=== PATIENT | female | born 1965 | race Caucasian/White ===

== ENCOUNTER 2023-09-22 16:42 | Emergency (ER) | payer BC, SELFPAY ==
[2023-09-22] VITALS (11 sets, daily range): BP systolic 129–154; BP diastolic 64–84; PULSE 79–95; RESP 14–23; TEMP 36.5; O2SAT 94–99; BMI 45.6
--- NOTE | 2023-09-22 16:52 | ECG_ITS ---
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
--- NOTE | 2023-09-22 16:56 | CT_ITS ---
The [address] [address] Patient Name: BOBBY LUJAN MRN: [id number] date: 1965 Sex: F Assigned Patient Location: ER Current Patient Location: ER Accession/Order Number: [id number] Exam Date: 09/22/2023 18:22 Report Date: 09/22/2023 19:06 At the request of: PETER BLACKMON Procedure: CT abdomen pelvis w con EXAM: CT scan of the abdomen and pelvis using 100 mL of IV iodinated contrast. Oral contrast. Dose reduction technique used: Automated exposure control and/or adjustment of the mA and/or kV according to patient size and/or use of iterative reconstruction technique. REASON FOR EXAM: Constipation COMPARISON: None FINDINGS: Nonobstructing right calyceal tip renal stone. Colonic diverticulosis. Hepatomegaly measuring up to 22 cm. Right total hip arthroplasty. Moderate left hip degenerative change. Normal appendix. No free fluid in the abdomen or pelvis. No free intraperitoneal air. No dilated or thickened loops of small bowel or colon. No hydronephrosis or obstructing renal or ureteral calculi. Liver, pancreas, spleen, bilateral kidneys, and bilateral adrenal glands are otherwise unremarkable. No lymphadenopathy in the abdomen or pelvis. Remainder unremarkable. CT/CT abdomen pelvis w con IMPRESSION: No acute abnormalities in the abdomen or pelvis. Electronically authenticated by: NASRA SUMMERS Date: 09/22/2023 19:06
--- NOTE | 2023-09-22 16:57 | ED.GENADUL1 ---
HPI - General Adult General Chief complaint: Dizziness Stated complaint: Constipation, Dizziness Time Seen by Provider: 09/22/23 16:46 Source: patient Mode of arrival: walk-in Limitations: no limitations History of Present Illness HPI narrative: Patient is a 58-year-old female who presents to the emergency department for the evaluation of multiple complaints. For the last week, patient has not had a bowel movement. She states she has a history of diverticulitis and chronically has diarrhea as a result. She states she has had some low back pain which has been associated with diverticulitis for her in the past. She states she has not had a bowel movement, she has also felt lightheaded on standing. She has not had any sensation of spinning, headache, visual changes, chest pain or shortness of breath. She states she has had occasional vomiting since the weekend. She denies urinary symptoms. Related Data Previous Rx's Medication Instructions Recorded hyoscyamine sulfate 0.125 mg 0.125 mg PO Q6H PRN abdominal pain 09/22/23 tablet (Levsin) #12 tabs ondansetron 4 mg disintegrating 4 mg PO Q6H PRN nausea and 09/22/23 tablet vomiting #12 tabs peg 3350-electrolytes 236 240 ml PO Q10M #4,000 mL 09/22/23 gram-22.74 gram-6.74 gram-5.86 gram solution (Golytely) Allergies Allergy/AdvReac Type Severity Reaction Status Date / Time fluoxetine [From Prozac] Allergy Unknown Verified 09/22/23 16:52 PFSH PFSH Social History Smoking status: Former smoker Exam Constitutional Vital Signs, click to edit/add: Last Vital Signs Temp 97.7 F 09/22/23 16:46 Pulse 79 09/22/23 17:50 Resp 21 09/22/23 17:50 BP 129/64 09/22/23 17:31 Pulse Ox 96 09/22/23 17:50 O2 Del Method Room Air 09/22/23 16:46 Course Vital Signs Vital signs: Vital Signs Temperature 97.7 F 09/22/23 16:46 Pulse Rate 95 H 09/22/23 16:46 Respiratory Rate 20 09/22/23 16:46 Blood Pressure 154/84 H 09/22/23 16:46 Pulse Oximetry 99 09/22/23 16:46 Oxygen Delivery Method Room Air 09/22/23 16:46 Temperature 97.7 F 09/22/23 16:46 Pulse Rate 79 09/22/23 17:50 Respiratory Rate 21 09/22/23 17:50 Blood Pressure 129/64 09/22/23 17:31 Pulse Oximetry 96 09/22/23 17:50 Oxygen Delivery Method Room Air 09/22/23 16:46 Medical Decision Making MDM Narrative Medical decision making narrative: Lab studies within normal limits although lactic acid was elevated. Patient treated with IV fluids, Toradol, Zofran. EKG, CT of the abdomen and pelvis with IV and oral contrast within normal limits. Patient will be treated for constipation with GoLytely, Levsin and Zofran. Abdomen is soft and benign. Vital signs are within normal limits at discharge. Patient with no complaints of chest pain, shortness of breath or syncope. She is encouraged to increase fluids for home, follow-up closely with PCP and return to the ER if symptoms change or worsen. Medical Records Medical records reviewed: Yes I reviewed the patient's medical records Lab Data Lab results reviewed: Yes I reviewed the patient's lab results Labs: Lab Results 09/22/23 09/22/23 Range/Units 17:00 19:17 WBC 14.2 H (4.0-11.0) 10^3/uL RBC 4.60 (4.20-5.40) 10^6/uL Hgb 14.7 (12.0-16.0) g/dL Hct 44.8 (36.0-48.0) % MCV 97.4 (81.0-99.0) fL MCH 32.0 (26.7-34.0) pg MCHC 32.8 (29.9-35.2) g/dL RDW 12.9 (11.0-15.0) % Plt Count 243 (150-450) 10^3/uL MPV 10.9 (9.5-13.5) fL Seg Neuts % (Manual) 48.0 Lymphocytes % (Manual) 37.0 (20.5-60.0) % Monocytes % (Manual) 8.0 (1.7-12.0) % Eosinophils % (Manual) 7.0 (0.9-7.0) % Basophils % (Manual) 0.0 L (0.2-2.0) % Neutrophils # (Manual) 6.81 H (1.4-6.5) 10^3/uL Lymphocytes # (Manual) 5.25 H (1.20-3.80) 10^3/uL Monocytes # (Manual) 1.13 H (0.30-0.80) 10^3/uL Eosinophils # (Manual) 0.99 H (0.00-0.70) 10^3/uL Basophils # (Manual) 0.00 (0.00-0.10) 10^3/uL PT 9.8 (9.0-11.6) sec INR <0.93 Sodium 139 (136-145) mmol/L Potassium 3.9 (3.5-5.1) mmol/L Chloride 102 (98-107) mmol/L Carbon Dioxide 24.5 (21.0-32.0) mmol/L Anion Gap 16.4 BUN 16.0 (7.0-18.0) mg/dL Creatinine 0.89 (0.55-1.02) mg/dL Est GFR ( Amer) >60 (>=60) Est GFR (Non-Af Amer) >60 (>=60) BUN/Creatinine Ratio 18.0 Glucose 187 H (74-106) mg/dL Lactate 3.1 H* 1.7 (0.4-2.0) mmol/L Calcium 10.0 (8.5-10.1) mg/dL Total Bilirubin 0.6 (0.2-1.0) mg/dL AST 20 (15-37) U/L ALT 39 (14-59) U/L Alkaline Phosphatase 99 (46-116) U/L Troponin I High Sens 8.3 (4.0-51.3) pg/mL Total Protein 7.1 (6.4-8.2) g/dL Albumin 4.1 (3.4-5.0) g/dL Globulin 3.0 g/dL Albumin/Globulin Ratio 1.[address] scan - abdomen: Attestation: I have reviewed the pertinent imaging results. ECG Data Attestation: I personally reviewed and interpreted this ECG as follows: Discharge Plan Discharge Chief Complaint: Dizziness Clinical Impression: Lightheadedness, Constipation Patient Disposition: Home, Self-Care Time of Disposition Decision: 20:03 Condition: Good Prescriptions / Home Meds: New hyoscyamine sulfate [Levsin] 0.125 mg tablet 0.125 mg PO Q6H PRN (Reason: abdominal pain) Qty: 12 0RF ondansetron 4 mg tablet,disintegrating 4 mg PO Q6H PRN (Reason: nausea and vomiting) Qty: 12 0RF peg 3350-electrolytes [Golytely] 236-22.74-6.74 -5.86 gram recon soln 240 ml PO Q10M Qty: 4000 0RF Rx Instructions: until fecal effluent is clear Instructions: Constipation (ED), Lightheadedness (ED) Stand Alone Forms: Portal Instructions Referrals: VALENTINE KIRKPATRICK [Primary Care Provider] - 1 week
[2023-09-22] MEDS: 0.9 % SODIUM CHLORIDE 1,000 ML 1000 ML IV (17:09)
[2023-09-22] MEDS: KETOROLAC TROMETHAMINE 30 MG/ML VIAL IVP (17:09)
[2023-09-22] MEDS: ONDANSETRON PF 4 MG/2 ML VIAL IV (17:09)
[2023-09-22 17:22] LABS: Hematocrit 44.8 % (36.0-48.0); Hemoglobin 14.7 g/dL (12.0-16.0); Mean Corpuscular HGB Conc 32.8 g/dL (29.9-35.2); Mean Corpuscular Volume 97.4 fL (81.0-99.0); Mean Platelet Volume 10.9 fL (9.5-13.5); Platelet Count 243 10^3/uL (150-450); Red Cell Distribution Width 12.9 % (11.0-15.0); White Blood Count 14.2 10^3/uL (4.0-11.0)
[2023-09-22 17:38] LABS: Eosinophils Absolute Manual 0.99 10^3/uL (0.00-0.70); Lymphocytes Absolute Manual 5.25 10^3/uL (1.20-3.80); Monocytes Absolute Manual 1.13 10^3/uL (0.30-0.80); Segmented Neut Absolute Manual 6.81 10^3/uL (1.4-6.5)
[2023-09-22 17:39] LABS: Prothrombin Time 9.8 sec (9.0-11.6)
[2023-09-22 17:42] LABS: INR <0.93
[2023-09-22 17:44] LABS: Alanine Aminotransferase 39 U/L (14-59); Albumin Globulin Ratio 1.4; Albumin Level 4.1 g/dL (3.4-5.0); Alkaline Phosphatase 99 U/L (46-116); Anion Gap 16.4; Aspartate Amino Transferase 20 U/L (15-37); Bilirubin Total 0.6 mg/dL (0.2-1.0); Carbon Dioxide 24.5 mmol/L (21.0-32.0); Chloride 102 mmol/L (98-107); Estimated GFR (African America >60 (>=60); Estimated GFR (Non-African Ame >60 (>=60); Glucose 187 mg/dL (74-106); Potassium 3.9 mmol/L (3.5-5.1); Sodium 139 mmol/L (136-145); Total Protein 7.1 g/dL (6.4-8.2); Troponin I High Sensitivity 8.3 pg/mL (4.0-51.3)
[2023-09-22 17:45] LABS: Lactate/Lactic Acid 3.1 mmol/L (0.4-2.0)
[2023-09-22 19:52] LABS: Lactate/Lactic Acid 1.7 mmol/L (0.4-2.0)
== END 2023-09-22 20:27 | disposition home or self-care (01) ==
PROVIDERS: Physician Assistant; Emergency Provider Emergency Medicine Emergency Medical Services; PCP Family Medicine
DX: R42 Dizziness and giddiness (principal); K59.00 Constipation, unspecified
CPT/HCPCS: 36415; 74177; 80053; 83605; 84484; 85027; 85610; 93005; 96361; 96374; 96375; 99285; Q9967

== ENCOUNTER 2024-09-06 09:48 | Outpatient (OUT) | payer BC, SELFPAY ==
--- OUTSIDE RECORDS SUMMARY | 2024-09-06 10:07 | XMS_ITS | CCD ---
Author Organization [facility] Care Team Providers Care Machine Ii Engraver Name Role Phone MARYCHUY PARSONS Primary Care Physician CASIMIRO ., DR GRIJALVA Primary Care Unavailable HEMEYER ., DR GRIJALVA Admitting Unavailable HEMEYER ., DR GRIJALVA Attending Unavailable HEMEYER ., DR GRIJALVA Consulting Unavailable HEMEYER ., DR GRIJALVA Primary Care Unavailable NILL ., DR OMER Attending Unavailable NILL ., DR OMER Consulting Unavailable NILL ., DR OMER Admitting Unavailable HEMEYER ., DR GRIJALVA Primary Care Unavailable HAY ., DR CRUZ Attending Unavailable HAY ., DR CRUZ Consulting Unavailable HAY ., DR CRUZ Admitting Unavailable NILL, Stevie Bledsoe Attending Unavailable NILL, Stevie Bledsoe Attending Unavailable NILL, Stevie Bledsoe Attending Unavailable NILL, Stevie Bledsoe Attending Unavailable NILL, Stevie Bledsoe Attending Unavailable NILL, Stevie Bledsoe Admitting Unavailable NILL, Stevie R Attending Unavailable NILL, Stevie R Attending Unavailable NILL, Stevie R Attending Unavailable NILL, Stevie R Attending Unavailable Hemeyer El CANCHOLA Primary Care Provider [phone] El Kirkpatrick MD Unavailable [phone] EL KIRKPATRICK Attending Unavailable EL KIRKPATRICK Attending Unavailable EL KIRKPATRICK Attending Unavailable EL KIRKPATRICK Attending Unavailable EL KIRKPATRICK Attending Unavailable EL KIRKPATRICK Attending Unavailable RASHID SOLIZ Attending Unavailable EL KIRKPATRICK Attending Unavailable EL KIRKPATRICK Attending Unavailable El Kirkpatrick MD Primary Care Provider El Kirkpatrick MD Unavailable [phone] Allergies Allergy Classification Reported Allergen(s) Allergy Type Date of Onset Reaction(s) Facility (17 sources) FLUoxetine; Translations: [fluoxetine] Drug Allergy 03-09-2023 Unknown [facility] (16 sources) rOPINIRole; Translations: [ropinirole] Drug Allergy 05-09-2023 Unknown [facility] (1 source) FLUoxetine Drug Allergy [facility] (1 source) rOPINIRole Drug Allergy [facility] (11 sources) DULoxetine Drug Allergy 05-09-2023 Other [facility] Work Phone: (11 sources) metFORMIN Drug Allergy 08-30-2023 Diarrhea [facility] (1 source) metFORMIN Drug Allergy 03-09-2023 [facility] Medications Current Medications Medication Drug Class(es) Dates Sig (Normalized) Sig (Original) acetaminophen 325 mg / HYDROcodone bitartrate 5 mg oral tablet (1 source) Opioid Agonist Start: 11-05-2022 End: 11-10-2022 take 1 tablet by mouth every six hours for pain [place] 325 mg-5 mg oral tablet 1 tab(s), Oral, q6hr for pain, 15 tab(s), Refill(s) 0, take with food or milk max 4 per day buttock abscess, [facility], 170, cm, 11/05/22 11:31:00 EST, Height/Length Dosing, 136.5, kg, 11/05/22 11:31:00 EST, Weight Dosing Start Date: 11/05/22 Stop Date: 11/10/22 Status: Ordered amoxicillin 875 mg / clavulanate 125 mg oral tablet (1 source) Penicillin-class Antibacterial Start: 02-15-2023 End: 02-25-2023 take 1 tablet by mouth every twelve hours Augmentin 875 mg oral tablet = 1 tab(s), Oral, q12hr, X 10 day(s), # 20 tab(s), Refills(s) 0, Pharmacy: [facility]/pharmacy #[id number], 170, cm, 02/10/23 13:47:00 EDT, Height/Length Dosing, 138, kg, 02/10/23 13:47:00 EDT, Weight Dosing Start Date: 02/15/23 Stop Date: 02/25/23 Status: Ordered atorvastatin 20 mg oral tablet (16 sources) HMG-CoA Reductase Inhibitor Start: 08-27-2024 End: 12-11-2024 take 1 tablet by mouth once daily atorvastatin (Lipitor) 20 MG tablet Indications: Mixed dyslipidemia (CMS/HCC) Take 1 tablet (20 mg) by mouth Daily 30 tablet 08/27/2024 09/26/2024 Active Start: 11-05-2022 End: 2024 take 1 tablet by mouth in the morning atorvastatin (Lipitor) 20 MG tablet Indications: Mixed dyslipidemia (CMS/HCC) Take 1 tablet (20 mg) by mouth in the morning. 90 tablet 0 11/29/2023 2024 Active azelastine hydrochloride 0.137 mg/actuat metered dose nasal spray (1 source) Histamine-1 Receptor Antagonist Start: 07-02-2024 End: 07-02-2025 take 1 spray(s) nasal route in the morning azelastine (Astelin) 0.1 % nasal spray Indications: Non-recurrent acute suppurative otitis media of right ear without spontaneous rupture of tympanic membrane Administer 1 spray into each nostril in the morning and 1 spray before bedtime. Use in each nostril as directed. 30 mL 12 07/02/2024 07/02/2025 Active cephalexin 500 mg oral capsule (3 sources) Cephalosporin Antibacterial Start: 11-24-2023 End: 12-04-2023 take 2 capsules by mouth in the morning cephalexin (Keflex) 500 MG capsule Indications: Cellulitis of left ankle Take 2 capsules (1,000 mg) by mouth in the morning and 2 capsules (1,000 mg) before bedtime. Do all this for 10 days. 40 capsule 0 11/24/2023 12/04/2023 Active doxycycline hyclate 100 mg oral capsule (11 sources) Tetracycline-class Drug Start: 11-16-2023 End: 12-02-2023 doxycycline (Vibramycin) 100 MG capsule Indications: Cellulitis of left ankle , Venous stasis dermatitis of left lower extremity Take 1 capsule (100 mg) by mouth in the morning and 1 capsule (100 mg) before bedtime. Do all this for 10 days. Take with at least 8 ounces (large glass) of water. 20 capsule 0 11/22/2023 12/02/2023 Active Dulaglutide (Trulicity) 4.5 MG/0.5ML solution auto-injector (1 source) Start: 08-27-2024 End: 02-23-2025 Dulaglutide (Trulicity) 4.5 MG/0.5ML solution auto-injector Indications: Type 2 diabetes mellitus with other diabetic kidney complication (CMS/HCC) , Type 2 diabetes mellitus with hyperglycemia, without long-term current use of insulin (CMS/HCC) Inject 4.5 mg under the skin 1 (one) time per week 6 mL 1 08/27/2024 02/23/2025 Active dulaglutide (Trulicity) 4.5 MG/0.5ML solution pen-injector (10 sources) Start: 08-31-2023 End: 02-27-2024 dulaglutide (Trulicity) 4.5 MG/0.5ML solution pen-injector Indications: Type 2 diabetes mellitus with other diabetic kidney complication (CMS/HCC) , Type 2 diabetes mellitus with hyperglycemia, without long-term current use of insulin (CMS/HCC) Inject 4.5 mg under the skin 1 (one) time per week. 6 mL 1 08/31/2023 02/27/2024 Active empagliflozin 25 mg oral tablet (12 sources) Sodium-Glucose Cotransporter 2 Inhibitor Start: 08-27-2024 End: 11-25-2024 take 1 tablet by mouth once daily empagliflozin (Jardiance) 25 MG Indications: Diabetic nephropathy associated with type 2 diabetes mellitus (HCC) (CMS/HCC) Take 1 tablet (25 mg) by mouth Daily 90 tablet 08/27/2024 11/25/2024 Active Start: 08-31-2023 End: 02-27-2024 take 1 tablet by mouth in the morning empagliflozin (Jardiance) 25 MG Indications: Diabetic nephropathy associated with type 2 diabetes mellitus (HCC) (CMS/HCC) Take 1 tablet (25 mg) by mouth in the morning. 30 tablet 0 11/29/2023 12/29/2023 Active glipiZIDE 5 mg oral tablet (1 source) Sulfonylurea Start: 08-27-2024 End: 09-26-2024 take 1 tablet by mouth in the morning glipiZIDE (Glucotrol) 5 MG tablet Indications: Type 2 diabetes mellitus with other diabetic kidney complication (CMS/HCC) Take 1 tablet (5 mg) by mouth in the morning and 1 tablet (5 mg) in the evening. Take before meals. 60 tablet 08/27/2024 09/26/2024 Active hyoscyamine sulfate 0.125 mg oral tablet (10 sources) Start: 09-22-2023 take 1 tablet by mouth every six hours as needed hyoscyamine (Anaspaz,Levsin) 0.125 MG tablet Take 0.125 mg by mouth every 6 (six) hours if needed 0 09/22/2023 Active levoFLOXacin 750 mg oral tablet (2 sources) Quinolone Antimicrobial Start: 02-10-2023 End: 02-17-2023 take 1 tablet by mouth once daily Levaquin 750 mg Tab 750 mg = 1 tab(s), Oral, Daily, X 7 day(s), # 7 tab(s), Refills(s) 0, Pharmacy: [facility]/pharmacy #[id number], 170, cm, 02/10/23 13:47:00 EDT, Height/Length Dosing, 138, kg, 02/10/23 13:47:00 EDT, Weight Dosing Start Date: 02/10/23 Stop Date: 02/17/23 Status: Ordered 3 ml liraglutide 6 mg/ml pen injector (5 sources) GLP-1 Receptor Agonist Start: 11-05-2022 Victoza 6 mg/mL subcutaneous injection Refills(s) 0 Start Date: 11/05/22 Status: Ordered losartan potassium 25 mg oral tablet (16 sources) Angiotensin 2 Receptor Paolo Start: 08-27-2024 End: 09-26-2024 take 1 tablet by mouth once daily losartan (Cozaar) 25 MG tablet Indications: Type 2 diabetes mellitus with other diabetic kidney complication (CMS/HCC) Take 1 tablet (25 mg) by mouth Daily 30 tablet 08/27/2024 09/26/2024 Active Start: 05-09-2023 End: 2024 take 1 tablet by mouth in the morning losartan (Cozaar) 25 MG tablet Indications: Type 2 diabetes mellitus with other diabetic kidney complication (CMS/HCC) Take 1 tablet (25 mg) by mouth in the morning. 90 tablet 0 11/29/2023 2024 Active Start: 11-05-2022 take 1 tablet by marcio th once daily losartan 25 mg Tab 25 mg = 1 tab(s), Oral, Daily, Refills(s) 0 Start Date: 11/05/22 Status: Ordered metFORMIN hydrochloride 1000 mg oral tablet (13 sources) Biguanide Start: 10-31-2023 End: 12-30-2023 metFORMIN (Glucophage) 1000 MG tablet Indications: Type 2 diabetes mellitus with hyperglycemia, without long-term current use of insulin (CMS/HCC) Take 1 in the AM and 1/2 in the PM. 135 tablet 0 11/29/2023 Active Start: 02-10-2023 take 1 tablet by marcio th twice daily metformin 1000 mg Tab 1,000 mg = 1 tab(s), Oral, BID, Refills(s) 0 Start Date: 02/10/23 Status: Ordered nabumetone 750 mg oral tablet (16 sources) Nonsteroidal Anti-inflammatory Drug Start: 08-31-2023 End: 05-23-2025 take 2 tablets by mouth once daily nabumetone (Relafen) 750 MG tablet Indications: Pain in extremity, unspecified extremity Take 2 tablets (1,500 mg) by mouth Daily 180 tablet 3 05/28/2024 05/23/2025 Active Start: 11-03-2022 take 1 tablet by marcio th twice daily nabumetone 750 mg Tab 750 mg = 1 tab(s), Oral, BID, Refills(s) 0 Start Date: 11/03/22 Status: Ordered nystatin 100 unt/mg topical powder (11 sources) Polyene Antifungal Start: 06-21-2023 nystatin (Mycostatin) 719052 UNIT/GM powder Indications: Candidiasis Apply 1 application topically if needed for rash. 60 g 1 06/21/2023 Active ondansetron 4 mg disintegrating oral tablet (10 sources) Serotonin-3 Receptor Antagonist Start: 09-22-2023 take 1 tablet by mouth every eight hours as needed ondansetron ODT (Zofran-ODT) 4 MG disintegrating tablet Take 4 mg by mouth every 8 (eight) hours if needed 0 09/22/2023 Active pioglitazone 30 mg oral tablet (1 source) Peroxisome Proliferator Receptor alpha Agonist, Peroxisome Proliferator Receptor gamma Agonist, Thiazolidinedione Start: 05-21-2024 End: 11-17-2024 take 1 tablet by mouth once daily pioglitazone (Actos) 30 MG tablet Indications: Type 2 diabetes mellitus with other diabetic kidney complication (CMS/HCC) Take 1 tablet (30 mg) by mouth Daily 90 tablet 1 05/21/2024 11/17/2024 Active polyethylene glycol 3350 003858 mg / potassium chloride 2970 mg / sodium bicarbonate 6740 mg / sodium chloride 5860 mg / sodium sulfate 11652 mg powder for oral solution (10 sources) Osmotic Laxative Start: 09-22-2023 take 4000 mL by mouth once GaviLyte-G 236 g solution Take 4,000 mL by mouth 1 (one) time 0 09/22/2023 Active spironolactone 50 mg oral tablet (16 sources) Aldosterone Antagonist Start: 08-27-2024 End: 11-25-2024 take 1 tablet by mouth in the morning spironolactone (Aldactone) 50 MG tablet Indications: Venous (peripheral) insufficiency Take 1 tablet (50 mg) by mouth in the morning and 1 tablet (50 mg) before bedtime. 180 tablet 08/27/2024 11/25/2024 Active Start: 05-09-2023 take 1 tablet by marcio th in the morning spironolactone (Aldactone) 50 MG tablet Indications: Venous (peripheral) insufficiency Take 1 tablet (50 mg) by mouth in the morning and 1 tablet (50 mg) before bedtime. 180 tablet 1 05/09/2023 Active Start: 11-05-2022 take 1 tablet by marcio th twice daily spironolactone 25 mg Tab 25 mg = 1 tab(s), Oral, BID, Refills(s) 0 Start Date: 11/05/22 Status: Ordered triamcinolone acetonide 0.005 mg/mg topical ointment (10 sources) Corticosteroid Start: 11-16-2023 End: 12-16-2023 triamcinolone (Kenalog) 0.5 % ointment Indications: Cellulitis of left ankle , Venous stasis dermatitis of left lower extremity Apply topically 2 (two) times a day 30 g 0 11/16/2023 12/16/2023 Active Completed/Discontinued Medications Medication Drug Class(es) Dates Sig (Normalized) Sig (Original) fluconazole 200 mg oral tablet (4 sources) Azole Antifungal Start: 08-20-2024 End: 09-03-2024 take 1 tablet by mouth once daily fluconazole (Diflucan) 200 MG tablet Indications: Enteritis, noninfectious Take 1 tablet (200 mg) by mouth Daily for 14 days 14 tablet 08/20/2024 09/03/2024 Start: 11-24-2023 End: 12-04-2023 take 1 tablet by mouth in the morning fluconazole (Diflucan) 200 MG tablet Indications: Candidiasis Take 1 tablet (200 mg) by mouth in the morning for 10 days. 10 tablet 0 11/24/2023 12/04/2023 Active Problems Active Problems Problem Classification Problem Date Documented Date Episodic/Chronic Chronic kidney disease (1 source) Chronic kidney disease stage 2; Translations: [Chronic kidney disease, stage 2 (mild)] Onset: 12-02-2023 12-02-2023 Chronic Chronic obstructive pulmonary disease and bronchiectasis (11 sources) Pulmonary emphysema; Translations: [Other emphysema] Onset: 03-10-2023 03-10-2023 Chronic Diabetes mellitus with complications (20 sources) Type 2 diabetes mellitus; Translations: [Type 2 diabetes mellitus with hyperglycemia] Onset: 04-14-2022 Resolved: 05-09-2023 03-10-2023 Chronic Diabetes mellitus without complication (5 sources) Diabetes mellitus 11-03-2022 Chronic Disorders of lipid metabolism (20 sources) Hypercholesterolemia; Translations: [Dyslipidemia] Onset: 03-10-2023 Resolved: 11-23-2023 11-03-2022 Chronic Menopausal disorders (16 sources) Menopausal syndrome; Translations: [Disorder associated with menstruation AND/OR menopause] Onset: 03-10-2023 12-28-2013 Chronic Mood disorders (16 sources) Depressive disorder; Translations: [Recurrent major depression in partial remission] Onset: 05-09-2023 12-28-2013 Chronic Mycoses (1 source) Candidiasis; Translations: [Candidiasis, unspecified] 11-24-2023 Episodic Nutritional deficiencies (16 sources) Vitamin D deficiency; Translations: [Vitamin D deficiency, unspecified] Onset: 03-22-2023 11-03-2022 Chronic Osteoarthritis (16 sources) Osteoarthritis of hip; Translations: [Osteoarthritis of hip, unspecified] Onset: 03-22-2023 08-17-2016 Chronic Other diseases of veins and lymphatics (4 sources) Stasis dermatitis; Translations: [Venous insufficiency (chronic) (peripheral)] 11-22-2023 Episodic Other diseases of veins and lymphatics (12 sources) Peripheral venous insufficiency; Translations: [Venous insufficiency (chronic) (peripheral)] Onset: 03-10-2023 03-10-2023 Episodic Other lower respiratory disease (11 sources) Fibrosis of lung; Translations: [Pulmonary fibrosis, unspecified] Onset: 03-10-2023 03-10-2023 Chronic Other nutritional; endocrine; and metabolic disorders (17 sources) Body mass index 40+ - severely obese; Translations: [Body mass index (BMI) 45.0-49.9, adult] Onset: 03-22-2023 11-05-2022 Chronic Other nutritional; endocrine; and metabolic disorders (1 source) Morbid (severe) obesity due to excess calories; Translations: [MORBID SEVERE OBES D/T EXCESS SHAMAR] Onset: 11-02-2022 Chronic Other nutritional; endocrine; and metabolic disorders (1 source) Body mass index (BMI) 45.0-49.9, adult; Translations: [BODY MASS INDEX BMI 45.0-49.9 ADULT] Onset: 11-02-2022 Chronic Other nutritional; endocrine; and metabolic disorders (12 sources) Morbid obesity; Translations: [Morbid (severe) obesity due to excess calories] Onset: 03-10-2023 03-10-2023 Chronic Other skin disorders (2 sources) Sebaceous cyst of skin; Translations: [Sebaceous cyst] Onset: 02-10-2023 Episodic Residual codes; unclassified (5 sources) Sleep apnea 11-03-2022 Chronic Residual codes; unclassified (4 sources) Obstructive sleep apnea (adult) (pediatric); Translations: [OBSTRUCTIVE SLEEP APNEA] Onset: 05-12-2022 Chronic Residual codes; unclassified (11 sources) Hypoxia; Translations: [Idiopathic sleep related nonobstructive alveolar hypoventilation] Onset: 03-10-2023 03-10-2023 Chronic Residual codes; unclassified (11 sources) Obstructive sleep apnea syndrome; Translations: [Obstructive sleep apnea (adult) (pediatric)] Onset: 03-10-2023 03-10-2023 Chronic Residual codes; unclassified (11 sources) Idiopathic sleep related non-obstructive alveolar hypoventilation; Translations: [Idiopathic sleep related nonobstructive alveolar hypoventilation] Onset: 06-13-2022 03-22-2023 Chronic Residual codes; unclassified (5 sources) Tobacco user 11-05-2022 Episodic Skin and subcutaneous tissue infections (16 sources) Abscess of buttock; Translations: [Cutaneous abscess of buttock] Onset: 11-01-2022 11-05-2022 Episodic Past or Other Problems Problem Classification Problem Date Documented Da te Episodic/Chronic Genitourinary symptoms and ill-defined conditions (1 source) Microalbuminuria; Translations: [Proteinuria, unspecified] Onset: 12-02-2023 12-02-2023 Episodic Intestinal infection (16 sources) Clostridium difficile colitis; Translations: [Enterocolitis due to Clostridium difficile, not specified as recurrent] Onset: 03-22-2023 Resolved: 05-15-2024 08-17-2016 Episodic Comment on above: april 2016 Mood disorders (11 sources) Mood disorders Onset: 03-15-2023 03-15-2023 Other aftercare (1 source) Other senior living (current) drug therapy; Translations: [OTH REGULATORY AFFAIRS SPECIALIST CURRENT DRUG THERAPY] Onset: 11-02-2022 Episodic Other aftercare (12 sources) Polypharmacy ; Translations: [Other senior living (current) drug therapy] Onset: 04-14-2022 03-22-2023 Episodic Other connective tissue disease (11 sources) Pain in limb; Translations: [Pain in unspecified limb] Onset: 03-10-2023 03-10-2023 Episodic Other gastrointestinal disorders (16 sources) Diarrhea; Translations: [Diarrhea, unspecified] Onset: 03-22-2023 Resolved: 05-15-2024 08-17-2016 Episodic Other skin disorders (14 sources) Infection of sebaceous cyst; Translations: [Sebaceous cyst] Onset: 03-22-2023 Resolved: 05-09-2023 02-10-2023 Episodic Pulmonary heart disease (11 sources) H/O: pulmonary embolus; Translations: [Personal history of pulmonary embolism] Onset: 05-18-2022 03-22-2023 Episodic Residual codes; unclassified (11 sources) Menopause present; Translations: [Asymptomatic menopausal state] Onset: 04-14-2022 03-22-2023 Episodic Substance-related disorders (18 sources) Smoker; Translations: [Nicotine dependence, cigarettes, uncomplicated] Onset: 11-02-2022 Resolved: 11-23-2023 08-17-2016 Chronic Comment on above: Added secondary to d ocumentation in Social History. Results Test Name Value Interpretation Reference Range Facility General Surgery Office/Clini c Noteon 04-03-2023 General Surgery Office/Clinic Note Chief Complaint post operative follow up HPI Staff 16 day post operative follow up post excisional biopsy epidermal cyst mid back. Denies discomfort, bleeding or drainage. Sutures intact. History of Present Illness s/p excisional biopsy previously infected epidermal cyst mid back; doing well, denies pain or drainage; pathology consistent with epidermal cyst. Review of Systems ROS - Provider Constitutional: no fever, no sweats, no weight loss. Eyes: no glasses, no blurred vision, no visual loss. ENMT: no dentures, no hoarseness, no swallowing difficulties, no hearing loss, no ear infection(s), no nose bleeds. Cardiovascular: normal blood pressure, no chest pain, regular heartbeat, no heart murmur. Respiratory: no shortness of breath, no cough, no asthma, no wheezing. Gastrointestinal: no nausea, no vomiting, no diarrhea, no constipation, no blood in stool, no change in bowel habits, no abdominal pain, no hepatitis. Genitourinary: no kidney stones, no urine infection, no dysuria. Musculoskeletal: no pain, no weakness. Skin: no changing moles, no rash, no skin lumps. Neurologic: no seizures, no epilepsy, no headache. Psychiatric: no emotional or psychiatric problem. Heme/Lymph: no bleeding problems, no anemia, no blood clots, no transfusions. Allergy/Immunologic: no swollen lymph nodes/glands, no IV drug abuse. Other: Additional ROS info: Except as noted in the above Review of Systems and in the History of Present Illness, all other systems have been reviewed and are negative or noncontributory. Physical Exam skin: incision healing well, no erythema or drainage, no ecchymosis Assessment/Plan 1. Infected sebaceous cyst (L72.3: Sebaceous cyst) doing well, sutures removed; call with problems/questions. Local infection of the skin and subcutaneous tissue, unspecified (L08.9: Local infection of the skin and subcutaneous tissue, unspecified) Follow-up With When Contact Information WYATT CANCHOLA, COCO Neal Only if needed [address] [place] [address]- Additional Instructions: Problem List/Past Medical History Ongoing Abscess of right buttock BMI 45.0-49.9, adult Depression Diabetes Hypercholesteremia Infected sebaceous cyst Menopause Sleep apnea Smoker Tobacco abuse Vitamin D deficiency Historical No qualifying data Procedure/Surgical History Excision of cyst (03/16/2023), right total hip arthroplasty (09/07/2016), right hip injection with fluroscopy (11/23/2013), Colonoscopy, Colonoscopy, Colonoscopy, left distal biceps reconstruction - 04/20/11, Partial colectomy. Medications atorvastatin 20 mg Tab, 20 mg= 1 tab(s), Oral, Daily losartan 25 mg Tab, 25 mg= 1 tab(s), Oral, Daily metformin 1000 mg Tab, 1000 mg= 1 tab(s), Oral, BID nabumetone 750 mg Tab, 750 mg= 1 tab(s), Oral, BID spironolactone 25 mg Tab, 25 mg= 1 tab(s), Oral, BID Victoza 6 mg/mL subcutaneous injection Allergies FLUoxetine (Unknown) rOPINIRole (Unknown) Social History Alcohol - Denies Alcohol Use, 11/05/2022 Substance Abuse - Denies Substance Abuse, 11/05/2022 Tobacco Former smoker, quit more than 30 days ago Tobacco Use:. Never Smokeless Tobacco Use:. Cigarettes, 2 per day. Started age 22.0 Years. Stopped age 57 Years. Yes, 02/10/2023 Family History Metastatic cancer: Father. Primary malignant neoplasm of lung: Mother. Rheumatoid arthritis: Sister. Immunizations Vaccine Date Status Comments influenza virus vaccine, inactivated - Not Given Patient Refuses SARS-CoV-2 (COVID-19) mRNA BNT-162b2 vax 01/30/2021 Recorded influenza virus vaccine, inactivated 09/08/2016 Given Nursing Judgment [facility] Comment on above: Result Comment: Electronically Signed By : Stevie SCHNEIDER MD\.br\Date and Time Signed: 04/03/23 19:49 EDT Ambulatory Visit Summaryon 0 04-01-2023 Ambulatory Visit Summary DOMONIQUE GILBERT :1965 Visit Date:04/01/2023 Ambulatory Visit Instructions Your Care Team Attending Physician - Stevie SCHNEIDER MD Primary Care Physician - MARYCHUY PARSONS DO This Is Your Medications List atorvastatin (atorvastatin 20 mg Tab) liraglutide (Victoza 6 mg/mL subcutaneous injection) losartan (losartan 25 mg Tab) metformin (metformin 1000 mg Tab) nabumetone (nabumetone 750 mg Tab) spironolactone (spironolactone 25 mg Tab) Procedures Performed Excision of cyst (03/16/2023), right total hip arthroplasty (09/07/2016), right hip injection with fluroscopy (11/23/2013), Colonoscopy, Colonoscopy, Colonoscopy, left distal biceps reconstruction - 04/20/11, Partial colectomy. Medications What How Much When Instructions Unchanged atorvastatin (atorvastatin 20 mg Tab) 1 Tablets By Mouth Every day Unchanged liraglutide (Victoza 6 mg/ mL subcutaneous injection) Unchanged losartan (losartan 25 mg Tab) 1 Tablets By Mouth Every day Unchanged metformin (metformin 1000 mg Tab) 1 Tablets By Mouth 2 times a day Unchanged nabumetone (nabumetone 750 mg Tab) 1 Tablets By Mouth 2 times a day Unchanged spironolactone (spironolactone 25 mg Tab) 1 Tablets By Mouth 2 times a day Allergies FLUoxetine (Unknown) rOPINIRole (Unknown) Problems Ongoing - Any problem that you are currently receiving treatment for. Abscess of right buttock BMI 45.0-49.9, adult Depression Diabetes Hypercholesteremia Infected sebaceous cyst Menopause Sleep apnea Smoker Tobacco abuse Vitamin D deficiency Normal [facility] Pathology Noteon 03-27-2023 Pathology Note [id number]#1 .00CD:127 [facility] Operative Reporton Operative Report [id number]#1 .00CD:127 [facility] Pre-Certification Formon Pre-Certificatio n Form [id number]# 1.00CD:127 [facility] Ambulatory Visit Summaryon 0 02-15-2023 Ambulatory Visit Summary DOMONIQUE GILBERT :1965 Visit Date:02/15/2023 Ambulatory Visit Instructions Your Diagnosis Infected sebaceous cyst Local infection of the skin and subcutaneous tissue, unspecified Your Care Team Attending Physician - WYATT CANCHOLA, Stevie Bledsoe Primary Care Physician - MARYCHUY PARSONS DO This Is Your Medications List amoxicillin-clavulana te (Augmentin 875 mg oral tablet) atorvastatin (atorvastatin 20 mg Tab) levofloxacin (Levaquin 750 mg Tab) liraglutide (Victoza 6 mg/mL subcutaneous injection) losartan (losartan 25 mg Tab) metformin (metformin 1000 mg Tab) nabumetone (nabumetone 750 mg Tab) spironolactone (spironolactone 25 mg Tab) Procedures Performed right total hip arthroplasty (09/07/2016), right hip injection with fluroscopy (11/23/2013), Colonoscopy, Colonoscopy, Colonoscopy, left distal biceps reconstruction - 04/20/11, Partial colectomy. Medications What How Much When Why Instructions New amoxicillin-clavulana te (Augmentin 875 mg oral tablet) 1 Tablets By Mouth Every 12 hours Infected sebaceous cyst Duration: 10 Days Pickup at [facility]/pharmacy #[id number] Unchanged atorvastatin (atorvastatin 20 mg Tab) 1 Tablets By Mouth Every day Unchanged levofloxacin (Levaquin 750 mg Tab) 1 Tablets By Mouth Every day Infected sebaceous cyst Duration: 7 Days Unchanged liraglutide (Victoza 6 mg/ mL subcutaneous injection) Unchanged losartan (losartan 25 mg Tab) 1 Tablets By Mouth Every day Unchanged metformin (metformin 1000 mg Tab) 1 Tablets By Mouth 2 times a day Unchanged nabumetone (nabumetone 750 mg Tab) 1 Tablets By Mouth 2 times a day Unchanged spironolactone (spironolactone 25 mg Tab) 1 Tablets By Mouth 2 times a day Pharmacy Information [facility]/pharmacy #[id number]: [address], [place] [id number] [phone] Allergies FLUoxetine (Unknown) rOPINIRole (Unknown) Problems Ongoing - Any problem that you are currently receiving treatment for. Abscess of right buttock BMI 45.0-49.9, adult Depression Diabetes Hypercholesteremia Infected sebaceous cyst Menopause Sleep apnea Smoker Tobacco abuse Vitamin D deficiency Normal [facility] General Surgery Office/Clini c Noteon 02-15-2023 General Surgery Office/Clinic Note Chief Complaint re-evaluate infected sebaceous cyst HPI Staff Presents to re-evaluated infected sebaceous cyst. Last evaluation 02/10. Reports increase in discomfort and drainage. She is taking ATB as prescribed. History of Present Illness patient presents for reevaluation of inflamed/infected sebaceous cyst; patient on Levaquin daily, reports still with soreness and drainage. Review of Systems ROS - Provider Constitutional: no fever, no sweats, no weight loss. Eyes: no glasses, no blurred vision, no visual loss. ENMT: no dentures, no hoarseness, no swallowing difficulties, no hearing loss, no ear infection(s), no nose bleeds. Cardiovascular: normal blood pressure, no chest pain, regular heartbeat, no heart murmur. Respiratory: no shortness of breath, no cough, no asthma, no wheezing. Gastrointestinal: no nausea, no vomiting, no diarrhea, no constipation, no blood in stool, no change in bowel habits, no abdominal pain, no hepatitis. Genitourinary: no kidney stones, no urine infection, no dysuria. Musculoskeletal: no pain, no weakness. Skin: no changing moles, no rash, yes skin lumps. Neurologic: no seizures, no epilepsy, no headache. Psychiatric: no emotional or psychiatric problem. Heme/Lymph: no bleeding problems, no anemia, no blood clots, no transfusions. Allergy/Immunologic: no swollen lymph nodes/glands, no IV drug abuse. Other: Additional ROS info: Except as noted in the above Review of Systems and in the History of Present Illness, all other systems have been reviewed and are negative or noncontributory. Physical Exam skin: mid back with 2 cm area of induration, no cellulitis, mild ecchymosis; small central pore with cloudy drainage; no fluctuance, no skin necrosis. Assessment/Plan 1. Infected sebaceous cyst (L72.3: Sebaceous cyst) keep area clean and dry; clean with rubbing alcohol bid; don't squeeze area; keep gauze pad over area until it seals up; additional 10 day course of Augmentin since patient is going out of town; call with problems/questions. Ordered: amoxicillin-clavulana te, = 1 tab(s), Oral, q12hr, X 10 day(s), # 20 tab(s), Refills(s) 0, Pharmacy: [facility]/pharmacy #[id number], 170, cm, 02/10/23 13:47:00 EDT, Height/Length Dosing, 138, kg, 02/10/23 13:47:00 EDT, Weight Dosing Local infection of the skin and subcutaneous tissue, unspecified (L08.9: Local infection of the skin and subcutaneous tissue, unspecified) Follow-up No qualifying data available Problem List/Past Medical History Ongoing Abscess of right buttock BMI 45.0-49.9, adult Depression Diabetes Hypercholesteremia Infected sebaceous cyst Menopause Sleep apnea Smoker Tobacco abuse Vitamin D deficiency Historical No qualifying data Procedure/Surgical History right total hip arthroplasty (09/07/2016), right hip injection with fluroscopy (11/23/2013), Colonoscopy, Colonoscopy, Colonoscopy, left distal biceps reconstruction - 04/20/11, Partial colectomy. Medications atorvastatin 20 mg Tab, 20 mg= 1 tab(s), Oral, Daily Augmentin 875 mg oral tablet, 1 tab(s), Oral, q12hr Levaquin 750 mg Tab, 750 mg= 1 tab(s), Oral, Daily losartan 25 mg Tab, 25 mg= 1 tab(s), Oral, Daily metformin 1000 mg Tab, 1000 mg= 1 tab(s), Oral, BID nabumetone 750 mg Tab, 750 mg= 1 tab(s), Oral, BID spironolactone 25 mg Tab, 25 mg= 1 tab(s), Oral, BID Victoza 6 mg/mL subcutaneous injection Allergies FLUoxetine (Unknown) rOPINIRole (Unknown) Social History Alcohol - Denies Alcohol Use, 11/05/2022 Substance Abuse - Denies Substance Abuse, 11/05/2022 Tobacco Former smoker, quit more than 30 days ago Tobacco Use:. Never Smokeless Tobacco Use:. Cigarettes, 2 per day. Started age 20.0 Years. Stopped age 57 Years. Yes, 02/10/2023 Family History Metastatic cancer: Father. Primary malignant neoplasm of lung: Mother. Rheumatoid arthritis: Sister. Immunizations Vaccine Date Status Comments influenza virus vaccine, inactivated - Not Given Patient Refuses SARS-CoV-2 (COVID-19) mRNA BNT-162b2 vax 01/30/2021 Recorded influenza virus vaccine, inactivated 09/08/2016 Given Nursing Judgment [facility] Comment on above: Result Comment: Electronically Signed By : WYATT CANCHOLA, Stevie Mercado\Date and Time Signed: 02/15/23 16:02 EDT Consent for Procedure/Surger yon 02-11-2023 Consent for Procedure/Surger y [id number]#1 .00CD:127 Normal [facility] Ambulatory Visit Summaryon 0 02-10-2023 Ambulatory Visit Summary DOMONIQUE GILBERT :1965 Visit Date:02/10/2023 Ambulatory Visit Instructions Your Care Team Attending Physician - WYATT CANCHOLA, Stevie Bledsoe Primary Care Physician - MARYCHUY PARSONS DO This Is Your Medications List atorvastatin (atorvastatin 20 mg Tab) liraglutide (Victoza 6 mg/mL subcutaneous injection) losartan (losartan 25 mg Tab) metformin (metformin 1000 mg Tab) nabumetone (nabumetone 750 mg Tab) spironolactone (spironolactone 25 mg Tab) Procedures Performed right total hip arthroplasty (09/07/2016), right hip injection with fluroscopy (11/23/2013), Colonoscopy, Colonoscopy, Colonoscopy, left distal biceps reconstruction - 04/20/11, Partial colectomy. Discharge Vitals Heart Rate (Peripheral) 96 Respiratory Rate 16 Blood Pressure 138/83 Height 170 cm Height 67 in Weight 138 kg Weight 303.6 lb BMI 47.75 Medications What How Much When Instructions Unchanged atorvastatin (atorvastatin 20 mg Tab) 1 Tablets By Mouth Every day Unchanged liraglutide (Victoza 6 mg/ mL subcutaneous injection) Unchanged losartan (losartan 25 mg Tab) 1 Tablets By Mouth Every day Unchanged metformin (metformin 1000 mg Tab) 1 Tablets By Mouth 2 times a day Unchanged nabumetone (nabumetone 750 mg Tab) 1 Tablets By Mouth 2 times a day Unchanged spironolactone (spironolactone 25 mg Tab) 1 Tablets By Mouth 2 times a day Allergies FLUoxetine (Unknown) rOPINIRole (Unknown) Problems Ongoing - Any problem that you are currently receiving treatment for. Abscess of right buttock BMI 45.0-49.9, adult Depression Diabetes Hypercholesteremia Menopause Sleep apnea Smoker Tobacco abuse Vitamin D deficiency Normal [facility] Ambulatory Visit Summaryon 0 11-17-2022 Ambulatory Visit Summary DOMONIQUE GILBERT :1965 Visit Date:11/12/2022 Ambulatory Visit Instructions Your Diagnosis Abscess of right buttock Your Care Team Attending Physician - WYATT CANCHOLA, Stevie Bledsoe Primary Care Physician - MARYCHUY PARSONS DO This Is Your Medications List Contact prescribing physician if questions or concerns atorvastatin (atorvastatin 20 mg Tab) liraglutide (Victoza 6 mg/mL subcutaneous injection) losartan (losartan 25 mg Tab) nabumetone (nabumetone 750 mg Tab) spironolactone (spironolactone 25 mg Tab) Procedures Performed right total hip arthroplasty (09/07/2016), right hip injection with fluroscopy (11/23/2013), Colonoscopy, Colonoscopy, Colonoscopy, left distal biceps reconstruction - 04/20/11, Partial colectomy. What to do next You Need to Schedule the Following Appointments Follow Up with WYATT CANCHOLA, COCO Neal When: Only if needed Where: [address] [place] [address]- Medications What How Much When Instructions Unchanged atorvastatin (atorvastatin 20 mg Tab) 1 Tablets By Mouth Every day Contact prescribing physician if questions or concerns Unchanged liraglutide (Victoza 6 mg/ mL subcutaneous injection) Contact prescribing physician if questions or concerns Unchanged losartan (losartan 25 mg Tab) 1 Tablets By Mouth Every day Contact prescribing physician if questions or concerns Unchanged nabumetone (nabumetone 750 mg Tab) 1 Tablets By Mouth 2 times a day Contact prescribing physician if questions or concerns Unchanged spironolactone (spironolactone 25 mg Tab) 1 Tablets By Mouth 2 times a day Contact prescribing physician if questions or concerns Allergies FLUoxetine (Unknown) rOPINIRole (Unknown) Problems Ongoing - Any problem that you are currently receiving treatment for. Abscess of right buttock BMI 45.0-49.9, adult Depression Diabetes Hypercholesteremia Menopause Sleep apnea Smoker Tobacco abuse Vitamin D deficiency Normal [facility] General Surgery Office/Clini c Noteon 11-12-2022 General Surgery Office/Clinic Note Chief Complaint follow up abscess HPI Staff Presents to follow up right buttock abscess. Packing daily with less packing required. Stopped sitz bath 3 days ago. ATB completed Tuesday. Wound cx with strep B. History of Present Illness f/u right buttock abscess, still packing area daily, much less packing, minimal soreness, no drainage, no fevers; no longer doing sitz baths; completed antibiotic therapy. Review of Systems ROS - Provider Constitutional: no fever, no sweats, no weight loss. Eyes: no glasses, no blurred vision, no visual loss. ENMT: no dentures, no hoarseness, no swallowing difficulties, no hearing loss, no ear infection(s), no nose bleeds. Cardiovascular: normal blood pressure, no chest pain, regular heartbeat, no heart murmur. Respiratory: no shortness of breath, no cough, no asthma, no wheezing. Gastrointestinal: no nausea, no vomiting, no diarrhea, no constipation, no blood in stool, no change in bowel habits, no abdominal pain, no hepatitis. Genitourinary: no kidney stones, no urine infection, no dysuria. Musculoskeletal: no pain, no weakness. Skin: no changing moles, no rash, no skin lumps. Neurologic: no seizures, no epilepsy, no headache. Psychiatric: no emotional or psychiatric problem. Heme/Lymph: no bleeding problems, no anemia, no blood clots, no transfusions. Allergy/Immunologic: no swollen lymph nodes/glands, no IV drug abuse. Other: Additional ROS info: Except as noted in the above Review of Systems and in the History of Present Illness, all other systems have been reviewed and are negative or noncontributory. Physical Exam right medial buttock with no cellulitis or induration; 4 mm open area, no drainage or fluctuance; tracks 4 cm Assessment/Plan 1. Abscess of right buttock (L02.31: Cutaneous abscess of buttock) wound repacked, covered with abd pad; continue packing until it fills in; call with problems/questions. Follow-up With When Contact Information WYATT CANCHOLA, COCO Neal Only if needed [address] [place] [address]- Additional Instructions: Problem List/Past Medical History Ongoing Abscess of right buttock BMI 45.0-49.9, adult Depression Diabetes Hypercholesteremia Menopause Sleep apnea Smoker Tobacco abuse Vitamin D deficiency Historical No qualifying data Procedure/Surgical History right total hip arthroplasty (09/07/2016), right hip injection with fluroscopy (11/23/2013), Colonoscopy, Colonoscopy, Colonoscopy, left distal biceps reconstruction - 04/20/11, Partial colectomy. Medications atorvastatin 20 mg Tab, 20 mg= 1 tab(s), Oral, Daily losartan 25 mg Tab, 25 mg= 1 tab(s), Oral, Daily nabumetone 750 mg Tab, 750 mg= 1 tab(s), Oral, BID spironolactone 25 mg Tab, 25 mg= 1 tab(s), Oral, BID Victoza 6 mg/mL subcutaneous injection Allergies FLUoxetine (Unknown) rOPINIRole (Unknown) Social History Alcohol - Denies Alcohol Use, 11/05/2022 Substance Abuse - Denies Substance Abuse, 11/05/2022 Tobacco 10 or more cigarettes (1/2 pack or more)/day in last 30 days Tobacco Use:. Never Smokeless Tobacco Use:. Cigarettes, 2 per day. Started age 20.0 Years. Yes, 11/05/2022 Family History Metastatic cancer: Father. Primary malignant neoplasm of lung: Mother. Rheumatoid arthritis: Sister. Immunizations Vaccine Date Status Comments influenza virus vaccine, inactivated - Not Given Patient Refuses SARS-CoV-2 (COVID-19) mRNA BNT-162b2 vax 01/30/2021 Recorded influenza virus vaccine, inactivated 09/08/2016 Given Nursing Judgment Normal [facility] Comment on above: Result Comment: Electronically Signed By : WYATT CANCHOLA, Stevie Mercado\Date and Time Signed: 11/12/22 16:00 EST Coding Summary.on 11-09-2022 Coding Summary. [id number] G h0bWw+PGhlYWQ+RV2ZKPV dQ78npZYaoX1YS9aVNF4I SFBVWOXTOJ0CWF8jdTO8L FmbS9PwyuHa OylphLYfVG93NVl4NIA6w XqjNBhlaH7bfIUcZ0t4Vy TpLT58fO34OZhqEQFmGkD 3LjZpbjsgbWFy Y8kwXgDtsRQhXzs+PHRhY mxlIHdpZHRoPScxMDAlJy UiyPhtKE5dBn6lGBWvWQS vbGxhcHNlOiBj i7rpCBArUFxqSE2kbAfvY 4FzeVC2BJCgx2s1Xo19zI I+UGEgVLM9aSsvFKjvi43 7CwSgn0ziCTB1 rXIcUXdvCBP4J74cm4Z9Z AXpBDWkSKA3oIV7rT8ffQ msrovzG0TtrELjBzF9KLV 0tTMlcO5avKvd kjcqwY0wQny+X92GEW2FK FDSAH3GEid0W0UwKchsnW I+UA21CKGjAF12pIVlmIK kz3tmyRp4YsTs WPQfFIZ5dTsdRTftd8MhS JCcJ73luBGar4S3DQOgkF umzIYkLfYnaCO7cI9xQLt cyvaoh1mtvmae Tbjyz6imxu50iC07K11sS CzlSBEuTJZ3CVSxUUSvsS vcgn8ltU8jFx6+LHvef1u xb2skvNv7CsPz XGGdvfMhqPebHBP0v7WfZ i88U0QhtWlql5QeQpt6oq 48bHEwd4J0qCA8OZaiVXX vjC4mVTjbVsE4 FCCvAiEnvP47eOGbJTcbA i7vrRaeeOdtHA7qGACpda tnWBXrcA8gOBKjdJJifUt jRG9pJSTrbcsn x819ClOsBIS4UWZntQAeZ 5NkvE5jAsPrGPMhAOViV6 ZldXXyXDmvF853TMeoYsY 5RCLrxkZjT2Tl EFLwnCckAyE8l8L4Bl4Km 0GmfcizGJL9ZEorTXFuOl Z9JmCjVjN9F8DjPar0ACK kaLgcJJ4uD9Lg CVYbsydhhoudjBF5OTZoL QUeeD55oTIrDWocHs6og7 T8w530RIWpNWTlrY85Kk3 udDogMTBwdCBU rU3ymuatt0thtcuqCmDoN QNrCFr5OXu2YNVgcUcyKq ZkVAV9ZeC0JIN4zSLjsP9 slRcabpczfB3g Oyc+S65xuH5gYFA5BBQ0j cpdNQNmaoRsJO14OL02C0 RyPjwvdGFibGU+PGRpdiB jiWmaID6oXtMv q9fjy4NgVAceX4GkRQYuS HrhAhf5VTRwULU5wYY8dB 3kQEXkELxcq3K9nCN0Q3X eczDfnp4xc2hm RROmUPigK32kxEAfv1B2J YLyyYR5EGVqhMufYvJnkC 93Oyc+UJVbcSnwz8BbWbi ld4ozx8admRc5 RsLzBCZudlHgkFnrDKX6l 7YxPu46J86lDJsfQYMmIJ LgNDSvBEEbhYrknf1nuJ6 wIi8+PGNvbCB3 gWA8pJ8rCZGiMeX2TBwpG 570TqUviMEtMtpyo5lrw5 rpdQz3DwVpBYUamhHsqLc nHNP3e8NyLt22 W00cYFxvBECwJRUkWLWqB HFspVhlus9mhJ4oUe0+PC 3rr5ygwa44gS98uLE+PHR yEMQ6kPkiARzk LRVdbO6vOBkuQgH9JMPfM uSsiD88hREfPDdmIa0rtO gsiMkrUS6aTRXdafkpd42 6KrYbn2dvWNIs bZYeBCsqJAA8Y26kh7F4V FPiXSXnRTF4tHF4wR7hiY lnbjogbGVmdDsgdmVydGl aWOhjFUqcJ012 IHRvcDsnPlBhdGllbnQgT jAoRWu4V2XfCvy9HMAipX aaVI6aoMCnHBqfFr6uyFw qhWsoZG9rMDHe uuzaw672GhUpt1blQYTfn CQlLItrROC9W56jb1M5BH NxVHHrWXY2rEE9tP9mrTb nbjogbGVmdDsg rcXfwYyiMRakPBbzX145C HRvcDsnPkJpcnRoIERhdG B3PN97UT78fLIgy8B0eBK 9H2ChYKSfpvik hqabfFF6EZIkSLIgyX28S g6lpBdlAx4eUDNiMJF5ZB DiaLAdL7EwoS3iWmRsBZP pFMLjK2ZcdBEc AEzlK715UQjgYzI1ZRDdn dLsR6ZrLZEdkCnpGdK0a8 D8Vj4ST5Y8QI56CS20nAA oh9J5kQH0J9Dq BCVgzpcpafkxwXP3XCEuC FLduU61Nb2sbVexFy6nVA AoUQI0YWQpaLFyF5YriC2 yOiAjMDAwMDAw V7WcrYDmYXhtS784PRsxC rI5ZESzcyAiA2SqDRZgtN fnEiR4a9A4Gp4ZVQy6BT5 2TW97zXAch8Z5 lJN1M5EcXBXdbqzmpgfim HW7OWPxPEVggK48Ss1qsJ woWy2iXPBlEYF4NKGeyFS jE1QqgT7oHhLo UGJhPWJwQ3LmyRNeSWgxU 063NHsaTvH2GDJaacLlX0 GwDMRkhZozBeQ7g8S5Vr3 GFUAoPT21FTM8 cAS5JX82ZJ83H7EkQkijc GFibGU+PHRhYmxlIHdpZH RoPScxMDAlJyBzdHlsZT0 bHt9wGPCdLYLx xMgtkGHcPpYcn5zaXTZhB VskGD7enRycD6QphMK5MJ Jle2d5Zp88V46gM0QurZU +KMAzmPX7sRW2 kX1xSuXsViN8FTmoM832W iPdeRLbCzyce5yla5xztY s2VoX8QPUcdgDnpNktCKQ 2h2TwDy14N50u IHdpZHRoPSIxNSUiIHZhb Okwqd0xmG2dFi4+PGNvbC S5bHS1pK6lMqNxCvR1DWl qB411TfLmyJDt Nscxf7gjq8hveXn4ShTnY OPyuvFsiQsnGKE3c3UhVp 41M4HxpSolc9ZfQhd7yn3 1zXGoj1U4rPF2 D3SqIZOmpwgqcSFklAtvE J7uYUKqiaajVSPuvP8tVX XhZ4k4AiZiWsM2WCrgI5U aowM8JUAbwEKm TZtxCMX7Y09eq0X8LOXsJ JEnVSE5sSP9vQ4fuKtfgv ogbGVmdDsgdmVydGljYWw hYHhyV809GCYm pTpyEOGbtS1fTEInxOHbi JdaDA1fIYBlfmwjReOWFU 4PZVQSDF4XSHcjjSX+PHR hIYP1aRhhFCfr IMCsjH9yFRGvD1k8MkNqB tB6KIblH5NmWOLvxxuhCw 63sU3wJoTsFfV2XOecN8M eurD3HQZrnQBk NLowDEB1I22ec0N5FQYyZ WDrRRC0tSV7xI0skIyzpr ogbGVmdDsgdmVydGljYWw yEZxtC284CBWq gEayYrE3FiEaSsA8ZlH5T 6FwToe3LXKwcBreNL7cpF TrUFijBi3djWszsQvaJG5 wNTBpbjtwYWRk fG7gIKTkaPVxoBbzXA9rZ ZLzowjid385RtFcAVR5KJ WumNNwY5QsmS2pDbYdOWM jRBClN1XzwBAj UVbxL723DWgvDtG9VEDzz eNjS2BdUTFghGziLaU1h0 V0Lh20JCIEETTmkmnoeCA +EYHiMAO8iKlu BChsSHKemE0eASWdS4u3Q zBhGuT7XZvbO9KcGATerb htCv33gW0aExLaAdQ3VUs rW6EnuoZ6NOMd hSSlPPfqLQB5R26tb2N8B ZDwGKQcNQZ4fUU0iH6oxB lnbjogbGVmdDsgdmVydGl fYFvhHAivD780 IHRvcDsnPkZlbWFsZTwvd GQ+OMLbUQU5hPboCYqlVU YyrN6jCTVkN9c6OpCxIcS 4RTjrO9VgCWEt jhraKq05zW0rVwUxYuD6K PmhG1OnheW4MTOpqDNpBL ioEUT6S93un6K6OTCmGKY rHMZ6hWU5oT2c bGlnbjogbGVmdDsgdmVyd YogLOezKSpsU574SBVstK zkUkooIgPQjf1kKL7hRdu vdGQ+FY74cr82 B6LqIiyzPfw3INXyGKD6z HA0dG8nPJUjIGxnh9Y3pJ B3E8CeiyOglx9qs0rmQDO yKJlhM98hxYAe i8I2GVSihQC6BAVzgRtyE xCveK32Zdd+PGNvbGdyb3 UbPucmf1wla7gjfWq9TqB wJSIgdmFsaWdu XEH3o3NjWa72I12kMYplH HRoPSIzMCUiIHZhbGlnbj 7esM7zGh0+FBVfrVZ9jCA 5cQ5dIpUbKxM9 XRpkX309IsPegKMsDxzpm 4yqk2uzbQb9XdMrZLPtid SiaMxkTYL6w1KzMg45O4I lfHcfq0JhJnz6 jy27wQYym9J8vCM2P0XdA JLjidddpJLosBlbYL0oOS MggcesJEPwzU4nBLDzF9a 5VvUlDzZ5QAgn J9OlbsO5HPPriYTeZQYnh TMTdG0jqlvlz3gdflqsPc KsSZSlRFh1JZr2HLGnpHn cNqEcWRP4MhH7 BLB1lZJkuR3izKcnuncha G9wOyc+YRh7y1cmtBUlSR 0jwEH6XN89JK45oULnr2W 9jAU2G3UxEYUl ltozhoecvOP2NFZsMZLjn H78Qk4loWlrOm6eGPEtLK W6VWUqnZWiC7XtsD5rVyJ pFQHbJKDuF8Au gNNqCHnuN597VQhrAhB3J YUdspMrJ7ZzWFIlbBfwPy B0z4H5Cg1VCH40TE31OS1 0fMVpn3C8cAS8 Z6VgVDKchlphlxjflJR6Y CRsQWUjlK76Un7tcRrmYd 7rQGWlTXD9KUPmpKOpB4Y ihB5bHzIfDDPt EGMcG2MtrFRnISnjD603L AfjDdH9ECJhzcRuG6OyWS XlcOltLrI4s6E1Oy2JMb6 9DO02PY31dQWs j2Y6dQW9K8LpOUQspaxil mnzoMJ9PIQqNREsdS60Ky 5obUokFd6dBXInEYT9KGK eqXTjB2PhjQ1u MeGnOINfYMAkZ8MxvXGkA BeaX795FBobHcQ1KGSgmx VuW2IfZPLjrVbdJrO7g0Y 2Mv3BWHnckto3 Z9GfQfemeMQ+XY22EHXaX M79cODmkZWyv7lvtVx6Hg AtNKHbTCR8sTynFEehz7W yZKUzS47jiSLu c2U6 (more content not included)... Normal [facility] Provider Letter FTMCon 11-05 Provider Letter [facility] November 05, 2022 DOMONIQUE GILBERT [address] [place] [address] DOMONIQUE GILBERT 1965 To Whom It May Concern, Please excuse above patient from work 11/05/22-11/12/22.. Sincerely, Dr. Stevie Schneider MD General Surgery Normal [facility] Physician Referralon 023 Physician Referral [id number]:127 Normal [facility] SCREENING MAMMOGRAM W/ESTHER, BILATERAL*on 05-05-2022 SCREENING MAMMOGRAM W/ESTHER, BILATERAL* COMPARISON: Initial baseline examination. TECHNIQUE: 2D and 3D Tomosynthesis of the right and left breasts was performed. FINDINGS: Breast composition demonstrates almost entirely fat. No suspicious microcalcifications, dominant mass lesions, or distortion is present. IMPRESSION: BI-RADS 1- Negative Mammogram Board Certified Radiologist. Accredited by the ACR and FDA. MAMMOGRAPHY IS VERY IMPORTANT TO YOUR HEALTH. THE CURRENT [employer] [employer] AND [employer] GUIDELINES RECOMMENDS ANNUAL MAMMOGRAPHY BEGINNING AT AGE 40 THIS FACILITY USES A REMINDER SYSTEM TO ENSURE ALL PATIENTS RECEIVE REMINDER NOTIFICATIONS AT THE APPROPRIATE TIME BASED ON THE RECOMMENDATIONS OF THIS EXAM. Report reported and signed by Mike Hein on 05/05/2022 0929 Normal [facility] Specialist XR Bone Density (DEXA)on XR Bone Density (DEXA) EXAM: Left Femur Bone Density FINDINGS: Left Femur bone density obtained with a [employer] whole body system: RegionBMComQig-AdultA ge-Matched Total(g/cm2)(%)T-Scor e(%)Z-Score Mean0.5669644.67120.3 Impression: The mean BMD and corresponding T-score indicated above indicate Normal Bone Mass and places the patient at no significant risk for fracture. This information can serve as a baseline with which to compare future studies. EXAM: Left Forearm Bone Density FINDINGS: Left Forearm bone density obtained with a [employer] whole body system: RegionBMDYoung-AdultA ge-Matched Total(g/cm2)(%)T-Scor e(%)Z-Score Mean0.9387269.41814.3 Impression: The mean BMD and corresponding T-score indicated above indicate Normal Bone Mass and places the patient at no significant risk for fracture. This information can serve as a baseline with which to compare future studies. EXAM: AP Lumbar Bone Density FINDINGS: AP Spine bone density obtained with a [employer] whole body system: RegionBMDiassessoung-AdultA ge-Matched Total(g/cm2)(%)T-Scor e(%)Z-Score L1-[id number]. 8 Impression: The mean BMD and corresponding T-score indicated above indicate Normal Bone Mass and places the patient no significant risk for fracture. This information can serve as a baseline with which to compare future studies. Comment: The T-score is the primary focus of the interpretation of a patient???s bone mineral density measurement. The T-score is the number of standard deviations an individual is above or below the mean value for a young female having normal bone mass. The WHO defines osteoporosis based on the T-score value??? +1.0 to ???0.9: Normal bone mass -1.0 to -2.5: Osteopenia and thus may be at future risk of fracture -2.6 to ???5: Osteoporosis and ???at significantly increased risk of fracture??? A Z-Score of -2.0 or lower is defined as ???below the expected range for age??? and a Z-Score above -2.0 is ???within the expected range for age.??? Osteoporosis cannot be diagnosed in men under the age of 50 on the basis of BMD alone. Per 2019 ISCD guidelines, Z-Scores (not T-Scores) are preferred when reporting data in premenopausal females and males less than 50 years of age. Report reported and signed by Mike Hein on 05/05/2022 1050 Normal [facility] US venous duplex LE BIon US venous duplex LE BI [facility] [place] [address] Ultrasound Report Signed Patient: Domonique Gilbert MR#: [id number] 7 : 1965 Acct:[id number] Age/Sex: 56 / F ADM Date: 07/09/21 Loc: Room: Type: [facility] Attending Dr: Evelyn Garza MD Ordering Provider: Evelyn Garza MD Date of Service: 07/09/21 US/US venous duplex LE BI: leg edema,SOB Copies to: Evelyn Garza MD BILATERAL LOWER EXTREMITY VENOUS DUPLEX INDICATION: Swollen painful legs PROCEDURE: Color-flow duplex scanning is used to interrogate the deep venous system of the right and left lower extremities. The common femoral vein, femoral vein and popliteal vein show good compressibility with normal proximal and distal augmentation. The posterior tibial and peroneal veins are compressible. US/US venous duplex LE BI IMPRESSION: NO EVIDENCE FOR DEEP VEIN THROMBOSIS OR PROXIMAL SUPERFICIAL THROMBOPHLEBITIS IN THE RIGHT OR LEFT LOWER EXTREMITY. Impression dictated by: Chilango Smith M.D.07/10/2021 1:03 PM Dictation Location: [facility]04 Tech: Kathy Driver Transcribed By: [facility] 07/10/21 1303 Dictated By: Chilango Smith MD 07/10/21 1303 Signed By: 07/10/21 1303 Normal [facility] B-Type Natriuretic Peptideon 07-09-2021 Natriuretic peptide B (Bld) [Mass/Vol] 25.0 pg/mL Normal 5-100 [facility] Comment on above: Result Comment: PERFORMED BY: [place] [address] PATHOLOGIST DENTAL NURSE VLADISLAV LEYVA M.D. Performed By: #### B MP, BNP #### [address] Basic Metabolic Panelon 06-18 Calcium [Mass/Vol] 9.0 mg/dL Normal 8.2-10.2 [facility] Comment on above: Result Comment: PERFORMED BY: [place] [address] PATHOLOGIST DENTAL NURSE VLADISLAV LEYVA M.D. Performed By: #### B MP, BNP #### [place] [address] [place] Chloride [Moles/Vol] 105 mmol/L Normal 95-114 [facility] Comment on above: Performed By: #### BMP, BNP #### [place] [address] [place] CO2 [Moles/Vol] 20.9 mmol/L Low 22.0-30.0 [facility] Comment on above: Performed By: #### BMP, BNP #### [address] Creatinine [Mass/Vol] 0.62 mg/dL Normal 0.44-1.03 [facility] Comment on above: Performed By: #### BMP, BNP #### [address] [place] [address] [place] Estimated GFR ( Sheryl > 60 Normal [facility] Comment on above: Result Comment: GFR estimated reference range: According to KDOQI guidelines, <60 ml/min/1.73m2 is sufficient to diagnose a patient with chronic kidney disease. Performed By: #### B MP, BNP #### [facility] [address] [place] [address] [place] Estimated GFR (Non- Am > 60 Normal [facility] Comment on above: Performed By: #### BMP, BNP #### [facility] [address] [place] [address] [place] Glucose [Mass/Vol] 234 mg/dL High 70-100 [facility] Comment on above: Result Comment: Random Glucose Reference Range is dependent on time and content of last meal. Glucose of more than 200 mg/dL in a nonstressed, ambulatory subject supports the diagnosis of Diabetes Mellitus. ADA recommended reference range Performed By: #### B MP, BNP #### [place] [address] [place] Potassium [Moles/Vol] 4.2 mmol/L Normal 3.5-5.1 [facility] Comment on above: Performed By: #### BMP, BNP #### [place] [address] [place] Sodium [Moles/Vol] 137 mmol/L Normal 136-146 [facility] Comment on above: Performed By: #### BMP, BNP #### [place] [address] [place] Urea nitrogen [Mass/Vol] 12 mg/dL Normal -23 [facility] Comment on above: Performed By: #### BMP, BNP #### [place] [address] [place] XR chest 2V*on 07-09-2021 XR chest 2V* [facility] [place] [address] [place] [address] XRay Report Signed Patient: Domonique Gilbert MR#: [id number] 7 : 1965 Acct:[id number] Age/Sex: 56 / F ADM Date: 07/09/21 Loc: UL [facility]: Evelyn Garza MD Ordering Provider: Evelyn Garza MD Date of Service: 07/09/21 XR/XR chest 2V*: leg edema,SOB Copies to: Evelyn Garza MD CHEST STUDY, 2 VIEWS: CLINICAL INFORMATION: Shortness of breath started today. Leg edema. Chronic smoker. COMPARISON: 12/01/2020 FINDINGS: The frontal and lateral projections of the chest were submitted. The size of the cardiopericardial silhouette is unremarkable. There is no pneumothorax or pulmonary congestion. Mild chronic interstitial thickening is noted without acute infiltrate or pleural effusion. There is a mild thoracic spondylosis. XR/XR chest 2V* IMPRESSION: NO ACUTE INTRATHORACIC PROCESS. MILD CHRONIC INTERSTITIAL THICKENING. Impression dictated by: Onesimo Salazar M.D.07/09/2021 1:05 PM Dictation Location: [place] [address] Transcribed By: [facility] 07/09/21 1305 Dictated By: Onesimo Salazar MD 07/09/21 1302 Signed By: 07/09/21 1305 Normal [facility] CT angio chest PE protocolon 06-26-2021 CT angio chest PE protocol [facility] [place] [address] [place] [address] CT Scan Report Signed Patient: Domonique Gilbert MR#: [id number] 7 : 1965 Acct:[id number] Age/Sex: 56 / F ADM Date: 06/26/21 Loc: CT Room: [facility]: Evelyn Garza MD Ordering Provider: Evelyn Garza MD Date of Service: 06/26/21 CT/CT angio chest PE protocol: COVID Copies to: Evelyn Garza MD CT ANGIOGRAM OF THE CHEST, PULMONARY EMBOLISM PROTOCOL: CLINICAL INFORMATION: Shortness of breath, fatigue, elevated d-dimer. COVID positive on 06/10/2021. TECHNIQUE: Following intravenous injection of 70 mL of Isovue-[address] scans of the chest were obtained using pulmonary embolism protocol. Coronal and sagittal reconstructed images, as well as volume rendered CT pulmonary angiographic images were also submitted. FINDINGS: Lungs: There is no pneumothorax. No central pulmonary embolism is noted. Small intraluminal filling defect is noted within couple subsegmental branches of the right lower lobe posteriorly, best demonstrated on axial image #79 and coronal image #63. Minimal atelectasis at the right lung base posteriorly is noted. Mild chronic interstitial thickening is demonstrated bilaterally. Mild peripheral chronic emphysematous lung changes are shown at the lung apices, more pronounced on the right. No generalized pulmonary fibrosis or bronchiectasis is noted. There is no pleural effusion. Mediastinum and otto: There is no evidence of dissection of the thoracic aorta which shows no significant focal dilatation. There is no prominent mediastinal lymphadenopathy. Slight right hilar lymphadenopathy is noted, probably of no clinical significance. There is no pericardial effusion. Axilla: There is no significant axillary lymphadenopathy bilaterally. Bony thorax: There is no compression fracture or localized bony destruction to the thoracic spine which shows mild spondylosis. Bilateral ribs are intact. Upper abdomen: The upper abdomen shows unremarkable appearance to the visualized adrenal glands. CT/CT angio chest PE protocol IMPRESSION: MINIMAL PULMONARY EMBOLISM TO THE SUBSEGMENTAL BRANCHES OF THE RIGHT LOWER LOBE. MINIMAL ATELECTASIS AT THE RIGHT LUNG BASE. MILD CHRONIC EMPHYSEMATOUS LUNG CHANGES TO THE APICES. SLIGHT RIGHT HILAR LYMPHADENOPATHY, PROBABLY OF NO CLINICAL SIGNIFICANCE. The CT exam was performed using one or more of the following dose reduction techniques: Automated exposure control, adjustment of the MA and/or Kv according to patient size, or use of the iterative reconstruction technique. Impression dictated by: Onesimo Salazar M.D.06/26/2021 11:00 AM Dictation Location: [place] [address] Transcribed By: [facility] 06/26/21 1100 Dictated By: Onesimo Salazar MD 06/26/21 1047 Signed By: 06/26/21 1100 Normal [facility] COVID-19 Lab Corpon 06-10-20 SARS-CoV-2 (COVID-19) RNA DEYVI+probe Ql (Unsp spec) Detected Critically abnormal Not Detected [facility] Comment on above: Order Comment: Results called at 1128 on 06/12/21. Healthcare Worker?: N Result Comment: Nancy ents who have a positive COVID-19 test result may now have treatment options. Treatment options are available for patients with mild to moderate symptoms and for hospitalized patients. Visit our website at [email or web address] for resources and information. This nucleic acid amplification test was developed and its performance characteristics determined by [employer]. Nucleic acid amplification tests include RT- PCR and TMA. This test has not been FDA cleared or approved. This test has been authorized by FDA under an Emergency Use Authorization (EUA). This test is only authorized for the duration of time the declaration that circumstances exist justifying the authorization of the emergency use of in vitro diagnostic tests for detection of SARS-CoV-2 virus and/or diagnosis of COVID-19 infection under section 564(b)(1) of the Act, 21 U.S.C. 360bbb-3(b) (1), unless the authorization is terminated or revoked sooner. When diagnostic testing is negative, the possibility of a false negative result should be considered in the context of a patient's recent exposures and the presence of clinical signs and symptoms consistent with COVID-19. An individual without symptoms of COVID-19 and who is not shedding SARS-CoV-2 virus would expect to have a negative (not detected) result in this assay. PERFORMED BY: [place] [id number] PATHOLOGIST DENTAL NURSE VLADISLAV LEYVA M.D. Performed By: #### C ORONAVIRUS #### [facility] , Vital Signs Date Time Vital Sign Value Performing Clinician Facility 11-24-2023 09:33-0500 Body height 170.2 cm El Kirkpatrick MD Work Phone: [facility] 11-24-2023 09:33-0500 Body mass index (BMI) [Ratio] 46.05 kg/m2 El Kirkpatrick MD Work Phone: [facility] 11-24-2023 09:33-0500 Body weight 133.36 kg El Kirkpatrick MD Work Phone: [facility] 11-22-2023 08:03-0500 Body height 170.2 cm El Kirkpatrick MD Work Phone: [facility] 11-22-2023 08:03-0500 Body mass index (BMI) [Ratio] 46.05 kg/m2 El Kirkpatrick MD Work Phone: [facility] 11-22-2023 08:03-0500 Body weight 133.36 kg El Kirkpatrick MD Work Phone: [facility] 11-16-2023 10:33-0500 Body height 170.2 cm El Kirkpatrick MD Work Phone: [facility] 11-16-2023 10:33-0500 Body mass index (BMI) [Ratio] 46.05 kg/m2 El Kirkpatrick MD Work Phone: [facility] 11-16-2023 10:33-0500 Body weight 133.36 kg El Kirkpatrick MD Work Phone: [facility] 02-10-2023 13:38-0400 Blood Pressure Location Stevie WYATT [facility] 02-10-2023 13:38-0400 Diastolic blood pressure 83 mm[Hg] Stevie SCHNEIDER [facility] 02-10-2023 13:38-0400 Heart rate 96 /min Stevie NILL [facility] 02-10-2023 13:38-0400 Respiratory rate 16 /min Stevie LUL [facility] 02-10-2023 13:38-0400 Systolic blood pressure 138 mm[Hg] Stevie LUL [facility] Encounters Encounter Date Encounter Type Care Provider Facility Start: 08-24-2024 End: 08-27-2024 Refill El Kirkpatrick MD Work Phone: [facility] 100 Comment on above: Venous (peripheral) insufficiency Start: 07-02-2024 End: 07-02-2024 ambulatory EL KIRKPATRICK Not Available Start: 06-26-2024 End: 06-26-2024 ambulatory RASHID SOLIZ Not Available Start: 05-21-2024 End: 05-21-2024 ambulatory EL KIRKPATRICK Not Available Start: 02-20-2024 End: 02-20-2024 ambulatory EL KIRKPATRICK Not Available Start: 11-29-2023 Bamboo flowsheet El stringer MD Work Phone: [facility] Start: 11-29-2023 Bamboo flowsheet El stringer MD Work Phone: [facility] Start: 11-29-2023 Refill El rodney MD Work Phone: [facility] Comment on above: Type 2 diabetes siena itus with hyperglycemia, without long-term current use of insulin (CMS/[facility]) Start: 11-29-2023 End: 11-29-2023 ambulatory EL KIRKPATRICK Not Available Start: 11-24-2023 Bamboo flowsheet El stringer MD Work Phone: [facility] Start: 11-24-2023 Bamboo flowstami stringer MD Work Phone: [facility] Start: 11-24-2023 End: 11-24-2023 Office outpatient visit 15 minutes El Kirkpatrick MD Work Phone: [facility] Comment on above: Candidiasis (Primary Dx); Cellulitis of left ankle; Venous stasis dermatitis of left lower extremity; Morbid obesity (CMS/HCC); BMI 45.0-49.9, adult (CMS/HCC); Polypharmacy; Current smoker Start: 11-24-2023 End: 11-24-2023 ambulatory EL KIRKPATRICK Not Available Start: 11-23-2023 Chart abstracting El xie MD Work Phone: [facility] Start: 11-22-2023 Chart abstracting El xie MD Work Phone: [facility] Start: 11-22-2023 End: 11-22-2023 ambulatory EL KIRKPATRICK Not Available Start: 11-22-2023 End: 11-22-2023 Office outpatient visit 10 minutes El Kirkpatrick MD Work Phone: [facility] Comment on above: Cellulitis of left a nkle; Venous stasis dermatitis of left lower extremity Start: 11-21-2023 Chart abstracting El xie MD Work Phone: [facility] Start: 11-16-2023 End: 11-16-2023 ambulatory EL KIRKPATRICK Not Available Start: 11-16-2023 End: 11-16-2023 Office outpatient visit 15 minutes El Kirkpatrick MD Work Phone: [facility] Comment on above: Cellulitis of left a nkle (Primary Dx); Venous stasis dermatitis of left lower extremity; Type 2 diabetes mellitus with hyperglycemia, without long-term current use of insulin ([facility]) Start: 08-30-2023 End: 08-30-2023 ambulatory EL KIRKPATRICK Not Available Start: 04-01-2023 End: 04-02-2023 ambulatory [facility] Start: 04-01-2023 End: 04-01-2023 Patient encounter procedure Stevie SCHNEIDER [facility] Start: 03-16-2023 End: 03-17-[address] EL KIRKPATRICK . Facility: Start: 02-15-2023 End: 02-16-2023 ambulatory Stevie SCHNEIDER Facility:[facility] Start: 02-15-2023 End: 02-15-2023 Patient encounter procedure Stevie SCHNEIDER [facility] Start: 02-10-2023 End: 02-11-2023 ambulatory Stevie R NILMary Facility: [facility] Start: 02-10-2023 End: 02-10-2023 Patient encounter procedure Stevie SCHNEIDER [facility] Start: 11-12-2022 End: 11-13-2022 ambulatory Stevie R NILL Facility:[facility] Start: 11-12-2022 End: 11-12-2022 Patient encounter procedure Stevie R NILL General Surgery Nill/Said [facility]senio Start: 11-05-2022 End: 11-06-2022 ambulatory Stevie R NILL Facility:[facility] Start: 11-05-2022 End: 11-06-2022 ambulatory Stevie R NILL Facility: [place] Start: 11-05-2022 End: 11-05-2022 Lab Drop off Stevie R NILL [facility] Start: 11-03-2022 ambulatory Stevie R TABITHAL Facility : [place] Start: 11-02-2022 ambulatory Stevie LUL Facility:[facility] Start: 11-01-2022 End: 11-01-[address] EL KIRKPATRICK . Facility: Start: 05-12-2022 End: 05-13-[address] EL KIRKPATRICK . Facility: Procedures Date Procedure Procedure Detail Performing Clinician Start: 03-16-2023 Excision of cyst Michae l TABITHAMary Comment on above: epidermal, mid back Start: 05-05-2022 Mammography El xie MD Work Phone: Start: 09-07-2016 right total hip arthroplasty Stevie TABITHAL Start: 11-23-2013 right hip injection with fluroscopy Stevie LUL Colonoscopy Stevie NILL left distal biceps reconstruction - 04/20/11 Stevie NILL Partial resection of colon M ichtone LUL Plan of Treatment Date Care Activity Detail Author Start: 06-16-2025 Glaucoma screening Diabetes: R etinopathy Screening [facility] Start: 05-21-2025 Urine screening for protein Diabetes: Urine Protein Screening [facility] Start: 11-22-2024 End: 11-22-2024 Patient encounter procedure 11/22/2024 9:00 AM EST Office Visit [facility] 100 [address] [place] [address] [place] [address] El Kirkpatrick MD [address] [place] [address] (Fax) [facility] 100 Start: 09-06-2024 End: 09-06-2024 Patient encounter procedure 09/06/2024 9:00 AM EST Office Visit [facility] [address] [address] El Kirkpatrick MD [address] [place] [address] (Fax) [facility] Start: 08-14-2024 Hemoglobin A1c measurement Diabetes: Hemoglobin A1C [facility] Start: 06-17-2024 Influenza vaccination Influenza Vacc ine (#1) [facility] Start: 02-21-2024 Hemoglobin A1c measurement Diabetes: Hemoglobin A1C [facility] Start: 02-13-2024 End: 02-13-2024 Patient encounter procedure 02/13/2024 9:30 AM EDT Office Visit [facility] [address] [place] [address] El Kirkpatrick MD [address] [place] [address] (Fax) [facility] Start: 11-29-2023 End: 11-29-2023 Patient encounter procedure [facility] Comment on above: Type 2 diabetes siena itus with hyperglycemia, without long-term current use of insulin ([facility]/HCC); Type 2 diabetes mellitus with other diabetic kidney complication ([facility]/HCC); Diabetic nephropathy associated with type 2 diabetes mellitus (HCC) ([facility]/HCC); Mixed dyslipidemia ([facility]/HCC); Polypharmacy; Morbid obesity ([facility]/HCC); BMI 45.0-49.9, adult ([facility]) Start: 11-25-2023 Hemoglobin A1c measurement Diabetes: Hemoglobin A1C [facility] Start: 11-24-2023 End: 11-24-2023 Patient encounter procedure [facility] Comment on above: Cellulitis of left a nkle; Venous stasis dermatitis of left lower extremity; Morbid obesity ([facility]); BMI 45.0-49.9, adult ([facility]); Polypharmacy; Current smoker Start: 11-22-2023 End: 11-22-2023 Patient encounter procedure 11/22/2023 8:00 AM EST Office Visit [facility] [address] [place] [address] El Kirkpatrick MD [address] [place] [address] (Fax) [facility] Start: 06-17-2023 Influenza vaccination Influenza Vacc ine (#1) [facility] Start: 05-05-2023 Screening for malign ant neoplasm of breast Mammogram [facility] Start: 1993 Screening for malign ant neoplasm of cervix [facility] Start: 1984 Screening for malign ant neoplasm of cervix Pap Smear [facility] Immunizations Immunization Date Immunization Notes Care Provider Fa cility 01-30-2021 SARS-CoV-2 (COVID-19 ) mRNA BNT-162b2 vax Stevie SCHNEIDER [facility] [place] 09-08-2016 influenza, seasonal, injectable Stevie SCHNEIDER [facility] Comment on above: Early/Late Reason: N ursing Judgment 09-08-2016 influenza virus vaccine, unspecified formulation El Kirkpatrick MD Work Phone: [facility] NEGATED: Highlighted row has not occurred!11-05-2022 influenza virus vaccine, unspecified formulation Stevie SCHNEIDER [facility] Payers Date Payer Category Payer Blue [facility] BCBS Memb er Subscriber Plan / Payer (Effective 2019-Present) Name: Domonique Gilbert Relation to Subscriber: Spouse Name: RICHARDSON GILBERT Date of : 1968 (Home) Address: [address] [place] [address] [place] [address] Payer ID: Not on file Type: Not on file Address: [address] [place] [id number] 2019 Unknown BCBS BCBS xxxxxx [id number] 2019-Present [phone] [address] [place] [id number] [id number] 1965 Unknown [id number] 2.16.840.1.094988.3.579. 2.593 1963 Unknown [id number] 2.16.840.1.859495.3.579. 2.593 1963 Unknown [id number] 2.16.840.1.273475.3.579. 2.593 1963 Unknown [id number] 2.16.840.1.539470.3.579. 2.727 1963 Unknown [id number] 2.16.840.1.956390.3.579. 2.727 1965 Unknown [id number] 2.16.840.1.372895.3.579. 2.727 1963 Unknown [id number] 2.16.840.1.443836.3.579. 2.727 1965 Unknown [id number] 2.16.840.1.497029.3.579. 2.727 1965 Unknown [id number] 2.16.840.1.641981.3.579. 2.727 1963 Unknown [id number] 2.16.840.1.690279.3.579. 2.727 1963 Unknown [id number] 2.16.840.1.907060.3.579. 2.727 1963 Unknown [id number] 2.16.840.1.113332.3.579. 2.727 1963 Unknown [id number] 2.16.840.1.554062.3.579. 2.727 1965 Unknown [id number] 2.16.840.1.818210.3.579. 2.9 1965 Unknown [id number] 2.16.840.1.252702.3.579. 2.9 1965 Unknown [id number] 2.16.840.1.778572.3.579. 2.9 1965 Unknown [id number] 2.16.840.1.391922.3.579. 2.9 1965 Unknown [id number] 2.16.840.1.595899.3.579. 2.9 1965 Unknown [id number] 2.16.840.1.203534.3.579. 2.9 1965 Unknown [id number] 2.16.840.1.968467.3.579. 2.9 1965 Unknown [id number] 2.16.840.1.997171.3.579. 2.9 1965 Unknown [id number] 2.16.840.1.043932.3.579. 2.1259 1959 Unknown [id number] Social History Date Type Detail Facility Start: 11-05-2022 Tobacco smoking status Heavy t obacco smoker (finding) [facility] Tobacco smoking status Never Veronique [facility] Start: 03-15-2023 End: 05-09-2023 Sex Assigned At Female [facility] Denilson [facility] Start: 02-10-2023 End: 05-08-2023 Tobacco smoking status Ex-smoker (finding) [facility] [place] History of tobacco use Current smoker [facility] History of tobacco use Cigarette Smoker [facility] Start: 05-08-2023 Tobacco use and exposure Smokeless tobacco non-user [facility] Start: 11-22-2023 End: 07-02-2024 Alcohol intake Ex-drinker (finding) [facility] Start: 03-15-2023 End: 05-09-2023 History of Social function [facility] Within the last year , have you been afraid of your partner or ex-partner? No [facility] Are you now , , , , never or living with a partner? [facility] How often to you hav e a drink containing alcohol? Monthly or less [facility] How many standard drinks containing alcohol do you have on a typical day? 1 or 2 [facility] How often do you hav e 6 or more drinks on 1 occasion? Never [facility] How hard is it for y ou to pay for the very basics like food, housing, medical care, and heating Not very hard [facility] Do you feel stress - tense, restless, nervous, or anxious, or unable to sleep at night because your mind is troubled all the time - these days [OSQ] Very much [facility] (I/We) worried wheth er (my/our) food would run out before (I/we) got money to buy more. Never true [facility] Start: 05-08-2023 Alcohol Comment Caffeine intak e 3-4 cups per day coffee [facility] Start: 1965 Sex Assigned At Not on file [facility] Functional Status Date Assessment Result Facility 02-10-2023 Functional Status N/A [facility] [place] Clinical Notes 11-05-2022 to 11-24-2023 El Kirkpatrick MD - 11/24/2023 9:30 AM Navjot Kirkpatrick MD - 11/22/2023 8:00 AM Navjot Kirkpatrick MD - 11/16/2023 10:30 AM EST Note Date & Type Note Facility 11-24-2023 History of Present illness Narrative Patient ID: Domonique Gilbert is a 58 y.o. female who presents for: Subjective Domonique Gilbert is a 58 y.o. female who presents for evaluation of a possible skin infection located Left ankle and lower leg. Symptoms include moderate and localized pain. Patient denies chills and fever greater than 100. Precipitating event: none known. Treatment to date has included warm compresses and antibiotics started several days ago with intermittent relief. She states still painful to touch this morning. Upon getting her into the procedure chair and raising her leg there was some seepage from the wound which was cleaned up. It was clear yellow/orange tinge with some blood in it. Review of Systems Otherwise unremarkable Objective The left leg on the medial aspect continues to have some erythema and the lesion itself. To my eye the erythema is the same or a little bit less than it was previously. However the lesion is definitely more circumscribed and is about 1.2 cm in diameter. It is almost got a vesicular component. No visits with results within 6 Month(s) from this visit. Latest known visit with results is: Office Visit on 05/09/2023 Component Date Value Ref Range Status Hemoglobin A1C 08/25/2023 10.9 (H) <5.7 % of total Hgb Final Comment: For someone without known diabetes, a hemoglobin A1c value of 6.5% or greater indicates that they may have diabetes and this should be confirmed with a follow-up test. For someone with known diabetes, a value <7% indicates that their diabetes is well controlled and a value greater than or equal to 7% indicates suboptimal control. A1c targets should be individualized based on duration of diabetes, age, comorbid conditions, and other considerations. Currently, no consensus exists regarding use of hemoglobin A1c for diagnosis of diabetes for children. Visit Vitals OB Status Postmenopausal Smoking Status Former Allergies Allergen Reactions Duloxetine Hcl Other Developed severe fatigue. Fluoxetine Unknown Other Reaction(s): change in mental status Metformin Diarrhea Ropinirole Other Reaction(s): Unknown Current Outpatient Medications Medication Instructions atorvastatin (LIPITOR) 20 mg, Oral, Daily doxycycline (VIBRAMYCIN) 100 mg, Oral, 2 times daily, Take with at least 8 ounces (large glass) of water empagliflozin (JARDIANCE) 25 mg, Oral, Daily GaviLyte-G 236 g solution 4,000 mL, Oral, Once hyoscyamine (ANASPAZ,LEVSIN) 0.125 mg, Oral, Every 6 hours PRN losartan (COZAAR) 25 mg, Oral, Daily metFORMIN (GLUCOPHAGE) 1,000 mg, Oral, Daily with breakfast nabumetone (RELAFEN) 1,500 mg, Oral, Daily nystatin (Mycostatin) 095412 UNIT/GM powder 1 application , Topical, As needed ondansetron ODT (ZOFRAN-ODT) 4 mg, Oral, Every 8 hours PRN spironolactone (ALDACTONE) 50 mg, Oral, 2 times daily triamcinolone (Kenalog) 0.5 % ointment Topical, 2 times daily Trulicity 4.5 mg, Subcutaneous, Weekly Assessment/Plan Diagnoses and all orders for this visit: Cellulitis of left ankle After discussion and verbal consent I gently unroofed the lesion. This was rather vesicular. We got some clear serosanguineous fluid out. Just minute pinpoint bleeding. No further evidence of abscess formation. The wound was dressed. I discussed dressing changes with her. We also discussed since this was not improving as far as her pain overall redness and swelling that we would add a second antibiotic therapy. She does give a history of chronic problems with skin and vaginal yeast and pretty much no she will get exacerbation we will go ahead and consult. Going to place her off work until we can recheck her and I would like her to get her leg elevated. We will recheck her early next week. Wound dressing was discussed. Venous stasis dermatitis of left lower extremity I think the component of stasis dermatitis overall is somewhat improved the leg is not as violaceous as I remember it. I have asked her to try and keep that triamcinolone off of the area around the lesion. Morbid obesity (CMS/HCC) BMI 45.0-49.9, adult (CMS/HCC) Polypharmacy Current smoker documented in this encounter [facility] 11-22-2023 History of Present illness Narrative Patient ID: Domonique Gilbert is a 58 y.o. female who presents for: Pt states she thinks one spot in the cellulitis on her leg from last week has gotten worse and she was concerned about it. She states the rest of her leg looks better. Review of Systems Constitutional: Negative for chills and fever. Respiratory: Negative for cough, shortness of breath and wheezing. Cardiovascular: Negative for chest pain and palpitations. Gastrointestinal: Negative for abdominal pain. Genitourinary: Negative for frequency and urgency. Objective There is still some edema on the left leg. The redness appears to be decreased but is almost 6 cm across. She appears less inflamed in this region. However in the center of this there is approximately a 1 cm circular raised area with a violaceous to black center. It is slightly fluctuant and this is where she is having the pain. No pustule noted. Visit Vitals Ht 5' 7 Wt 294 lb BMI 46.05 kg/m OB Status Postmenopausal Smoking Status Former BSA 2.51 m Allergies Allergen Reactions Duloxetine Hcl Other Developed severe fatigue. Fluoxetine Unknown Other Reaction(s): change in mental status Metformin Diarrhea Ropinirole Other Reaction(s): Unknown Current Outpatient Medications Medication Instructions atorvastatin (LIPITOR) 20 mg, Oral, Daily doxycycline (VIBRAMYCIN) 100 mg, Oral, 2 times daily, Take with at least 8 ounces (large glass) of water empagliflozin (JARDIANCE) 25 mg, Oral, Daily GaviLyte-G 236 g solution 4,000 mL, Oral, Once hyoscyamine (ANASPAZ,LEVSIN) 0.125 mg, Oral, Every 6 hours PRN losartan (COZAAR) 25 mg, Oral, Daily metFORMIN (GLUCOPHAGE) 1,000 mg, Oral, Daily with breakfast nabumetone (RELAFEN) 1,500 mg, Oral, Daily nystatin (Mycostatin) [id number] UNIT/GM powder 1 application , Topical, As needed ondansetron ODT (ZOFRAN-ODT) 4 mg, Oral, Every 8 hours PRN spironolactone (ALDACTONE) 50 mg, Oral, 2 times daily triamcinolone (Kenalog) 0.5 % ointment Topical, 2 times daily Trulicity 4.5 mg, Subcutaneous, Weekly Assessment/Plan Diagnoses and all orders for this visit: Cellulitis of left ankle - doxycycline (Vibramycin) 100 MG capsule; Take 1 capsule (100 mg) by mouth in the morning and 1 capsule (100 mg) before bedtime. Do all this for 10 days. Take with at least 8 ounces (large glass) of water. The actual cellulitis appears to be improving. I am concerned that there may be a small abscess formation. We've asked the patient to use intermittent heat every 15-20 minutes as much as possible and to continue the antibiotic. I would like to see her before we get into the to see if I think we need to do an incision and drainage. Venous stasis dermatitis of left lower extremity - doxycycline (Vibramycin) 100 MG capsule; Take 1 capsule (100 mg) by mouth in the morning and 1 capsule (100 mg) before bedtime. Do all this for 10 days. Take with at least 8 ounces (large glass) of water. documented in this encounter [facility] 11-16-2023 History of Present illness Narrative Patient ID: Domonique Gilbert is a 58 y.o. female who presents for: Subjective Domonique Gilbert is a 58 y.o. female who presents for evaluation of a possible skin infection located left ankle. Symptoms include moderate and localized pain and redness, started three days ago, rapidly worsening. Patient denies chills and fever greater than 100. Precipitating event: none known. Treatment to date has included none with no relief. Review of Systems Constitutional: Negative for chills and fever. Respiratory: Negative for cough, shortness of breath and wheezing. Cardiovascular: Negative for chest pain and palpitations. Gastrointestinal: Negative for abdominal pain. Genitourinary: Negative for frequency and urgency. Objective The patient is pleasant and in no acute distress The head is normocephalic and atraumatic Although no formal testing is done, patient does not appear to have a gross neurologic deficit concerning memory and goal directed thinking during the interview. The patient has good eye contact and clear speech. The left leg is a violaceouswas some erythema in the more proximal region almost circumferentially. There is approximately 1+ pitting edema of the leg. Of note is there is approximately a 1-1.2 cm superficial papule/nodule. There appears to be a varicosity inside the nodule. No evidence specifically of an infectious point or fluctuance. Adequate capillary refill. Telephone on 10/27/2023 Component Date Value Ref Range Status CHOLESTEROL, TOTAL 11/23/2023 138 <200 mg/dL Final HDL CHOLESTEROL 11/23/2023 44 (L) > OR = 50 mg/dL Final TRIGLYCERIDES 11/23/2023 122 <150 mg/dL Final LDL-CHOLESTEROL 11/23/2023 74 mg/dL (calc) Final Comment: Reference range: <100 Desirable range <100 mg/dL for primary prevention; <70 mg/dL for patients with CHD or diabetic patients with > or = 2 CHD risk factors. LDL-C is now calculated using the Butch calculation, which is a validated novel method providing better accuracy than the Friedewald equation in the estimation of LDL-C. Brain SS et al. MARCIA. 2013;310(19): 2887-2501 (http://education.[employer].com/faq/ZEP397) CHOL/HDLC RATIO 11/23/2023 3.1 <5.0 (calc) Final NON HDL CHOLESTEROL 11/23/2023 94 <130 mg/dL (calc) Final Comment: For patients with diabetes plus 1 major ASCVD risk factor, treating to a non-HDL-C goal of <100 mg/dL (LDL-C of <70 mg/dL) is considered a therapeutic option. Glucose 11/23/2023 158 (H) 65 - 99 mg/dL Final Comment: Fasting reference interval For someone without known diabetes, a glucose value >125 mg/dL indicates that they may have diabetes and this should be confirmed with a follow-up test. BUN 11/23/2023 15 7 - 25 mg/dL Final Creatinine 11/23/2023 0.77 0.50 - 1.05 mg/dL Final EGFR 11/23/2023 88 > OR = 60 mL/min/1.73m2 Final BUN/CREATININE RATIO 11/23/2023 SEE NOTE: 6 - 22 (calc) Final Comment: Not Reported: BUN and Creatinine are within reference range. Sodium 11/23/2023 141 135 - 146 mmol/L Final Potassium, Bld 11/23/2023 4.8 3.5 - 5.3 mmol/L Final Chloride 11/23/2023 105 98 - 110 mmol/L Final Carbon Dioxide 11/23/2023 26 20 - 32 mmol/L Final Calcium 11/23/2023 9.8 8.6 - 10.4 mg/dL Final PROTEIN, TOTAL 11/23/2023 6.3 6.1 - 8.1 g/dL Final ALBUMIN 11/23/2023 4.4 3.6 - 5.1 g/dL Final GLOBULIN 11/23/2023 1.9 1.9 - 3.7 g/dL (calc) Final ALBUMIN/GLOBULIN RATIO 11/23/2023 2.3 1.0 - 2.5 (calc) Final BILIRUBIN, TOTAL 11/23/2023 0.7 0.2 - 1.2 mg/dL Final ALKALINE PHOSPHATASE 11/23/2023 85 37 - 153 U/L Final AST 11/23/2023 14 10 - 35 U/L Final ALT 11/23/2023 17 6 - 29 U/L Final Hemoglobin A1C 11/23/2023 8.7 (H) <5.7 % of total Hgb Final Comment: For someone without known diabetes, a hemoglobin A1c value of 6.5% or greater indicates that they may have diabetes and this should be confirmed with a follow-up test. For someone with known diabetes, a value <7% indicates that their diabetes is well controlled and a value greater than or equal to 7% indicates suboptimal control. A1c targets should be individualized based on duration of diabetes, age, comorbid conditions, and other considerations. Currently, no consensus exists regarding use of hemoglobin A1c for diagnosis of diabetes for children. HbA1c performed on [employer] platform. Effective 10/04/23 a change in test platforms may have shifted HbA1c results compared to historical results. Visit Vitals Ht 5' 7 Wt 294 lb BMI 46.05 kg/m OB Status Postmenopausal Smoking Status Former BSA 2.51 m Allergies Allergen Reactions Duloxetine Hcl Other Developed severe fatigue. Fluoxetine Unknown Other Reaction(s): change in mental status Metformin Diarrhea Ropinirole Other Reaction(s): Unknown Current Outpatient Medications Medication Instructions atorvastatin (LIPITOR) 20 mg, Oral, Daily cephalexin (KEFLEX) 1,000 mg, Oral, 2 times daily doxycycline (VIBRAMYCIN) 100 mg, Oral, 2 times daily, Take with at least 8 ounces (large glass) of water empagliflozin (JARDIANCE) 25 mg, Oral, Daily fluconazole (DIFLUCAN) 200 mg, Oral, Daily GaviLyte-G 236 g solution 4,000 mL, Oral, Once hyoscyamine (ANASPAZ,LEVSIN) 0.125 mg, Oral, Every 6 hours PRN losartan (COZAAR) 25 mg, Oral, Daily metFORMIN (GLUCOPHAGE) 1,000 mg, Oral, Daily with breakfast nabumetone (RELAFEN) 1,500 mg, Oral, Daily nystatin (Mycostatin) [id number] UNIT/GM powder 1 application , Topical, As needed ondansetron ODT (ZOFRAN-ODT) 4 mg, Oral, Every 8 hours PRN spironolactone (ALDACTONE) 50 mg, Oral, 2 times daily triamcinolone (Kenalog) 0.5 % ointment Topical, 2 times daily Trulicity 4.5 mg, Subcutaneous, Weekly Assessment/Plan Diagnoses and all orders for this visit: Cellulitis of left ankle - triamcinolone (Kenalog) 0.5 % ointment; Apply topically 2 (two) times a day She is also prescribed Doxycycline 100 mg twice a day. Acute problem that I think we need to get a little bit more time and Declare itself. This may be early sign of abscess formation but is not at a point that I would do an incision and drainage. We did talk about using moist intermittent heat. We will recheck her back in a couple days. Venous stasis dermatitis of left lower extremity - triamcinolone (Kenalog) 0.5 % ointment; Apply topically 2 (two) times a day Type 2 diabetes mellitus with hyperglycemia, without long-term current use of insulin ([facility]) Comorbid condition that complicates the risk for significant cellulitis of mixed pathology. documented in this encounter [facility] 03-16-2023 Note OPERATIVE NOTE OPERATION DATE: 03/16/2023 PREOPERATIVE DIAGNOSIS: Inflamed epidermal cyst mid back. POSTOPERATIVE DIAGNOSIS: Inflamed epidermal cyst mid back. PROCEDURE: Excisional biopsy inflamed epidermal cyst mid back. SURGEON: Stevie Schneider M.D. ANESTHESIA: Local with 0.5% Marcaine plain. ESTIMATED BLOOD LOSS: Less than 3 mL. TOTAL LENGTH OF EXCISION: 1.5 cm. INDICATIONS AND CONSENT: Patient is a 67-year-old female with a history of previously infected epidermal cyst, and now it is markedly decreased in size but still has intermittent drainage. Indications, risks, benefits, alternatives of proceeding with excisional biopsy under local anesthesia were explained extensively to the patient, including the risks of bleeding, infection, scarring, pain, recurrence, need for further surgery. All of her questions were answered. Informed consent was obtained. PROCEDURE: Patient brought to the operating room and placed in the left lateral decubitus position. She was prepped and draped in the usual sterile fashion. The area around the cyst was anesthetized with 0.5% Marcaine plain. It was then excised in elliptical fashion down to subcutaneous fat. It was noted to be a scarred epidermal cyst that was completely removed. The wound was irrigated. There was good hemostasis. The deep subcutaneous tissue was re- approximated with interrupted 3-0 Monocryl suture. The skin was then closed with 4-0 nylon mattress and simple sutures. A sterile pressure dressing was applied. Sponge and needle counts were correct x2 per nursing personnel. Patient tolerated procedure well, was discharged to home in good condition. CC: Patient's family physician [facility] 02-10-2023 Note Chief Complaint consultation for infected sebaceous cyst HPI Staff 57 year old female presents on self referral consultation for infected sebaceous cyst mid back. Reports malodorous material expelled with manipulation. History of Present Illness 57 yo female with h/o DMII, hypercholesterolemia, CECE, referred for infected sebaceous cyst; reports 1 week h/o swollen painful cyst of mid upper back, was squeezing area with some drainage, no fevers, no recent antibiotic therapy. Review of Systems PHQ Score Initial Depression Screen Score: 0 ROS - Provider Constitutional: no fever, no sweats, no weight loss. Eyes: no glasses, no blurred vision, no visual loss. ENMT: no dentures, no hoarseness, no swallowing difficulties, no hearing loss, no ear infection(s), no nose bleeds. Cardiovascular: normal blood pressure, no chest pain, regular heartbeat, no heart murmur. Respiratory: no shortness of breath, no cough, no asthma, no wheezing. Gastrointestinal: no nausea, no vomiting, no diarrhea, no constipation, no blood in stool, no change in bowel habits, no abdominal pain, no hepatitis. Genitourinary: no kidney stones, no urine infection, no dysuria. Musculoskeletal: no pain, no weakness. Skin: no changing moles, no rash, no skin lumps. Neurologic: no seizures, no epilepsy, no headache. Psychiatric: no emotional or psychiatric problem. Heme/Lymph: no bleeding problems, no anemia, no blood clots, no transfusions. Allergy/Immunologic: no swollen lymph nodes/glands, no IV drug abuse. Other: Additional ROS info: Except as noted in the above Review of Systems and in the History of Present Illness, all other systems have been reviewed and are negative or noncontributory. Physical Exam Vitals & Measurements HR: 96(Peripheral) RR: 16 BP: 138/83 HT: 67 in HT: 170 cm WT: 138 kg WT: 303.6 lb BMI: 47.75 HEENT: normal conjunctiva, sclera clear, no scleral icterus, EOM intact, PERRLA, oral mucosa moist without lesions. Neck: trachea midline, no mass, symmetric, no thyromegaly or nodules, no adenopathy Musculoskeletal: normal gait, digits and nails without infection, nodes, cyanosis, clubbing. Skin: no rashes, no lesions, no ulcers, 2 cm area of induration mid back with pin hole draining serous fluid, no cellulitis, no skin necrosis Psychiatric/Neuro: oriented to time, place, person, judgement normal, affect appropriate for age, insight intact, no focal deficits. Tests: review of old records completed, Discussed surgical options, risks, and possible complications with patient. Assessment/Plan 1. Infected sebaceous cyst (L72.3: Sebaceous cyst) will treat with Levaquin for 7 days; keep area clean and dry, do not squeeze or manipulate area. plan excisional biopsy under local anesthesia at [facility] in 4-6 weeks, informed consent obtained. Ordered: levofloxacin, 750 mg = 1 tab(s), Oral, Daily, X 7 day(s), # 7 tab(s), Refills(s) 0, Pharmacy: [facility]/pharmacy #[id number], 170, cm, 02/10/23 13:47:00 EDT, Height/Length Dosing, 138, kg, 02/10/23 13:47:00 EDT, Weight Dosing Local infection of the skin and subcutaneous tissue, unspecified (L08.9: Local infection of the skin and subcutaneous tissue, unspecified) Follow-up No qualifying data available Problem List/Past Medical History Ongoing Abscess of right buttock BMI 45.0-49.9, adult Depression Diabetes Hypercholesteremia Infected sebaceous cyst Menopause Sleep apnea Smoker Tobacco abuse Vitamin D deficiency Historical No qualifying data Procedure/Surgical History right total hip arthroplasty (09/07/2016), right hip injection with fluroscopy (11/23/2013), Colonoscopy, Colonoscopy, Colonoscopy, left distal biceps reconstruction - 04/20/11, Partial colectomy. Medications atorvastatin 20 mg Tab, 20 mg= 1 tab(s), Oral, Daily Levaquin 750 mg Tab, 750 mg= 1 tab(s), Oral, Daily losartan 25 mg Tab, 25 mg= 1 tab(s), Oral, Daily metformin 1000 mg Tab, 1000 mg= 1 tab(s), Oral, BID nabumetone 750 mg Tab, 750 mg= 1 tab(s), Oral, BID spironolactone 25 mg Tab, 25 mg= 1 tab(s), Oral, BID Victoza 6 mg/mL subcutaneous injection Allergies FLUoxetine (Unknown) rOPINIRole (Unknown) Social History Alcohol - Denies Alcohol Use, 11/05/2022 Substance Abuse - Denies Substance Abuse, 11/05/2022 Tobacco Former smoker, quit more than 30 days ago Tobacco Use:. Never Smokeless Tobacco Use:. Cigarettes, 2 per day. Started age 22.0 Years. Stopped age 57 Years. Yes, 02/10/2023 Family History Metastatic cancer: Father. Primary malignant neoplasm of lung: Mother. Rheumatoid arthritis: Sister. Immunizations Vaccine Date Status Comments influenza virus vaccine, inactivated - Not Given Patient Refuses SARS-CoV-2 (COVID-19) mRNA BNT-162b2 vax 01/30/2021 Recorded influenza virus vaccine, inactivated 09/08/2016 Given Nursing Judgment [facility] Comment on above: Result Comment: Elec tronically Signed By: Stevie SCHNEIDER MD\Date and Time Signed: 02/10/23 15:00 EDT 11-08-2022 Note Microbiology PROCEDURE: Wound Culture [R1] SOURCE: Abscess BODY SITE: Buttock COLLECTED DATE/TIME: 11/05/2022 12:27 EST RECEIVED DATE/TIME: 11/05/2022 16:51 EST START DATE/TIME: 11/05/2022 16:51 EST FREE TEXT SOURCE: NILL MD, Stevie SCHNEIDER MD, Stevie Bledsoe FINAL REPORTS Final Report [] Verified Date/Time: 11/08/2022 10:25 EST 1+ Streptococcus agalactiae (Group B) Presumptive isolated. Negative for inducible clindamycin resistance. STAINS Gram Stain Report [] Verified Date/Time: 11/06/2022 07:56 EST 2+ White Blood Cells Occasional Gram Positive Cocci SUSCEPTIBILITY RESULTS LEGEND: S=Susceptible, N/R=Not Reported, Blank=Data not available, or drug not advisable or tested, I=Intermediate, ESBL=Extended spectrum beta-lactamase, R=Resistant, TFG=Thymidine-dependent strain, AMINA=Beta-lactamase positive, VINNY=mcg/m;(mg/L), S*=Predicted susceptible interp, R*=Predicted resistant interp __ Strep B Antibiotic VINNY Dilutn VINNY Interp Ampicillin 0.12 S Azithromycin >2 R Cefepime <=0.25 S Ceftriaxone <=0.25 S Clindamycin <=0.06 S Erythromycin >0.5 R Levofloxacin 1 S Penicillin 0.06 S Tetracycline >4 R Vancomycin 0.5 S Performing Locations R1: This test was performed at: [facility], [address] [place] [address], [id number] , , [facility] Comment on above: Performed By: #### [id number] ####[facility] [id number] [place] [address] 11-05-2022 Note Chief Complaint consultation for buttock abscess HPI Staff 57 year old female presents on consultation from [facility] for right lower buttock abscess x 2. Advised sitz bath and warm compresses. Prescribed Doxycycline and Bactrim. History of Present Illness 57 yo female with h/o hypercholesterolemia, CECE, DMII, referred from [facility] for right buttock abscess, seen there 4 days ago, no I & D; placed on Bactrim and Doxycycline; was doing sitz baths and had spontaneous drainage of purulent material several days ago; no fevers, pain improving. Review of Systems PHQ Score Initial Depression Screen Score: 0 ROS - Provider Constitutional: no fever, no sweats, no weight loss. Eyes: no glasses, no blurred vision, no visual loss. ENMT: no dentures, no hoarseness, no swallowing difficulties, no hearing loss, no ear infection(s), no nose bleeds. Cardiovascular: normal blood pressure, no chest pain, regular heartbeat, no heart murmur. Respiratory: no shortness of breath, no cough, no asthma, no wheezing. Gastrointestinal: no nausea, no vomiting, no diarrhea, no constipation, no blood in stool, no change in bowel habits, no abdominal pain, no hepatitis. Genitourinary: no kidney stones, no urine infection, no dysuria. Musculoskeletal: no pain, no weakness. Skin: no changing moles, no rash, no skin lumps. Neurologic: no seizures, no epilepsy, no headache. Psychiatric: no emotional or psychiatric problem. Heme/Lymph: no bleeding problems, no anemia, no blood clots, no transfusions. Allergy/Immunologic: no swollen lymph nodes/glands, no IV drug abuse. Other: Additional ROS info: Except as noted in the above Review of Systems and in the History of Present Illness, all other systems have been reviewed and are negative or noncontributory. Physical Exam Vitals & Measurements HR: 76(Peripheral) RR: 16 BP: 128/88 HT: 67 in HT: 170 cm WT: 136.5 kg WT: 300.3 lb BMI: 47.23 HEENT: normal conjunctiva, sclera clear, no scleral icterus, EOM intact, PERRLA, oral mucosa moist without lesions. Neck: trachea midline, no mass, symmetric, no thyromegaly or nodules, no adenopathy Respiratory: lungs CTA, respirations non labored. Cardiovascular: regular rate and rhythm, no murmur, no pedal edema or varicosities. Musculoskeletal: normal gait, digits and nails without infection, nodes, cyanosis, clubbing. Skin: no rashes, no lesions, no ulcers, right medial buttock with 4 cm area pf induration, extending towards the perineum, no edema, decreasing erythema; central open area 5 mm, minimal purulent drainage Psychiatric/Neuro: oriented to time, place, person, judgement normal, affect appropriate for age, insight intact, no focal deficits. Tests: review of old records completed, Discussed surgical options, risks, and possible complications with patient. Assessment/Plan 1. Abscess of right buttock (L02.31: Cutaneous abscess of buttock) culture obtained; open area packed with 1/4 inch iodophor gauze; covered with abd pad; change dressing daily, remove packing, do sitz bath, then repack; complete course of antibiotics; take [place] 30 minutes to 1 hour prior to packing; refill given; f/u next week, call sooner if problems/questions. Ordered: acetaminophen-hydrocodone, 1 tab(s), Oral, q6hr for pain, 15 tab(s), Refill(s) 0, take with food or milk, [facility]/pharmacy #[id number], 170, cm, 11/05/22 11:31:00 EST, Height/Length Dosing, 136.5, kg, 11/05/22 11:31:00 EST, Weight Dosing Wound Culture 2. BMI 45.0-49.9, adult (Z68.42: Body mass index [BMI] 45.0-49.9, adult) recommend diet and exercise. Ordered: Wound Culture 3. Tobacco abuse (Z72.0: Tobacco use) recently quit Ordered: Wound Culture Follow-up No qualifying data available Problem List/Past Medical History Ongoing Abscess of right buttock BMI 45.0-49.9, adult Depression Diabetes Hypercholesteremia Menopause Sleep apnea Smoker Tobacco abuse Vitamin D deficiency Historical No qualifying data Procedure/Surgical History right total hip arthroplasty (09/07/2016), right hip injection with fluroscopy (11/23/2013), Colonoscopy, Colonoscopy, Colonoscopy, left distal biceps reconstruction - 04/20/11, Partial colectomy. Medications atorvastatin 20 mg Tab, 20 mg= 1 tab(s), Oral, Daily losartan 25 mg Tab, 25 mg= 1 tab(s), Oral, Daily nabumetone 750 mg Tab, 750 mg= 1 tab(s), Oral, BID [place] 325 mg-5 mg oral tablet, 1 tab(s), Oral, q6hr, PRN spironolactone 25 mg Tab, 25 mg= 1 tab(s), Oral, BID Victoza 6 mg/mL subcutaneous injection Allergies FLUoxetine (Unknown) rOPINIRole (Unknown) Social History Alcohol - Denies Alcohol Use, 11/05/2022 Substance Abuse - Denies Substance Abuse, 11/05/2022 Tobacco 10 or more cigarettes (1/2 pack or more)/day in last 30 days Tobacco Use:. Never Smokeless Tobacco Use:. Cigarettes, 2 per day. Started age 22.0 Years. Yes, 11/05/2022 Family History Metastatic cancer: Father. Primary malignant neoplasm of lung: Mother. (more content not included)... [facility] Comment on above: Result Comment: Elec tronically Signed By: Stevie SCHNEIDER MD\.br\Date and Time Signed: 11/05/22 13:55 EST 11-05-2022 Hospital Discharge instructions Follow Up Care 11/05/2022 12:05:07 With:Stevie SCHNEIDER MD, [facility] Address: [address] [place] [address]- When: only if needed General Surgery [place] Evaluation + Plan note Future Appointments Appointment Date:11/12/2022 03:20:00 PM Scheduled Provider:Stevie SCHNEIDER MD Location:[facility] Appointment Type: Established 15 Diagnostic Tests PendingWound Culture 11/05/22 [facility] Evaluation note Diagnosis Cellulitis of left ankle Venous stasis dermatitis of left lower extremity documented in this encounter [facility]* Diagnosis Candidiasis- Primary Cellulitis of left ankle Venous stasis dermatitis of left lower extremity Morbid obesity (CMS/HCC) Morbid obesity BMI 45.0-49.9, adult ([facility]) Polypharmacy Issue of repeat prescriptions Current smoker Type 2 diabetes mellitus with hyperglycemia, without long-term current use of insulin ([facility]) Type 2 diabetes mellitus with other diabetic kidney complication ([facility]) Diabetic nephropathy associated with type 2 diabetes mellitus (HCC) ([facility]) Mixed dyslipidemia ([facility]) Polypharmacy Issue of repeat prescriptions Morbid obesity ([facility]) Morbid obesity BMI 45.0-49.9, adult ([facility]) documented in this encounter [facility]* Diagnosis Cellulitis of left ankle- Primary Venous stasis dermatitis of left lower extremity Type 2 diabetes mellitus with hyperglycemia, without long-term current use of insulin ([facility]) Type 2 diabetes mellitus with hyperglycemia, without long-term current use of insulin ([facility]) Type 2 diabetes mellitus with other diabetic kidney complication ([facility]) Diabetic nephropathy associated with type 2 diabetes mellitus (HCC) ([facility]) Mixed dyslipidemia ([facility]) Polypharmacy Issue of repeat prescriptions Morbid obesity ([facility]) Morbid obesity BMI 45.0-49.9, adult ([facility]) documented in this encounter [facility]* Diagnosis Type 2 diabetes mellitus with hyperglycemia, without long-term current use of insulin ([facility]) documented in this encounter [facility]* Diagnosis Venous (peripheral) insufficiency Unspecified venous (peripheral) insufficiency Encounter for wellness examination in adult Advance directive discussed with patient Screening mammogram, encounter for Screening for osteoporosis Special screening for osteoporosis Menopause Symptomatic menopausal or female climacteric states Morbid obesity ([facility]) Morbid obesity documented in this encounter [facility] Narrative No data available for this section [facility] No data available for this section [facility] No data available for this section [facility] Summary Purpose Family History No Family History Records FoundNo Family History Records FoundNo Family History Records FoundNo Family History Records FoundNo Family History Records Found Advance Directives No Advanced Directives Records FoundNo Advanced Directives Records FoundNo Advanced Directives Records FoundNo Advanced Directives Records FoundNo Advanced Directives Records Found Additional Source Comments INFORMATION SOURCE (unrecogn ized section and content) DATE CREATED AUTHOR 01/15/[address] [facility] DATE CREATED AUTHOR AUTHOR'S ORGANIZ ATION 05/07/2022 [facility] DATE CREATED AUTHOR AUTHOR'S ORGANIZ ATION 03/26/2023 [facility] DATE CREATED AUTHOR AUTHOR'S ORGANIZ ATION 04/03/2023 [facility] DATE CREATED AUTHOR AUTHOR'S ORGANIZ ATION 07/03/2024 [facility] EPIC Patient Care team informatio n (unrecognized section and content) [employer] Relationship Specialty Start Date End Date El Kirkpatrick MD [address] [place] [address] (Fax) PCP - General Family Medicine 03/09/23 El Kirkpatrick MD [address] [place] [address] (Fax) PCP - [place] [facility] 09/16/23 [employer] Relationship Specialty Start Date End Date El Kirkpatrick MD [address] [place] [address] (Fax) PCP - General Family Medicine 03/09/23 El Kirkpatrick MD [address] [place] [address] (Fax) PCP - [place] [facility] 09/16/23 [employer] Relationship Specialty Start Date End Date El Kirkpatrick MD [address] [place] [address] (Fax) PCP - General Family Medicine 03/09/23 El Kirkpatrick MD [address] [place] [address] (Fax) PCP - [place] [facility] 09/16/23 [employer] Relationship Specialty Start Date End Date El Kirkpatrick MD [address] [place] [address] (Fax) PCP - General Family Medicine 03/09/23 El Kirkpatrick MD [address] [place] [address] (Fax) PCP - [place] [employer] 09/16/23 [employer] Relationship Specialty Start Date End Date El Kirkpatrick MD [address] [place] [address] (Fax) PCP - General Family Medicine 03/09/23 El Kirkpatrick MD [address] [place] [address] (Fax) PCP - [place] [employer] 09/16/23 [employer] Relationship Specialty Start Date End Date El Kirkpatrick MD [address] [place] [address] (Fax) PCP - General Family Medicine 03/09/23 El Kirkpatrick MD [address] [place] [address] (Fax) PCP - [place] [employer] 09/16/23 [employer] Relationship Specialty Start Date End Date El Kirkpatrick MD [address] [place] [address] (Fax) PCP - General Family Medicine 03/09/23 El Kirkpatrick MD [address] [place] [address] (Fax) PCP - [place] [employer] 09/16/23 [employer] Relationship Specialty Start Date End Date El Kirkpatrick MD [address] [facility] [address] [place] [id number] PCP - General Family Medicine 03/09/23 El Kirkpatrick MD [address] [address] PCP - [place] [facility] 08/17/23 Reason for Visit (unrecogniz ed section and content) Reason Comments Cellulitis Reason Comments Med Change Request Reason Comments Med Refill FOR RECORDS PERTAINING TO PATIENTS WHO ARE OR HAVE BEEN ENROLLED IN A CHEMICAL DEPENDENCY/SUBSTANCEABUSE PROGRAM, SOME INFORMATION MAY BE OMITTED. This clinical summary was aggregated from multiple sources. Caution should be exercised in using it in the provision of clinical care. This summary normalizes information from multiple sources, and as a consequence, information in this document may materially change the coding, format and clinical context of patient data. In addition, data may be omitted in some cases. CLINICAL DECISIONS SHOULD BE BASED ON THE PRIMARY CLINICAL RECORDS. [employer] [facility]. provides no warranty or guarantee of the accuracy or completeness of information in this document.
[2024-09-06 10:16] LABS: Basophils Absolute Auto 0.1 10^3/uL (0.0-0.1); Basophils Percent Auto 0.8 % (0.2-2.0); Eosinophils Absolute Auto 0.6 10^3/uL (0.0-0.7); Eosinophils Percent Auto 5.6 % (0.9-7.0); Hematocrit 43.7 % (36.0-48.0); Hemoglobin 14.3 g/dL (12.0-16.0); Immature Granulocytes Abs Auto 0.07 10^3/uL (0.00-0.03); Immature Granulocytes Pct Auto 0.7 % (0.0-0.5); Lymphocytes Absolute Auto 4.2 10^3/uL (1.2-3.8); Lymphocytes Percent Auto 39.1 % (20.5-60.0); Mean Corpuscular HGB Conc 32.7 g/dL (29.9-35.2); Mean Corpuscular Volume 97.8 fL (81.0-99.0); Mean Platelet Volume 10.2 fL (9.5-13.5); Monocytes Absolute Auto 0.9 10^3/uL (0.3-0.8); Monocytes Percent Auto 7.9 % (1.7-12.0); Neutrophils Absolute Auto 4.9 10^3/uL (1.4-6.5); Neutrophils Percent Auto 45.9 % (43.0-75.0); Platelet Count 239 10^3/uL (150-450); Red Blood Count 4.47 10^6/uL (4.20-5.40); Red Cell Distribution Width 13.4 % (11.0-15.0); White Blood Count 10.8 10^3/uL (4.0-11.0)
[2024-09-06 10:30] LABS: Erythrocyte Sedimentation Rate 7 mm/hr (<=30)
[2024-09-06 11:32] LABS: Alanine Aminotransferase 26 U/L (14-59); Albumin Globulin Ratio 1.2; Albumin Level 3.8 g/dL (3.4-5.0); Alkaline Phosphatase 107 U/L (46-116); Aspartate Amino Transferase 12 U/L (15-37); BUN Creatinine Ratio 21.5; Bilirubin Total 0.6 mg/dL (0.2-1.0); Calcium 9.9 mg/dL (8.5-10.1); Carbon Dioxide 27.1 mmol/L (21.0-32.0); Chloride 105 mmol/L (98-107); Estimated GFR (African America >60 (>=60 mL/min/1.73m^2); Estimated GFR (Non-African Ame >60 (>=60 mL/min/1.73m^2); Free T3 2.61 pg/mL (2.18-3.98); Globulin 3.1 g/dL; Glucose 98 mg/dL (74-106); Potassium 4.1 mmol/L (3.5-5.1); Sodium 142 mmol/L (136-145); Thyroid Stimulating Hormone 2.138 uIU/mL (0.358-3.740); Total Protein 6.9 g/dL (6.4-8.2)
[2024-09-06 11:45] LABS: Free T4 0.78 ng/dL (0.76-1.46)
== END 2024-09-06 09:49 | disposition home or self-care (01) ==
LOC: LAB 09:51
PROVIDERS: PCP Family Medicine; Visit Provider Family Medicine
DX: M62.838 Other muscle spasm (principal); R00.0 Tachycardia, unspecified; M25.50 Pain in unspecified joint
CPT/HCPCS: 36415; 80053; 83735; 84439; 84443; 84481; 85025; 85652

== ENCOUNTER 2024-09-18 13:58 | Outpatient (OUT) | payer BC, SELFPAY | END 2024-09-18 13:59 | disposition home or self-care (01) | LOC: CARD 13:58 | PROVIDERS: PCP Family Medicine; Visit Provider Family Medicine | DX: R00.0 Tachycardia, unspecified (principal); R40.4 Transient alteration of awareness; R01.1 Cardiac murmur, unspecified | CPT/HCPCS: 93242 ==

== ENCOUNTER 2024-10-18 14:59 | Outpatient (OUT) | payer BC, SELFPAY ==
--- NOTE | 2024-10-18 15:08 | CA_ITS ---
Patient Name: BOBBY LUJAN MR#: [id number] : 1965 Exam Date: 10/18/2024 Ordering Doctor: DR VALENTINE KIRKPATRICK . ECHOCARDIOGRAM REPORT PROCEDURE: CA ECHO DOPPLER COMPLETE INDICATIONS: Tachycardia, Murmur, Transient alteration of awareness COMPARISON: None. DESCRIPTION: COMPLETE ECHOCARDIOGRAM Real-time transthoracic echocardiography with 2D, M-mode, spectral and color flow Doppler performed. QUALITY: Technical quality was adequate. LEFT VENTRICLE: Normal chamber size. Moderate concentric left ventricular hypertrophy. LV EF: Global left ventricular systolic function is normal. Calculated left ventricular ejection fraction is 63%. No significant wall motion abnormalities. DIASTOLIC: Unable to assess diastolic function. ATRIAL SEPTUM: Inadequately seen. LEFT ATRIUM: Normal chamber size. RIGHT ATRIUM: Mild dilatation. RIGHT VENTRICLE: Normal chamber size. Normal right ventricular systolic function. TRICUSPID VALVE: Normal mobility and thickness. No stenosis with trivial regurgitation. No evidence of pulmonary hypertension. RVSP 33mmHg MITRAL VALVE: Normal mobility and thickness. No evidence of mitral valve stenosis. There is no mitral annular calcification. No mitral regurgitation. AORTIC VALVE: Normal trileaflet appearance. No visible sclerosis. Normal leaflet mobility. No evidence of aortic valve stenosis. No aortic regurgitation. AORTIC ROOT: Normal diameter and appearance. PULMONIC VALVE: Normal thickness and mobility. No stenosis. No regurgitation. PERICARDIUM: Anterior free space; trivial effusion versus fat pad IVC: Collapses with inspirations. Normal size. CONCLUSION: 1. Global left ventricular systolic function is normal; visually estimated ejection fraction is 55 to 60% 2. Mild to moderate left ventricular hypertrophy 3. Normal right ventricular size and systolic function 4. The right atrium is mildly dilated 5. No significant valvular abnormalities 6. Anterior free space; trivial effusion versus fat pad Adult Echocardiography Procedure Report Left Ventricle LVEDD (3.7 - 5.6 cm): 4.56 cm LVESD (2.2 - 4.0 cm): 3.15 cm LVIVS thickness (0.6 - 1.2 cm): 1.18 cm LVPW thickness (0.5 - 1.0 cm): 1.38 cm LVOT Max Gradient: 4.45 mm[Hg] LVOT Area (cm2): 1.05 m/s Peak Velocity (LVOT): 1.05 m/s Mean Velocity (LVOT): 0.65 m/s LVOT Diameter 2.08 cm Left Ventricular Ejection Fraction: 62.52 % Left Atrium LA Volume Index (2D A2C): 28.12 ml/m2 Left Atrium Systolic Dimension: 3.46 cm Mitral Valve MV E to A Ratio: 1 Mitral Valve A-Wave Peak Velocity: 0.91 m/s Mitral Valve E-Wave Peak Velocity: 0.91 m/s Right Ventricle RV Internal Diastolic Dimension: 3.32 cm Aorta AO Root Diam: 3.20 cm Ascending Ao Diam: 2.81 cm Aortic Valve AoV Area (Peak Ortiz): 2.10 cm2, 2.13 cm2 AoV Area (VTI): 2.14 cm2, 2.20 cm2 Peak Velocity(Antegrade Flow): 1.69 m/s, 1.73 m/s Peak Gradient(Antegrade Flow): 11.36 mm[Hg], 11.95 mm[Hg] Mean Velocity(Antegrade Flow): 1.14 m/s, 1.19 m/s Mean Gradient(Antegrade Flow): 5.91 mm[Hg], 6.42 mm[Hg] Velocity Time Integral: 36.71 cm, 38.88 cm Tricuspid Valve Peak Velocity (Regurgitant Flow): 2.66 m/s, 2.69 m/s, 2.76 m/s Pulmonic Valve Mean Gradient: 2.28 mm[Hg], 2.94 mm[Hg], 3.27 mm[Hg] Mean Velocity: 0.72 m/s, 0.80 m/s, 0.85 m/s Peak Velocity: 1.09 m/s Peak Gradient: 3.56 mm[Hg], 5.24 mm[Hg], 5.69 mm[Hg] Right Atrium Right Atrium Systolic Pressure: 50.79 ml, 50.79 ml Dictated by: Eric Colvin M.D. on 10/23/2024 at 11:30 Approved by: Eric Colvin M.D. on 10/23/2024 at 11:33
--- OUTSIDE RECORDS SUMMARY | 2024-10-18 15:20 | XMS_ITS | CCD ---
Author Organization [facility] Care Team Providers Care Beef Breaker Name Role Phone MARYCHUY PARSONS Primary Care Physician STEFANYER ., DR GRIJALVA Primary Care Unavailable HEMEYER [...] NILL, Stevie Bledsoe Admitting Unavailable NILL, Stevie Bledsoe Attending Unavailable NILL, Stevie Bledsoe Attending Unavailable NILL, Stevie Bledsoe Attending Unavailable NILL, Stevie Bledsoe Attending Unavailable Stefanyer El CANCHOLA Primary Care Provider El Kirkpatrick MD Unavailable El Kirkpatrick MD Primary Care Provider [phone] El Kirkpatrick MD Unavailable El Kirkpatrick MD Unavailable [phone] El Kirkpatrick MD Primary Care Provider El Kirkpatrick MD Unavailable EL KIRKPATRICK Attending Unavailable EL KIRKPATRICK Attending Unavailable EL KIRKPATRICK Attending Unavailable EL KIRKPATRICK Attending Unavailable EL KIRKPATRICK Attending Unavailable EL KIRKPATRICK Attending Unavailable RASHID BENSON Attending Unavailable EL KIRKPATRICK Attending Unavailable EL KIRKPATRICK Attending Unavailable EL KIRKPATRICK Attending Unavailable Allergies Allergy Classification Reported Allergen(s) Allergy Type Date of Onset Reaction(s) Facility (20 sources) FLUoxetine; Translations: [fluoxetine] Drug Allergy 03-09-2023 Unknown [facility] (16 sources) rOPINIRole; Translations: [ropinirole] Drug Allergy 05-09-2023 Unknown [facility] (1 source) FLUoxetine Drug Allergy [facility] (1 source) rOPINIRole Drug Allergy [facility] (20 sources) DULoxetine Drug Allergy 05-09-2023 Other [facility] Work Phone: (20 sources) metFORMIN Drug Allergy 08-30-2023 Diarrhea [facility] (12 sources) metFORMIN Drug Allergy 03-09-2023 [facility] Medications Current Medications Medication Drug Class(es) Dates Sig (Normalized) Sig (Original) acetaminophen 325 mg / HYDROcodone bitartrate 5 mg oral tablet (1 source) Opioid Agonist Start: 11-05-2022 End: 11-10-2022 take 1 tablet by mouth every six hours for pain [place] 325 mg-5 mg oral tablet 1 tab(s), Oral, q6hr for pain, 15 tab(s), Refill(s) 0, take with food or milk max 4 per day buttock abscess, [facility], 170, cm, 11/05/22 11:31:00 EST, Height/Length Dosing, 136.5, kg, 11/05/22 11:31:00 EST, Weight Dosing Start Date: 11/05/22 Stop Date: 11/10/22 Status: Ordered amoxicillin 875 mg / clavulanate 125 mg oral tablet (3 sources) Penicillin-class Antibacterial Start: 07-02-2024 End: 07-12-2024 take 1 tablet by mouth in the morning amoxicillin-clavu lanate (Augmentin) 875-125 MG tablet Indications: Non-recurrent acute suppurative otitis media of right ear without spontaneous rupture of tympanic membrane Take 1 tablet (875 mg) by mouth in the morning and 1 tablet (875 mg) before bedtime. Do all this for 10 days. 20 tablet 07/02/2024 07/12/2024 Active Start: 02-15-2023 End: 02-25-2023 take 1 tablet by mouth every twelve hours Augmentin 875 mg oral tablet = 1 tab(s), Oral, q12hr, X 10 day(s), # 20 tab(s), Refills(s) 0, Pharmacy: [facility]/pharmacy #[id number], 170, cm, 02/10/23 13:47:00 EDT, Height/Length Dosing, 138, kg, 02/10/23 13:47:00 EDT, Weight Dosing Start Date: 02/15/23 Stop Date: 02/25/23 Status: Ordered atorvastatin 20 mg oral tablet (20 sources) HMG-CoA Reductase Inhibitor Start: 08-27-2024 End: 09-26-2024 take 1 tablet by mouth once daily atorvastatin (Lipitor) 20 MG tablet Indications: Mixed dyslipidemia (CMS/HCC) Take 1 tablet (20 mg) by mouth Daily 30 tablet 08/27/2024 09/26/2024 Active Start: 11-05-2022 End: 08-19-2024 take 1 tablet by mouth once daily atorvastatin (Lipitor) 20 MG tablet Indications: Mixed dyslipidemia (CMS/HCC) Take 1 tablet (20 mg) by mouth Daily 90 tablet 05/21/2024 08/19/2024 Active azelastine hydrochloride 0.137 mg/actuat metered dose nasal spray (10 sources) Histamine-1 Receptor Antagonist Start: 07-02-2024 End: 07-02-2025 take 1 spray(s) nasal route in the morning azelastine (Astelin) 0.1 % nasal spray Indications: Non-recurrent acute suppurative otitis media of right ear without spontaneous rupture of tympanic membrane Administer 1 spray into each nostril in the morning and 1 spray before bedtime. Use in each nostril as directed. 30 mL 12 07/02/2024 07/02/2025 Active cefdinir 300 mg oral capsule (4 sources) Cephalosporin Antibacterial Start: 06-26-2024 End: 07-03-2024 take 1 capsule by mouth once cefdinir (Omnicef) 300 MG capsule Indications: Right acute otitis media , Acute rhinosinusitis Take 1 capsule (300 mg) by mouth every 12 (twelve) hours for 7 days 14 capsule 06/26/2024 07/03/2024 Active cephalexin 500 mg oral capsule (3 [...] Active Dulaglutide (Trulicity) 4.5 MG/0.5ML solution auto-injector (8 sources) Start: 08-27-2024 End: 02-23-2025 Dulaglutide (Trulicity) 4.5 MG/0.5ML solution auto-injector Indications: Type 2 diabetes mellitus with other diabetic kidney complication (CMS/HCC) , Type 2 diabetes mellitus with hyperglycemia, without long-term current use of insulin (CMS/HCC) Inject 4.5 mg under the skin 1 (one) time per week 6 mL 1 08/27/2024 02/23/2025 Active dulaglutide (Trulicity) 4.5 MG/0.5ML solution pen-injector (14 sources) Start: 02-21-2024 End: 08-19-2024 dulaglutide (Trulicity) 4.5 MG/0.5ML solution pen-injector Indications: Type 2 diabetes mellitus with hyperglycemia, without long-term current use of insulin (CMS/HCC) , Type 2 diabetes mellitus with other diabetic kidney complication (CMS/HCC) Inject 4.5 mg under the skin 1 (one) time per week 6 mL 1 02/21/2024 08/19/2024 Active Start: 08-31-2023 End: 02-27-2024 dulaglutide (Trulicity) 4.5 MG/0.5ML solution pen-injector Indications: Type 2 diabetes mellitus with other diabetic kidney complication (CMS/HCC) , Type 2 diabetes mellitus with hyperglycemia, without long-term current use of insulin (CMS/HCC) Inject 4.5 mg under the skin 1 (one) time per week. 6 mL 1 08/31/2023 02/27/2024 Active empagliflozin 25 mg oral tablet (20 sources) Sodium-Glucose Cotransporter 2 Inhibitor Start: 08-27-2024 End: 11-25-2024 take 1 tablet by mouth once daily empagliflozin (Jardiance) 25 MG Indications: Diabetic nephropathy associated with type 2 diabetes mellitus (HCC) (CMS/HCC) Take 1 tablet (25 mg) by mouth Daily 90 tablet 08/27/2024 11/25/2024 Active Start: 05-21-2024 End: 08-19-2024 take 1 tablet by mouth once daily empagliflozin (Jardiance) 25 MG Indications: Diabetic nephropathy associated with type 2 diabetes mellitus (HCC) (CMS/HCC) Take 1 tablet (25 mg) by mouth Daily 90 tablet 05/21/2024 08/19/2024 Active Start: 08-31-2023 End: 02-27-2024 take 1 tablet by mouth in the morning empagliflozin (Jardiance) 25 MG Indications: Diabetic nephropathy associated with type 2 diabetes mellitus (HCC) (CMS/HCC) Take 1 tablet (25 mg) by mouth in the morning. 30 tablet 0 11/29/2023 12/29/2023 Active glipiZIDE 5 mg oral tablet (12 sources) Sulfonylurea Start: 08-27-2024 End: 09-26-2024 take 1 tablet by mouth in the morning glipiZIDE (Glucotrol) 5 MG tablet Indications: Type 2 diabetes mellitus with other diabetic kidney complication (CMS/HCC) Take 1 tablet (5 mg) by mouth in the morning and 1 tablet (5 mg) in the evening. Take before meals. 60 tablet 08/27/2024 09/26/2024 Active Start: 05-21-2024 End: 08-19-2024 take 1 tablet by mouth in the morning glipiZIDE (Glucotrol) 5 MG tablet Indications: Type 2 diabetes mellitus with other diabetic kidney complication (CMS/HCC) Take 1 tablet (5 mg) by mouth in the morning and 1 tablet (5 mg) in the evening. Take before meals. 180 tablet 05/21/2024 08/19/2024 Active hyoscyamine sulfate 0.125 mg oral tablet [...] day(s), # 7 tab(s), Refills(s) 0, Pharmacy: [facility]/pharmacy #[id number], 170, cm, 02/10/23 13:47:00 EDT, Height/Length Dosing, 138, kg, 02/10/23 13:47:00 EDT, Weight Dosing Start Date: 02/10/23 Stop Date: 02/17/23 Status: Ordered 3 ml liraglutide 6 mg/ml pen injector (5 sources) GLP-1 Receptor Agonist Start: 11-05-2022 Victoza 6 mg/mL subcutaneous injection Refills(s) 0 Start Date: 11/05/22 Status: Ordered losartan potassium 25 mg oral tablet (20 sources) Angiotensin 2 Receptor Paolo Start: 05-09-2023 End: 11-17-2024 take 1 tablet by mouth once daily losartan (Cozaar) 25 MG tablet Indications: Type 2 diabetes mellitus with other diabetic kidney complication (CMS/HCC) Take 1 tablet (25 mg) by mouth Daily 30 tablet 08/27/2024 09/26/2024 Active Start: 11-05-2022 take 1 tablet by [...] Status: Ordered nabumetone 750 mg oral tablet (20 sources) Nonsteroidal Anti-inflammatory Drug Start: 08-31-2023 End: [...] Status: Ordered nystatin 100 unt/mg topical powder (20 sources) Polyene Antifungal Start: 06-21-2023 nystatin (Mycostatin) 365071 UNIT/GM powder Indications: Candidiasis Apply 1 application [...] 09/22/2023 Active pioglitazone 30 mg oral tablet (12 sources) Peroxisome Proliferator Receptor alpha Agonist, Peroxisome Proliferator Receptor gamma Agonist, Thiazolidinedione Start: 05-21-2024 End: 11-17-2024 take 1 tablet by mouth once daily pioglitazone (Actos) 30 MG tablet Indications: Type 2 diabetes mellitus with other diabetic kidney complication (CMS/HCC) Take 1 tablet (30 mg) by mouth Daily 90 tablet 1 05/21/2024 11/17/2024 Active polyethylene glycol 3350 260205 mg / potassium chloride 2970 mg / sodium bicarbonate 6740 mg / sodium chloride 5860 mg / sodium sulfate 72435 mg powder for oral solution (10 sources) Osmotic Laxative Start: 09-22-2023 take 4000 mL by mouth once GaviLyte-G 236 g solution Take 4,000 mL by mouth 1 (one) time 0 09/22/2023 Active spironolactone 50 mg oral tablet (20 sources) Aldosterone Antagonist Start: 05-28-2024 End: 11-25-2024 take 1 tablet by mouth [...] Sig (Original) fluconazole 200 mg oral tablet (12 sources) Azole Antifungal Start: 08-20-2024 End: 09-06-2024 take 1 tablet by mouth once daily fluconazole (Diflucan) 200 MG tablet Indications: Enteritis, noninfectious Take 1 tablet (200 mg) by mouth Daily for 14 days 14 tablet 08/20/2024 09/06/2024 Discontinued (Therapy completed) Start: 07-02-2024 End: 07-16-2024 take 1 tablet by mouth once daily fluconazole (Diflucan) 200 MG tablet Indications: Monilial vaginitis Take 1 tablet (200 mg) by mouth Daily for 14 days 14 tablet 07/02/2024 07/16/2024 Active Start: 06-26-2024 End: 07-03-2024 take 1 tablet by mouth once fluconazole (Diflucan) 150 MG tablet Indications: Dysuria Take 1 tablet (150 mg) by mouth every 3rd (third) day for 3 doses 3 tablet 06/26/2024 07/03/2024 Active Start: 11-24-2023 End: 12-04-2023 take 1 tablet by mouth in the morning fluconazole (Diflucan) 200 MG tablet Indications: Candidiasis Take 1 tablet (200 mg) by mouth in the morning for 10 days. 10 tablet 0 11/24/2023 12/04/2023 Active Problems Active Problems Problem Classification Problem Date Documented Date Episodic/Chronic Administrative/social admission (2 sources) Advance directive discussed with patient; Translations: [Other specified counseling] 09-24-2024 Episodic Cardiac dysrhythmias (2 sources) Tachycardia; Translations: [Tachycardia, unspecified] 09-06-2024 Episodic Chronic kidney disease (12 sources) Chronic kidney disease stage 2; Translations: [Chronic kidney disease, stage 2 (mild)] Onset: 12-02-2023 12-02-2023 Chronic Chronic obstructive pulmonary disease and bronchiectasis (20 sources) Pulmonary emphysema; Translations: [Other emphysema] Onset: 03-10-2023 03-10-2023 Chronic Diabetes mellitus with complications (20 sources) Type 2 diabetes mellitus; Translations: [Type 2 diabetes mellitus with hyperglycemia] Onset: 04-14-2022 Resolved: 05-09-2023 03-10-2023 Chronic Diabetes mellitus without complication (5 sources) Diabetes mellitus 11-03-2022 Chronic Disorders of lipid metabolism (20 sources) Hypercholesterolemia; Translations: [Dyslipidemia] Onset: 03-10-2023 Resolved: 11-23-2023 11-03-2022 Chronic Menopausal disorders (20 sources) Menopausal syndrome; Translations: [Disorder associated with menstruation AND/OR menopause] Onset: 03-10-2023 12-28-2013 Chronic Mood disorders (20 sources) Depressive disorder; Translations: [Recurrent major depression in partial remission] Onset: 05-09-2023 12-28-2013 Chronic Mycoses (3 sources) Candidiasis; Translations: [Candidiasis, unspecified] 11-24-2023 Episodic Nutritional deficiencies (20 sources) Vitamin D deficiency; Translations: [Vitamin D deficiency, unspecified] Onset: 03-22-2023 11-03-2022 Chronic Osteoarthritis (20 sources) Osteoarthritis of hip; Translations: [Osteoarthritis of hip, unspecified] Onset: 03-22-2023 08-17-2016 Chronic Other connective tissue disease (2 sources) Hip joint prosthesis present; Translations: [Presence of right artificial hip joint] Onset: 09-24-2024 09-24-2024 Chronic Other connective tissue disease (2 sources) Spasm; Translations: [Other muscle spasm] 09-06-2024 Episodic Other diseases of veins and lymphatics (4 sources) Stasis dermatitis; Translations: [Venous insufficiency (chronic) (peripheral)] 11-22-2023 Episodic Other lower respiratory disease (20 sources) Fibrosis of lung; Translations: [Pulmonary fibrosis, unspecified] Onset: 03-10-2023 03-10-2023 Chronic Other non-traumatic joint disorders (2 sources) Joint pain; Translations: [Pain in unspecified joint] 09-06-2024 Episodic Other nutritional; endocrine; and metabolic disorders (20 sources) Body mass index 40+ - severely [...] Chronic Other nutritional; endocrine; and metabolic disorders (20 sources) Morbid obesity; Translations: [Morbid (severe) obesity due to excess calories] Onset: 03-10-2023 03-10-2023 Chronic Other screening for suspected conditions (not mental disorders or infectious disease) (4 sources) Patient encounter status; Translations: [Encounter for screening mammogram for malignant neoplasm of breast] 09-24-2024 Episodic Other skin disorders (2 sources) Sebaceous cyst of skin; Translations: [Sebaceous cyst] Onset: 02-10-2023 Episodic Other upper respiratory infections (2 sources) Acute rhinosinusitis; Translations: [Acute sinusitis, unspecified] 06-26-2024 Episodic Otitis media and related conditions (4 sources) Acute right otitis media; Translations: [Otitis media, unspecified, right ear] 06-26-2024 Episodic Residual codes; unclassified (5 sources) Sleep apnea 11-03-2022 Chronic Residual codes; unclassified (4 sources) Obstructive sleep apnea (adult) (pediatric); Translations: [OBSTRUCTIVE SLEEP APNEA] Onset: 05-12-2022 Chronic Residual codes; unclassified (20 sources) Hypoxia; Translations: [Idiopathic sleep related nonobstructive alveolar hypoventilation] Onset: 03-10-2023 03-10-2023 Chronic Residual codes; unclassified (20 sources) Obstructive sleep apnea syndrome; Translations: [Obstructive sleep apnea (adult) (pediatric)] Onset: 03-10-2023 03-10-2023 Chronic Residual codes; unclassified (20 sources) Idiopathic sleep related non-obstructive alveolar hypoventilation; Translations: [Idiopathic sleep related nonobstructive alveolar hypoventilation] Onset: 06-13-2022 03-22-2023 Chronic Residual codes; unclassified (5 sources) Tobacco user 11-05-2022 Episodic Residual codes; unclassified (20 sources) Menopause present; Translations: [Asymptomatic menopausal state] Onset: 04-14-2022 03-22-2023 Episodic Skin and subcutaneous tissue infections (16 sources) Abscess of buttock; Translations: [Cutaneous abscess of buttock] Onset: 11-01-2022 11-05-2022 Episodic Past or Other Problems Problem Classification Problem Date Documented Da te Episodic/Chronic Genitourinary symptoms and ill-defined conditions (14 sources) Microalbuminuria; Translations: [Proteinuria, unspecified] Onset: 12-02-2023 12-02-2023 Episodic Intestinal infection (20 sources) Clostridium difficile colitis; Translations: [Enterocolitis due to Clostridium difficile, not specified as recurrent] Onset: 03-22-2023 Resolved: 05-15-2024 08-17-2016 Episodic Comment on above: april 2016 Mood disorders (20 sources) Mood disorders Onset: 05-30-2023 05-30-2023 Other aftercare (1 source) Other long-term (current) drug therapy; Translations: [OTH [facility] CURRENT DRUG THERAPY] Onset: 11-02-2022 Episodic Other aftercare (20 sources) Polypharmacy ; Translations: [Other long-term (current) drug therapy] Onset: 04-14-2022 03-22-2023 Episodic Other connective tissue disease (20 sources) Pain in limb; Translations: [Pain in unspecified limb] Onset: 03-10-2023 03-10-2023 Episodic Other diseases of veins and lymphatics (20 sources) Peripheral venous insufficiency; Translations: [Venous insufficiency (chronic) (peripheral)] Onset: 03-10-2023 03-10-2023 Episodic Other gastrointestinal disorders (20 sources) Diarrhea; Translations: [Diarrhea, unspecified] Onset: 03-22-2023 Resolved: 05-15-2024 08-17-2016 Episodic Other skin disorders (20 sources) Infection of sebaceous cyst; Translations: [Sebaceous cyst] Onset: 03-22-2023 Resolved: 05-09-2023 02-10-2023 Episodic Pulmonary heart disease (20 sources) H/O: pulmonary embolus; Translations: [Personal history of pulmonary embolism] Onset: 05-18-2022 03-22-2023 Episodic Substance-related disorders (20 sources) Smoker; Translations: [Nicotine dependence, cigarettes, uncomplicated] Onset: 11-02-2022 Resolved: 11-23-2023 08-17-2016 Chronic Comment on above: Added secondary to d ocumentation in Social History. Results Test Name Value Interpretation Reference Range Facility ALL CBC WITH AUTO DIFFon BASOPHILS ABSOLUTE AUTO 0.1 [facility] Basophils/100 WBC (Bld) 0.8 % 0.2 - 2.0 % [facility] Eosinophils/100 WBC (Bld) 5.6 % 0.9 - 7.0 % [facility] Erythrocyte distribution width (RBC) [Ratio] 13.4 % 11.0 - 15.0 % [facility] Hematocrit (Bld) [Volume fraction] 43.7 % 36.0 - 48.0 % [facility] Hemoglobin (Bld) [Mass/Vol] 14.3 g/dL 12.0 - 16.0 g/dL [facility] IMMATURE GRANULOCYTES ABS AUTO 0.07 High [facility] Immature granulocytes/100 WBC (Bld) 0.7 % High 0.0 - 0.5 % [facility] Interpretation and review of laboratory results Abnormal [facility] LYMPHOCYTES ABSOLUTE AUTO 4.2 High [facility] Lymphocytes/100 WBC (Bld) 39.1 % 20.5 - 60.0 % [facility] MCH (RBC) [Entitic mass] 32 pg 26.7 - 34.0 pg [facility] MCHC (RBC) [Mass/Vol] 32.7 g/dL 29.9 - 35.2 g/dL [facility] MCV (RBC) [Entitic vol] 97.8 fL 81.0 - 99.0 fL [facility] MONOCYTES ABSOLUTE AUTO 0.9 High [facility] Monocytes/100 WBC (Bld) 7.9 % 1.7 - 12.0 % [facility] NEUTROPHILS ABSOLUTE AUTO 4.9 [facility] Neutrophils/100 WBC (Bld) 45.9 % 43.0 - 75.0 % [facility] Platelet mean volume (Bld) [Entitic vol] 10.2 fL 9.5 - 13.5 fL [facility] TBH EO # 0.6 [facility] TB PLT 239 [facility] RBC 4.47 [facility] WBC 10.8 [facility] Laboratory - Chemistry and C hemistry - challengeon 06-26-2024 Bilirubin Ql (U) Negative [facility] Glucose [Mass/Vol] 3+ [facility] Ketones Ql (U) Negative [facility] pH (U) 5.5 [pH] [facility] Specific gravity (U) [Rel density] 1.020 [facility] Urobilinogen (U) [Mass/Vol] 0.0199803 mg/dL [facility] - Hematology and Cell countson 06-26-2024 Hemoglobin Ql (U) Negative [facility] - Urinalysison Nitrite Ql (U) Negative [facility] Protein Ql (U) Negative [facility] No Panel Informationon 06-26 Interpretation and review of laboratory results Abnormal [facility] LEUKOCYTES Negative [facility] General Surgery Office/Clini c Noteon 04-03-2023 General [...] tissue, unspecified) Follow-up With When Contact Information GUSTAVO CANCHOLA, COCO Neal Only if needed [address] [place] [address]- Additional Instructions: Problem List/Past Medical [...] virus vaccine, inactivated 09/08/2016 Given Nursing Judgment [facility] Comment on above: Result Comment: Elec tronically Signed By: GUSTAVO CANCHOLA, Stevie Bledsoe\.br\Date and Time Signed: 04/03/23 19:49 EDT Ambulatory [...] apnea Smoker Tobacco abuse Vitamin D deficiency [facility] Pathology Noteon 03-27-2023 Pathology Note [id number] .00CD:127 [facility] Operative Reporton Operative Report [id number] .00CD:127 [facility] Pre-Certification Formon Pre-Certification Form [id number]# 1.00CD:127 [facility] Ambulatory Visit Summaryon 0 02-15-2023 Ambulatory Visit Summary DOMONIQUE GILBERT :1965 Visit Date:02/15/2023 Ambulatory Visit Instructions Your Diagnosis Infected sebaceous cyst Local infection of the skin and subcutaneous tissue, unspecified Your Care Team Attending Physician - GUSTAVO CANCHOLA, Stevie Bledsoe Primary Care Physician - [...] sebaceous cyst Duration: 10 Days Pickup at [facility]/pharmacy #[id number] Unchanged atorvastatin (atorvastatin 20 mg Tab) [...] Mouth 2 times a day Pharmacy Information [facility]/pharmacy #[id number]: [address], [place] [phone] Allergies FLUoxetine (Unknown) rOPINIRole (Unknown) Problems Ongoing - Any problem that you are currently receiving treatment for. Abscess of right buttock BMI 45.0-49.9, adult Depression Diabetes Hypercholesteremia Infected sebaceous cyst Menopause Sleep apnea Smoker Tobacco abuse Vitamin D deficiency Normal [facility] General Surgery Office/Clini c Noteon 02-15-2023 General [...] day(s), # 20 tab(s), Refills(s) 0, Pharmacy: [facility]/pharmacy #[id number], 170, cm, 02/10/23 13:47:00 EDT, Height/Length [...] virus vaccine, inactivated 09/08/2016 Given Nursing Judgment [facility] Comment on above: Result Comment: Elec tronically Signed By: GUSTAVO CANCHOLA, Stevie Bledsoe\yashira\Date and Time Signed: 02/15/23 16:02 EDT Consent for Procedure/Surger yon 02-11-2023 Consent for Procedure/Surgery [id number] .00CD:127 [facility] Ambulatory Visit Summaryon 0 02-10-2023 Ambulatory Visit Summary LE DOMONIQUE :1965 Visit Date:02/10/2023 Ambulatory Visit Instructions Your Care Team Attending Physician - GUSTAVO CANCHOLA, Stevie Bledsoe Primary Care Physician - [...] Smoker Tobacco abuse Vitamin D deficiency Normal [facility] Ambulatory Visit Summaryon 0 - Ambulatory Visit Summary DOMONIQUE GILBERT :1965 Visit Date:11/12/2022 Ambulatory Visit Instructions Your Diagnosis Abscess of right buttock Your Care Team Attending Physician - GUSTAVO CANCHOLA, Stevie Bledsoe Primary Care Physician - [...] Schedule the Following Appointments Follow Up with GUSTAVO CANCHOLA, COCO Neal When: Only if needed Where: [address] [place] [address]- Medications What How Much When Instructions Unchanged [...] Smoker Tobacco abuse Vitamin D deficiency Normal [facility] General Surgery Office/Clini c Noteon 11-12-2022 [...] with problems/questions. Follow-up With When Contact Information GUSTAVO CANCHOLA, COCO Neal Only if needed [address] [place] [address]- Additional Instructions: Problem List/Past Medical [...] vaccine, inactivated 09/08/2016 Given Nursing Judgment Normal [facility] Comment on above: Result Comment: Elec tronically Signed By: GUSTAVO CANCHOLA, Stevie Mercado\Date and Time Signed: 11/12/22 16:00 EST Coding Summary.on 11-09-2022 Coding Summary. [id number]+PGhlYWQ+[id number] iH37dpNPrpJ7VZ5pVZI3F EVINRPEPQS6SXU8yrEN7Y EmsS0AurzWb RrxfdMEmPE77GAu1XAQ2f CvbZLdqsE4noDHoU9q6Yq TaIB02vR39HHhvBBBfWuM 3LjZpbjsgbWFy G8ulUlUiqXYbMne+PHRhY mxlIHdpZHRoPScxMDAlJy CxgNshFO2yRg6tLHLvIWR vbGxhcHNlOiBj m8rpCSYgBGnjQY5hdCtvS 4RlbCQ9PKIgr7u6Jk15qX I+UCWqDFQ5aJjvTJity34 3DlCli6ijAVI6 fOVwPAzdBJK2G44yg2P1S JAmJBIhSYP2vBT1wW9leZ rytskpY3IztMXiWwP0MBD 2uYTvnR2rkFzc phnojR6pTzz+V55HTE6OS KIROZ0TTul8I1GhFczphQ I+RP42LHCwME55qLAqkJS wq9tmcYs8DhAt DKRjQTU5pEsyVGssd9MsQ SNnH16kbERmz2L7NSOtgA zggKSbEhEfdXF7qM7cHXm ofdyct6tbgjhv Zqsgi3burn18wU86Q46pP QlnTQKdKSO7RROaAQAytU ahwc2lzP1kLz3+BHdqa6r hn1fstBe3IuIg OKTduqDffUwuOJN7d5KvP y55L0UbdUyhl9GxAum2mc 43uQIyn0T8qMG7KHmbIUK adI3bUMloBcQ1 RDVnUlAfoW74vSLmKPgpN c3fzPddgImkLV4iJMIhqe maXWRzfF4iFTTfpFZgaZm aQK3aKOIgftxc x780HyCrLEL0NSLuhIIcA 7IswE1tPaDkDOEhCQTpD3 LfqXFuMKppH867YOvwHdC 8VURuzzEvL2Fd JEQtjJidHbG8l8O5To7Hb 8IagzwzXAS4YBwkCYNmTy J4WyZpIlP2W6YlGrc0MAQ tsCuoOS5uT1Tz PMBrctxzxtodyPE0WVYjW NAbhC80lXCsJBhrVk7ws0 X3u982NCPxWZAbiB36Il5 udDogMTBwdCBU zP0tltqmb5pecoseVkYaC JCxCXq9AEz0GOSdfSsgMh YfEKL6UiB5SVJ0rHZoiY7 adTlbvuesyS6g Oyc+O74yuL9cGWZ1CVT9y brfHWUnhhMeDV23JL31W7 RyPjwvdGFibGU+PGRpdiB ooUkuLM9hClPn j1oxf0MyPLnfI3AvAWXpD MbjKpq3JRPzAJB0yVT9rO 3gWLDzYDacs0I0bTX6K5G ramCakl5ct6iu ZRDkDYpjB21epPSwv2E8T OQebYI9RECaiNnxReLajP 93Oyc+OCIqaMbya1MeCpe mv9olf0gjjEd8 ImYqXUEfoxPrbEcxXHX4t 9UjGe70Z48iPAwuMIGmTY DbPFCmZTBcsJzjen1bnF1 wIi8+PGNvbCB3 pUQ2bN3qINGhMaT5FRobF 958EuNyjSJgBgchg9paz3 qsfJs4VwBzJITkekJbxKe dSWN2q0NcOy99 K72gEXurSCKnSDGfZYDrK KPwwYuohb5leI2tTc3+PC 7sm4yafe98xV86rIK+PHR oNPB2cIhePAps JHTzoP0zEUomVyL2NXRgZ dMkgC54wMRhZXjoMu7tuZ dreAwvSW4hVNSnvtojv23 0YjWag6dkVDUo fPKnWBsgHXF9K23bk8Y1D XTfBCDwAJB9iWW7hB3oqJ lnbjogbGVmdDsgdmVydGl gRJcqVOwfJ295 IHRvcDsnPlBhdGllbnQgT wTlERw3M3RdUgr7UJUyrG chUD5nvEUrOIlqCc1eyMb ooXxmDF7pGORm pmmcz201ScObc6afGFWui XYqDRmdEFT6Y31vm3D2YL PsGJViPKT3rBY1lT5zrQf nbjogbGVmdDsg djJqaFrfIRqwJCjeE743T HRvcDsnPkJpcnRoIERhdG R9LP79SD41wUIfh6D4dLZ 8T7JwPQIfjyyi huoalTL8BZMdTQGafV18Z g3viRkrYz0gKICvOHW7UQ XzjOTyV8UwlX2gYnSvPLO jZQPwY2LaaKXi ALauU924LGdyEfT7BEBkz kCmL6OjYBCkmUfoUyG5i5 B0Fk7ZW6Y8RH04PE66fHR yb4F4gOX4I8Gt EISfttubgwxajKJ6UIBnF LGpcP15Li9caNnuDx0sPA VsLJM3RCMrmYSoB5RqbK8 yOiAjMDAwMDAw X0GeaMZiQZwnB688WBgxY iA8SQAacaQcO8SbIQZdwW xuAvV2k3L0Mg8MPTj0UD0 6AZ56iGAai8I6 hOY6Z1QfQSQuhyghsxnef BI9OTXoLNNfqF82Of5btB zvWl4qOFGxDXV7VSGvyKG iH4LyiB4cSdTb LDCrOWZiE9CfzQUsDOgmR 358GRzsWyQ9OINhiaXjP7 UjLDZugJjaZuB7r0S6En8 QFEHcCY97EJV9 xPT9PX85OZ72T2KsPctqh GFibGU+PHRhYmxlIHdpZH RoPScxMDAlJyBzdHlsZT0 tGe9dZCCxMANm vEorhOApXbLxc3krCGReS EumPR5liZpmW5LvtJW8EG Noa4k7Qa90M43dH7WybAZ +NKElqEY0wAZ1 gX4jAmWzRgG2MFxqL161O aEfaHKuLfrhw9xew0zgdC s4AwB0KLWoasTudUiqVMQ 9s8PeMo28W05g IHdpZHRoPSIxNSUiIHZhb Yiake4fkS8hTa9+PGNvbC E4uSS6eK8pBbPjKeS6HVb yN756UhWxqGMe Csdxs6qqu4ytiOv4WxVrS GMbkgQpzDtzHUG6x6DaPf 54E6NogSszm9NnBni3bt2 7cXOeq1F2qOK1 W4DaLZBconkzlPMjcYraU F0tFSSsavmsQZMyjB2wFA OdU0v8XuYqTlZ5HOumF0Y kxsA1SWTziDOa AOwsJVT8O66cz1B2FOIeS KLzXCV0uVY1aM5qkSloet ogbGVmdDsgdmVydGljYWw bASktC889YRFm uQzfPDZcuP0qSRJmdEWkw GjhGZ7kBBIcxzzdIrNDUP 4OIRSCPA0PSZorsGH+PHR yPAZ9uErmWSpt QSFijY9hNAHxQ5e0NhLwB fL1ZQhsE9ItPXEhrmaoWf 38zA9cNbHvHjS7ZOliE4J qcaN9USEsmZCc PSoxOCQ3C28wh4G6HGSzI PCcUMO8hNL4cN4fvAwamh ogbGVmdDsgdmVydGljYWw lLWirN917QVTr tNbxLdQ0OlXcBmH8RzG1B 7IwJrp4NVNgsRtmGX8vpP DnLHmoOs9myKtcrJzmDM9 wNTBpbjtwYWRk oB7uSTFbdIVcmRylEL5jA SLioiixs736XpPsYRL6AD BbdWDxO0HctP9uCbYdQQD xJZRhP1JbtVQu TQgjW227DWbeAwF8QAUrj mTsH1XhTNDpeSskSpL4s9 R5Vl88FUIIUGZrpzalhIP +MFSgNHR7bQug UFonHHKyyB2dMEUsN0l4S sXrYpJ7GHvhS7SdTSWqtt wrUb28oE3eDxRiZxB5XPe lB8HctlR1JTHm zCQhDZxlFWQ5D37rq9H6B RLmKRTnEGZ0aOO5dS2clK lnbjogbGVmdDsgdmVydGl dZPmlMKphZ472 IHRvcDsnPkZlbWFsZTwvd GQ+NCXeSID4zHbzJCrhXL AcgU8kAGOuI2q1ShNjXfP 3AZggV7GaUKSz whufSr22eC3cZeKrJtG2W ArzQ2FkeqF8KISrhSVgFO epOGF4P83ve3A2RDQoQSW mXDV0bZF8pL5b bGlnbjogbGVmdDsgdmVyd UzgWTyeHPegW477WAUzaU ihNofcBsJNth9hZW5rAuq vdGQ+QO33rq75 E6ZqVmdsUqp6HWVmGXM1p NO0gP4xGXYxLHpmf1C3gJ U3G4MuxpFlsx2ua7caJPW cTBupT98zyYUh k3T9GWShjWB2TBFfsJfgY xIzhF91Yav+PGNvbGdyb3 PpFyhad6cat2smaGi4EhJ wJSIgdmFsaWdu CYD4s7GxXx90L71cBNbnW HRoPSIzMCUiIHZhbGlnbj 7wlU9bZa9+AYNtbCG6hWC 0wY2pBuQoErB7 YBbfW921XgTmpUUxQonbr 7owf3tgsQj0OiKmCQScvy KsxXrgZRE1z0LkIt20S6F haNjoj7QfTsk6 hv90qWEqx3B6hRU4S6KhC MBqftgguYHdoOniQA6oXX UmbgnsKXJdpS8yWOVdO6w 8FiRyYiD5CJvd I2NdbyM8ENFomHAzCHTfk YROxQ0ufpccp6uewiumDj XkIDQwMCu6OIh7UGBusEv kJdYrHFF0LfI1 DFD9rJViyI1flEmcsvzdw G9wOyc+BMb9q2idjLZeCF 1vyUH2SA53XH79sHRte0V 2vIB5T3KwOICz uleafmlibPW5BVJrMJCwj T63Vx6jtEigMw2aMMHgEF P7XDInuLYqA2SvsO0eHwH wGDCkCZKkP3Mb mLBwGOmaR354VPcoMfH5E SJlcgPmZ6DjISYxfEfuHn I8t4Y3Gs4KCA79BB01RJ4 7mRJpl2V0gAQ5 F0FgWNTwojqeuddjcMO5W SFyPQDmlI39Rt0cpVvlLn 2cLSDcXWR1IGKuoQYtI1Z uzP6sXlVdYUGg TTVaP3HesKEiONrlE971A LfrEqE1XLDjheOxO8FyPT RfgZcqRuT7d5V0Gl6BMq0 7CJ04FK31gGHz h6I3dRH8Q9KsRQCrzzqab doxtEG0BYAkGVEycO21Ig 1dwFgbJf5mAHOeWZH7WCR euIIrH1ZtiU6a KcNiAQQsZSNcZ3YylMIhK SnlL772YYsgChU1PVXjym MfA2MdWWHmrCagDyM6o7T 3Bq1MZYrctpy6 D7AdTmsiqHW+UY72DZOlB H19xRCjqMHtb5nstAu1Bi FuWGYzQXZ3gZhgBNgew6T dDKMbW80qjHIa c2U6 (more content not included)... Normal [facility] Provider Letter FTMCon 11-05 Provider Letter [place] November 05, 2022 DOMONIQUE GILBERT [address] [place] [address] DOMONIQUE GILBERT 1965 To Whom It May Concern, Please excuse above patient from work 11/05/22-11/12/22.. Sincerely, Dr. Stevie Schneider MD General Surgery [facility] Physician Referralon 023 Physician Referral [phone] [id number] Normal [facility] SCREENING MAMMOGRAM W/ESTHER, BILATERAL*on 05-05-2022 SCREENING [...] by Mike Hein on 05/05/2022 0929 Normal [facility] XR Bone Density (DEXA)on XR Bone Density (DEXA) EXAM: Left Femur Bone Density FINDINGS: Left Femur bone density obtained with a [employer] whole body system: RegionBMDYoung-AdultA ge-Matched Total(g/cm2)(%)T-Scor e(%)Z-Score Mean0.0766333.47642.3 Impression: The mean BMD and corresponding T-score indicated above indicate Normal Bone Mass and places the patient at no significant risk for fracture. This information can serve as a baseline with which to compare future studies. EXAM: Left Forearm Bone Density FINDINGS: Left Forearm bone density obtained with a [employer] whole body system: RegionBMDYoung-AdultA ge-Matched Total(g/cm2)(%)T-Scor e(%)Z-Score Mean0.6353433.07854.3 Impression: The mean BMD and corresponding T-score indicated above indicate Normal Bone Mass and places the patient at no significant risk for fracture. This information can serve as a baseline with which to compare future studies. EXAM: AP Lumbar Bone Density FINDINGS: AP Spine bone density obtained with a [employer] whole body system: RegionBMDYoung-AdultA ge-Matched Total(g/cm2)(%)T-Scor e(%)Z-Score L1-[id number]. 8 Impression: The mean BMD and corresponding [...] by Mike Hein on 05/05/2022 1050 Normal [facility] US venous duplex LE BIon US venous duplex LE BI [facility] [place] [address] Ultrasound Report Signed Patient: Domonique Gilbert MR#: [id number] 7 : 1965 Acct:[id number] Age/Sex: 56 / F ADM Date: 07/09/21 Loc: Room: Type: [facility] Attending Dr: Evelyn Garza MD Ordering Provider: [...] Chilango Smith M.D.07/10/2021 1:03 PM Dictation Location: RAD-DOC-04 Tech: Kathy Driver Transcribed By: MAYI 07/10/21 1303 Dictated By: Chilango Smith MD 07/10/21 1303 Signed By: 07/10/21 1303 Normal [facility] B-Type Natriuretic Peptideon 07-09-2021 Natriuretic peptide B (Bld) [Mass/Vol] 25.0 pg/mL Normal 5-100 [facility] Comment on above: Result Comment: PERF ORMED BY: [place] [address] PATHOLOGIST PRICE CLERK VLADISLAV LEYVA M.D. Performed By: #### B MP, BNP #### [address] Basic Metabolic Panelon 06-18 Calcium [Mass/Vol] 9.0 mg/dL Normal 8.2-10.[address] [facility] Comment on above: Result Comment: PERF ORMED BY: [place] [address] PATHOLOGIST PRICE CLERK VLADISLAV LEYVA M.D. Performed By: #### B MP, BNP #### [facility] [address] [place] [address] [place] Chloride [Moles/Vol] 105 mmol/L Normal 95-114 [facility] Comment on above: Performed By: #### B MP, BNP #### [facility] [address] [place] [address] [place] CO2 [Moles/Vol] 20.9 mmol/L Low 22.0-30.0 [facility] Comment on above: Performed By: #### B MP, BNP #### [facility] [address] [place] [address] [place] Creatinine [Mass/Vol] 0.62 mg/dL Normal 0.44-1.03 [facility] Comment on above: Performed By: #### B MP, BNP #### [facility] [address] [place] [address] [place] Estimated GFR ( Sheryl > 60 Normal [facility] Comment on above: Result Comment: GFR estimated reference range: According to KDOQI guidelines, <60 ml/min/1.73m2 is sufficient to diagnose a patient with chronic kidney disease. Performed By: #### B MP, BNP #### [address] Estimated GFR (Non- Am > 60 Normal [facility] Comment on above: Performed By: #### B MP, BNP #### [place] [address] [place] Glucose [Mass/Vol] 234 mg/dL High 70-[address] [facility] Comment on above: Result Comment: [place] Glucose Reference Range is dependent on time and content of last meal. Glucose of more than 200 mg/dL in a nonstressed, ambulatory subject supports the diagnosis of Diabetes Mellitus. ADA recommended reference range Performed By: #### B MP, BNP #### [address] Potassium [Moles/Vol] 4.2 mmol/L Normal 3.5-5.1 [facility] Comment on above: Performed By: #### B MP, BNP #### [place] [address] [place] Sodium [Moles/Vol] 137 mmol/L Normal 136-[address] [facility] Comment on above: Performed By: #### B MP, BNP #### [address] Urea nitrogen [Mass/Vol] 12 mg/dL Normal 9-23 [facility] Comment on above: Performed By: #### B MP, BNP #### [place] [address] [place] XR chest 2V*on 07-09-2021 XR chest 2V* [facility] [place] [address] [place] [address] XRay Report Signed Patient: Domonique Gilbert MR#: [id number] 7 : 1965 Acct:[id number] Age/Sex: 56 / F ADM Date: 07/09/21 Loc: Room: Type: [facility] CLI Attending Dr: Evelyn Garza MD Ordering Provider: [...] Onesimo Salazar M.D.07/09/2021 1:05 PM Dictation Location: [place] [address] Transcribed By: [facility] 07/09/21 1305 Dictated By: Onesimo Salazar MD 07/09/21 1302 Signed By: 07/09/21 1305 Normal [facility] CT angio chest PE protocolon 06-26-2021 CT angio chest PE protocol [facility] [place] [address] CT Scan Report Signed Patient: Domonique Gilbert MR#: [id number] 7 : 1965 Acct:[id number] Age/Sex: 56 / F ADM Date: 06/26/21 Loc: CT Room: Type: [facility] Attending Dr: Evelyn Garza MD Ordering Provider: [...] Onesimo Salazar M.D.06/26/2021 11:00 AM Dictation Location: [place] [address] Transcribed By: [facility] 06/26/21 1100 Dictated By: Onesimo Salazar MD 06/26/21 1047 Signed By: 06/26/21 1100 Normal [facility] COVID-19 Lab Corpon 06-10-20 SARS-CoV-2 (COVID-19) RNA DEYVI+probe Ql (Unsp spec) Detected Critically abnormal Not Detected [facility] Comment on above: Order Comment: Ramesh flores called at 1128 on 06/12/21. Healthcare Worker?: N Result Comment: Nancy ents who have a positive COVID-19 test result may now have treatment options. Treatment options are available for patients with mild to moderate symptoms and for hospitalized patients. Visit our website at [email or web address] for resources and information. This nucleic acid amplification test was developed and its performance characteristics determined by [employer]. Nucleic acid amplification tests include RT- PCR [...] detected) result in this assay. PERFORMED BY: [address] [place] [address] PATHOLOGIST PRICE CLERK VLADISLAV LEYVA M.D. Performed By: #### C ORONAVIRUS #### [facility] , Vital Signs Date Time Vital Sign Value Performing Clinician Facility 09-24-2024 09:03-0500 Body height 170.2 cm El Kirkpatrick MD Work Phone: [facility] 09-24-2024 09:03-0500 Body mass index (BMI) [Ratio] 50.12 kg/m2 El Kirkpatrick MD Work Phone: [facility] 09-24-2024 09:03-0500 Body weight 145.15 kg El Kirkpatrick MD Work Phone: [facility] 09-24-2024 09:03-0500 Diastolic blood pressure 80 mm[Hg] El Kirkpatrick MD Work Phone: [facility] 09-24-2024 09:03-0500 Heart rate 87 /min El Kirkpatrick MD Work Phone: [facility] 09-24-2024 09:03-0500 SaO2% (BldA) [Mass fraction] 99 % El Kirkpatrick MD Work Phone: [facility] 09-24-2024 09:03-0500 Systolic blood pressure 128 mm[Hg] El Kirkpatrick MD Work Phone: [facility] 09-06-2024 09:07-0500 Body height 170.2 cm El Kirkpatrick MD Work Phone: [facility] 09-06-2024 09:07-0500 Body mass index (BMI) [Ratio] 48.24 kg/m2 El Kirkpatrick MD Work Phone: [facility] 09-06-2024 09:07-0500 Body weight 139.71 kg El Kirkpatrick MD Work Phone: [facility] 07-02-2024 13:04-0400 Body height 170.2 cm El Kirkpatrick MD Work Phone: [facility] 07-02-2024 13:04-0400 Body mass index (BMI) [Ratio] 48.24 kg/m2 El Kirkpatrick MD Work Phone: [facility] 07-02-2024 13:04-0400 Body weight 139.71 kg El Kirkpatrick MD Work Phone: [facility] 06-26-2024 15:53-0400 Body mass index (BMI) [Ratio] 48.34 kg/m2 Rashid Benson GOVERNMENT MINISTER Work Phone: [facility] 06-26-2024 15:53-0400 Body temperature 97 [degF] Rashid Benson GOVERNMENT MINISTER Work Phone: [facility] 06-26-2024 15:53-0400 Body weight 140 kg Rashid Benson GOVERNMENT MINISTER Work Phone: [facility] 06-26-2024 15:53-0400 Diastolic blood pressure 68 mm[Hg] Rashid Benson GOVERNMENT MINISTER Work Phone: [facility] 06-26-2024 15:53-0400 Heart rate 84 /min Rashid Benson GOVERNMENT MINISTER Work Phone: [facility] 06-26-2024 15:53-0400 SaO2% (BldA) [Mass fraction] 99 % Rashid Benson GOVERNMENT MINISTER Work Phone: [facility] 06-26-2024 15:53-0400 Systolic blood pressure 122 mm[Hg] Rashid Benson GOVERNMENT MINISTER Work Phone: [facility] 11-24-2023 09:33-0500 Body height 170.2 cm El Kirkpatrick MD Work Phone: [facility] 11-24-2023 09:33-0500 Body mass index (BMI) [Ratio] 46.05 kg/m2 El Kirkpatrick MD Work Phone: [facility] 11-24-2023 09:33-0500 Body weight 133.36 kg El Kirkpatrick MD Work Phone: [facility] 11-22-2023 08:03-0500 Body height 170.2 cm El Kirkpatrick MD Work Phone: [facility] 11-22-2023 08:03-0500 Body mass index (BMI) [Ratio] 46.05 kg/m2 El Kirkpatrick MD Work Phone: [facility] 11-22-2023 08:03-0500 Body weight 133.36 kg El Kirkpatrick MD Work Phone: [facility] 11-16-2023 10:33-0500 Body height 170.2 cm El Kirkpatrick MD Work Phone: [facility] 11-16-2023 10:33-0500 Body mass index (BMI) [Ratio] 46.05 kg/m2 El Kirkpatrick MD Work Phone: [facility] 11-16-2023 10:33-0500 Body weight 133.36 kg lE Kirkpatrick MD Work Phone: [facility] 02-10-2023 13:38-0400 Blood Pressure Location Stevie SCHNEIDER [facility] [place] 02-10-2023 13:38-0400 Diastolic blood pressure 83 mm[Hg] Stevie LUL [facility] 02-10-2023 13:38-0400 Heart rate 96 /min Stevie LUL [facility] 02-10-2023 13:38-0400 Respiratory rate 16 /min Stevie LUL [facility] 02-10-2023 13:38-0400 Systolic blood pressure 138 mm[Hg] Stevie SCHNEIDER [facility] Encounters Encounter Date Encounter Type Care Provider Facility Start: 09-24-2024 End: 09-24-2024 Bamboo racheal Kirkpatrick MD Work Phone: [facility] Start: 09-24-2024 End: 09-24-2024 Bamboo flowstami Kirkpatrick MD Work Phone: [facility] Start: 09-24-2024 End: 09-24-2024 ambulatory EL KIRKPATRICK Not Available Start: 09-24-2024 End: 09-24-2024 Patient encounter status El Kirkpatrick MD Work Phone: [facility] Start: 09-24-2024 End: 09-24-2024 Periodic preventive med est patient 40-64yrs El Kirkpatrick MD Work Phone: [facility] Comment on above: Encounter for wellne ss examination in adult; Advance directive discussed with patient; Screening mammogram, encounter for; Screening for osteoporosis; Menopause; BMI 45.0-49.9, adult ([facility]) Start: 09-06-2024 End: 09-06-2024 Bamboo flowsheet El Kirkpatrick MD Work Phone: [facility] Start: 09-06-2024 End: 09-06-2024 Bamboo flowsheet El Kirkpatrick MD Work Phone: [facility] Start: 09-06-2024 End: 09-06-2024 Clinisync Result Encounter El Kirkpatrick MD Work Phone: [facility] Unsolicited Start: 09-06-2024 End: 09-06-2024 Office outpatient visit 25 minutes El Kirkpatrick MD Work Phone: [facility] Comment on above: Muscle spasm (Primar y Dx); Tachycardia; Arthralgia, unspecified joint; Morbid obesity (CMS/HCC) Start: 09-06-2024 End: 09-06-2024 ambulatory EL KIRKPATRICK Not Available Start: 08-24-2024 End: 08-27-2024 Refill El Kirkpatrick MD Work Phone: [facility] Comment on above: Venous (peripheral) insufficiency Start: 07-02-2024 End: 07-02-2024 Office outpatient visit 25 minutes El Kirkpatrick MD Work Phone: [facility] Comment on above: Non-recurrent acute suppurative otitis media of right ear without spontaneous rupture of tympanic membrane (Primary Dx); Monilial vaginitis; Polypharmacy Start: 07-02-2024 End: 07-02-2024 ambulatory EL KIRKPATRICK Not Available Start: 06-26-2024 End: 06-26-2024 ambulatory RASHID BENSON Not Available Start: 06-26-2024 End: 06-26-2024 Office outpatient visit 25 minutes Rashid Benson GOVERNMENT MINISTER Work Phone: [facility] Comment on above: Right acute otitis m edia (Primary Dx); Dysuria; Acute rhinosinusitis Start: 05-21-2024 End: 05-21-2024 ambulatory EL KIRKPATRICK [...] hyperglycemia, without long-term current use of insulin ([facility]) Start: 11-29-2023 End: 11-29-2023 ambulatory EL KIRKPATRICK Not Available Start: 11-24-2023 Bamboo flowsheet El stringer MD Work Phone: [facility] Start: 11-24-2023 Bamboo flowsheet El stringer MD Work Phone: [facility] Start: 11-24-2023 End: 11-24-2023 Office outpatient visit 15 minutes El Kirkpatrick MD Work Phone: [facility] Comment on above: Candidiasis (Primary Dx); Cellulitis of left ankle; Venous stasis dermatitis of left lower extremity; Morbid obesity ([facility]); BMI 45.0-49.9, adult ([facility]); Polypharmacy; Current smoker Start: 11-24-2023 End: 11-24-2023 [...] hyperglycemia, without long-term current use of insulin ([facility]) Start: 04-01-2023 End: 04-02-2023 ambulatory Stevie R NILL Facility:[facility] Start: 04-01-2023 End: 04-01-2023 Patient encounter procedure Stevie R NILL [facility] Start: 03-16-2023 End: 03-17-[address] EL KIRKPATRICK . Facility: Start: 02-15-2023 End: 02-16-2023 [facility]ulatory [facility] Start: 02-15-2023 End: 02-15-2023 Patient encounter procedure Stevie R NILL [facility] [place] Start: 02-10-2023 End: 02-11-2023 ambulatory Stevie R NILL Facility:[facility] Start: 02-10-2023 End: 02-10-2023 Patient encounter procedure Stevie R NILL [facility] Start: 11-12-2022 End: 11-13-2022 ambulatory [facility] NILL [facility] Start: 11-12-2022 End: 11-12-2022 Patient encounter procedure Stevie R NILL [facility] [place] Start: 11-05-2022 End: 11-06-2022 ambulatory Stevie SCHNEIDER Facility:[place] Start: 11-05-2022 End: 11-06-2022 ambulatory Stevie R TABITHAL Facility: [facility] Start: 11-05-2022 End: 11-05-2022 Lab Drop off Stevie LUYakov [facility] Start: 11-03-2022 ambulatory Stevie Ladi TABITHAYakov Facility : [facility] Start: 11-02-2022 ambulatory Stevie SCHNEIDER Facility:[facility] Start: 11-01-2022 End: 11-01-[address] EL KIRKPATRICK . Facility: Start: 05-12-2022 End: 05-13-[address] EL KIRKPATRICK . Facility: Procedures Date Procedure Procedure Detail Performing Clinician Start: 09-06-2024 ALL CBC WITH AUTO DIFF El Kirkpatrick MD Work Phone: Start: 06-26-2024 Urnls dip stick/tabl et rgnt auto w/o microscopy Rashid Benson [employer] Work Phone: Start: 03-16-2023 Excision of cyst Michae yakov [facility] Comment on above: epidermal, mid back Start: 05-05-2022 Mammography El xie MD Work Phone: Start: 09-07-2016 right total hip arthroplasty Stevie SCHNEIDER Start: 11-23-2013 right hip injection with fluroscopy Stevie SCHNEIDER Colonoscopy Stevie SCHNEIDER left distal biceps reconstruction - 04/20/11 Stevie SCHNEIDER Partial resection of colon M otto GUSTAVO Plan of Treatment Date Care Activity Detail Author Start: 10-01-2025 Screening for malign ant neoplasm of breast Mammogram [facility] Comment on above: Postponed from 05/05 (Patient Refused) Start: 06-16-2025 Glaucoma screening Diabetes: R etinopathy Screening [facility] Start: 05-21-2025 Urine screening for protein Diabetes: Urine Protein Screening [facility] Start: 11-22-2024 End: 11-22-2024 Patient encounter procedure [facility] Start: 11-19-2024 Influenza vaccination Influenza Vacc ine (#1) [facility] Comment on above: Postponed from 06/17 (Patient Refused) Start: 09-24-2024 End: 09-24-2024 Patient encounter procedure 09/24/2024 9:00 AM EST Office Visit [facility] [address] [place] [id number] El Kirkpatrick MD [address] [facility] [address] [place] [address] [facility] Start: 09-06-2024 End: 09-06-2025 CBC W Auto Differential panel - Blood CBC and differential Lab Routine Muscle spasm Tachycardia Arthralgia, unspecified joint Expected: 09/06/2024 (Approximate), Expires: 09/06/2025 [facility] Comment on above: Expected: 09/06/2024 (Approximate), Expires: 09/06/2025 Start: 09-06-2024 End: 09-06-2025 Comprehensive metabolic 2000 panel - Serum or Plasma Comprehensive metabolic panel Lab Routine Muscle spasm Tachycardia Arthralgia, unspecified joint Expected: 09/06/2024 (Approximate), Expires: 09/06/2025 [facility] Work Phone: Comment on above: Expected: 09/06/2024 (Approximate), Expires: 09/06/2025 Start: 09-06-2024 End: 09-06-2025 Erythrocyte sedimentation rate Sedimentation rate, automated Lab Routine Muscle spasm Tachycardia Arthralgia, unspecified joint Expected: 09/06/2024 (Approximate), Expires: 09/06/2025 [facility] Comment on above: Expected: 09/06/2024 (Approximate), Expires: 09/06/2025 Start: 09-06-2024 End: 09-06-2025 Magnesium [Mass/volume] in Serum or Plasma Magnesium Lab Routine Muscle spasm Tachycardia Arthralgia, unspecified joint Expected: 09/06/2024 (Approximate), Expires: 09/06/2025 [facility] Comment on above: Expected: 09/06/2024 (Approximate), Expires: 09/06/2025 Start: 09-06-2024 End: 09-06-2025 Thyrotropin [Units/volume] in Serum or Plasma TSH Lab Routine Muscle spasm Tachycardia Arthralgia, unspecified joint Expected: 09/06/2024 (Approximate), Expires: 09/06/2025 [facility] Comment on above: Expected: 09/06/2024 (Approximate), Expires: 09/06/2025 Start: 09-06-2024 End: 09-06-2025 Thyroxine (T4) free [Mass/volume] in Serum or Plasma T4, free Lab Routine Muscle spasm Tachycardia Arthralgia, unspecified joint Expected: 09/06/2024 (Approximate), Expires: 09/06/2025 [facility] Comment on above: Expected: 09/06/2024 (Approximate), Expires: 09/06/2025 Start: 09-06-2024 End: 09-06-2025 Triiodothyronine (T3) Free [Mass/volume] in Serum or Plasma T3, free Lab Routine Muscle spasm Tachycardia Arthralgia, unspecified joint Expected: 09/06/2024 (Approximate), Expires: 09/06/2025 [facility] Comment on above: Expected: 09/06/2024 (Approximate), Expires: 09/06/2025 Start: 09-06-2024 End: 09-06-2024 Patient encounter procedure [facility] Comment on above: Encounter for wellne ss examination in adult; Advance directive discussed with patient; Screening mammogram, encounter for; Screening for osteoporosis; Menopause; Morbid obesity ([facility]) Start: 08-14-2024 Hemoglobin A1c measurement Laura betes: Hemoglobin A1C [facility] Start: 06-17-2024 Influenza vaccination Influenza Vacc ine (#1) [facility] Start: 02-21-2024 Hemoglobin A1c measurement Laura betes: Hemoglobin A1C [facility] Start: 02-13-2024 End: 02-13-2024 Patient encounter procedure 02/13/2024 9:30 AM EDT Office Visit [facility] [address] [place] [address] El Kirkpatrick MD [address] [place] [address] [facility] Start: 11-29-2023 End: 11-29-2023 Patient encounter procedure [facility] Comment on above: Type 2 diabetes siena itus with hyperglycemia, without long-term current use of insulin ([facility]); Type 2 diabetes mellitus with other diabetic kidney complication ([facility]); Diabetic nephropathy associated with type 2 diabetes mellitus (HCC) ([facility]); Mixed dyslipidemia ([facility]); Polypharmacy; Morbid obesity ([facility]); BMI 45.0-49.9, adult ([facility]) Start: 11-25-2023 Hemoglobin A1c measurement Laura betes: Hemoglobin A1C [facility] Start: 11-24-2023 End: 11-24-2023 Patient encounter procedure [facility] Comment on above: Cellulitis of left a nkle; Venous stasis dermatitis of left lower extremity; Morbid obesity ([facility]); BMI 45.0-49.9, adult [place] Polypharmacy; Current smoker Start: 11-22-2023 End: 11-22-2023 Patient encounter procedure 11/22/2023 8:00 AM EST Office Visit [facility] [address] [place] [address] El Kirkpatrick MD [address] [place] [address] (Fax) [facility] Start: 06-17-2023 Influenza vaccination Influenza Vacc ine (#1) [facility] Start: 05-05-2023 Screening for malign ant neoplasm of breast Mammogram [facility] Start: 1993 Screening for malign ant neoplasm of cervix [facility] Start: 1984 Screening for malign ant neoplasm of cervix Pap Smear [facility] Immunizations Immunization Date Immunization Notes Care Provider Fa cility 01-30-2021 SARS-CoV-2 (COVID-19 ) mRNA BNT-162b2 vax Stevie SCHNEIDER [facility] [place] 09-08-2016 influenza, seasonal, injectable Stevie SCHNEIDER [facility] Comment on above: Early/Late Reason: N ursing Judgment 09-08-2016 influenza virus vaccine, unspecified formulation El Kirkpatrick MD Work Phone: [facility] NEGATED: Highlighted row has not occurred!11-05-2022 influenza virus vaccine, unspecified formulation Stevie SCHNEIDER [facility] [place] Payers Date Payer Category Payer [facility] BCBS [id number] 2019 Unknown BCBS BCBS xxxxxx [id number] 2019-Present [phone] [id number] [place], [place] [address] [id number]. [id number] 1963 Unknown [id number] 2.16.840.1.311740.3.579. 2.593 1963 Unknown [id number] 2.16.840.1.746977.3.579. 2.593 1963 Unknown [id number] 2.16.840.1.485154.3.579. 2.593 1963 Unknown [id number] 2.16.840.1.096877.3.579. 2.727 1963 Unknown [id number] 2.16.840.1.542358.3.579. 2.72 1963 Unknown [id number] 2.16.840.1.479183.3.579. 2.72 1963 Unknown [id number] 2.16.840.1.457136.3.579. 2.72 1963 Unknown [id number] 2.16.840.1.274079.3.579. 2.72 1963 Unknown [id number] 2.16.840.1.065447.3.579. 2. 1963 Unknown [id number] 2.16.840.1.517714.3.579. 2. 1963 Unknown [id number] 2.16.840.1.928629.3.579. 2.72 1963 Unknown [id number] 2.16.840.1.639222.3.579. 2. 1963 Unknown [id number] 2.16.840.1.501041.3.579. 2. 1963 Unknown [id number] 2.16.840.1.947416.3.579. 2.1258 1963 Unknown [id number] 2.16.840.1.735310.3.579. 2.1258 1963 Unknown [id number] 2.16.840.1.405773.3.579. 2.1258 1963 Unknown [id number] 2.16.840.1.375973.3.579. 2.1258 1963 Unknown [id number] 2.16.840.1.798406.3.579. 2.125 1963 Unknown [id number] 2.16.840.1.615301.3.579. 2.1259 1963 Unknown [id number] 2.16.840.1.123373.3.579. 2.1259 1963 Unknown [id number] 2.16.840.1.344502.3.579. 2.1259 1963 Unknown [id number] 2.16.840.1.909675.3.579. 2.1259 1963 Unknown [id number] 2.16.840.1.439726.3.579. 2.1259 1959 Unknown [id number] Social History Date Type Detail Facility Start: 11-05-2022 Tobacco smoking status Heavy t obacco smoker (finding) [facility] Tobacco smoking status Never [facility] Start: 03-15-2023 End: 05-09-2023 Sex Assigned At Female [facility] Start: 02-10-2023 End: 05-08-2023 Tobacco smoking status Ex-smoker (finding) [facility] History of tobacco use Current smoker [facility] History of tobacco use Cigarette Smoker [facility] Start: 05-08-2023 Tobacco use and exposure Smokeless tobacco non-user [facility] Start: 11-22-2023 End: 09-24-2024 Alcohol intake Ex-drinker (finding) [facility] Start: [...] Assessment Result Facility 02-10-2023 Functional Status N/A [facility] [place] Clinical Notes 11-05-2022 to 09-24-2024 El Kirkpatrick MD - 09/24/2024 9:00 AM Navjot Kirkpatrick MD - 09/06/2024 9:00 AM Shruti Benson NP - 06/26/2024 3:50 PM Ryan Kirkpatrick MD - 11/24/2023 9:30 AM EST Note Date & Type Note Facility 09-24-2024 History of Present illness Narrative Images from the original note were not included. Patient ID: Domonique Gilbert is a 59 y.o. female who presents for: Adult Wellness: See Scanned Wellness packet Advance Directive/Living Will: No Health Care Power of Cover Operator: No Review of Systems Constitutional: Positive for unexpected weight change. Negative for appetite change, chills and fever. Breasts: Negative for breast mass and breast discharge. Respiratory: Positive for shortness of breath. Negative for cough and wheezing. Cardiovascular: Positive for palpitations and leg swelling. Negative for chest pain. Gastrointestinal: Positive for diarrhea. Negative for abdominal pain and constipation. Genitourinary: Negative for frequency and urgency. Neurological: Negative for light-headedness and headaches. Psychiatric/Behavioral: Negative for behavioral problems and sleep disturbance. The patient is not nervous/anxious. Objective The patient is pleasant and in no acute distress. The neck is supple and trachea is midline. No masses are appreciated. The heart is regular rate and rhythm without S3, S4. No murmur. The patient has normal respiratory pattern. The breath sounds are symmetrical without evidence of rhonchi or rales. No wheezing. The skin is warm and dry. The lower extremities have trace edema. The patient has good eye contact and speech is clear. Appropriate affect. Visit Vitals BP 128/80 Pulse 87 Ht 5' 7 Wt 320 lb SpO2 99% BMI 50.12 kg/m OB Status Postmenopausal Smoking Status Former BSA 2.62 m Allergies Allergen Reactions Fluoxetine Unknown Other Reaction(s): change in mental status Metformin Hcl Other Reaction(s): diarrhea Duloxetine Hcl Other Developed severe fatigue. Metformin Diarrhea Current Outpatient Medications on File Prior to Visit Medication Sig Dispense Refill atorvastatin (Lipitor) 20 MG tablet Take 1 tablet (20 mg) by mouth Daily 30 tablet 0 azelastine (Astelin) 0.1 % nasal spray Administer 1 spray into each nostril in the morning and 1 spray before bedtime. Use in each nostril as directed. 30 mL 12 Dulaglutide (Trulicity) 4.5 MG/0.5ML solution auto-injector Inject 4.5 mg under the skin 1 (one) time per week 6 mL 1 empagliflozin (Jardiance) 25 MG Take 1 tablet (25 mg) by mouth Daily 90 tablet 0 glipiZIDE (Glucotrol) 5 MG tablet Take 1 tablet (5 mg) by mouth in the morning and 1 tablet (5 mg) in the evening. Take before meals. 60 tablet 0 losartan (Cozaar) 25 MG tablet Take 1 tablet (25 mg) by mouth Daily 30 tablet 0 nabumetone (Relafen) 750 MG tablet Take 2 tablets (1,500 mg) by mouth Daily 180 tablet 3 nystatin (Mycostatin) 735593 UNIT/GM powder Apply 1 application topically if needed for rash. 60 g 1 pioglitazone (Actos) 30 MG tablet Take 1 tablet (30 mg) by mouth Daily 90 tablet 1 spironolactone (Aldactone) 50 MG tablet Take 1 tablet (50 mg) by mouth in the morning and 1 tablet (50 mg) before bedtime. 180 tablet 0 No current facility-administered medications on file prior to visit. 1. Encounter for wellness examination in adult I have reviewed the patients PMShx, medications, and reconciled the problem list. Health maintenance and risk was reviewed and discussed. I also reviewed and discussed as appropriate; immunizations, colon cancer screening, breast and cervical cancer screening, recommended and any current lab evaluation. All items Addressed were declined by the patient. 2. Advance directive discussed with patient Patient voluntarily agreed to discuss advance care planning at today's wellness visit. We discussed that an advance directive is a legal document that only goes into effect if the patient is incapacitated and unable to speak for themselves. This would help us to decide what care the patient would want. We discussed emergency treatments to keep the patient alive such as CPR, ventilator use and concept of comfort. We discussed how patients could make their wishes known through a living will, durable power of attorney lawyer for healthcare, or other advanced directives. We discussed telling [place] people about their advance and a copy will be kept in the EHR. I discussed that they should also make me an emergency contact in their cell phone, and/or notify their POA that I have a copy of the advanced directives. 3. Screening mammogram, encounter for We had quite a long discussion concerning this. Even after discussion of The need for early diagnosis she declined. 4. Screening for osteoporosis declined 5. Menopause 6. BMI 45.0-49.9, adult ([facility]) Chronic problem. We did have a conversation concerning this and unfortunately is fairly emotional for her. For right now she is going to go home and think about it. I did suggest if she wants to try 1 of the other medications similar to the Trulicity, that she check with her insurance company formulary. documented in this encounter [facility] 09-06-2024 History of Present illness Narrative Images from the original note were not included. Patient ID: Domonique Gilbert is a 59 y.o. female who presents for: Pt stated she started with calf pain Tuesday while she was in bed to the point it woke her up almost screaming. Then it radiated into her raymundo and the muscles seemed like they were fighting themselves. It went on for two days making it hard to walk. She stated then Tuesday it started into her back and radiated into her abdomen and those muscles all seemed like they were fighting each other. Both occurrences started while she was sleeping. Pt states her and daughter stated she has been mixing up words and what she is talking about. Review of Systems Constitutional: Negative for appetite change, chills, fever and unexpected weight change. Cardiovascular: Positive for leg swelling. Negative for chest pain and palpitations. Gastrointestinal: Positive for abdominal pain. Negative for constipation and diarrhea. Genitourinary: Negative for frequency and urgency. Musculoskeletal: Positive for arthralgias, back pain, gait problem and myalgias. Neurological: Positive for weakness and numbness. Objective The patient is pleasant and in no acute distress. The neck is supple and trachea is midline. No masses are appreciated. The heart is regular rate and rhythm without S3, S4. No murmur. The patient has normal respiratory pattern. The breath sounds are symmetrical without evidence of rhonchi or rales. No wheezing. The skin is warm and dry. The lower extremities have 1+ edema. And a blanchable violaceous this consistent with venous Insufficiency The patient has good eye contact and speech is clear. Appropriate affect. Visit Vitals Ht 5' 7 Wt 308 lb BMI 48.24 kg/m OB Status Postmenopausal Smoking Status Former BSA 2.57 m Allergies Allergen Reactions Fluoxetine Unknown Other Reaction(s): change in mental status Metformin Hcl Other Reaction(s): diarrhea Duloxetine Hcl Other Developed severe fatigue. Metformin Diarrhea Current Outpatient Medications on File Prior to Visit Medication Sig Dispense Refill atorvastatin (Lipitor) 20 MG tablet Take 1 tablet (20 mg) by mouth Daily 30 tablet 0 azelastine (Astelin) 0.1 % nasal spray Administer 1 spray into each nostril in the morning and 1 spray before bedtime. Use in each nostril as directed. 30 mL 12 Dulaglutide (Trulicity) 4.5 MG/0.5ML solution auto-injector Inject 4.5 mg under the skin 1 (one) time per week 6 mL 1 empagliflozin (Jardiance) 25 MG Take 1 tablet (25 mg) by mouth Daily 90 tablet 0 glipiZIDE (Glucotrol) 5 MG tablet Take 1 tablet (5 mg) by mouth in the morning and 1 tablet (5 mg) in the evening. Take before meals. 60 tablet 0 losartan (Cozaar) 25 MG tablet Take 1 tablet (25 mg) by mouth Daily 30 tablet 0 nabumetone (Relafen) 750 MG tablet Take 2 tablets (1,500 mg) by mouth Daily 180 tablet 3 nystatin (Mycostatin) 155020 UNIT/GM powder Apply 1 application topically if needed for rash. 60 g 1 pioglitazone (Actos) 30 MG tablet Take 1 tablet (30 mg) by mouth Daily 90 tablet 1 spironolactone (Aldactone) 50 MG tablet Take 1 tablet (50 mg) by mouth in the morning and 1 tablet (50 mg) before bedtime. 180 tablet 0 [DISCONTINUED] fluconazole (Diflucan) 200 MG tablet Take 1 tablet (200 mg) by mouth Daily for 14 days 14 tablet 0 No current facility-administered medications on file prior to visit. 1. Muscle spasm (Primary) Chronic problem that has worsened significantly. Nothing seems to give her relief. She ends up waking up and then her sleep is disrupted until it passes. Along with the tachycardia and the arthralgia I think she needs basic laboratory evaluation. We discussed what we are testing for and the patient is in mutual agreement. - Comprehensive metabolic panel; Future - TSH; Future - T4, free; Future - T3, free; Future - CBC and differential; Future - Magnesium; Future - Sedimentation rate, automated; Future - Comprehensive metabolic panel - TSH - T4, free - T3, free - CBC and differential - Magnesium - Sedimentation rate, automated 2. Tachycardia I have asked her whenever she feels tachycardic to actually get her pulse oximeter and put it on so we can also see where her oxygen levels are at. She can also document the actual heart rate then. - Comprehensive metabolic panel; Future - TSH; Future - T4, free; Future - T3, free; Future - CBC and differential; Future - Magnesium; Future - Sedimentation rate, automated; Future - Comprehensive metabolic panel - TSH - T4, free - T3, free - CBC and differential - Magnesium - Sedimentation rate, automated 3. Arthralgia, unspecified joint As above - Comprehensive metabolic panel; Future - TSH; Future - T4, free; Future - T3, free; Future - CBC and differential; Future - Magnesium; Future - Sedimentation rate, automated; Future - Comprehensive metabolic panel - TSH - T4, free - T3, free - CBC and differential - Magnesium - Sedimentation rate, automated 4. Morbid obesity (CMS/HCC) documented in this encounter [facility] 06-26-2024 History of Present illness Narrative HPI: Historian of HPI: patient Domonique Gilbert is a 59 y.o. female who presents today to the Urgent Care with the following complaints and denials which have been present for 5 day(s) C/O Denies Symptom Comments [x] [] Runny Nose [x] [] Difficulty Swallowing [x] [] Sore Throat [] [x] Cough [x] [] Ear Pain R side [] [x] Fever [] [x] Chills [x] [] Nasal Congestion [] [x] Myalgia [x] [] Sinus Pain [x] [] Sinus Pressure Additional Comments: Pt admits dysuria, urinary frequency., ROS: A complete system ROS was performed and negative aside from the pertinent positives noted in the HPI and PE. IH Testing: Examination General Examination: General Examination: alert, oriented, normal affect, well appearing, in no acute distress, well developed, well nourished Head: normocephalic, atraumatic Eyes: sclera non-icteric Ears: right tympanic membrane intact, red, auditory canal non inflamed. Left tympanic membrane intact, clear, auditory canal non inflamed. Nose: congested with frontal tenderness Oral Cavity: mucosa moist, no lesions Throat: PND noted Neck/Thyroid: trachea midline Lymph Nodes: no cervical adenopathy Heart: no murmurs, regular rate and rhythm, S1, S2 normal Lungs: clear to auscultation bilaterally Extremities: no edema, no cyanosis Neurologic: alert and oriented Psych: alert, oriented, cognitive function intact, cooperative with exam 1. Dysuria Discussed urinalysis results. Symptoms likely due to yeast infection due to diabetic medications spilling glucose in urine. Will treat for yeast and provide an extra dose due to patient starting antibiotic therapy today also. Encouraged probiotic daily. - URINALYSIS ANALYZER TEST - fluconazole (Diflucan) 150 MG tablet; Take 1 tablet (150 mg) by mouth every 3rd (third) day for 3 doses Dispense: 3 tablet; Refill: 0 2. Right acute otitis media Discussed. See 3. - cefdinir (Omnicef) 300 MG capsule; Take 1 capsule (300 mg) by mouth every 12 (twelve) hours for 7 days Dispense: 14 capsule; Refill: 0 3. Acute rhinosinusitis Diagnosis and treatment discussed with patient. Immediate eval if new, worsening sx otherwise f/u with PCP if sx not resolved in 7 days, sooner if not improving over next 3-4 days. To ED for trouble swallowing secretions, shortness of breath, or other red flag symptoms. Advised Pt on supportive therapies, including using a vaporizer/humidifer/steam from hot showers, lots of fluids as tolerated, rest, avoidance of second-hand smoke, frequent hand-washing w/ soap and water, and OTC acetaminophen or ibuprofen as directed prn for pain control - cefdinir (Omnicef) 300 MG capsule; Take 1 capsule (300 mg) by mouth every 12 (twelve) hours for 7 days Dispense: 14 capsule; Refill: 0 documented in this encounter [facility] 11-24-2023 History of Present illness Narrative Patient [...] (RELAFEN) 1,500 mg, Oral, Daily nystatin (Mycostatin) 126064 UNIT/GM powder 1 application , Topical, As [...] the area around the lesion. Morbid obesity ([facility]) BMI 45.0-49.9, adult ([facility]) Polypharmacy Current smoker documented in this encounter [facility] 11-22-2023 History of Present illness Narrative Patient [...] (RELAFEN) 1,500 mg, Oral, Daily nystatin (Mycostatin) 846769 UNIT/GM powder 1 application , Topical, As [...] glass) of water. documented in this encounter [facility] 11-16-2023 History of Present illness Narrative Patient ID: Domonique Gilbert is a 58 y.o. female who presents for: Subjective Domonique Gilbetr is a 58 y.o. female who presents [...] factors. LDL-C is now calculated using the Brain-Gauthier calculation, which is a validated novel method providing better accuracy than the Friedewald equation in the estimation of LDL-C. Brain NICHOLSON et al. MARCIA. 2013;310(19): 1476-5705 (http://education.Linchpin.com/faq/BEP443) CHOL/HDLC RATIO 11/23/2023 3.1 <5.0 (calc) Final [...] (RELAFEN) 1,500 mg, Oral, Daily nystatin (Mycostatin) 360734 UNIT/GM powder 1 application , Topical, As [...] without long-term current use of insulin (CMS/HCC) Comorbid condition that complicates the risk for significant cellulitis of mixed pathology. documented in this encounter [facility] 03-16-2023 Note OPERATIVE NOTE OPERATION DATE: 03/16/2023 [...] good condition. CC: Patient's family physician [facility] 02-10-2023 Note Chief Complaint consultation for infected [...] plan excisional biopsy under local anesthesia at [facility] in 4-6 weeks, informed consent obtained. Ordered: levofloxacin, 750 mg = 1 tab(s), Oral, Daily, X 7 day(s), # 7 tab(s), Refills(s) 0, Pharmacy: [facility]/pharmacy #[id number], 170, cm, 02/10/23 13:47:00 EDT, Height/Length [...] virus vaccine, inactivated 09/08/2016 Given Nursing Judgment [facility] Comment on above: Result Comment: Elec tronically Signed By: GUSTAVO CANCHOLA, Stevie Bridges.br\Date and Time Signed: 02/10/23 15:00 EDT 11-08-2022 Note Microbiology PROCEDURE: Wound Culture [R1] SOURCE: Abscess BODY SITE: Buttock COLLECTED DATE/TIME: 11/05/2022 12:27 EST RECEIVED DATE/TIME: 11/05/2022 16:51 EST START DATE/TIME: 11/05/2022 16:51 EST FREE TEXT SOURCE: GUSTAVO CANCHOLA, Stevie SCHNEIDER MD, Stevie Bledsoe FINAL REPORTS [...] Locations R1: This test was performed at: [facility], [address] [place] [address], [id number]- , [place], [facility] Comment on above: Performed By: #### [id number] ####[facility] [id number] [place] [id number] 11-05-2022 Note Chief Complaint consultation for buttock abscess HPI Staff 57 year old female presents on consultation from [place] [facility] for right lower buttock abscess x 2. Advised sitz bath and warm compresses. Prescribed Doxycycline and Bactrim. History of Present Illness 57 yo female with h/o hypercholesterolemia, CECE, DMII, referred from [place] ED for right buttock abscess, seen there [...] then repack; complete course of antibiotics; take [place] 30 minutes to 1 hour prior to packing; refill given; f/u next week, call sooner if problems/questions. Ordered: acetaminophen-hydrocodone, 1 tab(s), Oral, q6hr for pain, 15 tab(s), Refill(s) 0, take with food or milk, [facility]/pharmacy #[id number], 170, cm, 11/05/22 11:31:00 EST, Height/Length [...] Tab, 750 mg= 1 tab(s), Oral, BID [place] 325 mg-5 mg oral tablet, 1 tab(s), [...] of lung: Mother. (more content not included)... [facility] Comment on above: Result Comment: Elec tronically Signed By: GUSTAVO CANCHOLA, Stevie Bledsoe\.shira\Date and Time Signed: 11/05/22 13:55 EST 11-05-2022 Hospital Discharge instructions Follow Up Care 11/05/2022 12:05:07 With:GUSTAVO CANCHOLA, COCO Neal Address: [address] [place] [id number] When: only if needed General Surgery [facility] Evaluation + Plan note Future Appointments Appointment Date:11/12/2022 03:20:00 PM Scheduled Provider:Stevie SCHNEIDER MD Location: [facility] Appointment Type: Established 15 Diagnostic Tests PendingWound Culture 11/05/22 [facility] Evaluation note Diagnosis Cellulitis of left ankle Venous stasis dermatitis of left lower extremity documented in [facility] encounter [facility]* Diagnosis Candidiasis- Primary Cellulitis of left ankle Venous stasis dermatitis of left lower extremity Morbid obesity ([facility]) Morbid obesity BMI 45.0-49.9, adult ([facility]) Polypharmacy Issue of repeat prescriptions Current smoker Type 2 diabetes mellitus with hyperglycemia, without long-term current use of insulin ([facility]) Type 2 diabetes mellitus with other diabetic kidney complication ([facility]) Diabetic nephropathy associated with type 2 diabetes mellitus (HCC) ([facility]) Mixed dyslipidemia ([facility]) Polypharmacy Issue of repeat prescriptions Morbid obesity ([facility]) Morbid obesity BMI 45.0-49.9, adult ([facility]) documented in this encounter [facility] HealthcareEvaluation [facility]* Diagnosis Cellulitis of left ankle- Primary Venous stasis dermatitis of left lower extremity Type 2 diabetes mellitus with hyperglycemia, without long-term current use of insulin ([facility]) Type 2 diabetes mellitus with hyperglycemia, without long-term current use of insulin ([facility]) Type 2 diabetes mellitus with other diabetic kidney complication ([facility]) Diabetic nephropathy associated with type 2 diabetes mellitus (HCC) ([facility]) Mixed dyslipidemia ([facility]) Polypharmacy Issue of repeat prescriptions Morbid obesity ([facility]) Morbid obesity BMI 45.0-49.9, adult ([facility]) documented in this encounter [facility] note* Diagnosis Type 2 diabetes mellitus with hyperglycemia, without long-term current use of insulin ([facility]) documented in this encounter [facility] HealthcareEvaluation [facility]* Diagnosis Venous (peripheral) insufficiency Unspecified venous (peripheral) insufficiency Encounter for wellness examination in adult Advance directive discussed with patient Screening mammogram, encounter for Screening for osteoporosis Special screening for osteoporosis Menopause Symptomatic menopausal or female climacteric states Morbid obesity ([facility]) Morbid obesity documented in this encounter [facility]* Diagnosis Muscle spasm- Primary Spasm of muscle Tachycardia Unspecified tachycardia Arthralgia, unspecified joint Morbid obesity ([facility]) Morbid obesity documented in this encounter [facility]Evaluation note* Diagnosis Right acute otitis media- Primary Unspecified otitis media Dysuria Acute rhinosinusitis documented in this encounter [facility] note* Diagnosis Non-recurrent acute suppurative otitis media of right ear without spontaneous rupture of tympanic membrane- Primary Monilial vaginitis Polypharmacy Issue of repeat prescriptions documented in this encounter [facility] HealthcareEvaluation note* Diagnosis Encounter for wellness examination in adult Advance directive discussed with patient Screening mammogram, encounter for Screening for osteoporosis Special screening for osteoporosis Menopause Symptomatic menopausal or female climacteric states BMI 45.0-49.9, adult ([facility]) documented in this encounter [facility] HealthcareHistory of Present illness Narrative* El Kirkpatrick MD - 07/02/2024 2:00 PM EDT Images from the original note were not included. Patient ID: Domonique Gilbert is a 59 y.o. female who presents for: Pt called last week not feeling well. With out I directed her to . She went to the [facility] andcalled this morning leaving stating she is on her last day of antibiotics and her ear is still hurting, she feels miserable and her hearing is diminished. She wanted to know if she should see this week or if she should get referral to ENT. Review of Systems Constitutional: Negative for chills and fever. HENT: Positive for ear pain. Respiratory: Negative for cough, shortness of breath and wheezing. Cardiovascular: Negative for chest pain and palpitations. Gastrointestinal: Negative for abdominal pain. Genitourinary: Negative for frequency and urgency. Objective In general the patient is pleasant and in no acute distress. Bilateral ears, canals are within normal limits. Right TM is dull and retracted, with minimal erythema. Left TM is transparent and somewhat retracted. No fluid layer. Bilateral nares demonstrate inflamed mucosa. Shoddy bilateral anterior cervical adenopathy. No signs of respiratory distress. Patient is speaking full sentences. Visit Vitals Ht 5' 7 Wt 308 lb BMI 48.24 kg/m OB Status Postmenopausal Smoking Status Former BSA 2.57 m Allergies Allergen Reactions Fluoxetine Unknown Other Reaction(s): change in mental status Metformin Hcl Other Reaction(s): diarrhea Duloxetine Hcl Other Developed severe fatigue. Metformin Diarrhea Current Outpatient Medications on File Prior to Visit Medication Sig Dispense Refill atorvastatin (Lipitor) 20 MG tablet Take 1 tablet (20 mg) by mouth Daily 90 tablet 0 cefdinir (Omnicef) 300 MG capsule Take 1 capsule (300 mg) by mouth every 12 (twelve) hours for 7 days 14 capsule 0 dulaglutide (Trulicity) 4.5 MG/0.5ML solution pen-injector Inject 4.5 mg under the skin 1 (one) time per week 6 mL 1 empagliflozin (Jardiance) 25 MG Take 1 tablet (25 mg) by mouth Daily 90 tablet 0 fluconazole (Diflucan) 150 MG tablet Take 1 tablet (150 mg) by mouth every 3rd (third) day for 3 doses 3 tablet 0 glipiZIDE (Glucotrol) 5 MG tablet Take 1 tablet (5 mg) by mouth in the morning and 1 tablet (5 mg) in the evening. Take before meals. 180 tablet 0 losartan (Cozaar) 25 MG tablet Take 1 tablet (25 mg) by mouth Daily 90 tablet 0 nabumetone (Relafen) 750 MG tablet Take 2 tablets (1,500 mg) by mouth Daily 180 tablet 3 nystatin (Mycostatin) 348681 UNIT/GM powder Apply 1 application topically if needed for rash. 60 g 1 pioglitazone (Actos) 30 MG tablet Take 1 tablet (30 mg) by mouth Daily 90 tablet 1 spironolactone (Aldactone) 50 MG tablet Take 1 tablet (50 mg) by mouth in the morning and 1 tablet (50 mg) before bedtime. 180 tablet 0 No current facility-administered medications on file prior to visit. 1. Non-recurrent acute suppurative otitis media of right ear without spontaneous rupture of tympanic membrane Acute problem. Per the patient she is somewhat improved and I did review the urgent care examination notes and it appears that the drum is somewhat improved but not resolved. We discussed some options and she would prefer a trial of treatment. We discussed issues concerning increased risk for C difficile colitis. I did recommend saccharomyces twice a day while on the Augmentin. I then recommended a good probiotic twice daily after the Augmentin for 2 weeks. We have discussed that any supplements recommended have not undergone review or approval by the FDAand, therefore, have not been documented to be safe or effective to diagnose, treat, prevent, mitigate, or cure any condition or disease. We also discussed saline irrigation prior to using the Astelin nasal spray. We discussed how to properly use the Astelin. If she has had no improvement at the end of the antibiotics, she is to call for referral to ENT. Otherwise if her symptoms have not resolved in 1 month she is to call and we will refer at that point also. - amoxicillin-clavulanate (Augmentin) 875-125 MG tablet; Take 1 tablet (875 mg) by mouth in the morning and 1 tablet (875 mg) before bedtime. Do all this for 10 days. Dispense: 20 tablet; Refill: 0 -azelastine (Astelin) 0.1 % nasal spray Frequency: 2 times daily Dispense Quantity: 30 mL Refills: 12 Sig: Administer 1 spray into each nostril in the morning and 1 spray before bedtime. Use in each nostril as directed. 2. Monilial vaginitis She notes she gets this after every bowel of antibiotics In prescribing a new medication consideration of the following encompasses moderate decision making: the current prescriptions and supplements, the current allergies and medication intolerances, the current medical conditions, and potential drug interactions. Risks, benefits, and reason for starting their medication were discussed. The patient was given a chance to ask questions today and all questions were answered. The patient is to contact us if any other questions arise or if any problems occur with the adjustment in their medication. - fluconazole (Diflucan) 200 MG tablet; Take 1 tablet (200 mg) by mouth Daily for 14 days Dispense:14 tablet; Refill: 0 3. Polypharmacy Chronic problem The patient meets the criteria for polypharmacy; 5 or more prescriptions or multi-morbidity definedas 5 or more diagnoses. Polypharmacy can significantly increase the risk of preventable adverse drug events and negatively impact adherence. Consideration of diverse factors such as clinician agreement, patient perspective,and de-prescribing, as appropriate can improve patient outcomes while simplifying care. This requires longitudinal monitoring as there is at least a moderate risk of morbidity and requires at least amoderate degree of evaluation and management. [facility] N[facility] No data available for this section [facility] instructions No data available for this section [facility] No data available for this section [facility] Summary Purpose Family History No Family [...] 01/15/[address] [facility] DATE CREATED AUTHOR AUTHOR'S ORGANIZ ATION 05/07/2022 [facility] dical Specialist DATE CREATED AUTHOR AUTHOR'S ORGANIZ ATION 03/26/2023 [facility] DATE CREATED AUTHOR AUTHOR'S ORGANIZ ATION 04/03/2023 [facility] DATE CREATED AUTHOR AUTHOR'S ORGANIZ ATION 09/26/2024 [facility] dical Specialists EPIC Patient Care team informatio n (unrecognized section and content) Beef [employer]aker Relationship Specialty Start Date End Date El Kirkpatrick MD [address] [phone] (Fax) PCP - General Family Medicine 03/09/23 El Kirkpatrick MD [address] [phone] (Fax) PCP - [facility] [employer] 09/16/23 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 Relationship Specialty Start Date End Date El Kirkpatrick MD [address] [place] [address] (Fax) PCP - General Family Medicine 03/09/23 El Kirkpatrick MD [address] [place] [address] (Fax) PCP - [facility] [employer] 09/16/23 Beef Breaker Relationship Specialty Start Date End Date El Kirkpatrick MD [address] [place] [address] (Fax) PCP - General Family Medicine 03/09/23 El Kirkpatrick MD [address] [place] [address] (Fax) PCP - [facility] [employer] 09/16/23 Beef Breaker Relationship Specialty Start Date End Date El Kirkpatrick MD [address] [place] [address] (Fax) PCP - General Family Medicine 03/09/23 El Kirkpatrick MD [address] [place] [address] (Fax) PCP - [facility] [employer] 09/16/23 Beef Breaker Relationship Specialty Start Date End Date El Kirkpatrick MD [address] [place] [address] (Fax) PCP - General Family Medicine 03/09/23 El Kirkpatrick MD [address] [place] [address] (Fax) PCP - [facility] [employer] 09/16/23 Beef Breaker Relationship Specialty Start Date End Date El Kirkpatrick MD [address] [place] [address] (Fax) PCP - General Family Medicine 03/09/23 El Kirkpatrick MD [address] [place] [address] (Fax) PCP - [facility] [employer] 09/16/23 Beef Breaker Relationship Specialty Start Date End Date El Kirkpatrick MD [address] [place] [address] (Fax) PCP - General Family Medicine 03/09/23 El Kirkpatrick MD [address] [place] [address] (Fax) PCP - [facility] [employer] 09/16/23 Beef Breaker Relationship Specialty Start Date End Date El Kirkpatrick MD [address] [place] [address] (Fax) PCP - General Family Medicine 03/09/23 El Kirkpatrick MD [address] [place] [address] (Fax) PCP - [facility] [employer] 08/17/23 Beef Breaker Relationship Specialty Start Date End Date El Kirkpatrick MD [address] [place] [address] (Fax) PCP - General Family Medicine 03/09/23 El Kirkpatrick MD [address] [place] [address] (Fax) PCP - [facility] [employer] 08/17/23 Beef Breaker Relationship Specialty Start Date End Date El Kirkpatrick MD [address] [place] [address] (Fax) PCP - General Family Medicine 03/09/23 El Kirkpatrick MD [address] [place] [address] (Fax) PCP - [facility] [employer] 08/17/23 Beef Breaker Relationship Specialty Start Date End Date El Kirkpatrick MD [address] [place] [address] (Fax) PCP - General Family Medicine 03/09/23 El Kirkpatrick MD [address] [place] [address] (Fax) PCP - [facility] [employer] 08/17/23 Beef Breaker Relationship Specialty Start Date End Date El Kirkpatrick MD [address] [place] [address] (Fax) PCP - General Family Medicine 03/09/23 El Kirkpatrick MD [address] [place] [address] (Fax) PCP - [facility] [employer] 08/17/23 Beef Breaker Relationship Specialty Start Date End Date El Kirkpatrick MD [address] [facility] [place] [address] (Fax) PCP - General Family Medicine 03/09/23 El Kirkpatrick MD [address] [place] [address] (Fax) PCP - [facility] [employer] 08/17/23 Beef Breaker Relationship Specialty Start Date End Date El Kirkpatrick MD [address] [place] [address] (Fax) PCP - General Family Medicine 03/09/23 El Kirkpatrick MD [address] [place] [address] (Fax) PCP - [employer] [facility] [employer] 08/17/23 Beef Breaker Relationship Specialty Start Date End Date El Kirkpatrick MD [address] [place] [address] PCP - General Family Medicine 03/09/23 El Kirkpatrick MD [address] [facility] [place] [address] PCP - [facility] 08/17/23 Reason for Visit (unrecogniz ed section and content) Reason Comments Cellulitis Reason Comments Med Change Request Reason Comments Med Refill Reason Comments Earache Reason Comments Annual Exam FOR RECORDS PERTAINING TO PATIENTS WHO ARE [...] BE BASED ON THE PRIMARY CLINICAL RECORDS. [facility]. provides no warranty or guarantee of the accuracy or completeness of information in this document.
== END 2024-10-18 15:00 | disposition home or self-care (01) ==
PROVIDERS: PCP Family Medicine; Visit Provider Family Medicine
DX: R00.0 Tachycardia, unspecified (principal); R40.4 Transient alteration of awareness; R01.1 Cardiac murmur, unspecified
CPT/HCPCS: 93306

== ENCOUNTER 2024-11-04 05:48 | Emergency (ER) | payer BC, SELFPAY ==
[2024-11-04] VITALS (50 sets, daily range): BP systolic 75–115; BP diastolic 33–86; PULSE 94–147; TEMP 36.9–37.6; O2SAT 76–97; BMI 47.0
--- OUTSIDE RECORDS SUMMARY | 2024-11-04 05:55 | XMS_ITS | CCD ---
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 (16 sources) rOPINIRole; Translations: [ropinirole] Drug Allergy 05-09-2023 Unknown [facility] (1 source) FLUoxetine Drug Allergy [facility] (1 source) rOPINIRole Drug Allergy [facility] Rep[facility] (20 sources) DULoxetine Drug Allergy 05-09-2023 Other [facility] Healthcare Work Phone: (20 sources) metFORMIN Drug Allergy 08-30-2023 Diarrhea [facility] Healthcare (12 sources) metFORMIN Drug Allergy 03-09-2023 [facility] Healthcare Medications Current Medications Medication Drug Class(es) Dates Sig (Normalized) Sig (Original) acetaminophen 325 mg / HYDROcodone bitartrate 5 mg oral tablet (1 source) Opioid Agonist Start: 11-05-2022 End: 11-10-2022 take 1 tablet by mouth every six hours for pain [place] 325 mg-5 mg oral tablet 1 tab(s), [...] day(s), # 20 tab(s), Refills(s) 0, Pharmacy: [facility]/pharmacy #[id number], 170, cm, 02/10/23 13:47:00 EDT, Height/Length [...] day(s), # 7 tab(s), Refills(s) 0, Pharmacy: [facility]/pharmacy #[id number], 170, cm, 02/10/23 13:47:00 EDT, Height/Length [...] sources) Polyene Antifungal Start: 06-21-2023 nystatin (Mycostatin) 837444 UNIT/GM powder Indications: Candidiasis Apply 1 application [...] 1 05/21/2024 11/17/2024 Active polyethylene glycol 3350 739425 mg / potassium chloride 2970 mg / sodium bicarbonate 6740 mg / sodium chloride 5860 mg / sodium sulfate 20033 mg powder for oral solution (10 sources) [...] 05-30-2023 05-30-2023 Other aftercare (1 source) Other nursing home (current) drug therapy; Translations: [OTH NURSING HOME CURRENT DRUG THERAPY] Onset: 11-02-2022 Episodic Other aftercare (20 sources) Polypharmacy ; Translations: [Other nursing home (current) drug therapy] Onset: 04-14-2022 03-22-2023 Episodic [...] WITH AUTO DIFFon BASOPHILS ABSOLUTE AUTO 0.1 [facility] Healthcare Basophils/100 WBC (Bld) 0.8 % 0.2 - 2.0 % [facility] Eosinophils/100 WBC (Bld) 5.6 % 0.9 - 7.0 % [facility] Erythrocyte distribution width (RBC) [Ratio] 13.4 % 11.0 - 15.0 % [facility] Hematocrit (Bld) [Volume fraction] 43.7 % 36.0 - 48.0 % [facility] Hemoglobin (Bld) [Mass/Vol] 14.3 g/dL 12.0 - 16.0 g/dL [facility] IMMATURE GRANULOCYTES ABS AUTO 0.07 High [facility] Immature granulocytes/100 WBC (Bld) 0.7 % High 0.0 - 0.5 % [facility] Interpretation and review of laboratory results Abnormal [facility] LYMPHOCYTES ABSOLUTE AUTO 4.2 High [facility] Lymphocytes/100 WBC (Bld) 39.1 % 20.5 - 60.0 % [facility] MCH (RBC) [Entitic mass] 32 pg 26.7 - 34.0 pg [facility] MCHC (RBC) [Mass/Vol] 32.7 g/dL 29.9 - 35.2 g/dL [facility] MCV (RBC) [Entitic vol] 97.8 fL 81.0 - 99.0 fL [facility] MONOCYTES ABSOLUTE AUTO 0.9 High [facility] Monocytes/100 WBC (Bld) 7.9 % 1.7 - 12.0 % [facility] NEUTROPHILS ABSOLUTE AUTO 4.9 [facility] Neutrophils/100 WBC (Bld) 45.9 % 43.0 - 75.0 % [facility] Platelet mean volume (Bld) [Entitic vol] 10.2 fL 9.5 - 13.5 fL [facility] TBH EO # 0.6 [facility] TB PLT 239 [facility] RBC 4.47 [facility] WBC 10.8 [facility] Laboratory - Chemistry and C hemistry - challengeon 06-26-2024 Bilirubin Ql (U) Negative [facility] Glucose [Mass/Vol] 3+ [facility] Ketones Ql (U) Negative [facility] pH (U) 5.5 [pH] [facility] Specific gravity (U) [Rel density] 1.020 [facility] Urobilinogen (U) [Mass/Vol] 0.8307538 mg/dL [facility] Laboratory - Hematology and Cell countson 06-26-2024 Hemoglobin Ql (U) Negative [facility] Laboratory - Urinalysison Nitrite Ql (U) Negative [facility] Protein Ql (U) Negative [facility] No Panel Informationon 06-26 Interpretation and review of laboratory results Abnormal [facility] LEUKOCYTES Negative [facility] General Surgery Office/Clini c Noteon 04-03-2023 General [...] Neal Only if needed [address] [place] [address]- Additional Instructions: Problem List/Past Medical [...] virus vaccine, inactivated 09/08/2016 Given Nursing Judgment [facility] Comment on above: Result Comment: Elec [...] apnea Smoker Tobacco abuse Vitamin D deficiency [facility] Pathology Noteon 03-27-2023 Pathology Note [id number]#1 .00CD:127 [facility] Operative Reporton Operative Report [id number]#1 .00CD:127 [facility] Pre-Certification Formon Pre-Certification Form [id number]# 1.00CD:127 [facility] Ambulatory Visit Summaryon 0 02-15-2023 Ambulatory Visit [...] sebaceous cyst Duration: 10 Days Pickup at [facility]/pharmacy #[id number] Unchanged atorvastatin (atorvastatin 20 mg Tab) [...] Mouth 2 times a day Pharmacy Information [facility]/pharmacy #[id number]: [address], [place] [phone] Allergies FLUoxetine (Unknown) rOPINIRole (Unknown) Problems Ongoing - Any problem that you are currently receiving treatment for. Abscess of right buttock BMI 45.0-49.9, adult Depression Diabetes Hypercholesteremia Infected sebaceous cyst Menopause Sleep apnea Smoker Tobacco abuse Vitamin D deficiency [facility] General Surgery Office/Clini c Noteon 02-15-2023 [...] day(s), # 20 tab(s), Refills(s) 0, Pharmacy: [facility]/pharmacy #[id number], 170, cm, 02/10/23 13:47:00 EDT, Height/Length [...] virus vaccine, inactivated 09/08/2016 Given Nursing Judgment [facility] Comment on above: Result Comment: Elec tronically Signed By: GUSTAVO CANCHOLA, Stevie Bledsoe\yashira\Date and Time Signed: 02/15/23 16:02 EDT Consent for Procedure/Surger yon 02-11-2023 Consent for Procedure/Surgery [id number] .00CD:127 [facility] Ambulatory Visit Summaryon 0 02-10-2023 Ambulatory [...] Smoker Tobacco abuse Vitamin D deficiency [facility] Ambulatory Visit Summaryon 0 - Ambulatory [...] Neal When: Only if needed Where: [address] [place] [address]- Medications What How Much When Instructions Unchanged [...] Smoker Tobacco abuse Vitamin D deficiency [facility] General Surgery Office/Clini c Noteon 11-12-2022 [...] Neal Only if needed [address] [place] [address]- Additional Instructions: Problem List/Past Medical [...] vaccine, inactivated 09/08/2016 Given Nursing Judgment [facility] Comment on above: Result Comment: Elec tronically Signed By: GUSTAVO CANCHOLA, Stevie Mercado\Date and Time Signed: 11/12/22 16:00 EST Coding Summary.on 11-09-2022 Coding Summary. CD:[id number] G h0bWw+PGhlYWQ+AZ0OAGB uP08yeJVmmJ0GA9ePAN6O FRGLOUYURU1OCP7gwWD2X WafI1VfwnId RcjqjVPeHK33VKi1VEG7w GkbQOavkJ6buDNiX2k7Pb VfQJ19jS38FKizIPLiSgS 3LjZpbjsgbWFy Q2waImFyuBSfFtt+PHRhY mxlIHdpZHRoPScxMDAlJy YvtTvjKH4fRa7rHQHhJEW vbGxhcHNlOiBj f8goHPPjWQudFQ1jfIlqW 3LsgLN0JHSgq0p6We46nK I+SVOrCDK6vYbxMObsj88 1QjBzx3ijKBC1 xQDnRVjcZTG6G47al9V4E DYqEBQjDLL8fON7aS7huQ qcpkphG4FnwJYdAsW1GUF 0kWKegO0flWju znvjhL2kVqd+Q49KWM1EX OOEBC5TCze6O7IjQtbkkS I+OQ15KKMeYH90aTKboRG fw7jxyYt8ZzYg PTCqFIX9aRisOUsgi6PvP YRhS18tcOZpj8U2EECpwD grnXHzKlIpqYC0hC2dHWt acfvbs3ggfchi Vuevv4qeeo04rS64H78eI AzoNZMpCTB2FOHwLNUccI kifn4xjN6kTu1+LIsmn6h sy4dzqOr8KzSi HEKphzJfzOtyLUS5t5KbA q61E9YtyEgjv8BwLvi7dd 48gPZdh7S8aPT8MQvkAKJ jaE4lEFrkUiF3 SEOkYqGpgC40eMRrZYpqF x7blZyrrWakHI9nHEXtpa fsCTZehC1oMPOegOMnpYa eWS6fFICbotoi c112WfZfLRU6GTKuiQEbU 5AbyE5sEqXkTJVtBJNlG5 MtuEUgXVitM769XOdsMkX 9VRIzvsStK5An ZTMvfQujMrU4q0W7Pv4Hl 5QriogkXVK8KWzwSRRcRf N5NgTnXgR8I7MkOhm7EVD alFjxNO4bX2Ig OYRahyttjpcrxMR5IZOdO FBkqG78qXGwVKxqCt4ab3 M8x952YJPtKFRjlP37Nl9 udDogMTBwdCBU tK7hpiqyk2vgswxlQuOpH FWhPFu8OHv8GOUqqOpiWh SoLPY8OyM0SOX3kWWnkV0 vcMhantchcV9b Oyc+D09viO8vDIY3WEO7x gdkVPXipySaBY32FD59H1 RyPjwvdGFibGU+PGRpdiB zrBwqGE1wRmXw n6nqb4JzDJfzY0YaAFYkQ CayLns5IEEyXJI1bRR0hD 2jBGLlVFvdx0M3sFF6V7P qblTufm2ne7hv JFInGRyhX85hzXUmz2P7I NAjnSG1CUZzqPswKbKhmO 93Oyc+NAAvqNrwj8KvXgg bh2byp7nmkDi9 NcMrUCVjiaAouVukAAH5r 7AzHc16Y86aVJthSICmLE CjYAGtRUQhyIjkba0xbX4 wIi8+PGNvbCB3 vDW9aN7oSRAcTkD3NXviZ 177YpDjgOXoUbrun1etp6 gegYy9GrCiGHEvjsStiXp jKZZ0d2PyNk79 P02pGYtsIOGvECBfNBQfC NLtrZzjxs8guX6mSq7+PC 4we8ovsx54vU50wCL+PHR bSMV5aEmaUEiu ROEmnA7kBLvvEwB8NXFoD mSisW90pUBrPNgkWl8wqT kscWynUV4kZJUsyahrl60 5MmJmj3thVQOb kOTxOBbgHQH7M49ry0A4Y OLkFHLfJQU0gHY2lC1vxY lnbjogbGVmdDsgdmVydGl eXWxyXTzdV267 IHRvcDsnPlBhdGllbnQgT cEnDFj8D1XdVnx2EVFwaQ oxOO6slPJgTNszXk5jyNt dfDvwGK0cJLVi hbhzh714QlGgi5vtQHHhw VWmGDbkSRE4W18wt9S3XE DgHRQbMKX4oSP5tU3itNt nbjogbGVmdDsg bsVjsJvcPYltAMnmN896P HRvcDsnPkJpcnRoIERhdG H5OZ09OV45tAQaf4T2nFI 6A9KdVDZqhhpk gmdxxWW6ZDPjTKMnfJ02J n4opUzeNh4rLSDeLLS6LZ OaaJMcC7RujU4yUdNtDFP iZJSlJ9HhmGIu RBroS380PYtbIvK6KDYcc bCmD4QxSXTbgXkfLuW5u4 Z2Jt8MO8I9DF88BU48tCU eu9D3gUZ2L0Oo FEZeqtrpyychhDD6HIKmP IWtaV16Id6otQhkJs2eDX BvNFZ6AASfgUYmI7BytG3 yOiAjMDAwMDAw X1YzyDIcUHnkM085ALxbM kH2CSHyeaUiA0IgKQVmwD hvAoZ4y9O0Jv9ZOXq2LZ1 1GH89sXDen7M2 dEY3F4AeJWXkjwodidcnt ME1ROFaWDHrpT73As4gpX ydEv0cFCGdFFU3GEPspXV zK8YsyW6mJoFr QMAkBZNzR3LpkKYtPBchT 413RAtlMsY0KUUwcfXsD3 XmVNJdsNdrQeY8b6R0Ui1 JNQCnXY80WSI0 jHX1CL64ST77T2DmBxiul GFibGU+PHRhYmxlIHdpZH RoPScxMDAlJyBzdHlsZT0 aYj1tYZWnIJCd iNnitQIqToUcz4cpLVYqA WfhFQ8plXwgH4LuuZS4VC Yup4g6Vf61P80tU6QnxTN +VPPyeBG0hVR4 iE3cIlBaBpU0WMyjS545U yTadNNrBonau7ton1vfsU z8WyZ4LAVmygUotPivEUR 9p6KjCd14U33u IHdpZHRoPSIxNSUiIHZhb Gbfpd6icB3bKk8+PGNvbC O1uLQ7gJ7vArIzEdO2BIe zI802BwJotUAv Fvtnn8ugh3dbaVl0SkHuF LWbsvErjAoeJEQ5g7YvQg 54U4BftIawd1ZeLzv9qw3 4fXYgc2H5gBW7 X7VgCGQkgwnszVMrdXflP A3tWPCikuhfCJXydM9vJJ DeI6m0SyJuSfX7LKewI3D fjfH9LUElxGOg NNnkRCY7O73am0R7ATZcI AHzWTJ1tYR4bK2mnDnxhe ogbGVmdDsgdmVydGljYWw oGHggQ224YKRz oNsqPTBdvY6tAAUbpYZxr EgrLY9sTVVgipstSfBPKF 6TPZXYKA8XEEeafYA+PHR mVZM9vAseSWzn BBXveM4tEGMfB0e0EgVzC lW1NOlhA1VyNCTpkckgCl 21zL8uZrFfCsJ0ERpqB5P jhaG8CORejHLc YWkpXBF1E65fz5F3BMQbY VHcKLJ5sTV5aC6wvEzpwy ogbGVmdDsgdmVydGljYWw bBEpjL702TBNa yTfdKmK7NdTcXjI7MkE2H 9TlAjb6ZMMidShtIA1dmY RcHOrsWh4rhAhfuQwnGV9 wNTBpbjtwYWRk wO7wLXYbiUQbwOazDK5qE MUbnwcpd955ImTzCYN1XM TecGFoN8HvjI5yCpGdHWP eIEWqL2CxhORc OQnaW017SSyxIyA2YKBpl bSpT5NeRKSawZrsVnL5n5 X3Mq83QPNHMWUkupfrsPR +FUMvWFL4oGve PXiiREFzsY8jAGBnY2t0P jVeTiJ5OWxlV9FdPAPfyj htFv05kD1hVoPhRtF7DNj yR5OctkR6GIXm yEFeSShlPUM8M14xk4O7T FLgHDXgSCR1bYN8eV3ovJ lnbjogbGVmdDsgdmVydGl uKFpsJUwcT371 IHRvcDsnPkZlbWFsZTwvd GQ+RDAbWRY9vYhrSAlwDO QfxQ1gPVMsK1f6MkHeNjF 9LOecD9TmNSLm mhlxBd84mL9oDkUlIaD9K UmvN0OrgyZ7QLQvlUMwCJ mxNOI0Y64dl6R3CMUmHPR hJCU6vZM6dW2a bGlnbjogbGVmdDsgdmVyd LgtNQpdYPlbB949JEFqoJ boWlouCnGHyy9xVP2wVsh vdGQ+UU30ii37 K3EmOvbqLtg3BLBkUGI1p XA7pC8dQGTuWLqrb9Q7yG U7M6JgxrDkqa7zh1emJQS zHLtbF44vqUUa u2L2QXNziGW5WACrcUovH cSpaA66Vyk+PGNvbGdyb3 MjQwomm8ziw8xxgGg3MhP wJSIgdmFsaWdu QCH7s2MfKm94U46xJRoyG HRoPSIzMCUiIHZhbGlnbj 4ykF2aCh7+GDLudCH6sQD 3jI3zCuHuKyW3 RNxqU320IbUqkNJwNhdch 8wbm3ydtOf8FbTtNJDmdd SuwFikDQO6k7OfSb42D9E yvNxvh0ZlMgh9 lp78hRXio8A7eUZ6A9SnG COluwkweAZklWcbUY0wNC FepmnqLKPaaD6hUVWmZ8c 2KrWqRhN6EPwt W5BnucA4IIIgjTTfQGLsq LJDyB0tsggrj7lenwgpCb GdMJViVZz7VRz8TSFdgZj bDfFlFJN7SpB9 ZQB5lTFeyD5nrHhidbytv G9wOyc+MJw3h2pdfMTrVW 6udZN7CY22FI71sGJje6B 5oAV3I4UeBIUz gidpxqpceTT6KBSrDTVhy X77Dm7dwAugUw4pHUWdIA Q4KTTjwBPmK0WyoB1iBbE uTBNaPCTuS7We nOSoXJgwR421EKxmUnT4V OEvdwImD8VzQDVzlLztUb X8s3L1Ut5DOK28GF84FM6 1aFCen6G7bGL7 T8KrYZOlvdwvcjwrvDA9H VYmCWIjeO49Xk9igRjcCo 7wOWYyBSV2QUDmvUJoT1M mjY0uTlSpNGXa QRIsC1OjaDJqAFbaJ337D ElwVhG7EKXuyxTmI2TkHX CwbMmeBrJ0h5Z7Wq9ZWx2 6PP92FB86kWWt c4E2hZO0Y8IiZYLwcfagy pclbSW2FAJuCTJqfM23Cu 1psJlkBc4fVSSaCYF9ZQR pwFCkZ0ThtH0y YrHiRTDoBIUrA2ZyoDBlO AmjR534ALdqVkF5EKXtir EdI0CfWIFbvQgfPrF0g9C 5Se7YTQejfvu8 Y5VsBuxyoUD+IE91DAOhN V43fSRfkYIkz1ukdYo0Qj PfHEKqIZL1kJzlQMpze7G gTQUlO58ozSIq c2U6 (more content not included)... [facility] Provider Letter FTMCon 11-05 [place] [facility] [place] 05[place] DOMONIQUE GILBERT [address] [place] [address] DOMONIQUE GILBERT 1965 To Whom It May Concern, Please excuse above patient from work 11/05/22-11/12/22.. Sincerely, Dr. Stevie Schneider MD General Surgery [facility] Physician Referralon 023 Physician Referral [id number] .[id number]:127 [facility] SCREENING MAMMOGRAM W/ESTHER, BILATERAL*on 05-05-2022 SCREENING [...] VERY IMPORTANT TO YOUR HEALTH. THE CURRENT [employer] GUIDELINES RECOMMENDS ANNUAL MAMMOGRAPHY BEGINNING AT AGE 38 THIS FACILITY USES A REMINDER SYSTEM TO ENSURE ALL PATIENTS RECEIVE REMINDER NOTIFICATIONS AT THE APPROPRIATE TIME BASED ON THE RECOMMENDATIONS OF THIS EXAM. Report reported and signed by Mike Hein on 05/05/2022 0929 [facility] XR Bone Density (DEXA)on XR Bone Density (DEXA) EXAM: Left Femur Bone Density FINDINGS: Left Femur bone density obtained with a [employer] whole body system: RegionBMDYoung-AdultA ge-Matched Total(g/cm2)(%)T-Scor e(%)Z-Score Mean0.4816415.12877.3 Impression: The mean BMD and corresponding T-score indicated above indicate Normal Bone Mass and places the patient at no significant risk for fracture. This information can serve as a baseline with which to compare future studies. EXAM: Left Forearm Bone Density FINDINGS: Left Forearm bone density obtained with a [employer] whole body system: RegionBMDYoung-AdultA ge-Matched Total(g/cm2)(%)T-Scor e(%)Z-Score Mean0.3212841.34623.3 Impression: The mean BMD and corresponding T-score indicated above indicate Normal Bone Mass and places the patient at no significant risk for fracture. This information can serve as a baseline with which to compare future studies. EXAM: AP Lumbar Bone Density FINDINGS: AP Spine bone density obtained with a [employer] whole body system: RegionBMDYoung-AdultA ge-Matched Total(g/cm2)(%)T-Scor e(%)Z-Score L1-L41.2322324.85246. 8 Impression: The mean BMD and corresponding [...] by Mike Hein on 05/05/2022 1050 [facility] US venous duplex LE BIon US venous duplex LE BI [facility] [place] [place] [address] Ultrasound Report Signed Patient: Domonique Gilbert MR#: [id number] 7 : 1965 Acct:[id number] Age/Sex: 56 / F ADM Date: 07/09/21 Loc: Room: Type: [facility] Attending Dr: Evelyn Garza MD Ordering Provider: [...] 07/10/21 1303 Signed By: 07/10/21 1303 Normal [facility] B-Type Natriuretic Peptideon 07-09-2021 Natriuretic peptide B (Bld) [Mass/Vol] 25.0 pg/mL Normal 5-100 [facility] Comment on above: Result Comment: PERF ORMED BY: [place] [address] PATHOLOGIST [employer] BU[employer]ER VLADISLAV LEYVA M.D. Performed By: #### B MP, BNP #### [address] Basic Metabolic Panelon 06-18 Calcium [Mass/Vol] 9.0 mg/dL Normal 8.2-10.2 [facility] Comment on above: Result Comment: PERF ORMED BY: [place] [address] PATHOLOGIST [employer] BU[employer]ER VLADISLAV LEYVA M.D. Performed By: #### B MP, BNP #### [facility] [address] [place] [address] [place] Chloride [Moles/Vol] 105 mmol/L Normal 95-114 [facility] Comment on above: Performed By: #### B MP, BNP #### [facility] [address] [place] [address] [place] CO2 [Moles/Vol] 20.9 mmol/L Low 22.0-30.0 [facility] Comment on above: Performed By: #### B MP, BNP #### [facility] [address] [place] [address] [place] Creatinine [Mass/Vol] 0.62 mg/dL Normal 0.44-1.03 [facility] Comment on above: Performed By: #### B MP, BNP #### [facility] [address] [place] [address] [place] Estimated GFR ( Sheryl > 60 Normal [facility] Comment on above: Result Comment: GFR estimated reference range: According to KDOQI guidelines, <60 ml/min/1.73m2 is sufficient to diagnose a patient with chronic kidney disease. Performed By: #### B MP, BNP #### [address] Estimated GFR (Non- Am > 60 Normal [facility] Comment on above: Performed By: #### B MP, BNP #### [place] [address] [place] Glucose [Mass/Vol] 234 mg/dL High 70-100 [facility] Comment on above: Result Comment: [place] Glucose Reference Range is dependent on time and content of last meal. Glucose of more than 200 mg/dL in a nonstressed, ambulatory subject supports the diagnosis of Diabetes Mellitus. ADA recommended reference range Performed By: #### B MP, BNP #### [address] Potassium [Moles/Vol] 4.2 mmol/L Normal 3.5-5.1 [facility] Comment on above: Performed By: #### B MP, BNP #### [place] [address] [place] Sodium [Moles/Vol] 137 mmol/L Normal 136-146 [facility] Comment on above: Performed By: #### B MP, BNP #### [address] Urea nitrogen [Mass/Vol] 12 mg/dL Normal 9-23 [facility] Comment on above: Performed By: #### B MP, BNP #### [place] [address] [place] XR chest 2V*on 07-09-2021 XR chest 2V* [facility] [place] [address] [place] [address] XRay Report Signed Patient: Domonique Gilbert MR#: [id number] 7 : 1965 Acct:[id number] Age/Sex: 56 / F ADM Date: 07/09/21 Loc: Room: Type: [facility] CLI Attending Dr: Eveyln Garza MD Ordering Provider: Evelyn Garza MD [...] Onesimo Salazar M.D.07/09/2021 1:05 PM Dictation Location: [place] [address] Transcribed By: [facility] 07/09/21 1305 Dictated By: Onesimo Salazar MD 07/09/21 1302 Signed By: 07/09/21 1305 Normal [facility] CT angio chest PE protocolon 06-26-2021 CT angio chest PE protocol [facility] [place] [address] CT Scan Report Signed Patient: Domonique Gilbert MR#: [id number] 7 : 1965 Acct:[id number] Age/Sex: 56 / F ADM Date: 06/26/21 Loc: CT Room: Type: [facility] Attending Dr: Evelyn Garza MD Ordering Provider: [...] Onesimo Salazar M.D.06/26/2021 11:00 AM Dictation Location: [place] [address] Transcribed By: [facility] 06/26/21 1100 Dictated By: Onesimo Salazar MD 06/26/21 1047 Signed By: 06/26/21 1100 Normal [facility] COVID-19 Lab Corpon 06-10-20 SARS-CoV-2 (COVID-19) RNA DEYVI+probe Ql (Unsp spec) Detected Critically abnormal Not Detected [facility] Comment on above: Order Comment: Ramesh flores called at 1128 on 06/12/21. Healthcare Worker?: N Result Comment: Nancy ents who have a positive COVID-19 test result may now have treatment options. Treatment options are available for patients with mild to moderate symptoms and for hospitalized patients. Visit our website at [email or web address] for resources and information. This nucleic acid amplification test was developed and its performance characteristics determined by [employer]. Nucleic acid amplification tests include RT- PCR [...] detected) result in this assay. PERFORMED BY: [address] [place] [address] PATHOLOGIST [employer] BU[employer]ER VLADISLAV LEYVA M.D. Performed By: #### C ORONAVIRUS #### [facility] , Vital Signs Date Time Vital Sign Value Performing Clinician Facility 09-24-2024 09:03-0500 Body height 170.2 cm El Kirkpatrick MD Work Phone: [facility] 09-24-2024 09:03-0500 Body mass index (BMI) [Ratio] 50.12 kg/m2 El Kirkpatrick MD Work Phone: [facility] 09-24-2024 09:03-0500 Body weight 145.15 kg El Kirkpatrick MD Work Phone: [facility] 09-24-2024 09:03-0500 Diastolic blood pressure 80 mm[Hg] El Kirkpatrick MD Work Phone: [facility] 09-24-2024 09:03-0500 Heart rate 87 /min El Kirkpatrick MD Work Phone: [facility] 09-24-2024 09:03-0500 SaO2% (BldA) [Mass fraction] 99 % El Kirkpatrick MD Work Phone: [facility] 09-24-2024 09:03-0500 Systolic blood pressure 128 mm[Hg] El Kirkpatrick MD Work Phone: [facility] 09-06-2024 09:07-0500 Body height 170.2 cm El Kirkpatrick MD Work Phone: [facility] 09-06-2024 09:07-0500 Body mass index (BMI) [Ratio] 48.24 kg/m2 El Kirkpatrick MD Work Phone: [facility] 09-06-2024 09:07-0500 Body weight 139.71 kg El Kirkpatrick MD Work Phone: [facility] 07-02-2024 13:04-0400 Body height 170.2 cm El Kirkpatrick MD Work Phone: [facility] 07-02-2024 13:04-0400 Body mass index (BMI) [Ratio] 48.24 kg/m2 El Kirkpatrick MD Work Phone: [facility] 07-02-2024 13:04-0400 Body weight 139.71 kg El Kirkpatrick MD Work Phone: [facility] 06-26-2024 15:53-0400 Body mass index (BMI) [Ratio] 48.34 kg/m2 Rashid Benson 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 Work Phone: [facility] 06-26-2024 15:53-0400 Body temperature 97 [degF] Rashid Benson 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 Work Phone: [facility] 06-26-2024 15:53-0400 Body weight 140 kg Rashid Benson 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 Work Phone: [facility] 06-26-2024 15:53-0400 Diastolic blood pressure 68 mm[Hg] Rashid Benson 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 Work Phone: [facility] 06-26-2024 15:53-0400 Heart rate 84 /min Rashid Benson 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 Work Phone: [facility] 06-26-2024 15:53-0400 SaO2% (BldA) [Mass fraction] 99 % Rashid Benson 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 Work Phone: [facility] 06-26-2024 15:53-0400 Systolic blood pressure 122 mm[Hg] Rashid Benson 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 Work Phone: [facility] 11-24-2023 09:33-0500 Body height 170.2 cm El Kirkpatrick MD Work Phone: [facility] 11-24-2023 09:33-0500 Body mass index (BMI) [Ratio] 46.05 kg/m2 El Kirkpatrick MD Work Phone: [facility] 11-24-2023 09:33-0500 Body weight 133.36 kg El Kirkpatrick MD Work Phone: [facility] 11-22-2023 08:03-0500 Body height 170.2 cm El Kirkpatrick MD Work Phone: [facility] 11-22-2023 08:03-0500 Body mass index (BMI) [Ratio] 46.05 kg/m2 El Kirkpatrick MD Work Phone: [facility] 11-22-2023 08:03-0500 Body weight 133.36 kg El Kirkpatrick MD Work Phone: [facility] 11-16-2023 10:33-0500 Body height 170.2 cm El Kirkpatrick MD Work Phone: [facility] 11-16-2023 10:33-0500 Body mass index (BMI) [Ratio] 46.05 kg/m2 El Kirkpatrick MD Work Phone: [facility] 11-16-2023 10:33-0500 Body weight 133.36 kg El Kirkpatrick MD Work Phone: [facility] 02-10-2023 13:38-0400 Blood Pressure Location Stevie SCHNEIDER [facility] [place] 02-10-2023 13:38-0400 Diastolic blood pressure 83 mm[Hg] Stevie LUL [facility] 02-10-2023 13:38-0400 Heart rate 96 /min Stevie LUL [facility] 02-10-2023 13:38-0400 Respiratory rate 16 /min Stevie LUL [facility] 02-10-2023 13:38-0400 Systolic blood pressure 138 mm[Hg] Stevie SCHNEIDER [facility] Encounters Encounter Date Encounter Type Care [...] Screening for osteoporosis; Menopause; BMI 45.0-49.9, adult ([facility]) Start: 09-06-2024 End: 09-06-2024 Bamboo flowsheet El [...] Office outpatient visit 25 minutes Rashid Benson 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 Work Phone: [facility] Comment on [...] hyperglycemia, without long-term current use of insulin ([facility]) Start: 11-29-2023 End: 11-29-2023 ambulatory EL KIRKPATRICK [...] dermatitis of left lower extremity; Morbid obesity ([facility]); BMI 45.0-49.9, adult ([facility]); Polypharmacy; Current smoker Start: 11-24-2023 End: 11-24-2023 [...] hyperglycemia, without long-term current use of insulin ([facility]) Start: 04-01-2023 End: 04-02-2023 ambulatory Stevie R NILL Facility:[facility] Start: 04-01-2023 End: 04-01-2023 Patient encounter procedure Stevie R NILL [facility] Start: 03-16-2023 End: 03-17-[address] EL KIRKPATRICK . Facility: Start: 02-15-2023 End: 02-16-2023 [facility] Start: 02-15-2023 End: 02-15-2023 Patient encounter procedure Stevie R NILL General Surgery Nill/Said [facility] Start: 02-10-2023 End: 02-11-2023 ambulatory Stevie R NILL Facility:[facility] Start: 02-10-2023 End: 02-10-2023 Patient encounter procedure Stevie R NILL [facility] Start: 11-12-2022 End: 11-13-2022 ambulatory [facility] Start: 11-12-2022 End: 11-12-2022 Patient encounter procedure Stevie R NILL General Surgery Nill/Said [facility] Start: 11-05-2022 End: 11-06-2022 ambulatory Stevie SCHNEIDER [facility] Start: 11-05-2022 End: 11-06-2022 ambulatory Stevie R TABITHAL Facility: [facility] Start: 11-05-2022 End: 11-05-2022 Lab Drop off Stevie LUYakov [facility] Start: 11-03-2022 ambulatory Stevie Ladi TABITHAYakov [...] et rgnt auto w/o microscopy 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 Benson 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 Work Phone: Start: 03-16-2023 Excision of cyst [...] for malign ant neoplasm of breast Mammogram [facility] Comment on above: Postponed from 05/05 (Patient Refused) Start: 06-16-2025 Glaucoma screening Diabetes: R etinopathy Screening [facility] Start: 05-21-2025 Urine screening for protein Diabetes: Urine Protein Screening [facility] Start: 11-22-2024 End: 11-22-2024 Patient encounter procedure [facility] Start: 11-19-2024 Influenza vaccination Influenza Vacc ine (#1) [facility] Comment on above: Postponed from 06/17 (Patient Refused) Start: 09-24-2024 End: 09-24-2024 Patient encounter procedure 09/24/2024 9:00 AM EST Office Visit [facility] [address] [place] [address] El Kirkpatrick MD [address] [facility] [address] [place] [address] [facility] Start: 09-06-2024 End: 09-06-2025 CBC W Auto Differential panel - Blood CBC and differential Lab Routine Muscle spasm Tachycardia Arthralgia, unspecified joint Expected: 09/06/2024 (Approximate), Expires: 09/06/2025 [facility] Comment on above: Expected: 09/06/2024 (Approximate), Expires: 09/06/2025 Start: 09-06-2024 End: 09-06-2025 Comprehensive metabolic 2000 panel - Serum or Plasma Comprehensive metabolic panel Lab Routine Muscle spasm Tachycardia Arthralgia, unspecified joint Expected: 09/06/2024 (Approximate), Expires: 09/06/2025 [facility] Work Phone: Comment on above: Expected: 09/06/2024 (Approximate), Expires: 09/06/2025 Start: 09-06-2024 End: 09-06-2025 Erythrocyte sedimentation rate Sedimentation rate, automated Lab Routine Muscle spasm Tachycardia Arthralgia, unspecified joint Expected: 09/06/2024 (Approximate), Expires: 09/06/2025 [facility] Comment on above: Expected: 09/06/2024 (Approximate), Expires: 09/06/2025 Start: 09-06-2024 End: 09-06-2025 Magnesium [Mass/volume] in Serum or Plasma Magnesium Lab Routine Muscle spasm Tachycardia Arthralgia, unspecified joint Expected: 09/06/2024 (Approximate), Expires: 09/06/2025 [facility] Comment on above: Expected: 09/06/2024 (Approximate), Expires: 09/06/2025 Start: 09-06-2024 End: 09-06-2025 Thyrotropin [Units/volume] in Serum or Plasma TSH Lab Routine Muscle spasm Tachycardia Arthralgia, unspecified joint Expected: 09/06/2024 (Approximate), Expires: 09/06/2025 [facility] Comment on above: Expected: 09/06/2024 (Approximate), Expires: 09/06/2025 Start: 09-06-2024 End: 09-06-2025 Thyroxine (T4) free [Mass/volume] in Serum or Plasma T4, free Lab Routine Muscle spasm Tachycardia Arthralgia, unspecified joint Expected: 09/06/2024 (Approximate), Expires: 09/06/2025 [facility] Comment on above: Expected: 09/06/2024 (Approximate), Expires: 09/06/2025 Start: 09-06-2024 End: 09-06-2025 Triiodothyronine (T3) Free [Mass/volume] in Serum or Plasma T3, free Lab Routine Muscle spasm Tachycardia Arthralgia, unspecified joint Expected: 09/06/2024 (Approximate), Expires: 09/06/2025 [facility] Comment on above: Expected: 09/06/2024 (Approximate), Expires: 09/06/2025 Start: 09-06-2024 End: 09-06-2024 Patient encounter procedure [facility] Comment on above: Encounter for wellne ss examination in adult; Advance directive discussed with patient; Screening mammogram, encounter for; Screening for osteoporosis; Menopause; Morbid obesity ([facility]) Start: 08-14-2024 Hemoglobin A1c measurement Laura betes: Hemoglobin A1C [facility] Start: 06-17-2024 Influenza vaccination Influenza Vacc ine (#1) [facility] Start: 02-21-2024 Hemoglobin A1c measurement Laura betes: Hemoglobin A1C [facility] Start: 02-13-2024 End: 02-13-2024 Patient encounter procedure 02/13/2024 9:30 AM EDT Office Visit [facility] [address] [place] [address] El Kirkpatrick MD [address] [place] [address] [facility] Start: 11-29-2023 End: 11-29-2023 Patient encounter procedure [facility] Comment on above: Type 2 diabetes siena itus with hyperglycemia, without long-term current use of insulin ([facility]); Type 2 diabetes mellitus with other diabetic kidney complication ([facility]); Diabetic nephropathy associated with type 2 diabetes mellitus (HCC) ([facility]); Mixed dyslipidemia ([facility]); Polypharmacy; Morbid obesity ([facility]); BMI 45.0-49.9, adult ([facility]) Start: 11-25-2023 Hemoglobin A1c measurement Laura betes: Hemoglobin A1C [facility] Start: 11-24-2023 End: 11-24-2023 Patient encounter procedure [facility] Comment on above: Cellulitis of left a nkle; Venous stasis dermatitis of left lower extremity; Morbid obesity ([facility]); BMI 45.0-49.9, adult ([facility]); Polypharmacy; Current smoker Start: 11-22-2023 End: 11-22-2023 Patient encounter procedure 11/22/2023 8:00 AM EST Office Visit [facility] [address] [place] [address] El Kirkpatrick MD [address] [place] [address] (Fax) [facility] Start: 06-17-2023 Influenza vaccination Influenza Vacc ine (#1) [facility] Start: 05-05-2023 Screening for malign ant neoplasm of breast Mammogram [facility] Start: 1993 Screening for malign ant neoplasm of cervix [facility] Start: 1984 Screening for malign ant neoplasm of cervix Pap Smear [facility] Immunizations Immunization Date Immunization Notes Care Provider Fa cility 01-30-2021 SARS-CoV-2 (COVID-19 ) mRNA BNT-162b2 vax Stevie SCHNEIDER [facility] [place] 09-08-2016 influenza, seasonal, injectable Stevie SCHNEIDER [facility] Comment on above: Early/Late Reason: N ursing Judgment 09-08-2016 influenza virus vaccine, unspecified formulation lE Kirkpatrick MD Work Phone: [facility] NEGATED: Highlighted row has not occurred!11-05-2022 influenza virus vaccine, unspecified formulation Stevie SCHNEIDER [facility] [place] Payers Date Payer Category Payer [facility] BCBS [id number] 2019 Unknown BCBS BCBS xxxxxx [id number] 2019-Present [phone] [id number] [place], [place] [address] [id number] [id number] 1963 Unknown [id number] 2.16.840.1.126469.3.579. 2.593 1963 Unknown [id number] 2.16.840.1.255523.3.579. 2.593 1963 Unknown [id number] 2.16.840.1.897428.3.579. 2.593 1963 Unknown [id number] 2.16.840.1.461877.3.579. 2.727 1963 Unknown [id number] 2.16.840.1.711199.3.579. 2.72 1963 Unknown [id number] 2.16.840.1.609897.3.579. 2.72 1963 Unknown [id number] 2.16.840.1.368373.3.579. 2.72 1963 Unknown [id number] 2.16.840.1.092989.3.579. 2.72 1963 Unknown [id number] 2.16.840.1.897748.3.579. 2. 1963 Unknown [id number] 2.16.840.1.931200.3.579. 2. 1963 Unknown [id number] 2.16.840.1.268388.3.579. 2.72 1963 Unknown [id number] 2.16.840.1.368604.3.579. 2. 1963 Unknown [id number] 2.16.840.1.342145.3.579. 2. 1963 Unknown [id number] 2.16.840.1.839824.3.579. 2.1258 1963 Unknown [id number] 2.16.840.1.665990.3.579. 2.1258 1963 Unknown [id number] 2.16.840.1.678804.3.579. 2.1258 1963 Unknown [id number] 2.16.840.1.311258.3.579. 2.1258 1963 Unknown [id number] 2.16.840.1.498591.3.579. 2.125 1963 Unknown [id number] 2.16.840.1.035281.3.579. 2.1259 1963 Unknown [id number] 2.16.840.1.833155.3.579. 2.1259 1963 Unknown [id number] 2.16.840.1.948942.3.579. 2.1259 1963 Unknown [id number] 2.16.840.1.652012.3.579. 2.1259 1963 Unknown [id number] 2.16.840.1.287428.3.579. 2.1259 1959 Unknown [id number] Social History Date Type Detail Facility Start: 11-05-2022 Tobacco smoking status Heavy t obacco smoker (finding) [facility] Tobacco smoking status Never Sine [facility] Start: 03-15-2023 End: 05-09-2023 Sex Assigned At Female [facility] Start: 02-10-2023 End: 05-08-2023 Tobacco smoking status Ex-smoker (finding) [facility] History of tobacco use Current smoker [facility] [...] Assessment Result Facility 02-10-2023 Functional Status N/A [facility] [place] Clinical Notes 11-05-2022 to 09-24-2024 El Kirkpatrick [...] Directive/Living Will: No Health Care Power of Cellulose Insulation Helper: No Review of Systems Constitutional: Positive for [...] mouth Daily 180 tablet 3 nystatin (Mycostatin) 871098 UNIT/GM powder Apply 1 application topically if [...] through a living will, durable power of energy attorney for healthcare, or other advanced directives. We [...] declined 5. Menopause 6. BMI 45.0-49.9, adult ([facility]) Chronic problem. We did have a conversation concerning this and unfortunately is fairly emotional for her. For right now she is going to go home and think about it. I did suggest if she wants to try 1 of the other medications similar to the Trulicity, that she check with her insurance company formulary. documented in this encounter [facility] 09-06-2024 History of Present illness Narrative Images [...] mouth Daily 180 tablet 3 nystatin (Mycostatin) 549751 UNIT/GM powder Apply 1 application topically if [...] Morbid obesity (CMS/HCC) documented in this encounter [facility] 06-26-2024 History of Present illness Narrative HPI: [...] capsule; Refill: 0 documented in this encounter [facility] 11-24-2023 History of Present illness Narrative Patient [...] (RELAFEN) 1,500 mg, Oral, Daily nystatin (Mycostatin) 340263 UNIT/GM powder 1 application , Topical, As [...] the area around the lesion. Morbid obesity ([facility]) BMI 45.0-49.9, adult ([facility]) Polypharmacy Current smoker documented in this encounter [facility] 11-22-2023 History of Present illness Narrative Patient [...] (RELAFEN) 1,500 mg, Oral, Daily nystatin (Mycostatin) 192220 UNIT/GM powder 1 application , Topical, As [...] glass) of water. documented in this encounter [facility] 11-16-2023 History of Present illness Narrative Patient [...] LDL-C. Brain NICHOLSON et al. MARCIA. 2013;310(19): 7396-7250 (http://education.ComparaMejor.com.com/faq/QAN273) CHOL/HDLC RATIO 11/23/2023 3.1 <5.0 (calc) Final [...] (RELAFEN) 1,500 mg, Oral, Daily nystatin (Mycostatin) 671829 UNIT/GM powder 1 application , Topical, As [...] of mixed pathology. documented in this encounter [facility] 03-16-2023 Note OPERATIVE NOTE OPERATION DATE: 03/16/2023 [...] good condition. CC: Patient's family physician [facility] 02-10-2023 Note Chief Complaint consultation for infected [...] plan excisional biopsy under local anesthesia at [facility] in 4-6 weeks, informed consent obtained. Ordered: levofloxacin, 750 mg = 1 tab(s), Oral, Daily, X 7 day(s), # 7 tab(s), Refills(s) 0, Pharmacy: [facility]/pharmacy #[id number], 170, cm, 02/10/23 13:47:00 EDT, Height/Length [...] vaccine, inactivated 09/08/2016 Given Nursing Judgment [facility] Comment on above: Result Comment: Elec [...] Locations R1: This test was performed at: [facility], [address] [place] [address], [id number] , [place], [facility] Comment on above: Performed By: #### [id number] ####[facility] [id number] [place] [id number] 11-05-2022 Note Chief Complaint consultation for buttock abscess HPI Staff 57 year old female presents on consultation from [place] [facility] for right lower buttock abscess x 2. Advised sitz bath and warm compresses. Prescribed Doxycycline and Bactrim. History of Present Illness 57 yo female with h/o hypercholesterolemia, CECE, DMII, referred from [place] [facility] for right buttock abscess, seen there [...] then repack; complete course of antibiotics; take [place]land 30 minutes to 1 hour prior to packing; refill given; f/u next week, call sooner if problems/questions. Ordered: acetaminophen-hydrocodone, 1 tab(s), Oral, q6hr for pain, 15 tab(s), Refill(s) 0, take with food or milk, [facility]/pharmacy #[id number], 170, cm, 11/05/22 11:31:00 EST, Height/Length [...] Tab, 750 mg= 1 tab(s), Oral, BID Midland 325 mg-5 mg oral tablet, 1 tab(s), [...] of lung: Mother. (more content not included)... [facility] Comment on above: Result Comment: Elec tronically Signed By: GUSTAVO CANCHOLA, Stevie Bledsoe\.shira\Date and Time Signed: 11/05/22 13:55 EST 11-05-2022 Hospital Discharge instructions Follow Up Care 11/05/2022 12:05:07 With:GUSTAVO CANCHOLA, COCO Neal Address: [address] [place] [id number] When: only if needed General Surgery [place] Evaluation + Plan note Future Appointments Appointment Date:11/12/2022 03:20:00 PM Scheduled Provider:Stevie SCHNEIDER MD Location: [facility] Appointment Type: Established 15 Diagnostic Tests PendingWound Culture 11/05/22 [facility] Evaluation note Diagnosis Cellulitis of left ankle Venous stasis dermatitis of left lower extremity documented in this encounter [facility]* Diagnosis Candidiasis- Primary Cellulitis of left ankle Venous stasis dermatitis of left lower extremity Morbid obesity ([facility]) Morbid obesity BMI 45.0-49.9, adult ([facility]) Polypharmacy Issue of repeat prescriptions Current smoker Type 2 diabetes mellitus with hyperglycemia, without long-term current use of insulin ([facility]) Type 2 diabetes mellitus with other diabetic kidney complication ([facility]) Diabetic nephropathy associated with type 2 diabetes mellitus (HCC) ([facility]) Mixed dyslipidemia ([facility]) Polypharmacy Issue of repeat prescriptions Morbid obesity ([facility]) Morbid obesity BMI 45.0-49.9, adult ([facility]) documented in this encounter [facility]* Diagnosis Cellulitis of left ankle- Primary Venous stasis dermatitis of left lower extremity Type 2 diabetes mellitus with hyperglycemia, without long-term current use of insulin ([facility]) Type 2 diabetes mellitus with hyperglycemia, without long-term current use of insulin ([facility]) Type 2 diabetes mellitus with other diabetic kidney complication ([facility]) Diabetic nephropathy associated with type 2 diabetes mellitus (HCC) ([facility]) Mixed dyslipidemia ([facility]) Polypharmacy Issue of repeat prescriptions Morbid obesity ([facility]) Morbid obesity BMI 45.0-49.9, adult ([facility]) documented in this encounter [facility]* Diagnosis Type 2 diabetes mellitus with hyperglycemia, without long-term current use of insulin ([facility]) documented in this encounter [facility]* Diagnosis Venous (peripheral) insufficiency Unspecified venous (peripheral) insufficiency Encounter for wellness examination in adult Advance directive discussed with patient Screening mammogram, encounter for Screening for osteoporosis Special screening for osteoporosis Menopause Symptomatic menopausal or female climacteric states Morbid obesity ([facility]) Morbid obesity documented in this encounter [facility]* Diagnosis Muscle spasm- Primary Spasm of muscle Tachycardia Unspecified tachycardia Arthralgia, unspecified joint Morbid obesity ([facility]) Morbid obesity documented in this encounter [facility]* Diagnosis Right acute otitis media- Primary Unspecified otitis media Dysuria Acute rhinosinusitis documented in this encounter [facility]* Diagnosis Non-recurrent acute suppurative otitis media of right ear without spontaneous rupture of tympanic membrane- Primary Monilial vaginitis Polypharmacy Issue of repeat prescriptions documented in this encounter [facility]* Diagnosis Encounter for wellness examination in adult Advance directive discussed with patient Screening mammogram, encounter for Screening for osteoporosis Special screening for osteoporosis Menopause Symptomatic menopausal or female climacteric states BMI 45.0-49.9, adult ([facility]) documented in this encounter [facility] Healthcare[facility] of Present illness Narrative* El Kirkpatrick MD - 07/02/2024 2:00 PM EDT Images from the original note were not included. Patient ID: Domonique Gilbert is a 59 y.o. female who presents for: Pt called last week not feeling well. With out I directed her to . She went to the [facility] andcalled this morning leaving stating she is [...] mouth Daily 180 tablet 3 nystatin (Mycostatin) 218543 UNIT/GM powder Apply 1 application topically if [...] evaluation and management. [facility] Narrative No data available for this section [facility] instructions No data available for this section [facility] No data available for this section [facility] Summary Purpose Family History No Family History Records FoundNo Family History Records FoundNo Family History Records FoundNo Family History Records FoundNo Family History Records Found Advance Directives No Advanced Directives Records FoundNo Advanced Directives Records FoundNo Advanced Directives Records FoundNo Advanced Directives Records FoundNo Advanced Directives Records Found Additional Source Comments INFORMATION SOURCE (unrecogn ized section and content) DATE CREATED AUTHOR 01/15/2022 [facility] DATE CREATED AUTHOR AUTHOR'S ORGANIZ ATION 05/07/2022 [facility] dical Specialist DATE CREATED AUTHOR AUTHOR'S ORGANIZ ATION 03/26/2023 [facility] DATE CREATED AUTHOR AUTHOR'S ORGANIZ ATION 04/03/2023 [facility] DATE CREATED AUTHOR AUTHOR'S ORGANIZ ATION 09/26/2024 [facility] dical Specialists EPIC Patient Care team informatio n (unrecognized section and content) Plate Drying Machine Tender Relationship Specialty Start Date End Date El Kirkpatrick MD [address] [phone] (Fax) PCP - General Family Medicine 03/09/23 El Kirkpatrick MD [address] [phone] (Fax) PCP - [place] [employer] 09/16/23 Plate Drying Machine Tender Relationship Specialty Start Date End Date El Kirkpatrick MD [address] [place] [address] (Fax) PCP - General Family Medicine 03/09/23 El Kirkpatrick MD [address] [place] [address] (Fax) PCP - [place] [employer] 09/16/23 Plate Drying Machine Tender Relationship Specialty Start Date End Date El Kirkpatrick MD [address] [place] [address] (Fax) PCP - General Family Medicine 03/09/23 El Kirkpatrick MD [address] [place] [address] (Fax) PCP - [place] [employer] 09/16/23 Plate Drying Machine Tender Relationship Specialty Start Date End Date El Kirkpatrick MD [address] [place] [address] (Fax) PCP - General Family Medicine 03/09/23 El Kirkpatrick MD [address] [place] [address] (Fax) PCP - [place] [employer] 09/16/23 Plate Drying Machine Tender Relationship Specialty Start Date End Date El Kirkpatrick MD [address] [place] [address] (Fax) PCP - General Family Medicine 03/09/23 El Kirkpatrick MD [address] [place] [address] (Fax) PCP - [place] [employer] 09/16/23 Plate Drying Machine Tender Relationship Specialty Start Date End Date El Kirkpatrick MD [address] [place] [address] (Fax) PCP - General Family Medicine 03/09/23 El Kirkpatrick MD [address] [place] [address] (Fax) PCP - [place] [employer] 09/16/23 Plate Drying Machine Tender Relationship Specialty Start Date End Date El Kirkpatrick MD [address] [place] [address] (Fax) PCP - General Family Medicine 03/09/23 El Kirkpatrick MD [address] [place] [address] (Fax) PCP - [place] [employer] 09/16/23 Plate Drying Machine Tender Relationship Specialty Start Date End Date El Kirkpatrick MD [address] [place] [address] (Fax) PCP - General Family Medicine 03/09/23 El Kirkpatrick MD [address] [place] [address] (Fax) PCP - [place] [employer] 08/17/23 Plate Drying Machine Tender Relationship Specialty Start Date End Date El Kirkpatrick MD [address] [place] [address] (Fax) PCP - General Family Medicine 03/09/23 El Kirkpatrick MD [address] [place] [address] (Fax) PCP - [place] [employer] 08/17/23 Plate Drying Machine Tender Relationship Specialty Start Date End Date El Kirkpatrick MD [address] [place] [address] (Fax) PCP - General Family Medicine 03/09/23 El Kirkpatrick MD [address] [place] [address] (Fax) PCP - [place] [employer] 08/17/23 Plate Drying Machine Tender Relationship Specialty Start Date End Date El Kirkpatrick MD [address] [place] [address] (Fax) PCP - General Family Medicine 03/09/23 El Kirkpatrick MD [address] [place] [address] (Fax) PCP - [place] [employer] 08/17/23 Plate Drying Machine Tender Relationship Specialty Start Date End Date El Kirkpatrick MD [address] [place] [address] (Fax) PCP - General Family Medicine 03/09/23 El Kirkpatrick MD [address] [place] [address] (Fax) PCP - [facility] [place] [facility] 08/17/23 Plate Drying Machine Tender Relationship Specialty Start Date End Date El Kirkpatrick MD [address] [place] [address] (Fax) PCP - General Family Medicine 03/09/23 El Kirkpatrick MD [address] [facility] [address] (Fax) PCP - [place] [facility] 08/17/23 [employer] Drying [employer] Tender Relationship Specialty Start Date End Date El Kirkpatrick MD [address] [place] [address] (Fax) PCP - General Family Medicine 03/09/23 El Kirkpatrick MD [address] [place] [address] (Fax) PCP - [place] [place] [facility] 08/17/23 [employer] Tender Relationship Specialty Start Date End Date El Kirkpatrick MD [address] [place] [address] PCP - General Family Medicine 03/09/23 El Kirkpatrick MD [address] [place] [address] PCP - [facility] 08/17/23 Reason for Visit (unrecogniz ed section [...] BE BASED ON THE PRIMARY CLINICAL RECORDS. [facility]. provides no warranty or guarantee of the accuracy or completeness of information in this document.
--- NOTE | 2024-11-04 06:09 | ECG_ITS ---
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
--- NOTE | 2024-11-04 06:14 | CT_ITS ---
The [address] [address] Patient Name: BOBBY LUJAN MRN: [id number] date: 1965 Sex: F Assigned Patient Location: ER Current Patient Location: ER Accession/Order Number: [id number] Exam Date: 11/04/2024 06:45 Report Date: 11/04/2024 07:16 At the request of: VILLA CARRINGTON Procedure: CT abdomen pelvis wo con EXAM: CT scan of the abdomen and pelvis without contrast. Dose reduction technique used: Automated exposure control and/or adjustment of the mA and/or kV according to patient size and/or use of iterative reconstruction technique. REASON FOR EXAM: RLQ pain COMPARISON: CT scan dated 09/22/2023 FINDINGS: Right ureteropelvic junction 6 mm stone with mild right hydronephrosis. Colonic diverticulosis. Right total hip arthroplasty. Moderate left hip degenerative change. Normal appendix. No free fluid in the abdomen or pelvis. No free intraperitoneal air. No dilated or thickened loops of small bowel or colon. Liver, pancreas, spleen, bilateral kidneys, and bilateral adrenal glands are otherwise unremarkable within the limitations of noncontrast CT. No lymphadenopathy in the abdomen or pelvis. Remainder unremarkable. CT/CT abdomen pelvis wo con IMPRESSION: Right ureteropelvic junction 6 mm stone with mild right hydronephrosis. Electronically authenticated by: NASRA SUMMERS Date: 11/04/2024 07:16
[2024-11-04 06:23] LABS: Hematocrit 41.8 % (36.0-48.0); Hemoglobin 13.7 g/dL (12.0-16.0); Mean Corpuscular HGB Conc 32.8 g/dL (29.9-35.2); Mean Corpuscular Hemoglobin 31.9 pg (26.7-34.0); Mean Corpuscular Volume 97.2 fL (81.0-99.0); Mean Platelet Volume 10.1 fL (9.5-13.5); Platelet Count 160 10^3/uL (150-450); Red Cell Distribution Width 13.2 % (11.0-15.0); White Blood Count 2.2 10^3/uL (4.0-11.0)
[2024-11-04] MEDS: 0.9 % SODIUM CHLORIDE 1,000 ML 1000 ML IV ×2 (06:32→10:46)
[2024-11-04] MEDS: MORPHINE SULFATE 4 MG/ML VIAL IV ×2 (06:33→09:01)
[2024-11-04] MEDS: FAMOTIDINE/PF 20 MG/2 ML VIAL IV (06:33)
[2024-11-04] MEDS: ONDANSETRON PF 4 MG/2 ML VIAL IV (06:33)
[2024-11-04 06:39] LABS: INR 0.94
--- NOTE | 2024-11-04 06:42 | ED.ABDPAIN1 ---
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 The pain is not radiating but it is associated with nausea and vomiting and the patient is in severe pain upon presentation Related Data Home Medications ?Medication ?Instructions ?Recorded ?Confirmed empagliflozin 25 mg tablet 25 mg PO QDAY 11/04/24 11/04/24 (Jardiance) glipizide 5 mg tablet 5 mg PO BIDWM 11/04/24 11/04/24 ibuprofen 800 mg tablet 800 mg PO TID PRN pain 11/04/24 11/04/24 losartan 25 mg tablet 25 mg PO DAILY 11/04/24 11/04/24 nabumetone 750 mg tablet 1,500 mg PO QDAY 11/04/24 11/04/24 pioglitazone 30 mg tablet 30 mg PO QDAY 11/04/24 11/04/24 spironolactone 50 mg tablet 50 mg PO BID 11/04/24 11/04/24 tirzepatide 5 mg/0.5 mL 5 mg subcut .WEEKLY 11/04/24 11/04/24 subcutaneous pen injector (Mounjaro) Allergies Allergy/AdvReac Type Severity Reaction Status Date / Time [facility] Allergy Severe Hallucinati Verified 11/04/24 06:07 ng Review of Systems ROS Status of ROS 10 or more systems reviewed and unremarkable except as noted in history and below PFSH PFS Social History Smoking status: Former smoker Little interest or pleasure in doing things: not at all Feeling down, depressed, or hopeless: not at all Exam Narrative Exam Narrative: Nurses notes and vital signs reviewed and patient is not hypoxic. General: Well-appearing and in no apparent distress. Skin: Warm, dry, no pallor noted. No rash. Head: Normocephalic, atraumatic. Neck: Supple, non-tender. Eye: Pupils are equal, round and EOMI. No scleral icterus. Ears, Nose, Mouth, and Throat: TM are clear, no nasal mucosal hypertrophy. Oral mucosa is moist, no posterior oropharynx erythema, uvula is mid-line Cardiovascular: Regular Rate and Rhythm without murmur, gallop or rub. Respiratory: No accessory muscle use or respiratory distress. Lungs are clear to auscultation, no wheezing, rales or rhonchi Chest Wall: no tenderness Back: No midline thoracic or lumbar vertebral tenderness. No CVA tenderness Musculoskeletal: normal ROM, no calf or popliteal tenderness, no lower extremity edema/swelling GI: Obese abdomen with tenderness on the right upper and lower quadrant of the abdomen, no guarding Neurological: A&O x4. No cranial nerve dysfunction observed. Constitutional Vital Signs, click to edit/add: Last Vital Signs Temp 98.8 F 11/04/24 09:31 Pulse 112 H 11/04/24 09:31 Resp 18 11/04/24 09:31 BP 108/76 11/04/24 09:31 Pulse Ox 94 L 11/04/24 09:31 O2 Del Method Room Air 11/04/24 06:02 Course Vital Signs Vital signs: Vital Signs Temperature 99.6 F 11/04/24 06:02 Pulse Rate 147 H 11/04/24 06:02 Respiratory Rate 28 H 11/04/24 06:02 Blood Pressure 110/66 11/04/24 06:02 Pulse Oximetry 96 11/04/24 06:02 Oxygen Delivery Method Room Air 11/04/24 06:02 Temperature 98.8 F 11/04/24 09:31 Pulse Rate 112 H 11/04/24 09:31 Respiratory Rate 18 11/04/24 09:31 Blood Pressure 108/76 11/04/24 09:31 Pulse Oximetry 94 L 11/04/24 09:31 Oxygen Delivery Method Room Air 11/04/24 06:02 MDM - Abdominal Pain MDM Narrative Medical decision making narrative: EKG was showing sinus tachycardia with no ST elevation or depression heart rate was 126 Upon arrival the patient was showing up multiple signs of sepsis with the fact that she have right-sided abdominal pain she was covered for sepsis on arrival. 30 cc/kg fluid will put her on 4 L of IV normal saline The patient also had leukopenia and she was covered with ciprofloxacin and Zosyn for urine infection Urinalysis positive for UTI and the patient chemistry showing some acute kidney injury as well with creatinine of 1.3 It was also noted although the patient have sinus tachycardia EKG that her troponin was 350 repeated after 2 hours was 850 she was not complaining of any chest pain at any time she did had tachycardia upon arrival , right now I suspect underlying coronary artery disease with a demand ischemia and I did discuss the case with and he agreed that the patient right now after we repeated the EKG and it is showing sinus rhythm with a heart rate 210 right now with no ischemic changes that the patient right now mostly having non-STEMI secondary to demand ischemia He did not recommend any anticoagulation at the moment but with the fact that the patient had a CT of the abdomen showing right-sided 6 mm kidney stone with hydronephrosis and urine infection the patient case was discussed with The patient case was not discussed with Reddy and Dr. Clement in Urology service there did not discuss the case as the patient is not an established patient also the same case happened with Dr. Calles from [facility] The patient eventually I called back to and the patient case was discussed with the Hospitalist Dr Brown he accepted the patient to be transferred to the ICU there Dr. Brown also informed of the patient elevated troponin right now the patient does not have any acute chest pain or any ischemic changes and monitoring right now will be the main plan The patient did had a blood pressure of 80 systolic at certain point while she is getting IV fluid but she responded smoothly to that with the blood pressure right now is 117/73 The patient to continue a total of 4 L as IV fluids normal saline per sepsis protocol Lab Data Labs: Lab Results 11/04/24 11/04/24 11/04/24 Range/Units 06:12 07:45 08:01 WBC 2.2 L (4.0-11.0) 10^3/uL RBC 4.30 (4.20-5.40) 10^6/uL Hgb 13.7 (12.0-16.0) g/dL Hct 41.8 (36.0-48.0) % MCV 97.2 (81.0-99.0) fL MCH 31.9 (26.7-34.0) pg MCHC 32.8 (29.9-35.2) g/dL RDW 13.2 (11.0-15.0) % Plt Count 160 (150-450) 10^3/uL MPV 10.1 (9.5-13.5) fL Seg Neuts % (Manual) 53.0 (43.0-75.0) Band Neutrophils % 7.0 H (0-5) % Lymphocytes % (Manual) 28.0 (20.5-60.0) % Atypical Lymphs % (Man) 4.0 % Monocytes % (Manual) 5.0 (1.7-12.0) % Eosinophils % (Manual) 2.0 (0.9-7.0) % Basophils % (Manual) 1.0 (0.2-2.0) % Neutrophils # (Manual) 1.16 L (1.4-6.5) 10^3/uL Band Neutrophils # 0.2 (0.0-0.3) 10^3/uL Lymphocytes # (Manual) 0.61 L (1.20-3.80) 10^3/uL Abs Atypical Lymphs Man 0.08 Monocytes # (Manual) 0.11 L (0.30-0.80) 10^3/uL Eosinophils # (Manual) 0.04 (0.00-0.70) 10^3/uL Basophils # (Manual) 0.02 (0.00-0.10) 10^3/uL Plt Clumps, EDTA Few PT 10.0 (9.0-11.6) sec INR 0.94 Sodium 142 (136-145) mmol/L Potassium 3.8 (3.5-5.1) mmol/L Chloride 107 (98-107) mmol/L Carbon Dioxide 23.5 (21.0-32.0) mmol/L Anion Gap 15.3 BUN 23.0 H (7.0-18.0) mg/dL Creatinine 1.31 H (0.55-1.02) mg/dL Est GFR ( Amer) 50 L (>=60 mL/min/1.73m^2) Est GFR (Non-Af Amer) 41 L (>=60 mL/min/1.73m^2) BUN/Creatinine Ratio 17.6 Glucose 150 H (74-106) mg/dL Lactate 3.6 H* 3.5 H* (0.4-2.0) mmol/L Calcium 9.0 (8.5-10.1) mg/dL Magnesium 1.5 L (1.8-2.4) mg/dL Total Bilirubin 1.1 H (0.2-1.0) mg/dL AST 12 L (15-37) U/L ALT 16 (14-59) U/L Alkaline Phosphatase 181 H (46-116) U/L Troponin I High Sens 350.4 H* 848.2 H* (4.0-51.3) pg/mL Total Protein 6.0 L (6.4-8.2) g/dL Albumin 3.3 L (3.4-5.0) g/dL Globulin 2.7 g/dL Albumin/Globulin Ratio 1.2 Lipase 46.0 (16.0-77.0) U/L Urine Color Lt. yellow (YELLOW) Urine Clarity Clear (CLEAR) Urine pH 5.5 (5.0-9.0) Ur Specific [place] 1.020 (1.005-1.025) Urine Protein Negative (NEG/TRACE) mg/dL Urine Glucose (UA) >=1000 A (NEGATIVE) mg/dL Urine Ketones Negative (NEGATIVE) mg/dL Urine Occult Blood Small A (NEGATIVE) Urine Nitrite Positive A (NEGATIVE) Urine Bilirubin Negative (NEGATIVE) Urine Urobilinogen 0.2 (0.2-1.0) EU/dL Ur Leukocyte Esterase Negative (NEGATIVE) Urine RBC 0-2 (0-2) #/HPF Urine WBC 10-20 A (NONE SEEN) #/HPF Ur Squamous Epith Cells Few A (NONE/RARE) #/LPF Urine Bacteria Large A (NONE SEEN) #/HPF Urine Mucus None seen (NONE SEEN) Ur Culture Indicated? Yes 11/04/24 Range/Units 11:01 WBC (4.0-11.0) 10^3/uL RBC (4.20-5.40) 10^6/uL Hgb (12.0-16.0) g/dL Hct (36.0-48.0) % MCV (81.0-99.0) fL MCH (26.7-34.0) pg MCHC (29.9-35.2) g/dL RDW (11.0-15.0) % Plt Count (150-450) 10^3/uL MPV (9.5-13.5) fL Seg Neuts % (Manual) (43.0-75.0) Band Neutrophils % (0-5) % Lymphocytes % (Manual) (20.5-60.0) % Atypical Lymphs % (Man) % Monocytes % (Manual) (1.7-12.0) % Eosinophils % (Manual) (0.9-7.0) % Basophils % (Manual) (0.2-2.0) % Neutrophils # (Manual) (1.4-6.5) 10^3/uL Band Neutrophils # (0.0-0.3) 10^3/uL Lymphocytes # (Manual) (1.20-3.80) 10^3/uL Abs Atypical Lymphs Man Monocytes # (Manual) (0.30-0.80) 10^3/uL Eosinophils # (Manual) (0.00-0.70) 10^3/uL Basophils # (Manual) (0.00-0.10) 10^3/uL Plt Clumps, EDTA PT (9.0-11.6) sec INR Sodium (136-145) mmol/L Potassium (3.5-5.1) mmol/L Chloride (98-107) mmol/L Carbon Dioxide (21.0-32.0) mmol/L Anion Gap BUN (7.0-18.0) mg/dL Creatinine (0.55-1.02) mg/dL Est GFR ( Amer) (>=60 mL/min/1.73m^2) Est GFR (Non-Af Amer) (>=60 mL/min/1.73m^2) BUN/Creatinine Ratio Glucose (74-106) mg/dL Lactate 3.2 H* (0.4-2.0) mmol/L Calcium (8.5-10.1) mg/dL Magnesium (1.8-2.4) mg/dL Total Bilirubin (0.2-1.0) mg/dL AST (15-37) U/L ALT (14-59) U/L Alkaline Phosphatase (46-116) U/L Troponin I High Sens (4.0-51.3) pg/mL Total Protein (6.4-8.2) g/dL Albumin (3.4-5.0) g/dL Globulin g/dL Albumin/Globulin Ratio Lipase (16.0-77.0) U/L Urine Color (YELLOW) Urine Clarity (CLEAR) Urine pH (5.0-9.0) Ur Specific [place] (1.005-1.025) Urine Protein (NEG/TRACE) mg/dL Urine Glucose (UA) (NEGATIVE) mg/dL Urine Ketones (NEGATIVE) mg/dL Urine Occult Blood (NEGATIVE) Urine Nitrite (NEGATIVE) Urine Bilirubin (NEGATIVE) Urine Urobilinogen (0.2-1.0) EU/dL Ur Leukocyte Esterase (NEGATIVE) Urine RBC (0-2) #/HPF Urine WBC (NONE SEEN) #/HPF Ur Squamous Epith Cells (NONE/RARE) #/LPF Urine Bacteria (NONE SEEN) #/HPF Urine Mucus (NONE SEEN) Ur Culture Indicated? Discharge Plan Discharge Chief Complaint: Abdominal Pain Clinical Impression: Sepsis, Kidney stone, UTI (urinary tract infection), Hydronephrosis, Elevated troponin Patient Disposition: [facility] Time of Disposition Decision: 11:54
[2024-11-04 06:46] LABS: Alanine Aminotransferase 16 U/L (14-59); Albumin Globulin Ratio 1.2; Albumin Level 3.3 g/dL (3.4-5.0); Alkaline Phosphatase 181 U/L (46-116); Anion Gap 15.3; Aspartate Amino Transferase 12 U/L (15-37); BUN Creatinine Ratio 17.6; Bilirubin Total 1.1 mg/dL (0.2-1.0); Carbon Dioxide 23.5 mmol/L (21.0-32.0); Chloride 107 mmol/L (98-107); Estimated GFR (African America 50 (>=60 mL/min/1.73m^2); Estimated GFR (Non-African Ame 41 (>=60 mL/min/1.73m^2); Globulin 2.7 g/dL; Glucose 150 mg/dL (74-106); Magnesium 1.5 mg/dL (1.8-2.4); Potassium 3.8 mmol/L (3.5-5.1); Sodium 142 mmol/L (136-145)
[2024-11-04 07:21] LABS: Lactate/Lactic Acid 3.6 mmol/L (0.4-2.0)
[2024-11-04 07:22] LABS: Troponin I High Sensitivity 350.4 pg/mL (4.0-51.3)
[2024-11-04] MEDS: CIPROFLOXACIN IN 5 % DEXTROSE 400 MG/200 ML PREMIX 200 MG IV (07:37)
[2024-11-04 07:58] LABS: Atypical Lymphocytes Abs Man 0.08; Band Neutrophils Absolute 0.2 10^3/uL (0.0-0.3); Basophils Abs Manual 0.02 10^3/uL (0.00-0.10); Eosinophils Absolute Manual 0.04 10^3/uL (0.00-0.70); Lymphocytes Absolute Manual 0.61 10^3/uL (1.20-3.80); Monocytes Absolute Manual 0.11 10^3/uL (0.30-0.80); Segmented Neut Absolute Manual 1.16 10^3/uL (1.4-6.5)
[2024-11-04 07:59] LABS: Platelet Clumps FEW
[2024-11-04 08:05] LABS: Bilirubin Urine NEGATIVE (NEGATIVE); Blood Urine SMALL (NEGATIVE); Clarity Urine CLEAR (CLEAR); Color Urine LT. YELLOW (YELLOW); Glucose Urine UA >=1000 mg/dL (NEGATIVE); Ketones Urine NEGATIVE (NEGATIVE); Leukocyte Esterase Urine NEGATIVE (NEGATIVE); Nitrite Urine POSITIVE (NEGATIVE); Protein Urine NEGATIVE (NEG/TRACE); Urobilinogen Urine 0.2 EU/dL (0.2-1.0); pH Urine 5.5 (5.0-9.0)
[2024-11-04 08:07] LABS: Urine Microscopic Indicated YES
[2024-11-04] MEDS: SODIUM CHLORIDE 610 ML IV (08:17)
[2024-11-04 08:19] LABS: Bacteria Urine LARGE #/HPF (NONE SEEN); Mucus Urine NONE SEEN (NONE SEEN); Squamous Epithelial Cell Urine FEW #/LPF (NONE/RARE)
[2024-11-04 08:20] LABS: RBC Urine 0-2 #/HPF (0-2)
[2024-11-04 08:21] LABS: Urine Culture Indicated YES
[2024-11-04] MEDS: MAGNESIUM SULFATE IN WATER 2 GM/50 ML PREMIX IV (08:47)
[2024-11-04 08:56] LABS: Lactate/Lactic Acid 3.5 mmol/L (0.4-2.0); Troponin I High Sensitivity 848.2 pg/mL (4.0-51.3)
[2024-11-04] MEDS: PIPERACILLIN SODIUM/TAZOBACTAM 4.5 GM in 0.9 % SODIUM CHLORIDE 50 ML IV (09:00)
--- NOTE | 2024-11-04 09:03 | ECG_ITS ---
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
[2024-11-04 11:48] LABS: Lactate/Lactic Acid 3.2 mmol/L (0.4-2.0)
[2024-11-04 17:05] LABS: A. calcoaceticus-baumannii Cpx NOT DETECTED (NOT DETECTE); Bacteroides fragilis NOT DETECTED (NOT DETECTE); Candida albicans NOT DETECTED (NOT DETECTE); Candida auris NOT DETECTED (NOT DETECTE); Candida glabrata NOT DETECTED (NOT DETECTE); Candida krusei NOT DETECTED (NOT DETECTE); Candida parapsilosis NOT DETECTED (NOT DETECTE); Candida tropicalis NOT DETECTED (NOT DETECTE); Cryptococcus neoformans/gattii NOT DETECTED (NOT DETECTE); Enterobacter cloacae complex NOT DETECTED (NOT DETECTE); Enterococcus faecalis NOT DETECTED (NOT DETECTE); Enterococcus faecium NOT DETECTED (NOT DETECTE); Haemophilus influenzae NOT DETECTED (NOT DETECTE); Klebsiella aerogenes NOT DETECTED (NOT DETECTE); Klebsiella pneumoniae group NOT DETECTED (NOT DETECTE); Listeria monocytogenes NOT DETECTED (NOT DETECTE); Neisseria meningitidis NOT DETECTED (NOT DETECTE); Proteus spp. NOT DETECTED (NOT DETECTE); Pseudomonas aeruginosa NOT DETECTED (NOT DETECTE); Salmonella spp. NOT DETECTED (NOT DETECTE); Serratia marcescens NOT DETECTED (NOT DETECTE); Staphylococcus epidermidis NOT DETECTED (NOT DETECTE); Staphylococcus lugdunensis NOT DETECTED (NOT DETECTE); Staphylococcus spp. NOT DETECTED (NOT DETECTE); Stenotrophomonas maltophilia NOT DETECTED (NOT DETECTE); Streptococcus agalactiae NOT DETECTED (NOT DETECTE); Streptococcus pneumoniae NOT DETECTED (NOT DETECTE); Streptococcus pyogenes NOT DETECTED (NOT DETECTE); Streptococcus spp. NOT DETECTED (NOT DETECTE)
[2024-11-04 18:23] LABS: Source BLOOD
[2024-11-04 18:26] LABS: Enterobacterales DETECTED (NOT DETECTE)
[2024-11-05 12:41] LABS: CTX-M NOT DETECTED (NOT DETECTE); IMP NOT DETECTED (NOT DETECTE); KPC NOT DETECTED (NOT DETECTE); NDM NOT DETECTED (NOT DETECTE); mcr-1 NOT DETECTED (NOT DETECTE)
[2024-11-05 12:42] LABS: OXA-48-like NOT DETECTED (NOT DETECTE); VIM NOT DETECTED (NOT DETECTE)
== END 2024-11-04 13:21 | disposition short-term general hospital (02) ==
PROVIDERS: Emergency Provider Emergency Medicine; PCP Family Medicine
DX: A41.9 Sepsis, unspecified organism (principal); N13.6 Pyonephrosis; Z87.891 Personal history of nicotine dependence; R79.89 Other specified abnormal findings of blood chemistry
CPT/HCPCS: 36415; 74176; 80053; 81001; 83605; 83690; 83735; 84484; 85007; 85027; 85610; 87040; 87075; 87086; 87150; 87186; 93005; 96361; 96365; 96366; 96368; 96375; 96376; 99285; J0744; J2270; J2405; J2543; J3475

== ENCOUNTER 2024-11-26 13:33 | Inpatient (IN) | payer BC, SELFPAY ==
[2024-11-26] VITALS (11 sets, daily range): BP systolic 100–161; BP diastolic 61–93; PULSE 90–102; TEMP 36.9–37.6; O2SAT 91–98; BMI 47.0; BMI 52.4
--- NOTE | 2024-11-26 14:02 | ED_ITS ---
HPI HPI - General Adult General Chief complaint: Abdominal Pain Stated complaint: POST SURGICAL COMPLICATIONS Time Seen by Provider: 11/26/24 13:53 Source: patient Mode of arrival: Wheelchair Limitations: no limitations History of Present Illness HPI narrative: Patient is a 59-year-old female who presents to the emergency department for a 5-day history of generalized bodyaches, fever, weakness. She states that she was seen in this emergency department and sent to [facility] with a septic kidney stone where she had a stent placed. She states she was in the hospital for 6 days. She was discharged from [facility], followed up with a [place] urologist who did a second procedure for right ureteral stenting with removal of the initial stent 5 days ago. She states since she was discharged from the hospital she has been feeling achy, weak, nauseous. She reports generalized body pain. She states she had a temperature of 101.2 Fahrenheit yesterday. Last dose of Motrin or Tylenol was 930 this morning. She has no vomiting but states she has significant nausea, no diarrhea. She is currently on levofloxacin that were prescribed at time of discharge. Related Data Home Medications ?Medication ?Instructions ?Recorded ?Confirmed ibuprofen 800 mg tablet 800 mg PO TID PRN pain 11/04/24 11/26/24 spironolactone 50 mg tablet 50 mg PO BID 11/04/24 11/26/24 tirzepatide 5 mg/0.5 mL 5 mg subcut .WEEKLY 11/04/24 11/26/24 subcutaneous pen injector (Young) hyoscyamine sulfate 0.125 mg tablet 0.125 mg sublingual Q6H PRN 11/26/24 11/26/24 dyspepsia levofloxacin 500 mg tablet 500 mg PO BID 11/26/24 11/26/24 oxycodone 5 mg tablet 5 mg PO Q6H PRN pain 11/26/24 11/26/24 tamsulosin 0.4 mg capsule 0.4 mg PO DAILY 11/26/24 11/26/24 Allergies Allergy/AdvReac Type Severity Reaction Status Date / Time fluoxetine (From [facility] (formerly known as [facility]) Allergy Severe Hallucinati Verified 11/26/24 13:50 ng Opioid HPI Opioid Management Most Recent Opioid Data: Last Pain Scale 9 11/04/24 06:33 11/04/24 Review of Systems ROS Constitutional Reports: fever and chills Ears, nose, mouth, and throat Denies: throat pain or nasal congestion Cardiovascular Denies: chest pain Respiratory Denies: shortness of breath or cough Gastrointestinal Reports: abdominal pain and nausea; Denies: vomiting or diarrhea Integumentary/Breast Denies: rash Hematologic/Lymphatic Denies: easy bruising or easy bleeding PFSH PFS Medical History (Updated 11/26/24 @ 15:31 by MIKE Infante) Kidney stones ?N20.0 - Calculus of kidney (ICD-10) Type 2 diabetes mellitus ?E11.9 - Type 2 diabetes mellitus without complications (ICD-10) Social History Smoking status: Former smoker Little interest or pleasure in doing things: not at all Feeling down, depressed, or hopeless: not at all Exam Narrative Exam Narrative: Gen.: Awake, alert, in no distress Head: Normocephalic, atraumatic ENT: Moist mucous membranes Respiratory: No respiratory distress, lungs clear bilaterally Cardio: Regular rate and rhythm Gastrointestinal: Abdomen is soft, nondistended and mild tenderness in the suprapubic abdomen with no guarding or rebound Extremities: Moves extremities equally Psych: Normal mood and affect Neuro: No focal neuro deficit Skin: Warm, dry, intact Constitutional Vital Signs, click to edit/add: Last Vital Signs Temp 99.4 F 11/26/24 13:44 Pulse 102 H 11/26/24 13:44 Resp 20 11/26/24 13:44 BP 161/76 H 11/26/24 13:44 Pulse Ox 97 11/26/24 13:44 O2 Del Method Room Air 11/26/24 13:44 Course Vital Signs Vital signs: Vital Signs Temperature 99.4 F 11/26/24 13:44 Pulse Rate 102 H 11/26/24 13:44 Respiratory Rate 20 11/26/24 13:44 Blood Pressure 161/76 H 11/26/24 13:44 Pulse Oximetry 97 11/26/24 13:44 Oxygen Delivery Method Room Air 11/26/24 13:44 Temperature 99.4 F 11/26/24 13:44 Pulse Rate 102 H 11/26/24 13:44 Respiratory Rate 11/26/24 13:44 Blood Pressure 161/76 H 11/26/24 13:44 Pulse Oximetry 97 11/26/24 13:44 Oxygen Delivery Method Room Air 11/26/24 13:44 Medical Decision Making MDM Narrative Medical decision making narrative: Vitals are stable, patient with minimal tachycardia, no hypotension. Sepsis labs were ordered including blood cultures, lactic acid. Patient with mild leukocytosis, no bandemia and mildly elevated lactic acid. Chest x-ray is unremarkable, respiratory swabs are negative and CT of the abdomen and pelvis shows mild stranding of the right kidney consistent with possible pyelonephritis. Patient's urine is unremarkable, blood noted with no infection. She has been on Levaquin at home and has a history of diabetes. It was recommended she be admitted for IV antibiotics for failure of outpatient treatment of pyelonephritis, she is agreeable to this. Admitted to the hospitalist. SUPERVISED APC VISIT, PHYSICIAN ATTESTATION: Based on the medical record the care appears appropriate. ? Medical Records Medical records reviewed: Yes I reviewed the patient's medical records Lab Data Lab results reviewed: Yes I reviewed the patient's lab results Labs: Lab Results 11/26/24 11/26/24 11/26/24 Range/Units 14:08 14:13 14:14 WBC 12.9 H (4.0-11.0) 10^3/uL RBC 4.27 (4.20-5.40) 10^6/uL Hgb 13.5 (12.0-16.0) g/dL Hct 40.9 (36.0-48.0) % MCV 95.8 (81.0-99.0) fL MCH 31.6 (26.7-34.0) pg MCHC 33.0 (29.9-35.2) g/dL RDW 13.2 (11.0-15.0) % Plt Count 265 (150-450) 10^3/uL MPV 10.5 (9.5-13.5) fL Neut % (Auto) 61.3 (43.0-75.0) % Lymph % (Auto) 22.4 (20.5-60.0) % [place] % (Auto) 12.3 H (1.7-12.0) % Eos % (Auto) 2.6 (0.9-7.0) % Baso % (Auto) 0.5 (0.2-2.0) % Neut # (Auto) 7.9 H (1.4-6.5) 10^3/uL Lymph # (Auto) 2.9 (1.2-3.8) 10^3/uL [place] # (Auto) 1.6 H (0.3-0.8) 10^3/uL Eos # (Auto) 0.3 (0.0-0.7) 10^3/uL Baso # (Auto) 0.1 (0.0-0.1) 10^3/uL Abs Immat Gran (auto) 0.12 H (0.00-0.03) 10^3/uL Imm/Tot Granulo (auto) 0.9 H (0.0-0.5) % VBG pH 7.392 (7.330-7.430) VBG pCO2 46.7 (40.0-52.0) mmHg Sodium 140 (136-145) mmol/L Potassium 3.6 (3.5-5.1) mmol/L Chloride 100 (98-107) mmol/L Carbon Dioxide 29.8 (21.0-32.0) mmol/L Anion Gap 13.8 BUN 10.0 (7.0-18.0) mg/dL Creatinine 1.03 H (0.55-1.02) mg/dL Est GFR ( Amer) >60 (>=60 mL/min/1.73m^2) Est GFR (Non-Af Amer) 54 L (>=60 mL/min/1.73m^2) BUN/Creatinine Ratio 9.7 Glucose 246 H (74-106) mg/dL Lactate 2.3 H* (0.4-2.0) mmol/L Calcium 9.3 (8.5-10.1) mg/dL Total Bilirubin 0.7 (0.2-1.0) mg/dL AST 7 L (15-37) U/L ALT 15 (14-59) U/L Alkaline Phosphatase 107 (46-116) U/L Troponin I High Sens 6.2 (4.0-51.3) pg/mL Total Protein 7.2 (6.4-8.2) g/dL Albumin 3.2 L (3.4-5.0) g/dL Globulin 4.0 g/dL Albumin/Globulin Ratio 0.8 Urine Color Yellow (YELLOW) Urine Clarity Clear (CLEAR) Urine pH 6.0 (5.0-9.0) Ur Specific [place] 1.015 (1.005-1.025) Urine Protein 30 A (NEG/TRACE) mg/dL Urine Glucose (UA) >=1000 A (NEGATIVE) mg/dL Urine Ketones Negative (NEGATIVE) mg/dL Urine Occult Blood Large A (NEGATIVE) Urine Nitrite Negative (NEGATIVE) Urine Bilirubin Negative (NEGATIVE) Urine Urobilinogen 0.2 (0.2-1.0) EU/dL Ur Leukocyte Esterase Negative (NEGATIVE) Urine RBC 20-50 A (0-2) #/HPF Urine WBC 0-2 A (NONE SEEN) #/HPF Ur Squamous Epith Cells Few A (NONE/RARE) #/LPF Urine Bacteria None seen (NONE SEEN) #/HPF Urine Mucus Small A (NONE SEEN) Ur Culture Indicated? No Influenza Type A Ag Negative Influenza Type B Ag Negative SARS-CoV-2 Ag (CV2AG) Negative (NEGATIVE) Imaging Data CT scan - abdomen: Attestation: I have reviewed the pertinent imaging results. Radiologist's impression: ITS Impressions Abdomen/Pelvis CT 11/26/24 14:35 IMPRESSION: Mild inflammatory changes of the right kidney, consider pyelonephritis Electronically authenticated by: FREDI MOSQUERA Date: 11/26/2024 14:48 Chest X-Ray 11/26/24 14:35 IMPRESSION: No acute disease. Electronically authenticated by: FREDI MOSQUERA Date: 11/26/2024 14:49 Discharge Plan Discharge Chief Complaint: Abdominal Pain Clinical Impression: Sepsis, Pyelonephritis, Failure of outpatient treatment, Generalized weakness Patient Disposition: Admitted As Inpatient Time of Disposition Decision: 15:31 Condition: Good Prescriptions / Home Meds: No Action levofloxacin 500 mg tablet 500 mg PO BID tamsulosin 0.4 mg capsule 0.4 mg PO DAILY oxycodone 5 mg tablet 5 mg PO Q6H PRN (Reason: pain) hyoscyamine sulfate 0.125 mg tablet 0.125 mg sublingual Q6H PRN (Reason: dyspepsia) spironolactone 50 mg tablet 50 mg PO BID Mounjaro 5 mg/0.5 mL pen injector 5 mg SUBCUT .WEEKLY ibuprofen 800 mg tablet 800 mg PO TID PRN (Reason: pain) Print Language: Spanish Referrals: VALENTINE KIRKPATRICK [Primary Care Provider] - 1 week
[2024-11-26] MEDS: ONDANSETRON PF 4 MG/2 ML VIAL IV (14:16)
[2024-11-26] MEDS: 0.9 % SODIUM CHLORIDE 1,000 ML 999 ML IV (14:16)
[2024-11-26 14:22] LABS: Basophils Absolute Auto 0.1 10^3/uL (0.0-0.1); Basophils Percent Auto 0.5 % (0.2-2.0); Eosinophils Absolute Auto 0.3 10^3/uL (0.0-0.7); Eosinophils Percent Auto 2.6 % (0.9-7.0); Hematocrit 40.9 % (36.0-48.0); Hemoglobin 13.5 g/dL (12.0-16.0); Immature Granulocytes Abs Auto 0.12 10^3/uL (0.00-0.03); Immature Granulocytes Pct Auto 0.9 % (0.0-0.5); Lymphocytes Absolute Auto 2.9 10^3/uL (1.2-3.8); Lymphocytes Percent Auto 22.4 % (20.5-60.0); Mean Corpuscular Hemoglobin 31.6 pg (26.7-34.0); Mean Corpuscular Volume 95.8 fL (81.0-99.0); Mean Platelet Volume 10.5 fL (9.5-13.5); Monocytes Absolute Auto 1.6 10^3/uL (0.3-0.8); Monocytes Percent Auto 12.3 % (1.7-12.0); Neutrophils Absolute Auto 7.9 10^3/uL (1.4-6.5); Neutrophils Percent Auto 61.3 % (43.0-75.0); Platelet Count 265 10^3/uL (150-450); Red Blood Count 4.27 10^6/uL (4.20-5.40); Red Cell Distribution Width 13.2 % (11.0-15.0); White Blood Count 12.9 10^3/uL (4.0-11.0)
--- NOTE | 2024-11-26 14:35 | XR_ITS ---
The [address] [address] Patient Name: BOBBY LUJAN MRN: [id number] date: 1965 Sex: F Assigned Patient Location: ER Current Patient Location: ER Accession/Order Number: [id number] Exam Date: 11/26/2024 14:22 Report Date: 11/26/2024 14:49 At the request of: PETER BLACKMON Procedure: XR chest 1V EXAMINATION: XR chest 1V HISTORY: Fever, body aches COMPARISON: No relevant comparison available. TECHNIQUE: AP portable FINDINGS: LUNGS: No significant pulmonary parenchymal abnormalities. VASCULATURE: No increased pulmonary vasculature. PLEURA: No pneumothorax, effusion, or pleural thickening. Elevated right hemidiaphragm CARDIAC: No cardiomegaly or cardiac silhouette abnormality. MEDIASTINUM: No visible mass or adenopathy. BONES: No fracture or visible bone lesion. OTHER: Negative. XR/XR chest 1V IMPRESSION: No acute disease. Electronically authenticated by: FREDI MOSQUERA Date: 11/26/2024 14:49
--- NOTE | 2024-11-26 14:35 | CT_ITS ---
[address] [address] Patient Name: BOBBY LUJAN MRN: [id number] date: 1965 Sex: F Assigned Patient Location: ER Current Patient Location: ER Accession/Order Number: [id number] Exam Date: 11/26/2024 14:22 Report Date: 11/26/2024 14:48 At the request of: PETER BLACKMON Procedure: CT abdomen pelvis w con EXAMINATION: CT abdomen pelvis w con HISTORY: right ureteral stent, fever COMPARISON: 09/22/2023 TECHNIQUE: CT images were created with IV contrast. Axial, Coronal, and Sagittal images. Dose reduction techniques were achieved by using automated exposure control and/or adjustment of mA and/or kV according to patient size and/or use of iterative reconstruction technique. FINDINGS: LUNG BASES: No visible pulmonary or pleural disease. LIVER: No enlargement, atrophy, abnormal density, or significant focal lesion. BILIARY: No visible dilatation or calcification. PANCREAS: No lesion, fluid collection, ductal dilatation, or atrophy. SPLEEN: No enlargement or focal lesion. ADRENALS: No mass or enlargement. KIDNEYS: Asymmetric enlargement of the right kidney with mild perinephric stranding. Normally positioned right ureteral stent. No hydronephrosis. Normal left. BOWEL/MESENTERY: Colonic diverticulosis without evidence of acute diverticulitis. Normal appendix. AORTA/VASCULAR: No aortic aneurysm. Heavy calcific atherosclerosis RETROPERITONEUM: No mass or adenopathy. LYMPH NODES: No adenopathy. URINARY BLADDER: No visible focal wall thickening, lesion, or calculus. PELVIC ORGANS: No visible mass. Pelvic organs appropriate for patient age. ABDOMINAL WALL: No mass or hernia. BONES: Right hip arthroplasty OTHER: Negative. CT/CT abdomen pelvis w con IMPRESSION: Mild inflammatory changes of the right kidney, consider pyelonephritis Electronically authenticated by: FREDI MOSQUERA Date: 11/26/2024 14:48
[2024-11-26 14:37] LABS: PCO2 VBG 46.7 mmHg (40.0-52.0); pH VBG 7.392 (7.330-7.430)
[2024-11-26 14:39] LABS: Influenza Virus A Antigen Negative; Influenza Virus B Antigen Negative; Internal Control Within Normal Limits
[2024-11-26 14:40] LABS: Internal Control Within Normal Limits; SARS-CoV-2 Ag NEGATIVE (NEGATIVE)
[2024-11-26 14:45] LABS: Bilirubin Urine NEGATIVE (NEGATIVE); Blood Urine LARGE (NEGATIVE); Clarity Urine CLEAR (CLEAR); Color Urine YELLOW (YELLOW); Glucose Urine UA >=1000 mg/dL (NEGATIVE); Ketones Urine NEGATIVE (NEGATIVE); Leukocyte Esterase Urine NEGATIVE (NEGATIVE); Nitrite Urine NEGATIVE (NEGATIVE); Protein Urine 30 mg/dL (NEG/TRACE); Specific Gravity Urine 1.015 (1.005-1.025); Urobilinogen Urine 0.2 EU/dL (0.2-1.0)
[2024-11-26 14:48] LABS: Alanine Aminotransferase 15 U/L (14-59); Albumin Globulin Ratio 0.8; Albumin Level 3.2 g/dL (3.4-5.0); Alkaline Phosphatase 107 U/L (46-116); Anion Gap 13.8; Aspartate Amino Transferase 7 U/L (15-37); BUN Creatinine Ratio 9.7; Bilirubin Total 0.7 mg/dL (0.2-1.0); Calcium 9.3 mg/dL (8.5-10.1); Carbon Dioxide 29.8 mmol/L (21.0-32.0); Chloride 100 mmol/L (98-107); Estimated GFR (African America >60 (>=60 mL/min/1.73m^2); Estimated GFR (Non-African Ame 54 (>=60 mL/min/1.73m^2); Glucose 246 mg/dL (74-106); Potassium 3.6 mmol/L (3.5-5.1); Sodium 140 mmol/L (136-145); Total Protein 7.2 g/dL (6.4-8.2); Troponin I High Sensitivity 6.2 pg/mL (4.0-51.3)
[2024-11-26 14:53] LABS: Lactate/Lactic Acid 2.3 mmol/L (0.4-2.0)
[2024-11-26 15:02] LABS: RBC Urine 20-50 #/HPF (0-2); WBC Urine 0-2 #/HPF (NONE SEEN)
[2024-11-26 15:03] LABS: Bacteria Urine NONE SEEN #/HPF (NONE SEEN); Squamous Epithelial Cell Urine FEW #/LPF (NONE/RARE)
[2024-11-26 15:04] LABS: Mucus Urine SMALL (NONE SEEN); Urine Culture Indicated NO
--- NOTE | 2024-11-26 15:52 | P.HP_ITS ---
HPI H&P: HPI History of Present Illness Chief complaint: Pyelonephritis Sepsis Narrative: Patient was recent history of infected kidney stone, transferred due to sepsis to [facility], stone was pushed the way and stent was placed and placed on IV antibiotic she was in the hospital for 5 to 6 days, saw urology and outpatient last week 4 days ago, had stent replaced and stone removed, Tuesday woke up and just started being very fatigued, had trouble all weekend, presented to emergency room here with increasing weakness and found to have acute pyelonephritis I saw patient up on the medical surgical floor, she was resting comfortably in bed without any specific complaint other than generalized right-sided pain but not a specific location Opioid HPI Opioid Management Most Recent Pain and Opioid Data: Last Pain Scale 7 11/26/24 16:06 11/26/24 Last Pain Assessment 11/26/24 18:09 Last MAR Pain Assessment 11/26/24 16:06 Last ORT Total Score 1 11/26/24 16:35 11/26/24 Last ORT Risk Category Low Risk 11/26/24 16:35 11/26/24 PFSH PFSH Medical History (Updated 11/26/24 @ 15:31 by MIKE Infante) Kidney stones ?N20.0 - Calculus of kidney (ICD-10) Type 2 diabetes mellitus ?E11.9 - Type 2 diabetes mellitus without complications (ICD-10) Family History (Updated 11/26/24 @ 16:43 by Angeline Calvillo RN) Sister Rheumatoid arthritis Father Lung cancer Mother Heart disease Social History (Updated 11/26/24 @ 16:43 by Angeline Calvillo RN) Within the past year, how often did you have a drink containing alcohol: never Score interpretation: A score less than 3 is consistent with normal alcohol consumption. Smoking status: Former smoker Second hand tobacco smoke exposure: No Non-prescribed substance use: denies use Highest level of school completed/degree received: Bachelor's degree Do you want help with school or training: No Are you now , , , , never or living with a partner: In a typical week, how many times do you talk on the telephone with family, friends, or neighbors: 3 or more times per week Little interest or pleasure in doing things: not at all Feeling down, depressed, or hopeless: not at all Feel stressed/tense/nervous/anxious/difficulty sleeping: not at all Gender Identity: female Meds Home Medications and Allergies Home Medications ?Medication ?Instructions ?Recorded ?Confirmed ?Type ibuprofen 800 mg tablet 800 mg PO TID PRN pain 11/04/24 11/26/24 History spironolactone 50 mg tablet 50 mg PO BID 11/04/24 11/26/24 History tirzepatide 5 mg/0.5 mL 5 mg subcut .WEEKLY 11/04/24 11/26/24 History subcutaneous pen injector (Mounjaro) hyoscyamine sulfate 0.125 mg tablet 0.125 mg sublingual Q6H PRN 11/26/24 11/26/24 History dyspepsia levofloxacin 500 mg tablet 500 mg PO BID 11/26/24 11/26/24 History oxycodone 5 mg tablet 5 mg PO Q6H PRN pain 11/26/24 11/26/24 History tamsulosin 0.4 mg capsule 0.4 mg PO DAILY 11/26/24 11/26/24 History Allergies Allergy/AdvReac Type Severity Reaction Status Date / Time fluoxetine (From Edictivezac) Allergy Severe Hallucinati Verified 11/26/24 13:50 ng Exam Constitutional Vital Signs, click to edit/add: Last Vital Signs Temp 99.4 F 11/26/24 13:44 Pulse 102 H 11/26/24 13:44 Resp 20 11/26/24 13:44 BP 161/76 H 11/26/24 13:44 Pulse Ox 97 11/26/24 13:44 O2 Del Method Room Air 11/26/24 13:44 Documenting provider has reviewed patient's vital signs: yes Common normals: no apparent distress Chest Common normals: inspection of chest normal Respiratory Common normals: normal respiratory effort and no retractions Cardio Common normals: regular rate and regular rhythm GI Common normals: soft to palpation; negative for Normal to inspection, nondistended, normoactive bowel sounds present (Obese) and tender (Tender more right sided) Extremity Common normals: normal to inspection and full ROM Results Labs Labs: Short CBC 11/26/24 Range/Units 14:08 WBC 12.9 H (4.0-11.0) 10^3/uL Hgb 13.5 (12.0-16.0) g/dL Hct 40.9 (36.0-48.0) % Plt Count 265 (150-450) 10^3/uL BMP 11/26/24 14:08 Sodium 140 Potassium 3.6 Chloride 100 Carbon Dioxide 29.8 BUN 10.0 Creatinine 1.03 H Glucose 246 H Calcium 9.3 Liver Function 11/26/24 Range/Units 14:08 Total Bilirubin 0.7 (0.2-1.0) mg/dL AST 7 L (15-37) U/L ALT 15 (14-59) U/L Alkaline Phosphatase 107 (46-116) U/L Albumin 3.2 L (3.4-5.0) g/dL Urine 11/26/24 Range/Units 14:14 Urine Color Yellow (YELLOW) Urine Clarity Clear (CLEAR) Urine pH 6.0 (5.0-9.0) Ur Specific [place] 1.015 (1.005-1.025) Urine Protein 30 A (NEG/TRACE) mg/dL Urine Glucose (UA) >=1000 A (NEGATIVE) mg/dL ABG ABG results: 11/26/24 14:08 VBG pH 7.392 VBG pCO2 46.7 Assessment and Plan Assessment and Plan (1) Generalized weakness: (2) Pyelonephritis: Plan Admission findings: Sinus tachycardia, uncontrolled high blood pressure, leukocytosis, lactic acidosis, CT scan findings significant for right pyelonephritis without obstruction, this would patient need for severe sepsis Severe sepsis secondary to pyelonephritis-unable to give aggressive fluid management as she does have significant fluid retention in the past, will give gentle hydration over the course of the next 24 hours, IV antibiotics, broad- spectrum due to recent manipulation with repeat stent. Repeat labs in a.m., blood cultures pending History of significant fluid retention-hold off on spironolactone Morbid obesity-diet management Admission status: Patient with recent manipulation with the recent stent placement now with pyelonephritis with significant lactic acidosis and leukocytosis resulting in severe sepsis without shock, medically necessary treatment will span 2 midnights. Inpatient status
[2024-11-26] MEDS: OXYCODONE HCL/ACETAMINOPHEN 5MG/325MG 1 TAB PO (16:06)
[2024-11-26] MEDS: PIPERACILLIN SODIUM/TAZOBACTAM 4.5 GM in 0.9 % SODIUM CHLORIDE 50 ML IV (16:06)
[2024-11-26 17:24] LABS: Lactate/Lactic Acid 1.2 mmol/L (0.4-2.0)
[2024-11-26] MEDS: LACTATED RINGER'S SOLUTION 1,000 ML 100 ML IV (17:55)
[2024-11-26] MEDS: HYOSCYAMINE SULFATE 0.125 MG TAB.SUBL SL ×2 (18:13→21:28)
[2024-11-26] MEDS: IBUPROFEN 400 MG TABLET 800 MG PO (20:45)
[2024-11-26] MEDS: VANCOMYCIN HCL 2,000 MG in 0.9 % SODIUM CHLORIDE 500 ML 250 MG IV (21:28)
[2024-11-26] MEDS: ZOLPIDEM TARTRATE 5 MG TABLET PO (23:31)
[2024-11-26] MEDS: PIPERACILLIN SODIUM/TAZOBACTAM 3.375 GM in 0.9 % SODIUM CHLORIDE 50 ML IV (23:31)
[2024-11-27] VITALS (20 sets, daily range): BP systolic 92–145; BP diastolic 51–79; PULSE 71–102; TEMP 36.5–37.3; O2SAT 90–95
[2024-11-27] MEDS: HYOSCYAMINE SULFATE 0.125 MG TAB.SUBL SL ×4 (05:13→21:07)
--- NOTE | 2024-11-27 05:55 | P.PN_ITS ---
Progress Note: Subjective Subjective Interval history: Patient feel better today, she is actually up at the bedside, still with significant back pain, no fevers overnight Exam Constitutional Vital Signs, click to edit/add: Last Vital Signs Temp 98.0 F 11/27/24 05:00 Pulse 71 11/27/24 05:00 Resp 18 11/27/24 05:00 BP 92/51 11/27/24 05:00 Pulse Ox 94 L 11/27/24 05:00 O2 Del Method Room Air 11/27/24 05:00 Documenting provider has reviewed patient's vital signs: yes Common normals: no apparent distress Chest Common normals: inspection of chest normal Respiratory Common normals: normal respiratory effort, no retractions and clear to auscultation bilaterally Cardio Common normals: regular rate, regular rhythm and no murmurs GI Common normals: soft to palpation; negative for Normal to inspection, nondistended, normoactive bowel sounds present (Obese) and tender (Persisting tenderness more right sided) Extremity Common normals: normal to inspection and full ROM Progress Note: Objective Labs Labs: Short CBC 11/26/24 Range/Units 14:08 WBC 12.9 H (4.0-11.0) 10^3/uL Hgb 13.5 (12.0-16.0) g/dL Hct 40.9 (36.0-48.0) % Plt Count 265 (150-450) 10^3/uL BMP 11/26/24 14:08 Sodium 140 Potassium 3.6 Chloride 100 Carbon Dioxide 29.8 BUN 10.0 Creatinine 1.03 H Glucose 246 H Calcium 9.3 Liver Function 11/26/24 Range/Units 14:08 Total Bilirubin 0.7 (0.2-1.0) mg/dL AST 7 L (15-37) U/L ALT 15 (14-59) U/L Alkaline Phosphatase 107 (46-116) U/L Albumin 3.2 L (3.4-5.0) g/dL Urine 11/26/24 Range/Units 14:14 Urine Color Yellow (YELLOW) Urine Clarity Clear (CLEAR) Urine pH 6.0 (5.0-9.0) Ur Specific [place] 1.015 (1.005-1.025) Urine Protein 30 A (NEG/TRACE) mg/dL Urine Glucose (UA) >=1000 A (NEGATIVE) mg/dL Progress Note: A&P Assessment and Plan (1) Generalized weakness: (2) Pyelonephritis: Plan Admission findings: Sinus tachycardia, uncontrolled high blood pressure, leukocytosis, lactic acidosis, CT scan findings significant for right pyelonephritis without obstruction, this would patient need for severe sepsis Severe sepsis secondary to pyelonephritis-continue with fluid resuscitation, will try the saline lock later today as long as blood pressure remained stable, continue with current IV antibiotic, patient high risk for significant bacteremia with recent procedure and recent hospitalization for sepsis with bacteremia, white blood cell count is improved Acute elevation in creatinine-returned to normal today History of significant fluid retention-hold off on spironolactone Morbid obesity-diet management Admission status: Patient with recent manipulation with the recent stent placement now with pyelonephritis with significant lactic acidosis and leukocytosis resulting in severe sepsis without shock, medically necessary treatment will span 2 midnights. Inpatient status ?
[2024-11-27 06:17] LABS: Basophils Absolute Auto 0.1 10^3/uL (0.0-0.1); Basophils Percent Auto 0.6 % (0.2-2.0); Eosinophils Absolute Auto 0.5 10^3/uL (0.0-0.7); Eosinophils Percent Auto 4.3 % (0.9-7.0); Hematocrit 35.8 % (36.0-48.0); Immature Granulocytes Abs Auto 0.07 10^3/uL (0.00-0.03); Immature Granulocytes Pct Auto 0.6 % (0.0-0.5); Lymphocytes Absolute Auto 2.8 10^3/uL (1.2-3.8); Lymphocytes Percent Auto 25.9 % (20.5-60.0); Mean Corpuscular HGB Conc 33.5 g/dL (29.9-35.2); Mean Corpuscular Hemoglobin 31.9 pg (26.7-34.0); Mean Corpuscular Volume 95.2 fL (81.0-99.0); Mean Platelet Volume 10.7 fL (9.5-13.5); Monocytes Absolute Auto 1.3 10^3/uL (0.3-0.8); Monocytes Percent Auto 12.2 % (1.7-12.0); Neutrophils Absolute Auto 6.1 10^3/uL (1.4-6.5); Neutrophils Percent Auto 56.4 % (43.0-75.0); Platelet Count 238 10^3/uL (150-450); Red Blood Count 3.76 10^6/uL (4.20-5.40); Red Cell Distribution Width 13.2 % (11.0-15.0); White Blood Count 10.8 10^3/uL (4.0-11.0)
[2024-11-27 06:29] LABS: Anion Gap 12.4; BUN Creatinine Ratio 10.1; Calcium 8.8 mg/dL (8.5-10.1); Carbon Dioxide 28.3 mmol/L (21.0-32.0); Chloride 104 mmol/L (98-107); Estimated GFR (African America >60 (>=60 mL/min/1.73m^2); Estimated GFR (Non-African Ame >60 (>=60 mL/min/1.73m^2); Glucose 171 mg/dL (74-106); Potassium 3.7 mmol/L (3.5-5.1); Sodium 141 mmol/L (136-145)
[2024-11-27] MEDS: OXYCODONE HCL 5 MG TABLET PO ×2 (08:22→18:02)
--- NOTE | 2024-11-27 08:37 | CM.NOTE ---
Rounds made with Dr. Manning. Dr. Manning reviews plan of care. Still with mild flank pain. No discharge today.
[2024-11-27] MEDS: PIPERACILLIN SODIUM/TAZOBACTAM 3.375 GM in 0.9 % SODIUM CHLORIDE 50 ML IV ×3 (09:13→23:20)
[2024-11-27] MEDS: TAMSULOSIN HCL 0.4 MG CAPSULE PO (09:13)
[2024-11-27] MEDS: ONDANSETRON PF 4 MG/2 ML VIAL IV (17:25)
[2024-11-27] MEDS: ZOLPIDEM TARTRATE 5 MG TABLET PO (21:07)
[2024-11-27] MEDS: VANCOMYCIN HCL 2,000 MG in 0.9 % SODIUM CHLORIDE 500 ML 250 MG IV (21:07)
[2024-11-28] VITALS (8 sets, daily range): BP systolic 109–115; BP diastolic 67–74; PULSE 86–94; TEMP 36.8–37; O2SAT 90–92
[2024-11-28] MEDS: HYOSCYAMINE SULFATE 0.125 MG TAB.SUBL SL ×2 (05:08→11:06)
[2024-11-28 05:49] LABS: Basophils Absolute Auto 0.1 10^3/uL (0.0-0.1); Basophils Percent Auto 0.5 % (0.2-2.0); Eosinophils Absolute Auto 0.3 10^3/uL (0.0-0.7); Eosinophils Percent Auto 2.4 % (0.9-7.0); Hematocrit 34.6 % (36.0-48.0); Hemoglobin 11.5 g/dL (12.0-16.0); Immature Granulocytes Pct Auto 0.8 % (0.0-0.5); Lymphocytes Absolute Auto 2.9 10^3/uL (1.2-3.8); Lymphocytes Percent Auto 23.6 % (20.5-60.0); Mean Corpuscular HGB Conc 33.2 g/dL (29.9-35.2); Mean Corpuscular Hemoglobin 31.2 pg (26.7-34.0); Mean Corpuscular Volume 93.8 fL (81.0-99.0); Mean Platelet Volume 10.7 fL (9.5-13.5); Monocytes Absolute Auto 1.4 10^3/uL (0.3-0.8); Neutrophils Absolute Auto 7.6 10^3/uL (1.4-6.5); Neutrophils Percent Auto 61.7 % (43.0-75.0); Platelet Count 235 10^3/uL (150-450); Red Blood Count 3.69 10^6/uL (4.20-5.40); Red Cell Distribution Width 13.3 % (11.0-15.0); White Blood Count 12.3 10^3/uL (4.0-11.0)
--- NOTE | 2024-11-28 06:03 | P.DS_ITS ---
DS: Providers Provider Date of admission: 11/26/24 16:21 Primary care physician: VALENTINE KIRKPATRICK DS: Diagnosis Discharge Diagnosis (1) Generalized weakness: (2) Pyelonephritis: Plan Admission findings: Sinus tachycardia, uncontrolled high blood pressure, leukocytosis, lactic acidosis, CT scan findings significant for right pyelonephritis without obstruction, this would patient need for severe sepsis Severe sepsis secondary to pyelonephritis-continue with fluid resuscitation, will try the saline lock later today as long as blood pressure remained stable, continue with current IV antibiotic, patient high risk for significant bacteremia with recent procedure and recent hospitalization for sepsis with bacteremia, white blood cell count is improved Acute elevation in creatinine-returned to normal today History of significant fluid retention-hold off on spironolactone Morbid obesity-diet management Admission status: Patient with recent manipulation with the recent stent placement now with pyelonephritis with significant lactic acidosis and leukocytosis resulting in severe sepsis without shock, medically necessary treatment will span 2 midnights. Inpatient status ? ? DS: Summary Hospital Course Hospital Course: With recent surgical intervention for kidney stone, stent was placed, but 2 to 3 days after that she started feeling worse with increasing pain, found to have on CT scan at time of admission acute pyelonephritis, urine culture is still pending, blood cultures also pending, she was treated fairly aggressively with IV antibiotics, x 2, patient does not feel improved today, her white blood cell count is still somewhat elevated up to a level of 12, but no further fevers, at this point although cultures are pending patient responding to antibiotics she feels much improved will discharge patient to home in improving condition. Medications see list. Follow-up with her PCP within the next week and urology per protocol Plan was discussed with urology about removing the stent she thought today was today to have it removed, if cleared by urology to have it removed patient and nursing will have stent removed Status at Discharge Overall status at discharge: patient is not back to baseline Time Spent with Patient Time attestation: Total time spent providing and/or coordinating discharge services: Time spent: greater than 30 minutes Exam Constitutional Vital Signs, click to edit/add: Last Vital Signs Temp 98.6 F 11/28/24 05:11 Pulse 90 11/28/24 05:11 Resp 18 11/28/24 05:11 BP 109/69 11/28/24 05:11 Pulse Ox 90 L 11/28/24 05:11 O2 Del Method Room Air 11/28/24 05:11 Documenting provider has reviewed patient's vital signs: yes Common normals: no apparent distress Chest Common normals: inspection of chest normal Respiratory Common normals: normal respiratory effort and no use of accessory muscles Cardio Common normals: regular rate GI Common normals: soft to palpation; negative for Normal to inspection, nondistended, normoactive bowel sounds present (Obese) and tender (Mild right-sided tenderness persisting) Extremity Common normals: normal to inspection and full ROM DS: Data Data Completed and Pending Labs on day of discharge: Labs from last 24 hours 11/28/24 11/27/24 05:29 05:46 WBC 12.3 H 10.8 RBC 3.69 L 3.76 L Hgb 11.5 L 12.0 Hct 34.6 L 35.8 L MCV 93.8 95.2 MCH 31.2 31.9 MCHC 33.2 33.5 RDW 13.3 13.2 Plt Count 235 238 MPV 10.7 10.7 Neut % (Auto) 61.7 56.4 Lymph % (Auto) 23.6 25.9 [place] % (Auto) 11.0 12.2 H Eos % (Auto) 2.4 4.3 Baso % (Auto) 0.5 0.6 Neut # (Auto) 7.6 H 6.1 Lymph # (Auto) 2.9 2.8 [place] # (Auto) 1.4 H 1.3 H Eos # (Auto) 0.3 0.5 Baso # (Auto) 0.1 0.1 Abs Immat Gran (auto) 0.10 H 0.07 H Imm/Tot Granulo (auto) 0.8 H 0.6 H Sodium 141 Potassium 3.7 Chloride 104 Carbon Dioxide 28.3 Anion Gap 12.4 BUN 9.0 Creatinine 0.89 Est GFR ( Amer) >60 Est GFR (Non-Af Amer) >60 BUN/Creatinine Ratio 10.1 Glucose 171 H Calcium 8.8 Discharge Plan Discharge Disposition: Home, Self-Care Condition: Good Discharge Medications: New levofloxacin 750 mg tablet 750 mg PO DAILY 10 Days Qty: 10 0RF hyoscyamine sulfate 0.125 mg Tablet, Sublingual 0.125 mg sublingual QID Qty: 20 0RF Continued levofloxacin 500 mg tablet 500 mg PO BID tamsulosin 0.4 mg capsule 0.4 mg PO DAILY oxycodone 5 mg tablet 5 mg PO Q6H PRN (Reason: pain) hyoscyamine sulfate 0.125 mg tablet 0.125 mg sublingual Q6H PRN (Reason: dyspepsia) spironolactone 50 mg tablet 50 mg PO BID Mounjaro 5 mg/0.5 mL pen injector 5 mg SUBCUT .WEEKLY ibuprofen 800 mg tablet 800 mg PO TID PRN (Reason: pain) Activity: increase activity as tolerated Diet: advance to your usual diet Print Language: Swiss Patient Instructions: Hyoscyamine (By mouth), Levofloxacin (By mouth), Kidney Infection (DC), Sepsis (DC) Forms: Portal Instructions Follow Up Appointments: [facility] will contact the patient to schedule a follow-up appt [phone] @ 10:30am with Dr. Kirkpatrick [phone] Discharge Date/Time: 11/28/24 11:22
[2024-11-28 06:09] LABS: Anion Gap 13.7; BUN Creatinine Ratio 8.4; Carbon Dioxide 26.3 mmol/L (21.0-32.0); Chloride 101 mmol/L (98-107); Estimated GFR (African America >60 (>=60 mL/min/1.73m^2); Estimated GFR (Non-African Ame 60 (>=60 mL/min/1.73m^2); Glucose 203 mg/dL (74-106); Sodium 137 mmol/L (136-145)
[2024-11-28] MEDS: PIPERACILLIN SODIUM/TAZOBACTAM 3.375 GM in 0.9 % SODIUM CHLORIDE 50 ML IV (08:47)
[2024-11-28] MEDS: TAMSULOSIN HCL 0.4 MG CAPSULE PO (08:47)
[2024-11-28] MEDS: 0.9 % SODIUM CHLORIDE 250 ML 10 ML IV (08:48)
--- NOTE | 2024-11-28 08:50 | CM.NOTE ---
Rounds made with Dr. Manning, pt will discharge to home today and f/u [facility] urology and PCP. Dr. Manning will contact urology regarding when stent can be removed.
--- NOTE | 2024-11-30 11:47 | CM.DCFOLLOWU ---
Person spoke with:patient How are you feeling?well How is your pain?none Did you understand your discharge instructions?yes Do you have any questions about your discharge instructions?no Were you given any prescriptions at discharge? yes Were you able to get your prescriptions filled?yes Do you understand how to take your medications as ordered?yes Do you have any questions about your follow up appointment and do you plan to keep your follow up appointment? no questions, follow ups reviewed. Pt has not received call from Urology, advised to call Tuesday if she has not received one Is there anything else that you would like to discuss?no Questions/Comments/Concerns/Other:none
== END 2024-11-28 11:22 | disposition home or self-care (01) | DRG 872 ==
LOC: ER 15:31 → MS 16:22
PROVIDERS: Physician Assistant; Admitting Provider Family Medicine; Emergency Provider Emergency Medicine; PCP Family Medicine; Visit Provider Family Medicine
DX: A41.9 Sepsis, unspecified organism (principal); N10 Acute pyelonephritis; Z68.43 Body mass index [BMI] 50.0-59.9, adult; R65.20 Severe sepsis without septic shock; I10 Essential (primary) hypertension; E66.01 Morbid (severe) obesity due to excess calories; E11.9 Type 2 diabetes mellitus without complications; Z87.442 Personal history of urinary calculi; R53.1 Weakness; R79.89 Other specified abnormal findings of blood chemistry; Z79.85 Long-term (current) use of injectable non-insulin antidiabetic drugs
CPT/HCPCS: 36415; 71045; 74177; 80048; 80053; 81001; 82800; 83605; 84484; 85025; 87040; 87804; 87811; 94667; 94668; 94761; 96365; 96375; 99285; J2405; J2543; J3370; Q9967

== ENCOUNTER 2025-08-01 09:05 | Outpatient (OUT) | payer BC, SELFPAY ==
--- OUTSIDE RECORDS SUMMARY | 2025-08-01 09:10 | XMS_ITS | CCD ---
Author Organization [facility] Care Team Providers Care Manager Hydraulic Name Role Phone YVETTEMickiMARYCHUY Primary Care Physician [phone] CASIMIRO ., DR GRIJALVA Primary Care Unavailable [...] Unavailable HAY ., DR CRUZ Admitting Unavailable El Kirkpatrick MD Primary Care Provider El Kirkpatrick MD Unavailable El Kirkpatrick MD Primary Care Provider El Kirkpatrick MD Unavailable El Kirkpatrick MD Unavailable El Kirkpatrick MD Primary Care Provider El Kirkpatrick MD Unavailable Unavailable Primary Care Provider UnavailKan Kidd DO Admit Provider El Kirkpatrick MD Primary Care Provider Nel CANCHOLA, George Petersen Other Provider Glenn Rivera MD Attending Provider Kan Pedersen MD Other Provider VENANCIO GIRON Attending Unavail able VENANCIO GIRON Admitting Unavail able NKANSAH-AMANKRA, VENANCIO Referring Unavail able NKANSAH-AMANKRA, VENANCIO Attending Unavail able NKANSAH-AMANKRA, VENANCIO Referring Unavail able NKANSAH-AMANKRA, VENANCIO Attending Unavail able NKANSAH-AMANKRA, VENANCIO Referring Unavail able NKANSAH-AMANKRA, VENANCIO Attending Unavail able EL KIRKPATRICK Primary Care Physician Unavail able NKANSAH-AMANKRA, VENANCIO Referring Unavail able NKANSAH-AMANKRA, VENANCIO Attending Unavail able NKANSAH-AMANKRA, VENANCIO Admitting Unavail able NKANSAH-AMANKRA, VENANCIO Admitting Unavail able NKANSAH-AMANKRA, VENANCIO Attending Unavail able NKANSAH-AMANKRA, VENANCIO Referring Unavail able Kan Hardy Admitting Unavailable El Kirkpatrick Primary Care Unavailable Glenn Rivera Attending Unavailable George Neumann Consulting Unavailable Kan Pedersen Consulting Unavailable MAGALIE CULVER Attending Unavailable MD VENANCIO GIRON Admitting Unav ailable NKANSAH-AMANKRA, MD CRAFT Attending Unav ailable NKANSAH-AMANKRAMD CRAFT Referring Unav ailable NKANSAH-AMANKRA, MD CRAFT Admitting Unav ailable NKANSAH-AMANKRA, MD CRAFT Attending Unav ailable NKANSJULIO CÉSAR-AMCECIL, MD CRAFT Referring Unav ailable NKANSAH-AMANKRA, MD CRAFT Attending Unav ailable EL KIRKPATRICK Attending Unavailable HEMEEL STRINGER Attending Unavailable HEMEEL STRINGER Attending Unavailable HEMEYEREL Attending Unavailable HEMEYEREL Attending Unavailable EL KIRKPATRICK Referring Unavailable HEMEEL STRINGER Attending Unavailable HEMEEL STRINGER Attending Unavailable KAN COLINDRES Referring Unavailable KAN COLINDRES Attending Unavailable EL KIRKPATRICK Referring Unavailable Allergies Allergy Classification Reported Allergen(s) Allergy Type Date of Onset Reaction(s) Facility (20 sources) FLUoxetine; Translations: [fluoxetine] Drug Allergy 03-09-2023 Unknown [facility] (20 sources) rOPINIRole; Translations: [ropinirole] Drug Allergy 05-09-2023 Unknown [facility] (1 source) FLUoxetine Drug Allergy [facility] Repository (1 source) rOPINIRole Drug Allergy [facility] Repository (20 sources) DULoxetine Drug Allergy 05-09-2023 Other [facility] Work Phone: (20 sources) metFORMIN Drug Allergy 08-30-2023 Diarrhea [facility] (20 sources) metFORMIN Drug Allergy 03-09-2023 [facility] (1 source) FLUoxetine Drug Allergy 06-10-2021 [facility] Repository (1 source) rOPINIRole Drug Allergy 06-10-2021 [facility] Repository (1 source) Unable to Assess Drug allergy (disorder) 06-26-2021 [facility] Repository Medications Current Medications Medication Drug Class(es) Dates Sig (Normalized) Sig (Original) 0.5 ML tirzepatide 10 MG/ML Auto-Injector [Mounjaro] (3 sources) Start: 11-13-2024 inject 5 mg by subcutaneous injection every week Mounjaro 5 mg/0.5 mL subcutaneous solution 5 mg, SubCutaneous, qWeek, Tuesday, Refills(s) 0, Blood glucose Start Date: 11/13/24 Status: Ordered acetaminophen 325 mg / HYDROcodone bitartrate 5 mg oral tablet (1 source) Opioid Agonist Start: 11-05-2022 End: 11-10-2022 take 1 tablet by mouth every six hours for pain [place] 325 mg-5 mg oral tablet 1 tab(s), [...] 1 tablet by mouth in the morning amoxicillin-clavul anate (Augmentin) 875-125 MG tablet Indications: Non-recurrent acute [...] day(s), # 20 tab(s), Refills(s) 0, Pharmacy: [facility]/pharmacy #[id number], 170, cm, 02/10/23 13:47:00 EDT, Height/Length Dosing, 138, kg, 02/10/23 13:47:00 EDT, Weight Dosing Start Date: 02/15/23 Stop Date: 02/25/23 Status: Ordered atorvastatin 20 mg oral tablet (20 sources) HMG-CoA Reductase Inhibitor Start: 11-04-2024 take 1 tablet by mouth once daily Atorvastatin 10 mg tablet Active 10 MG PO Daily November 04, 2024 12:00am Start: 08-27-2024 End: 09-01-2025 take 1 tablet by mouth once daily atorvastatin (Lipitor) 20 MG tablet Indications: Mixed dyslipidemia Take 1 tablet (20 mg) by mouth Daily 90 tablet 1 03/05/2025 09/01/2025 Active Start: 11-05-2022 End: 08-19-2024 take 1 tablet by mouth once daily atorvastatin (Lipitor) 20 MG tablet Indications: Mixed dyslipidemia (CMS/HCC) Take 1 tablet (20 mg) by mouth Daily 90 tablet 05/21/2024 08/19/2024 Active cefdinir 300 mg oral capsule (4 [...] hyperglycemia, without long-term current use of insulin (CMS/[facility]) Inject 4.5 mg under the skin 1 (one) time per week. 6 mL 1 08/31/2023 02/27/2024 Active empagliflozin 25 mg oral tablet (20 sources) Sodium-Glucose Cotransporter 2 Inhibitor Start: 12-24-2024 End: 09-01-2025 take 1 tablet by mouth once daily empagliflozin (Jardiance) 25 MG Indications: Diabetic nephropathy associated with type 2 diabetes mellitus (HCC) Take 1 tablet (25 mg) by mouth Daily 90 tablet 1 03/05/2025 09/01/2025 Active Start: 08-27-2024 End: 11-25-2024 take 1 tablet by mouth once daily in the morning Jardiance 25 mg oral tablet 25 mg = 1 tab(s), Oral, qAM, Refills(s) 0, Blood glucose Start Date: 11/13/24 Status: Ordered Start: 05-21-2024 End: 08-19-2024 take 1 tablet [...] morning. 30 tablet 0 11/29/2023 12/29/2023 Active gabapentin 100 mg oral capsule (8 sources) Anti-epileptic Agent Start: 03-05-2025 End: 03-27-2025 take 2 capsules by mouth in the morning gabapentin (Neurontin) 100 MG capsule Indications: Type 2 diabetes mellitus with diabetic polyneuropathy, without long-term current use of insulin ([facility]) Take 2 capsules (200 mg) by mouth in the morning and 2 capsules (200 mg) before bedtime. 360 capsule 1 03/27/2025 Active glipiZIDE 5 mg oral tablet (20 sources) Sulfonylurea Start: 03-05-2025 End: 09-01-2025 take 1 tablet by mouth in the morning glipiZIDE (Glucotrol) 5 MG tablet Indications: Diabetic nephropathy associated with type 2 diabetes mellitus (HCC) Take 1 tablet (5 mg) by mouth in the morning and 1 tablet (5 mg) in the evening. Take before meals. 180 tablet 1 03/05/2025 09/01/2025 Active Start: 10-03-2024 End: 12-02-2024 take 1 tablet by mouth in the morning glipiZIDE (Glucotrol) 5 MG tablet Indications: Type 2 diabetes mellitus with other diabetic kidney complication (CMS/HCC) Take 1 tablet (5 mg) by mouth in the morning and 1 tablet (5 mg) in the evening. Take before meals. 60 tablet 1 10/03/2024 12/02/2024 Active Start: 05-21-2024 End: 03-05-2025 take 1 tablet by mouth once daily glipiZIDE 5 mg Tab 5 mg = 1 tab(s), Oral, Daily, Refills(s) 0, High blood pressure Start Date: 11/13/24 Status: Ordered hyoscyamine sulfate 0.125 mg sublingual tablet (15 sources) Start: 11-28-2024 End: 12-03-2024 take 1 tablet by mouth every six hours as needed hyoscyamine (Levsin) 0.125 MG SL tablet Take 0.125 mg by mouth every 6 (six) hours if needed for cramping 11/28/2024 12/03/2024 Active Start: 11-22-2024 take 1 tablet by marcio th four times daily as needed for muscle spasms Levsin 0.125 mg SL Tab 0.125 mg = 1 tab(s), Oral, QID, PRN for spasm, # 40 tab(s), Refills(s) 0, Pharmacy: [facility]/pharmacy #[id number], 170, cm, 11/14/24 5:53:00 EST, Height/Length Dosing, 154, kg, 11/14/24 5:53:00 EST, Weight Dosing Start Date: 11/22/24 Status: Ordered Start: 09-22-2023 take 1 tablet by marcio th every six hours as needed hyoscyamine (Anaspaz,Levsin) 0.125 MG tablet Take 0.125 mg by mouth every 6 (six) hours if needed 0 09/22/2023 Active ibuprofen 800 mg oral tablet (20 sources) Nonsteroidal Anti-inflammatory Drug Start: 10-03-2024 End: 03-05-2026 take 1 tablet by mouth three times daily as needed for pain ibuprofen 800 MG tablet Indications: Primary osteoarthritis of left hip Take 1 tablet (800 mg) by mouth 3 (three) times a day as needed for mild pain (pain) 180 tablet 3 03/05/2025 03/05/2026 Active 3 ml liraglutide 6 mg/ml pen injector (5 sources) GLP-1 Receptor Agonist Start: 11-05-2022 Victoza 6 mg/mL subcutaneous injection Refills(s) 0 Start Date: 11/05/22 Status: Ordered losartan potassium 25 mg oral tablet (20 sources) Angiotensin 2 Receptor Paolo Start: 05-09-2023 End: 09-01-2025 take 1 tablet by mouth once daily losartan (Cozaar) 25 MG tablet Indications: Diabetic nephropathy associated with type 2 diabetes mellitus (HCC) Take 1 tablet (25 mg) by mouth Daily 90 tablet 1 03/05/2025 09/01/2025 Active Start: 11-05-2022 take 1 tablet by [...] Start: 11-03-2022 take 1 tablet by marcio twice daily nabumetone 750 mg Tab 750 mg = 1 tab(s), Oral, BID, Refills(s) 0 Start Date: 11/03/22 Status: Ordered nystatin 100 unt/mg topical powder (20 sources) Polyene Antifungal Start: 06-21-2023 nystatin (Mycostatin) 174520 UNIT/GM powder Indications: Candidiasis Apply 1 application topically if needed for rash. 60 g 1 06/21/2023 Active ondansetron 4 mg disintegrating oral tablet (10 sources) Serotonin-3 Receptor Antagonist Start: 09-22-2023 take 1 tablet by mouth every eight hours as needed ondansetron ODT (Zofran-ODT) 4 MG disintegrating tablet Take 4 mg by mouth every 8 (eight) hours if needed 0 09/22/2023 Active oxyCODONE hydrochloride 5 mg oral tablet (2 sources) Opioid Agonist Start: 11-22-2024 take 1 tablet by mouth every six hours as needed for pain Roxicodone 5 mg Tab 5 mg = 1 tab(s), Oral, q6hr, PRN for pain, # 7 tab(s), Refills(s) 0, Pharmacy: [facility]/pharmacy #[id number], 170, cm, 11/14/24 5:53:00 EST, Height/Length Dosing, 154, kg, 11/14/24 5:53:00 EST, Weight Dosing Start Date: 11/22/24 Status: Ordered pioglitazone 30 mg oral tablet (20 sources) Peroxisome Proliferator Receptor alpha Agonist, Peroxisome Proliferator Receptor gamma Agonist, Thiazolidinedione Start: 12-24-2024 End: 03-27-2025 take 1 tablet by mouth once daily pioglitazone (Actos) 30 MG tablet Indications: Type 2 diabetes mellitus with other diabetic kidney complication (HCC) Take 1 tablet (30 mg) by mouth Daily 90 tablet 1 03/27/2025 Active Start: 05-21-2024 End: 11-17-2024 take 1 tablet by mouth once daily pioglitazone 30 mg Tab 30 mg = 1 tab(s), Oral, Daily, Refills(s) 0, Blood glucose Start Date: 11/13/24 Status: Ordered polyethylene glycol 3350 398561 mg / potassium chloride 2970 mg / sodium bicarbonate 6740 mg / sodium chloride 5860 mg / sodium sulfate 28600 mg powder for oral solution (10 sources) Osmotic Laxative Start: 09-22-2023 take 4000 mL by mouth once GaviLyte-G 236 g solution Take 4,000 mL by mouth 1 (one) time 0 09/22/2023 Active Rx Discharge Order Notice (1 source) Start: 11-08-2024 Rx Discharge Order Notice Active 1 EACH MISCELLANE Once November 08, 2024 12:00am spironolactone 50 mg oral tablet (20 sources) Aldosterone Antagonist Start: 01-17-2025 End: 09-23-2025 take 1 tablet by mouth in the morning spironolactone (Aldactone) 50 MG tablet Indications: Venous (peripheral) insufficiency Take 1 tablet (50 mg) by mouth in the morning and 1 tablet (50 mg) before bedtime. 180 tablet 1 03/27/2025 09/23/2025 Active Start: 05-28-2024 End: 11-25-2024 take 1 tablet by mouth twice daily spironolactone 50 mg Tab 50 mg = 1 tab(s), Oral, BID, Refills(s) 0, High blood pressure Start Date: 11/13/24 Status: Ordered Start: 05-09-2023 take 1 tablet by marcio [...] Refills(s) 0 Start Date: 11/05/22 Status: Ordered tamsulosin hydrochloride 0.4 mg oral capsule (5 sources) alpha-Adrenergic Paolo Start: 11-22-2024 End: 12-03-2024 take 1 capsule by mouth once daily Flomax 0.4 mg Cap 0.4 mg = 1 cap(s), Oral, Daily, # 10 cap(s), Refills(s) 0, Pharmacy: [facility]/pharmacy #[id number], 170, cm, 11/14/24 5:53:00 EST, Height/Length Dosing, 154, kg, 11/14/24 5:53:00 EST, Weight Dosing Start Date: 11/22/24 Status: Ordered Tirzepatide (1 source) Start: 11-04-2024 Tirzepatide (Mounjaro) 5 mg/0.5 mL pen injector Active 5 MG SUBCUT .weekly November 04, 2024 12:00am Tirzepatide (Mounjaro) 7.5 MG/0.5ML solution auto-injector (2 sources) Start: 04-02-2025 inject 7.5 mg by subcutaneous injection every week Tirzepatide (Mounjaro) 7.5 MG/0.5ML solution auto-injector Indications: Diabetic nephropathy associated with type 2 diabetes mellitus (HCC) Inject 7.5 mg under the skin 1 (one) time per week 6 mL 3 04/02/2025 Active triamcinolone acetonide 0.005 mg/mg topical ointment (10 sources) Corticosteroid Start: 11-16-2023 End: 12-16-2023 triamcinolone (Kenalog) 0.5 % ointment Indications: Cellulitis of left ankle , Venous stasis dermatitis of left lower extremity Apply topically 2 (two) times a day 30 g 0 11/16/2023 12/16/2023 Active Completed/Discontinued Medications Medication Drug Class(es) Dates Sig (Normalized) Sig (Original) azelastine hydrochloride 0.137 mg/actuat metered dose nasal spray (20 sources) Histamine-1 Receptor Antagonist Start: 07-02-2024 End: 07-02-2025 take 1 spray(s) nasal route in the morning azelastine (Astelin) 0.1 % nasal spray Indications: Non-recurrent acute suppurative otitis media of right ear without spontaneous rupture of tympanic membrane Administer 1 spray into each nostril in the morning and 1 spray before bedtime. Use in each nostril as directed. 30 mL 12 07/02/2024 03/05/2025 Discontinued (Therapy completed) fluconazole 200 mg oral tablet (20 sources) Azole Antifungal Start: 03-12-2025 End: 03-26-2025 take 1 tablet by mouth once daily fluconazole (Diflucan) 200 MG tablet Indications: Candidiasis Take 1 tablet (200 mg) by mouth Daily for 14 days 14 tablet 03/12/2025 03/25/2025 Discontinued (Therapy completed) Start: 01-21-2025 End: 02-04-2025 take 1 tablet by mouth once daily fluconazole (Diflucan) 200 MG tablet Indications: Monilial vaginitis Take 1 tablet (200 mg) by mouth Daily for 14 days 14 tablet 01/21/2025 02/04/2025 Active Start: 12-03-2024 End: 12-17-2024 take 1 tablet by mouth once daily fluconazole (Diflucan) 200 MG tablet Indications: Monilial vaginitis Take 1 tablet (200 mg) by mouth Daily for 14 days 14 tablet 12/03/2024 12/17/2024 Start: 11-19-2024 Diflucan 150 m g Tab 300 mg = 2 tab(s), Oral, Once, Take 1 tab by mouth. May repeat dose in 72 hours if symptoms persist., # 2 tab(s), Refills(s) 0, Pharmacy: [facility]/pharmacy #[id number], 170, cm, 11/14/24 5:53:00 EST, Height/Length Dosing, 154, kg, 11/14/24 5:53:00 EST, Weight Dosing Start Date: 11/19/24 Status: Ordered Start: 08-20-2024 End: 09-06-2024 take 1 tablet [...] days. 10 tablet 0 11/24/2023 12/04/2023 Active levoFLOXacin 750 mg oral tablet (15 sources) Quinolone Antimicrobial Start: 11-28-2024 End: 12-10-2024 take 1 tablet by mouth once daily levoFLOXacin (Levaquin) 750 MG tablet Take 750 mg by mouth Daily 11/28/2024 12/10/2024 Discontinued (Therapy completed) Start: 11-13-2024 take 1 tablet by marcio th every twenty-four hours levofloxacin 750 mg Tab 750 mg = 1 tab(s), Oral, q24hr, Refills(s) 0, Infection or prophylaxis for antibiotics Start Date: 11/13/24 Status: Ordered Start: 11-08-2024 End: 11-19-2024 take 1 tablet by mouth once daily levoFLOXacin (Levaqu in) 750 MG tablet Take 750 mg by mouth Daily 11/08/2024 11/18/2024 Start: 02-10-2023 End: 02-17-2023 take 1 tablet by mouth once daily Levaquin 750 mg Tab 750 mg = 1 tab(s), Oral, Daily, X 7 day(s), # 7 tab(s), Refills(s) 0, Pharmacy: [facility]/pharmacy #[id number], 170, cm, 02/10/23 13:47:00 EDT, Height/Length Dosing, 138, kg, 02/10/23 13:47:00 EDT, Weight Dosing Start Date: 02/10/23 Stop Date: 02/17/23 Status: Ordered Tirzepatide (Mounjaro) 2.5 MG/0.5ML solution auto-injector (4 sources) Start: 09-25-2024 End: 11-14-2024 Tirzepatide (Mounjaro) 2.5 MG/0.5ML solution auto-injector Indications: Type 2 diabetes mellitus with hyperglycemia, without long-term current use of insulin (CMS/[facility]) , BMI 45.0-49.9, adult (CMS/[facility]) Inject 2.5 mg under the skin 1 (one) time per week 2 mL 09/25/2024 11/14/2024 Discontinued (Therapy completed) Start: 09-25-2024 Tirzepatide (M ounjaro) 2.5 MG/0.5ML solution auto-injector Indications: Type 2 diabetes mellitus with hyperglycemia, without long-term current use of insulin (CMS/HCC) , BMI 45.0-49.9, adult (CMS/HCC) Inject 2.5 mg under the skin 1 (one) time per week 2 mL 09/25/2024 Active Tirzepatide (Mounjaro) 5 MG/0.5ML solution auto-injector (20 sources) Start: 03-05-2025 End: 04-02-2025 inject 5 mg by subcutaneous injection every week Tirzepatide (Mounjaro) 5 MG/0.5ML solution auto-injector Indications: Diabetic nephropathy associated with type 2 diabetes mellitus (HCC) Inject 5 mg under the skin 1 (one) time per week 6 mL 1 03/05/2025 04/02/2025 Discontinued (Dose adjustment) Start: 03-05-2025 End: 09-01-2025 inject 5 mg by subcutaneous injection every week Tirzepatide (Mounjaro) 5 MG/0.5ML solution auto-injector Indications: Diabetic nephropathy associated with type 2 diabetes mellitus (HCC) (CMS/HCC) Inject 5 mg under the skin 1 (one) time per week 6 mL 1 03/05/2025 09/01/2025 Active Start: 12-10-2024 End: 03-05-2025 Tirzepatide (Mounjaro) 5 MG/ 0.5ML solution auto-injector Indications: Type 2 diabetes mellitus with hyperglycemia, without long-term current use of insulin (CMS/HCC) , BMI 45.0-49.9, adult (CMS/HCC) Inject 5 mg under the skin 1 (one) time per week 12/10/2024 03/05/2025 Discontinued (Reorder) Start: 12-10-2024 Tirzepatide (M ounjaro) 5 MG/0.5ML solution auto-injector Indications: Type 2 diabetes mellitus with hyperglycemia, without long-term current use of insulin (CMS/HCC) , BMI 45.0-49.9, adult (CMS/HCC) Inject 5 mg under the skin 1 (one) time per week 12/10/2024 Active Start: 09-25-2024 End: 12-10-2024 Tirzepatide (Mounjaro) 5 MG/ 0.5ML solution auto-injector Indications: Type 2 diabetes mellitus with hyperglycemia, without long-term current use of insulin ([facility]) , BMI 45.0-49.9, adult ([facility]) Inject 5 mg under the skin 1 (one) time per week 6 mL 3 09/25/2024 12/10/2024 Discontinued (Reorder) Start: 09-25-2024 Tirzepatide (M ounjaro) 5 MG/0.5ML solution auto-injector Indications: Type 2 diabetes mellitus with hyperglycemia, without long-term current use of insulin ([facility]) , BMI 45.0-49.9, adult ([facility]) Inject 5 mg under the skin 1 (one) time per week 6 mL 3 09/25/2024 Active Problems Active Problems Problem Classification Problem Date Documented Date Episodic/Chronic Acute and unspecified renal failure (2 sources) Acute renal failure syndrome; Translations: [Acute kidney failure, unspecified] 12-03-2024 Episodic Administrative/social admission (2 sources) Advance directive discussed with patient; Translations: [Other specified counseling] 09-24-2024 Episodic Bacterial infection; unspecified site (4 sources) Bacteremia caused by Gram-negative bacteria; Translations: [Bacteremia] Onset: 11-04-2024 11-08-2024 Episodic Calculus of urinary tract (5 sources) Ureteric stone; Translations: [Calculus of ureter] Onset: 11-04-2024 11-04-2024 Episodic Cardiac dysrhythmias (2 sources) Tachycardia; Translations: [Tachycardia, unspecified] 09-06-2024 Episodic Chronic kidney disease (20 sources) Chronic kidney disease stage 2; Translations: [Chronic kidney disease, stage 2 (mild)] Onset: 12-02-2023 12-02-2023 Chronic Chronic obstructive pulmonary disease and bronchiectasis (20 sources) Pulmonary emphysema; Translations: [Other emphysema] Onset: 03-10-2023 03-10-2023 Chronic Diabetes mellitus with complications (20 sources) Type 2 diabetes mellitus; Translations: [Type 2 diabetes mellitus with hyperglycemia] Onset: 04-14-2022 Resolved: 05-09-2023 03-10-2023 Chronic Diabetes mellitus without complication (8 sources) Diabetes mellitus 11-03-2022 Chronic Disorders of lipid metabolism (20 sources) Hypercholesterolemia; Translations: [Dyslipidemia] Onset: 03-10-2023 Resolved: 11-23-2023 11-03-2022 Chronic Malaise and fatigue (2 sources) Asthenia; Translations: [Weakness] 12-03-2024 Episodic Menopausal disorders (20 sources) Menopausal syndrome; Translations: [Disorder associated with menstruation AND/OR menopause] Onset: 03-10-2023 12-28-2013 Chronic Mood disorders (20 sources) Depressive disorder; Translations: [Recurrent major depression in partial remission] Onset: 05-09-2023 12-28-2013 Chronic Mycoses (7 sources) Candidiasis; Translations: [Candidiasis, unspecified] 11-24-2023 Episodic Nutritional deficiencies (20 sources) Vitamin D deficiency; Translations: [Vitamin D deficiency, unspecified] Onset: 03-22-2023 11-03-2022 Chronic Osteoarthritis (20 sources) Osteoarthritis of hip; Translations: [Osteoarthritis of hip, unspecified] Onset: 03-22-2023 08-17-2016 Chronic Other and ill-defined heart disease (20 sources) Left ventricular hypertrophy; Translations: [Cardiomegaly] Onset: 10-23-2024 10-23-2024 Chronic Other connective tissue disease (20 sources) Hip joint prosthesis present; Translations: [Presence [...] [Pain in unspecified joint] 09-06-2024 Episodic Other non-traumatic joint disorders (2 sources) Hip pain; Translations: [Pain in left hip] 07-03-2025 Episodic Other nutritional; endocrine; and metabolic disorders [...] excess calories] Onset: 03-10-2023 03-10-2023 Chronic Other nutritional; endocrine; and metabolic disorders (2 sources) Hypoalbuminemia due to protein calorie malnutrition; Translations: [Other disorders of plasma-protein metabolism, not elsewhere classified] 12-03-2024 Chronic Other screening for suspected conditions (not mental disorders or infectious disease) (8 sources) Patient encounter status; Translations: [Encounter for [...] right ear] 06-26-2024 Episodic Residual codes; unclassified (8 sources) Sleep apnea 11-03-2022 Chronic Residual codes; [...] Onset: 06-13-2022 03-22-2023 Chronic Residual codes; unclassified (8 sources) Tobacco user 11-05-2022 Episodic Septicemia (except in labor) (10 sources) Sepsis; Translations: [Sepsis, unspecified organism] Onset: 11-04-2024 11-04-2024 Episodic Skin and subcutaneous tissue infections (19 sources) Abscess of buttock; Translations: [Cutaneous abscess of buttock] Onset: 11-01-2022 11-05-2022 Episodic Spondylosis; intervertebral disc disorders; other back problems (2 sources) Chronic low back pain; Translations: [Chronic bilateral low back pain without sciatica] 03-25-2025 Episodic Unclassified (3 sources) Obstructive hydronephrosis 11-09-2024 Urinary tract infections (10 sources) Urinary tract infectious disease; Translations: [Urinary tract infection, site not specified] Onset: 11-04-2024 11-04-2024 Episodic Past or Other Problems Problem Classification Problem Date Documented Da te Episodic/Chronic Genitourinary symptoms and ill-defined conditions (20 sources) Microalbuminuria; Translations: [Proteinuria, unspecified] Onset: 12-02-2023 12-02-2023 Episodic Intestinal infection (20 sources) Clostridium difficile colitis; Translations: [Enterocolitis due to Clostridium difficile, not specified as recurrent] Onset: 03-22-2023 Resolved: 05-15-2024 08-17-2016 Episodic Comment on above: april 2016 Mood disorders (20 sources) Mood disorders Onset: 03-15-2023 03-15-2023 Other aftercare (1 source) Other machine long goods helper (current) drug therapy; Translations: [OTH DETENTION CURRENT DRUG THERAPY] Onset: 11-02-2022 Episodic Other aftercare (20 sources) Polypharmacy ; Translations: [Other penitentiary (current) drug therapy] Onset: 04-14-2022 03-22-2023 Episodic [...] Onset: 05-18-2022 03-22-2023 Episodic Residual codes; unclassified (20 sources) Menopause present; Translations: [Asymptomatic menopausal state] Onset: 04-14-2022 Resolved: 11-12-2024 03-22-2023 Episodic Substance-related disorders (20 sources) Smoker; Translations: [Nicotine dependence, cigarettes, uncomplicated] Onset: 11-02-2022 Resolved: 12-10-2024 08-17-2016 Chronic Comment on above: Added secondary to d ocumentation in Social History. Results Test Name Value Interpretation Reference Range Facility No Panel Informationon 04-02 Radiology Study observation (narrative) [facility] XR HIP 2 OR 3 VW LEFTon 03-17 XR HIP 2 OR 3 VW LEFT TITLE OF EXAM: XR HIP 2 OR 3 VW LEFT REASON FOR EXAM: Chronic left hip pain, no injury. TECHNIQUE: 3 radiographs of the pelvis and left hip COMPARISONS: None. FINDINGS: No fracture. Severe left femoroacetabular joint osteoarthrosis with marginal osteophyte formation, subchondral/subcort ical cysts, periarticular osseous remodeling, and complete circumferential joint space loss. Right total hip arthroplasty without radiographic complication. IMPRESSION: No fracture or dislocation. Severe left femoroacetabular joint osteoarthrosis. DICTATED ON: 04/02/2025 11:54 AM This report has been electronically signed and approved by the interpreting radiologist. Normal Not Available XR Hip - left 3 Viewson 03-17 TITLE OF EXAM: XR HIP 2 OR 3 VW LEFT REASON FOR EXAM: Chronic left hip pain, no injury. TECHNIQUE: 3 radiographs of the pelvis and left hip COMPARISONS: None. FINDINGS: No fracture. Severe left femoroacetabular joint osteoarthrosis with marginal osteophyte formation, subchondral/subcort ical cysts, periarticular osseous remodeling, and complete circumferential joint space loss. Right total hip arthroplasty without radiographic complication. IMPRESSION: No fracture or dislocation. Severe left femoroacetabular joint osteoarthrosis. DICTATED ON: 04/02/2025 11:54 AM This report has been electronically signed and approved by the interpreting radiologist. Nataliya Workman MD - 04/02/2025 TITLE OF EXAM: XR HIP 2 OR 3 VW LEFT REASON FOR EXAM: Chronic left hip pain, no injury. TECHNIQUE: 3 radiographs of the pelvis and left hip COMPARISONS: None. FINDINGS: No fracture. Severe left femoroacetabular joint osteoarthrosis with marginal osteophyte formation, subchondral/subcort ical cysts, periarticular osseous remodeling, and complete circumferential joint space loss. Right total hip arthroplasty without radiographic complication. IMPRESSION: No fracture or dislocation. Severe left femoroacetabular joint osteoarthrosis. DICTATED ON: 04/02/2025 11:54 AM This report has been electronically signed and approved by the interpreting radiologist. [facility] XR LUMBAR SPINE AP/LAT/FLEX/ EXT/OBLIQUESon 04-02-2025 XR LUMBAR SPINE AP/LAT/FLEX/EXT/OBLIQUE S TITLE OF EXAM: XR LUMBAR SPINE AP/LAT/FLEX/EXT/OBL IQUES REASON FOR EXAM: Chronic low back pain, no injury. TECHNIQUE: 7 radiographs of the lumbar spine COMPARISONS: None. FINDINGS: Evaluation is somewhat hindered by x-ray underpenetration, a consequence of patient body habitus. No appreciable fracture; normal vertebral body heights. Anatomic alignment of the vertebral bodies and posterior elements in neutral position, though there is anterolisthesis of L4 on L5 in flexion measuring 0.8 cm and in extension measuring 0.5 cm. Intervertebral spaces are fairly well preserved. Lower lumbar/lumbosacral facet osteoarthrosis greatest L4-S1. Neural foraminal osseous stenosis is suboptimally evaluated, radiographically favored no greater than mild. Severe aortoiliac calcific arteriosclerosis. IMPRESSION: 1. No fracture. 2. L4-5 listhesis measuring up to 8 mm with findings suggesting dynamic instability at this level. 3. Chronic and degenerative findings as detailed. DICTATED ON: 04/02/2025 11:52 AM This report has been electronically signed and approved by the interpreting radiologist. Normal Not Available XR Lumbar spine 4 Viewson TITLE OF EXAM: XR LUMBAR SPINE AP/LAT/FLEX/EXT/OBL IQUES REASON FOR EXAM: Chronic low back pain, no injury. TECHNIQUE: 7 radiographs of the lumbar spine COMPARISONS: None. FINDINGS: Evaluation is somewhat hindered by x-ray underpenetration, a consequence of patient body habitus. No appreciable fracture; normal vertebral body heights. Anatomic alignment of the vertebral bodies and posterior elements in neutral position, though there is anterolisthesis of L4 on L5 in flexion measuring 0.8 cm and in extension measuring 0.5 cm. Intervertebral spaces are fairly well preserved. Lower lumbar/lumbosacral facet osteoarthrosis greatest L4-S1. Neural foraminal osseous stenosis is suboptimally evaluated, radiographically favored no greater than mild. Severe aortoiliac calcific arteriosclerosis. IMPRESSION: 1. No fracture. 2. L4-5 listhesis measuring up to 8 mm with findings suggesting dynamic instability at this level. 3. Chronic and degenerative findings as detailed. DICTATED ON: 04/02/2025 11:52 AM This report has been electronically signed and approved by the interpreting radiologist. IMAGING Nataliya Dowling MD - 04/02/2025 TITLE OF EXAM: XR LUMBAR SPINE AP/LAT/FLEX/EXT/OBL IQUES REASON FOR EXAM: Chronic low back pain, no injury. TECHNIQUE: 7 radiographs of the lumbar spine COMPARISONS: None. FINDINGS: Evaluation is somewhat hindered by x-ray underpenetration, a consequence of patient body habitus. No appreciable fracture; normal vertebral body heights. Anatomic alignment of the vertebral bodies and posterior elements in neutral position, though there is anterolisthesis of L4 on L5 in flexion measuring 0.8 cm and in extension measuring 0.5 cm. Intervertebral spaces are fairly well preserved. Lower lumbar/lumbosacral facet osteoarthrosis greatest L4-S1. Neural foraminal osseous stenosis is suboptimally evaluated, radiographically favored no greater than mild. Severe aortoiliac calcific arteriosclerosis. IMPRESSION: 1. No fracture. 2. L4-5 listhesis measuring up to 8 mm with findings suggesting dynamic instability at this level. 3. Chronic and degenerative findings as detailed. DICTATED ON: 04/02/2025 11:52 AM This report has been electronically signed and approved by the interpreting radiologist. [facility] XR Lumbar spine 4 ViewsOrder ed By: Nataliya Dowling on 04-02-2025 [facility] Work Phone: ALBUMIN, RANDOM URINE W/CREA TININEon 03-04-2025 ALBUMIN, URINE 1.3 mg/dL Normal See Note: [facility] Comment on above: Order Comment: FASTI NG:YES FASTING: YES Result Comment: Refe victorina Range: Reference Range Not established Performed By: #### 6 517, [id number], 496 #### [facility] [address], [address] [place] [address] Outsole Paraffiner: Mauricio Gee MD ALBUMIN/CREATININE RATIO, RANDOM URINE 24 mg/g creat Normal <30 [facility] Comment on above: Order Comment: FASTI NG:YES FASTING: YES Result Comment: The ADA defines abnormalities in albumin excretion as follows: Albuminuria Category Result (mg/g creatinine) Normal to Mildly increased <30 Moderately increased 30-299 Severely increased > OR = 300 The ADA recommends that at least two of three specimens collected within a 3-6 month period be abnormal before considering a patient to be within a diagnostic category. Performed By: #### 6 517, 30115, 496 #### [facility] [address], [address] [place] [address] Outsole Paraffiner: Maurciio Gee MD Creatinine (U) [Mass/Vol] 54 mg/dL Normal 20-275 [facility] Comment on above: Order Comment: FASTI NG:YES FASTING: YES Performed By: #### 6 517, 27535, 496 #### [facility] [address], [address] [place] [address] Outsole Paraffiner: Mauricio Gee MD BASIC METABOLIC PANELon 02-14 Calcium [Mass/Vol] 9.5 mg/dL Normal 8.6-10.4 [facility] Comment on above: Performed By: #### 6 517, 30395, 496 #### [facility] [address], [address] [place] [address] Outsole Paraffiner: Mauricio Gee MD Chloride [Moles/Vol] 104 mmol/L Normal 98-110 [facility] Comment on above: Performed By: #### 6 517, 07789, 496 #### [facility] [place] [address] Outsole Paraffiner: Mauricio Gee MD CO2 [Moles/Vol] 22 mmol/L Normal 20-32 [facility] Comment on above: Performed By: #### 6 517, 01256, 496 #### [facility] [place] [address] Outsole Paraffiner: Mauricio Gee MD Creatinine [Mass/Vol] 0.83 mg/dL Normal 0.50-1.[address] [facility] Comment on above: Performed By: #### 6 517, 36441, 496 #### [facility] [place] [address] Outsole Paraffiner: Mauricio Gee MD GFR/1.73 sq M.predicted among non-blacks MDRD (S/P/Bld) [Vol rate/Area] 80 mL/min/{1.73_m2} Normal > OR = 60 [facility] Comment on above: Performed By: #### 6 517, 93961, 496 #### [facility] [place] [address] Outsole Paraffiner: Mauricio Gee MD Glucose [Mass/Vol] 127 mg/dL High 65-99 [facility] Comment on above: Result Comment: Fasting reference interval For someone without known diabetes, a glucose value >125 mg/dL indicates that they may have diabetes and this should be confirmed with a follow-up test. Performed By: #### 6 517, 22854, 496 #### [facility] [place] [address] Outsole Paraffiner: Mauricio Gee MD Potassium [Moles/Vol] 4.6 mmol/L Normal 3.5-5.[address] [facility] Comment on above: Performed By: #### 6 517, 87765, 496 #### [facility] of [address], [address] [place] [address] Outsole Paraffiner: Mauricio Gee MD Sodium [Moles/Vol] 137 mmol/L Normal 135-146 [facility] Comment on above: Performed By: #### 6 517, 51863, 496 #### [facility] of [address], [address] [place] [address] Outsole Paraffiner: Mauricio Gee MD Urea nitrogen [Mass/Vol] 35 mg/dL High 7- [facility] Comment on above: Performed By: #### 6 517, 28066, 496 #### [facility] of [address], [address] [place] [address] Outsole Paraffiner: Mauricio Gee MD Urea nitrogen/Creatinine [Mass ratio] 42 mg/mg High 6- [facility] Comment on above: Performed By: #### 6 517, 22639, 496 #### [facility] [address], [address] [place] [address] Outsole Paraffiner: Mauricio Gee MD HEMOGLOBIN A1con 03-04-2025 HbA1c (Bld) [Mass fraction] 6.8 % High <5.7 [facility] Comment on above: Result Comment: For someone without known diabetes, a [...] A1c for diagnosis of diabetes for children. Performed By: #### 6 517, 16198, 496 #### [facility] of [place] [address] Outsole Paraffiner: Mauricio Gee MD Urology Office/Clinic Noteon 01-01-2025 Urology Office/Clinic Note Urology Office/Clinic Note Chief Complaint 6 wk f/u HPI Staff 59 yr old female here for 6 wk f/u s/p laser litho done 11/22/24 w/ KUB & PRAVEENA Dx: ureteral stone with hydronephrosis, Urinary tract infection, Sepsis. [facility] - 11/26/24 pt denies any urinary issues, no blood in urine Review of Systems PHQ Score Initial Depression Screen Score: 0 SCORE Physical Exam Vitals & Measurements T: 37 ???C(Tympanic) HR: 72(Peripheral) BP: 167/74 HT: 67 in HT: 170 cm WT: 152.1 kg WT: 335.323 lb BMI: 52.63 Assessment/Plan 1. Ureteral stone with hydronephrosis (N13.2: Hydronephrosis with renal and ureteral calculous obstruction) Initially stented by Dr Neumann on 11/04/24 w UTI/sepsis/6mm R UPJ stone S/p Right urs, laser litho, stent placement on 11/22/24 by ALBERT. String stent removed 5d later. 12/27/24 - KUB shows punctate L renal stones. PRAVEENA shows resolution of R-sided hydro. Pt doing well. Denies any gross hematuria, abdominal or flank pain. UA completed in office today shows no microhematuria or signs of infection. This was her first stone event. Drinks 1c coffee in morning and then water the rest of the day. Does not drink soda or tea. Pt had 18in bowel removed and has chronic diarrhea which contributes to chronic dehydration. Does not wish to complete metabolic eval at this time. I encouraged increased fluid intake, goal of 2.5-3L urine output daily to prevent stone formation. -F/u 1.5yrs w KUB+PRAVEENA prior to monitor stones. Ordered: E&M of Est. Patient Moderate 30-39 Min [id number] Urnls Dip Stick Auto w/o Microscopy POC [id number] Follow-up With When Contact Information Dr Mitchell in 1.5 yrs w KUB/PRAVEENA prior Additional Instructions: Patient Education Dietary Guidelines to Help Prevent Kidney Stones Problem List/Past Medical History Ongoing Abscess of right buttock BMI 45.0-49.9, adult Depression Diabetes Hypercholesteremia Infected sebaceous cyst Menopause Sepsis Sleep apnea Tobacco abuse Ureteral stone with hydronephrosis Urinary tract infection Vitamin D deficiency Historical No qualifying data Procedure/Surgical History Cystoscopy (11/22/2024), Excision of cyst (03/16/2023), right total hip arthroplasty (09/07/2016), right hip injection with fluroscopy (11/23/2013), Colonoscopy, Colonoscopy, Colonoscopy, left distal biceps reconstruction - 04/20/11, Partial colectomy, Partial resection of colon. Medications atorvastatin 20 mg Tab, 20 mg= 1 tab(s), Oral, Daily Diflucan 150 mg Tab, 300 mg= 2 tab(s), Oral, Once Flomax 0.4 mg Cap, 0.4 mg= 1 cap(s), Oral, Daily glipiZIDE 5 mg Tab, 5 mg= 1 tab(s), Oral, Daily ibuprofen 800 mg Tab, 800 mg= 1 tab(s), Oral, TID, PRN Jardiance 25 mg oral tablet, 25 mg= 1 tab(s), Oral, qAM Levsin 0.125 mg SL Tab, 0.125 mg= 1 tab(s), Oral, QID, PRN losartan 25 mg Tab, 25 mg= 1 tab(s), Oral, Daily Mounjaro 5 mg/0.5 mL subcutaneous solution, 5 mg, SubCutaneous, qWeek pioglitazone 30 mg Tab, 30 mg= 1 tab(s), Oral, Daily Roxicodone 5 mg Tab, 5 mg= 1 tab(s), Oral, q6hr, PRN spironolactone 50 mg Tab, 50 mg= 1 tab(s), Oral, BID Allergies FLUoxetine (Unknown) rOPINIRole (Unknown) Social History Alcohol - Denies Alcohol Use, 11/05/2022 Never., 12/31/2024 Substance Abuse - Denies Substance Abuse, 11/05/2022 Never., 12/31/2024 Tobacco Former smoker, quit more than 30 days ago Tobacco Use:. Never Smokeless Tobacco Use:. Cigarettes, Yes, 01/01/2025 Family History Metastatic cancer: Father. Primary malignant neoplasm of lung: Mother. Rheumatoid arthritis: Sister. Immunizations Vaccine Date Status Comments influenza virus vaccine, inactivated - Not Given Patient Refuses SARS-CoV-2 (COVID-19) mRNA BNT-162b2 vax 01/30/2021 Recorded influenza virus vaccine, inactivated 09/08/2016 Given Nursing Judgment Lab Results Ambulatory Point of Care Results Bilirubin Urine Dipstick: Negative (01/01/25 08:38:00) Blood Urine Dipstick: Negative (01/01/25 08:38:00) Glucose Urine Dipstick: 3+ 1000 mg/dl (01/01/25 08:38:00) Ketones Urine Dipstick: Negative (01/01/25 08:38:00) Leukocytes Urine Dipstick: Negative (01/01/25 08:38:00) Nitrite Urine Dipstick: Negative (01/01/25 08:38:00) Protein Urine Dipstick: Negative (01/01/25 08:38:00) Specific [place] Urine Dipstick: 1.015 (01/01/25 08:38:00) Urine Appearance Urine Dipstick: Clear (01/01/25 08:38:00) Urine Color Urine Dipstick: Yellow (01/01/25 08:38:00) Urobilinogen Urine Dipstick: Normal 0.2-1 EU/dl (01/01/25 08:38:00) pH Urine Dipstick: 5.5 (01/01/25 08:38:00) [facility] Comment on above: Result Comment: Elec tronically Signed By: MAGALIE CULVER PA-C.br\Date and Time Signed: 01/01/25 09:50 EDT US Renalon 12-27-2024 US Renal Exam Date/Time: 12/27/2024 10:11 EDT Reason for Exam: post op;Other (please specify) Report IMPRESSION: NEGATIVE ULTRASOUND OF THE KIDNEYS. CLINICAL HISTORY: post op. COMPARISON: NONE. COMMENT: Right kidney measures 11.7 x 5.9 x 4.5 cm. Left kidney measures 12.7 x 5.7 x 5.5 cm. Both kidneys normal in size, shape, echogenicity, color flow. No cortical thinning, calculi, pelvocaliectasis, cystic/solid lesions, bilaterally. Ordering Provider: VENANCIO GIRON FINAL REPORT Dictated: 12/27/2024 11:53 am Wilaim Baker MD Signed (Electronic Signature): 12/27/2024 11:53 am Signed by: Wiliam Baker MD Transcribed by: RAMSES Technologist: Normal [facility] XR Abdomen 1 Viewon 12-28-19 XR Abdomen 1 View Exam Date/Time: 12/27/2024 10:19 EDT Reason for Exam: N20.1;Post Op Report IMPRESSION: POSSIBLE LEFT RENAL CALCULI. RIGHT HIP ARTHROPLASTY. MARKED DEGENERATIVE CHANGE LEFT HIP. CLINICAL HISTORY: Post Op, N20.1. Kidney stones. COMPARISON: NONE. FINDINGS: Gas and stool in colon. No diffuse small bowel dilatation or mass effect. Curvilinear and punctate calcification overlying left kidney measuring up to 2 mm. Probable phleboliths, pelvic inlet. Right hip arthroplasty. Marked joint space narrowing with sclerosis of opposing articular surfaces left hip. Technical Comments: chelsie [place] in mGy = na DAP = na Ordering Provider: VENANCIO GIRON FINAL REPORT Dictated: 12/27/2024 12:19 pm Wiliam Baker MD Signed (Electronic Signature): 12/27/2024 12:19 pm Signed by: Wiliam Baker MD Transcribed by: RAMSES Technologist: SARIAH Kelsey [facility] COMPREHENSIVE METABOLIC PANE [facility] 12-07-2024 Albumin [Mass/Vol] 3.8 g/dL Normal 3.6-5.1 [facility] Comment on above: Order Comment: FASTI NG:YES FASTING: YES Performed By: #### 1 0231 #### [facility] [address] [place], [place] [phone] Outsole Paraffiner: Stacy Julian Albumin/Globulin [Mass ratio] 1.5 {ratio} Normal 1.0-2.5 [facility] Comment on above: Order Comment: FASTI NG:YES FASTING: YES Performed By: #### 1 0231 #### [facility] [address] [place], [place] [phone] Outsole Paraffiner: Stacy Browningi ALP [Catalytic activity/Vol] 110 U/L Normal 37-153 [facility] Comment on above: Order Comment: FASTI NG:YES FASTING: YES Performed By: #### 1 0231 #### [facility] [address] [place], [place] [phone] Outsole Paraffiner: Stacy Browningi ALT [Catalytic activity/Vol] 11 U/L Normal 6-29 [facility] Comment on above: Order Comment: FASTI NG:YES FASTING: YES Performed By: #### 1 0231 #### [facility] [address] [place], [place] [phone] Outsole Paraffiner: Stacy Julian AST [Catalytic activity/Vol] 14 U/L Normal 10-35 [facility] Comment on above: Order Comment: FASTI NG:YES FASTING: YES Result Comment: Resu lts slightly increased due to hemolysis. Performed By: #### 1 0231 #### [facility] [address] [place] [address] Outsole Paraffiner: Stacy Julian Bilirubin [Mass/Vol] 0.6 mg/dL Normal 0.2-1.2 [facility] Comment on above: Order Comment: FASTI NG:YES FASTING: YES Performed By: #### 1 0231 #### [facility] [address] [place] [address] Outsole Paraffiner: Stacy Julian BUN/CREATININE RATIO SEE NOTE: Normal 6-22 [facility] Comment on above: Order Comment: FASTI NG:YES FASTING: YES Result Comment: Not Reported: BUN and Creatinine are within reference range. Performed By: #### 1 0231 #### [facility] [address] [place] [address] Outsole Paraffiner: Stacy Julian Calcium [Mass/Vol] 9.2 mg/dL Normal 8.6-10.4 [facility] Comment on above: Order Comment: FASTI NG:YES FASTING: YES Performed By: #### 1 0231 #### [facility] [address] [place] [address] Outsole Paraffiner: Stacy Browningi Chloride [Moles/Vol] 103 mmol/L Normal 98-110 [facility] Comment on above: Order Comment: FASTI NG:YES FASTING: YES Performed By: #### 1 0231 #### [facility] [address] [place] [address] Outsole Paraffiner: Stacy Browningi CO2 [Moles/Vol] 29 mmol/L Normal 20-32 [facility] Comment on above: Order Comment: FASTI NG:YES FASTING: YES Performed By: #### 1 0231 #### [facility] [address] [place] [phone] Outsole Paraffiner: Stacy Julian Creatinine [Mass/Vol] 0.75 mg/dL Normal 0.50-1.[address] [facility] Comment on above: Order Comment: FASTI NG:YES FASTING: YES Performed By: #### 1 0231 #### [facility] [address] [place] [phone] Outsole Paraffiner: Stacy Julian GFR/1.73 sq M.predicted among non-blacks MDRD (S/P/Bld) [Vol rate/Area] 91 mL/min/{1.73_m2} Normal > OR = 60 [facility] Comment on above: Order Comment: FASTI NG:YES FASTING: YES Performed By: #### 1 0231 #### [facility] [address] [place] [phone] Outsole Paraffiner: Stacy Julian Globulin (S) [Mass/Vol] 2.6 g/dL Normal 1.9-3.7 [facility] Comment on above: Order Comment: FASTI NG:YES FASTING: YES Performed By: #### 1 0231 #### [facility] [address] [place] [phone] Outsole Paraffiner: Stcay Julian Glucose [Mass/Vol] 245 mg/dL High 65-99 [facility] Comment on above: Order Comment: FASTI NG:YES FASTING: YES Result Comment: Fasting reference interval For someone without known diabetes, a glucose value >125 mg/dL indicates that they may have diabetes and this should be confirmed with a follow-up test. Performed By: #### 1 0231 #### [facility] [address] [place] [phone] Outsole Paraffiner: Stacy Julian Potassium [Moles/Vol] 5.6 mmol/L High 3.5-5.[address] [facility] Comment on above: Order Comment: FASTI NG:YES FASTING: YES Performed By: #### 1 0231 #### [facility] [address] [place] [phone] Outsole Paraffiner: Stacy Julian Protein [Mass/Vol] 6.4 g/dL Normal 6.1-8.1 [facility] Comment on above: Order Comment: FASTI NG:YES FASTING: YES Performed By: #### 1 0231 #### [facility] [address] [place] [phone] Outsole Paraffiner: Stacy Julian Sodium [Moles/Vol] 141 mmol/L Normal 135-146 [facility] Comment on above: Order Comment: FASTI NG:YES FASTING: YES Performed By: #### 1 0231 #### [facility] [address] [place] [phone] Outsole Paraffiner: Stacy Julian Urea nitrogen [Mass/Vol] 22 mg/dL Normal 7-25 [facility] Comment on above: Order Comment: FASTI NG:YES FASTING: YES Performed By: #### 1 0231 #### [facility] [address] [place] [phone] Outsole Paraffiner: Stacy Julian [facility] Intraoperative Recor don 11-23-2024 Main OR Intraoperative Record Main [place] Intraoperative Record IntraOp Document Type FT Summary Primary Physician: VENANCIO GIRON MD Finalized Date/Time: 11/23/24 11:10:05 Pt. Name: BOBBY LUJAN/Sex: 1965 Female Med Rec #: [id number] Physician: VENANCIO GIRON MD Financial #: [id number] Pt. Type: A Room/Bed: Admit/Disch: 11/22/24 11:27:17 - 11/22/24 18:00:00 Institution: Case Times FT Entry 1 Patient Times In Room 11/22/24 15:44:00 Out Room 11/22/24 16:24:00 Procedure Times Start 11/22/24 15:56:00 Stop 11/22/24 16:18:00 Anesthesia Times Start 11/22/24 15:44:00 Stop 11/22/24 16:24:00 Last Modified By: Matias Guevara 11/22/24 16:33:38 General Comments: 11/23/24 Chart opened to review and send charges [facility]FA Case Attendance FT Entry 1 Entry 2 Entry 3 Case Attendee Bala Crowley MD, Matias Guevara Role Performed Anesthesiologist Surgeon - Primary Mental Health Assistant - Primary Controls Technician Time In 11/22/24 15:44:00 11/22/24 15:51:00 11/22/24 15:44:00 Time Out 11/22/24 16:24:00 11/22/24 16:17:00 11/22/24 16:24:00 Procedure CYSTOSCOPY W/ HOMIUM CYSTOSCOPY W/ HOMIUM CYSTOSCOPY W/ HOMIUM LASER(Right), LASER(Right), LASER(Right), CYSTOSCOPY RETROGRADE CYSTOSCOPY RETROGRADE CYSTOSCOPY RETROGRADE STENT INSERTION(Right) STENT INSERTION(Right) STENT INSERTION(Right) Comments DR MESA SUPERVISING Last Modified By: Matias Guevara Terry T Sweene, Terry T 11/22/24 16:33:39 11/22/24 16:33:39 11/22/24 16:33:39 Entry 4 Entry 5 Entry 6 Case Attendee Kaylynn Mcdonald, Carlos Drake RT(R), Kate Hernandez Role Performed Scrub - Primary Scrub - Relief Travel Journalist Time In 11/22/24 15:44:00 11/22/24 16:04:00 11/22/24 15:44:00 Time Out 11/22/24 16:06:00 11/22/24 16:24:00 11/22/24 16:24:00 Procedure CYSTOSCOPY W/ HOMIUM CYSTOSCOPY W/ HOMIUM CYSTOSCOPY W/ HOMIUM LASER(Right), LASER(Right), LASER(Right), CYSTOSCOPY RETROGRADE CYSTOSCOPY RETROGRADE CYSTOSCOPY RETROGRADE STENT INSERTION(Right) STENT INSERTION(Right) STENT INSERTION(Right) Comments Last Modified By: Matias Guevara Terry T Sweene, Terry T 11/22/24 16:33:39 11/22/24 16:33:39 11/22/24 16:33:39 Perioperative Protocols FT Pre-Care Text: Implements protective measures prior to operative or invasive procedure, confirms identity before the operative or invasive procedure, verifies operative procedure, surgical site, and laterality Entry 1 Procedure(s) CYSTOSCOPY W/ HOMIUM Patient Identity Birthday, ID Band LASER(Right), Verified (select at Check, Patient CYSTOSCOPY RETROGRADE least 2): Participation STENT INSERTION(Right) Consents / H and P Anesthesia Consent, Operative Site N/A Verified H&P, Surgery/Procedure Marking Verified Consent Surgical Site Yes Laterality Verified Yes Verified Procedure Verified Yes Correct Patient Yes Position Verified Availability Equipment, Implant, Prep Dry n/a Verified (If Medication Applicable) PreOp Antibiotic Yes Time Out Bala Crowley Given Participants KOKO Hickey MD, Ismael CRAFT Terry T, Dellinger, Sydney A, Ware RT(R), Kate L Time Out Complete 11/22/24 15:56:00 Outcomes Met? Yes Last Modified By: Matias Guevara 11/22/24 16:12:07 Post-Care Text: The patient is free from signs and symptoms of injury caused by extraneous objects Allergy Information FT Pre-Care Text: Verifies allergies Entry 1 Allergies Reviewed? Yes Allergies Reviewed Self/Patient With Outcomes Met? Yes Last Modified By: Matias Guevara 11/22/24 16:12:12 Post-Care Text: The patient received appropriate medication(s) safely administered during the perioperative period Surgical Procedures FT Entry 1 Entry 2 Procedure Description Procedure CYSTOSCOPY W/ HOMIUM CYSTOSCOPY RETROGRADE LASER STENT INSERTION Modifiers Right Right Surgeon Description RIGHT URETEROSCOPY, RIGHT URETEROSCOPY, LASER, RIGHT STENT LASER, RIGHT STENT PLACEMENT PLACEMENT Primary Procedure No Yes Primary Surgeon KOKO CANCHOLA, KOKO CANCHOLA, VENANCIO CRAFT Start 11/22/24 15:56:00 11/22/24 15:56:00 Stop 11/22/24 16:18:00 11/22/24 16:18:00 Anesthesia Type General General Surgical Service Anesthesia Anesthesia Wound Class 2 - Clean-Contaminated 2 - Clean-Contaminated Last Modified By: Matias Guevara Terry T 11/22/24 16:33:49 11/22/24 16:33:49 General Case Data FT Pre-Care Text: Classifies surgical wound, implements aseptic technique, initiates traffic control Entry 1 Case Information OR OR 1 FT Case Level Level 3 Wound Class 2 - Clean-Contaminated Specialty Anesthesia ASA Class 3 Preop Diagnosis RIGHT OBSTRUCTING Postop Same As Preop Yes URETERAL STONE Postop Diagnosis RIGHT OBSTRUCTING Outcomes Met? Yes URETERAL STONE Last Modified By: Ismael Matias T 11/22/24 16:12:28 Post-Care Text: The patient is free from signs and symptoms of infe (more content not included)... Normal [facility] CHEMISTRYOrdered By: Lab ROP User on 11-22-2024 Glucose [Mass/Vol] 183 mg/dL High 55 - 99 mg/dL [facility] Comment on above: Result Comment: Deric ESPINOZA POC Username [email or web address] LUJAN Invalid Interpretation Code [facility] [place] Subsection Sodium [Moles/Vol] [id number] mmol/L Invalid Interpretation Code [facility] [place] Subsection Sodium [Moles/Vol] [id number] mmol/L Invalid Interpretation Code [facility] [place] Subsection Capillary Glucose POCon Glucose [Mass/Vol] 183 mg/dL High 55-99 [facility] Comment on above: Result Comment: Deric ESPINOZA Performed By: #### 2 [id number] ####[facility] [id number] [place] [address] Discharge Instructionson Discharge Instructions Discharge Instructions BOBBY LUJAN :1965 Visit Date:11/22/2024 Inpatient Discharge Instructions Your Care Team Admitting Physician - VENANCIO GIRON MD Referring Physician - VENANCIO GIRON MD Reason for Your Visit RIGHT OBSTRUCTING URETERAL STONE Tests Performed XR Urography Retrograde Right -- Results Pending -- Please visit your patient portal for your results or contact your primary care physician. This Is Your Medications List atorvastatin (atorvastatin 20 mg Tab) empagliflozin (Jardiance 25 mg oral tablet) fluconazole (Diflucan 150 mg Tab) glipiZIDE (glipiZIDE 5 mg Tab) hyoscyamine (Levsin 0.125 mg SL Tab) ibuprofen (ibuprofen 800 mg Tab) levofloxacin (levofloxacin 750 mg Tab) losartan (losartan 25 mg Tab) oxycodone (Roxicodone 5 mg Tab) pioglitazone (pioglitazone 30 mg Tab) spironolactone (spironolactone 50 mg Tab) tamsulosin (Flomax 0.4 mg Cap) tirzepatide (Mounjaro 5 mg/0.5 mL subcutaneous solution) Procedure History Excision of cyst (03/16/2023), right total hip arthroplasty (09/07/2016), right hip injection with fluroscopy (11/23/2013), Colonoscopy, Colonoscopy, Colonoscopy, left distal biceps reconstruction - 04/20/11, Partial colectomy, Partial resection of colon. Discharge Vitals Temperature (Temporal Artery) 36.4 ???C Heart Rate (Monitored) 84 Respiratory Rate 18 Blood Pressure 130/75 What to do next Instructions From Your Doctor Event Name Event Result Discharge Instructions Freetext Remove stent in 5 days. take tylenol 30 mins priorPain control w/ tylenol, motrin. Take roxicodone for breakthrough painHydrate w/ at least 2L/daylevsin, flomax for stent discomfort Discharge Activity Ambulate as tolerated, Expect mild pain, Expect minimal amount of drainage and/or bleeding, Activity as tolerated Discharge Restrictions No restrictions Discharge Diet(s) Regular Call Your Doctor For Temperature above 101.5 degrees Discharge Instructions Discharge Instructions New Follow Up Appointments after Discharge Follow Up with VENANCIO GIRON When: Comments: 6 wks with MARC GRISSOM Medications What How Much When Instructions Next Dose New hyoscyamine (Levsin 0.125 mg SL Tab) 1 Tablets By Mouth 4 times a day as needed for for spasm Pickup at [id number] New oxycodone (Roxicodone 5 mg Tab) 1 Tablets By Mouth Every 6 hours as needed for for pain Pickup at [facility]/pharmacy #[id number] New tamsulosin (Flomax 0.4 mg Cap) 1 Capsules By Mouth Every day Pickup at [facility]/pharmacy #[id number] Unchanged atorvastatin (atorvastatin 20 mg Tab) 1 Tablets By Mouth Every day Unchanged empagliflozin (Jardiance 25 mg oral tablet) 1 Tablets By Mouth Once a day (in the morning) Unchanged fluconazole (Diflucan 150 mg Tab) 2 Tablets By Mouth Once Take 1 tab by mouth. May repeat dose in 72 hours if symptoms persist. Unchanged glipiZIDE (glipiZIDE 5 mg Tab) 1 Tablets By Mouth Every day Unchanged ibuprofen (ibuprofen 800 mg Tab) 1 Tablets By Mouth 3 times a day as needed for as needed for pain Unchanged levofloxacin (levofloxacin 750 mg Tab) 1 Tablets By Mouth Every 24 hours Unchanged losartan (losartan 25 mg Tab) 1 Tablets By Mouth Every day Unchanged pioglitazone (pioglitazone 30 mg Tab) 1 Tablets By Mouth Every day Unchanged spironolactone (spironolactone 50 mg Tab) 1 Tablets By Mouth 2 times a day Unchanged tirzepatide (Mounjaro 5 mg/ 0.5 mL subcutaneous solution) 5 Milligram Subcutaneous Every week Tuesday Pharmacy Information [facility]/pharmacy #[id number]: [address], [place] [phone] Test Results No qualifying data available. Allergies FLUoxetine (Unknown) rOPINIRole (Unknown) Problems Ongoing - Any problem that you are currently receiving treatment for. Abscess of right buttock BMI 45.0-49.9, adult Depression Diabetes Hypercholesteremia Infected sebaceous cyst Menopause Sepsis Sleep apnea Tobacco abuse Ureteral stone with hydronephrosis Urinary tract infection Vitamin D deficiency Education [employer] [facility] [place], [place] Post-operative Instructions for Ureteroscopy, Laser Lithotripsy, Stone Extraction and Stent Placement There are no incisions or dressings to be concerned with, as the procedure was performed inside the urinary system. ??? Stent Placement You may have a stent which spans the distance between your bladder and your kidney, allowing urine to pass through. It prevents blockage from swelling, kidney stones in ureter (tube connecting the kidney to the bladder), or scars. The presence of the stent may cause: ??? Back or side pain, especially with urination ??? Frequent or urgent urination ??? Bladder pressure or pain ??? Blood in urine You may pass stone debris or small blood clots, which is expected. Drinking plenty of water to dilute the urine may help. If there (more content not included)... Normal [facility] Comment on above: Result Comment: Elec tronically Signed By: Flaquito GAN, Юлия Venegas\.br\Date and Time Signed: 11/22/24 16:06 EST Inpatient Patient Summaryon 11-22-2024 Inpatient Patient Summary Inpatient Patient Summary [address] [address] [facility] Clinical Discharge Instructions PERSON INFORMATION Name: BOBBY LUJAN PHYSICIANS Admitting Physician: VENANCIO GIRON MD Attending Physician: VENANCIO GIRON MD PCP: CASIMIRO CANCHOLA, EL Woodruff Discharge Diagnosis: Comment: PATIENT EDUCATION INFORMATION Instructions: Medication Leaflets: Follow up: With: Address: When: VENANCIO GIRON Comments: 6 wks with MARC GRISSOM MEDICATION LIST New Medications [facility]/pharmacy #[id number], [address], [place] [id number], [phone] hyoscyamine (Levsin 0.125 mg SL Tab) 1 Tablets By Mouth 4 times a day as needed for spasm. Refills: 0. oxycodone (Roxicodone 5 mg Tab) 1 Tablets By Mouth every 6 hours as needed for pain. Refills: 0. tamsulosin (Flomax 0.4 mg Cap) 1 Capsules By Mouth every day. Refills: 0. Medications to Continue with No Changes Other Medications atorvastatin (atorvastatin 20 mg Tab) 1 Tablets By Mouth every day. empagliflozin (Jardiance 25 mg oral tablet) 1 Tablets By Mouth once a day (in the morning). fluconazole (Diflucan 150 mg Tab) 2 Tablets By Mouth Once. Take 1 tab by mouth. May repeat dose in 72 hours if symptoms persist.. Refills: 0. glipiZIDE (glipiZIDE 5 mg Tab) 1 Tablets By Mouth every day. ibuprofen (ibuprofen 800 mg Tab) 1 Tablets By Mouth 3 times a day as needed as needed for pain. levofloxacin (levofloxacin 750 mg Tab) 1 Tablets By Mouth every 24 hours. losartan (losartan 25 mg Tab) 1 Tablets By Mouth every day. pioglitazone (pioglitazone 30 mg Tab) 1 Tablets By Mouth every day. spironolactone (spironolactone 50 mg Tab) 1 Tablets By Mouth 2 times a day. tirzepatide (Mounjaro 5 mg/0.5 mL subcutaneous solution) 5 Milligram Subcutaneous every week. Tuesday. Comment: [facility] Main OR PACU I Recordon Main OR PACU I Record Main OR PACU I Record PACU Phase I Document Type FT Summary Primary Physician: VENANCIO GIRON MD Finalized Date/Time: 11/22/24 18:17:02 Pt. Name: BOBBY LUJAN /Sex: 1965 Female Med Rec #: [id number] Physician: VENANCIO GIRON MD Financial #: [id number] Pt. Type: A Room/Bed: [place] [address] Admit/Disch: 11/22/24 11:27:17 - 11/22/24 18:00:00 Institution: Case Times PACU I FT Pre-Care Text: Identifies barriers to communication and implements measures to provide psychological support Develops individualized plan of care, and ensures continuity of care Maintains patient's dignity and privacy, and maintains patient confidentiality Identifies and reports philosophical, cultural, and spiritual beliefs and values Identifies individual values and wishes concerning care Implements aseptic technique, and administers prescribed antibiotic therapy and immunizing agents as ordered Evaluates postoperative tissue perfusion Implements thermoregulation measures, and monitors body temperature Evaluates postoperative respiratory status Evaluates postoperative cardiac status Evaluates postoperative neurological status Assesses pain control, collaborated in initiating patient-controlled analgesia and implements alternative methods of pain control Verifies allergies, administers prescribed medications and solutions, evaluates response to medications Entry 1 In PACU I 11/22/24 16:25:00 Discharge from PACU 11/22/24 16:55:00 I Outcomes Met? Yes Last Modified By: Janessa Carson RN 11/22/24 18:16:39 Post-Care Text: The patient demonstrates knowledge of the expected response to the operative or invasive procedure The patient's care is consistent with the individualized perioperative plan of care The patient's right to privacy is maintained The patient's value system, lifestyle, ethnicity, and culture are considered, respected, and incorporated into the perioperative plan of care The patient participates in decisions affecting his or her perioperative plan of care The patient is free from signs and symptoms of infection The patient has wound/tissue perfusion consistent with or improved from baseline levels established preoperatively The patient is at or returning to normothermia at the conclusion of the immediate postoperative period The patient's respiratory function is consistent with or improved from baseline levels established preoperatively The patient's cardiovascular status is consistent with or improved from baseline levels established preoperatively The patient's cardiovascular status is consistent with or improved from baseline levels established preoperatively The patient demonstrates and/or reports adequate pain control throughout the perioperative period The patient received appropriate medication(s), safely administered during the perioperative period Acuity Level PACU I FT Entry 1 Start Time 11/22/24 16:25:00 Stop Time 11/22/24 16:55:00 Acuity Level Acuity Level I Last Modified By: Janessa Carson RN 11/22/24 18:16:55 Finalized By: Janessa Carson RN Document Signatures Signed By: Janessa Carson RN 11/22/24 18:[address] [facility] Main OR PACU II Recordon Main OR PACU II Record Main OR PACU II Record PACU Phase II Document Type FT Summary Primary Physician: VENANCIO GIRON MD Finalized Date/Time: 11/22/24 17:57:39 Pt. Name: BOBBY LUJAN Ranjan Casiano/Sex: 1965 Female Med Rec #: [id number] Physician: VENANCIO GIRON MD Financial #: [id number] Pt. Type: A Room/Bed: [place] [address] Admit/Disch: 11/22/24 11:27:17 - Institution: Case Times PACU II FT Pre-Care Text: Identifies barriers to communication and implements measures to provide psychological support and determines knowledge level Develops individualized plan of care, and ensures continuity of care Maintains patient's dignity and privacy, and maintains patient confidentiality Identifies and reports philosophical, cultural, and spiritual beliefs and values Identifies individual values and wishes concerning care administers prescribed antibiotic therapy and immunizing agents as ordered, Evaluates postoperative tissue perfusion Implements thermoregulation measures, and monitors body temperature Evaluates postoperative respiratory status Evaluates postoperative cardiac status Evaluates postoperative neurological status Assesses pain control, collaborated in initiating patient-controlled analgesia and implements alternative methods of pain control Verifies allergies, administers prescribed medications and solutions, evaluates response to medications Entry 1 In PACU II 11/22/24 17:00:00 Discharge from PACU 11/22/24 18:00:00 II Outcomes Met? Yes Last Modified By: Zulay Wellington 11/22/24 17:57:38 Post-Care Text: The patient demonstrates knowledge of the expected response to the operative or invasive procedure The patient's care is consistent with the individualized perioperative plan of care The patient's right to privacy is maintained The patient's value system, lifestyle, ethnicity, and culture are considered, respected, and incorporated into the perioperative plan of care The patient participates in decisions affecting his or her perioperative plan of care. The patient is free from signs and symptoms of infection The patient has wound/tissue perfusion consistent with or improved from baseline levels established preoperatively The patient is at or returning to normothermia at the conclusion of the immediate postoperative period The patient's respiratory function is consistent with or improved from baseline levels established preoperatively The patient's cardiovascular status is consistent with or improved from baseline levels established preoperatively The patient's neurological status is consistent with or improved from baseline levels established preoperatively The patient demonstrates and/or reports adequate pain control throughout the perioperative period The patient received appropriate medication(s), safely administered during the perioperative period Finalized By: Zulay Wellington Document Signatures Signed By: Zulay Wellington 11/22/24 17:[address] [facility] Main OR Preoperative Recordo n 11-22-2024 Main OR Preoperative Record Main OR Preoperative Record PreOp Document Type FT Summary Primary Physician: VENANCIO GIRON MD Finalized Date/Time: 11/22/24 15:51:49 Pt. Name: BOBBY LUJAN/Sex: 1965 Female Med Rec #: [id number] Physician: VENANCIO GIRON MD Financial #: [id number] Pt. Type: A Room/Bed: [place] [address] Admit/Disch: 11/22/24 11:27:17 - Institution: Case Times PreOp FT Pre-Care Text: Verifies consent for planned procedure, identifies individual values and wishes concerning care, includes family members in perioperative teaching Entry 1 Patient Times. In Pre Surgery 11/22/24 11:35:00 Out Pre Surgery 11/22/24 15:42:00 Outcomes Met? Yes Last Modified By: Matias Guevara 11/22/24 15:51:48 Post-Care Text: The patient participates in decisions affecting his or her perioperative plan of care Finalized By: Matias Guevara Document Signatures Signed By: Matias Guevara 11/22/24 15:[address] [facility] Operative Reporton 5 Operative Report Operative Report Patient: BOBBY LUJAN Age: 59 years Sex: Female : 1965 Associated Diagnoses: None Author: VENANCIO GIRON MD Procedure SURGEON: Venancio Giron MD PREOPERATIVE DIAGNOSIS: Right UPJ stone POSTOPERATIVE DIAGNOSIS: Same PROCEDURE: Cystoscopy, right ureteroscopy, right laser lithotripsy, right ureteral stent placement FINDINGS: Impacted stone at the UPJ lasered into submillimeter fragments with successful placement of stent at conclusion of procedure ANESTHESIA: General INTRAVENOUS FLUIDS: None ESTIMATED BLOOD LOSS: 0cc TUBES AND DRAINS: None SPECIMENS: None COMPLICATIONS: None INDICATIONS FOR PROCEDURE: Patient is a 59-year-old female who previously presented with an impacted right UPJ stone. She previously had a stent placed and presents today for definitive stone treatment. H&P was reviewed, informed consent was obtained, patient understood risk, benefits, alternatives of the procedure and wished to proceed. OPERATIVE DETAIL: Patient was brought to the operative suite and placed on continuous pulse oximetry and cardiac monitoring by anesthesia. IV antibiotics including 2 g of Ancef, fluconazole was administered. She was then placed in the dorsolithotomy position and prepped and draped in normal sterile fashion. Timeout was performed confirming patient, procedure, side, all in the room agreed. A well-lubricated 22 Romanian scopic urethrogram as well as transurethral manage advanced into the bladder. We then grasped her previously existing stent and brought it out through the urethral meatus. We then cannulated with a Glidewire and used a dual-lumen to passed a second wire. We then went up with a flexible scope into the renal pelvis where we identified the stone in a systematic fashion and obtained a 275 ???m laser and lasered into submillimeter fragments. We then placed a 6 x 26 cm double-J ureteral stent over the wire resides in a curl in the renal pelvis and a curl in the bladder. Prior to doing this we did a pyeloscopy and there was no further stone burden noted. Patient was then awakened by anesthesia and transferred to PACU in stable condition. The stent with tape to the thigh using benzoin and Steri-Strips. PLAN: F/U in 6 weeks with renal ultrasound, KUB prior Remove stent in [address] [facility] Comment on above: Result Comment: Elec tronically Signed By: KOKO CANCHOLA, VENANCIO\.br\Date and Time Signed: 11/22/24 16:40 EST Outpatient Surgery Discharge Instructionon 11-22-2024 Outpatient Surgery Discharge Instruction Outpatient Surgery Discharge Instruction [place] [id number] Patient Discharge Instructions PERSON INFORMATION Name: BOBBY LUJAN Date of : 1965 Current Date: 11/22/2024 14:14:24 PHYSICIANS Admitting Physician: VENANCIO GIRON MD Discharge Diagnosis: BOBBY LUJAN has been given the following list of follow-up instructions, prescriptions, and patient education materials: PATIENT FOLLOW-UP INFORMATION Diet: Regular Discharge Activity: Ambulate as tolerated, Expect mild pain, Expect minimal amount of drainage and/or bleeding, Activity as tolerated Discharge Restrictions: No restrictions Call Your Doctor For: Temperature above 101.5 degrees Additional Instructions: Remove stent in 5 days. take tylenol 30 mins prior Pain control w/ tylenol, motrin. Take roxicodone for breakthrough pain Hydrate w/ at least 2L/day levsin, flomax for stent discomfort IF UNABLE TO CONTACT YOUR PHYSICIAN AND YOU FEEL IT IS AN EMERGENCY, GO TO THE NEAREST EMERGENCY ROOM OR CALL 911 I, BOBBY LUJAN, have received the attached patient education materials/instructi ons and have verbalized understanding: May we do a follow up call? Yes No I was present when discharge instructions were given Patient Signature Date Clinican/Nurse Signature Date Follow up: With: Address: When: VENANCIO BARNESCHELI Comments: 6 wks with MARC GRISSOM Pharmacy Information: You may receive a survey from [facility] asking you to rate your care experience. Your feedback is important and will help us understand what we do well and how we can improve the quality of care we provide to you, your loved ones and our community. It???s an honor to serve you. Thank you for choosing [facility] HERE ARE THE MEDICATION CHANGES THAT OCCURRED DURING YOUR HOSPITAL STAY New Medications [id number], [address], [place] [phone], [phone] hyoscyamine (Levsin 0.125 mg SL Tab) 1 Tablets By Mouth 4 times a day as needed for spasm. Refills: 0. oxycodone (Roxicodone 5 mg Tab) 1 Tablets By Mouth every 6 hours as needed for pain. Refills: 0. tamsulosin (Flomax 0.4 mg Cap) 1 Capsules By Mouth every day. Refills: 0. Medications to Continue with No Changes Other Medications atorvastatin (atorvastatin 20 mg Tab) 1 Tablets By Mouth every day. empagliflozin (Jardiance 25 mg oral tablet) 1 Tablets By Mouth once a day (in the morning). fluconazole (Diflucan 150 mg Tab) 2 Tablets By Mouth Once. Take 1 tab by mouth. May repeat dose in 72 hours if symptoms persist.. Refills: 0. glipiZIDE (glipiZIDE 5 mg Tab) 1 Tablets By Mouth every day. ibuprofen (ibuprofen 800 mg Tab) 1 Tablets By Mouth 3 times a day as needed as needed for pain. levofloxacin (levofloxacin 750 mg Tab) 1 Tablets By Mouth every 24 hours. losartan (losartan 25 mg Tab) 1 Tablets By Mouth every day. pioglitazone (pioglitazone 30 mg Tab) 1 Tablets By Mouth every day. spironolactone (spironolactone 50 mg Tab) 1 Tablets By Mouth 2 times a day. tirzepatide (Mounjaro 5 mg/0.5 mL subcutaneous solution) 5 Milligram Subcutaneous every week. Tuesday. PATIENT EDUCATION INFORMATION Instructions: Medication Leaflets: [facility] XR Chest 2 Viewson XR Chest 2 Views Exam Date/Time: 11/13/2024 15:17 EST Reason for Exam: P.A.T. Report IMPRESSION: NO RADIOGRAPHIC EVIDENCE OF ACUTE INTRATHORACIC PROCESS. EXAMINATION: XR Chest 2 Views HISTORY: Preoperative evaluation TECHNIQUE: Frontal and lateral views of the chest. COMPARISON: 08/17/2016 FINDINGS: Cardiomediastinal silhouette is within normal limits. No pneumothorax, pleural effusion, or consolidation. Hyperinflation of the lungs and increased bronchovascular markings suggesting COPD. No acute osseous abnormality. Ordering Provider: George Vogt FINAL REPORT Dictated: 11/16/2024 10:49 am Bala Dalal DO Signed (Electronic Signature): 11/16/2024 10:49 am Signed by: Bala Dalal DO Transcribed by: RAMSES Technologist: SARIAH [facility] C Urineon 11-15-2024 Bacteria identified Cx Nom (U) Microbiology PROCEDURE: Urine Culture [R1] SOURCE: U CleanCatch BODY SITE: COLLECTED DATE/TIME: 11/13/2024 14:56 EST RECEIVED DATE/TIME: 11/13/2024 16:25 EST START DATE/TIME: 11/13/2024 16:25 EST FREE TEXT SOURCE: KOKO CANCHOLA, KOKO CANCHOLA, VENANCIO CRAFT FINAL REPORTS Final Report [] Verified Date/Time: 11/15/2024 09:40 EST 2,000 cfu/ml Mixed skin contaminants Performing Locations R1: This test was performed at: [facility], [address] [place] [address], [id number] , , [facility] Comment on above: Performed By: #### 2 [id number] #### [facility] [address] [place] [address] BMPon 11-13-2024 Anion gap [Moles/Vol] 13 mmol/L Normal 6-16 [facility] Comment on above: Performed By: #### 2 [id number] #### [facility] [address] [place] [address] Calcium [Mass/Vol] 9.0 mg/dL Normal 8.9-11.1 [facility] Comment on above: Performed By: #### 2 [id number] #### [facility] [address] [place] [address] Chloride [Moles/Vol] 106 mmol/L Normal 101-111 [facility] Comment on above: Performed By: #### 2 [id number] #### [facility] [address] [place] [address] CO2 [Moles/Vol] 25 mmol/L Normal 21-31 [facility] Comment on above: Performed By: #### 2 [id number] #### [facility] [address] [place] [address] Creatinine [Mass/Vol] 0.7 mg/dL Normal 0.5-1.3 [facility] Comment on above: Performed By: #### 2 [id number] #### [facility] [address] [place] [address] Glucose [Mass/Vol] 149 mg/dL Normal 55-199 [facility] Comment on above: Performed By: #### 2 [id number] #### [facility] [address] [place] [address] Potassium [Moles/Vol] 4.0 mmol/L Normal 3.5-5.3 [facility] Comment on above: Performed By: #### 2 [id number] #### [facility] [address] [place] [address] Sodium [Moles/Vol] 140 mmol/L Normal 135-145 [facility] Comment on above: Performed By: #### 2 [id number] #### [facility] [address] [place] [address] Urea nitrogen [Mass/Vol] 15 mg/dL Normal 5-21 [facility] Comment on above: Performed By: #### 2 [id number] #### [facility] [address] [place] [address] Urea nitrogen/Creatinine [Mass ratio] 21 No Units High 10-20 [facility] Comment on above: Performed By: #### 2 [id number] #### [facility] [address] [place] [address] CBC w/ Auto Diffon 5 Basophils/100 WBC (Bld) 0.9 % Normal 0.0-2.0 [facility] Comment on above: Performed By: #### 2 [id number] #### [facility] [address] [place] [address] Basophils/Leukocytes Auto (Bld) [Pure # fraction] 0.1 E9/L Normal 0.0-0.2 [facility] Comment on above: Performed By: #### 2 [id number] #### [facility] [address] [place] [address] Eosinophils (Bld) [#/Vol] 0.5 E9/L Normal 0.0-0.5 [facility] Comment on above: Performed By: #### 2 [id number] #### [facility] [address] [place] [address] Eosinophils/100 WBC (Bld) 4.4 % Normal 0.0-8.0 [facility] Comment on above: Performed By: #### 2 [id number] #### [facility] [address] [place] [address] Erythrocyte distribution width (RBC) [Ratio] 13.9 % Normal 10.9-14.2 [facility] Comment on above: Performed By: #### 2 [id number] #### [facility] [address] [place] [address] Hematocrit (Bld) [Volume fraction] 41.3 % Normal 34.0-46.0 [facility] Comment on above: Performed By: #### 2 [id number] #### [facility] [address] [place] [address] Hemoglobin (Bld) [Mass/Vol] 13.9 g/dL Normal 12.0-16.0 [facility] Comment on above: Performed By: #### 2 [id number] #### [facility] [address] [place] [address] Lymphocytes (Bld) [#/Vol] 3.5 E9/L Normal 1.0-4.0 [facility] Comment on above: Performed By: #### 2 [id number] #### [facility] [address] [place] [address] Lymphocytes/100 WBC (Bld) 29.9 % Normal 14.0-50.0 [facility] Comment on above: Performed By: #### 2 [id number] #### [facility] [address] [place] [address] MCH (RBC) [Entitic mass] 31.8 pg Normal 27.0-34.0 [facility] Comment on above: Performed By: #### 2 [id number] #### [facility] [address] [place] [address] MCHC (RBC) [Mass/Vol] 33.6 g/dL Normal 31.4-36.0 [facility] Comment on above: Performed By: #### 2 [id number] #### [facility] [address] [place] [address] MCV (RBC) [Entitic vol] 94.6 fL Normal 80.0-100.0 F [facility] Comment on above: Performed By: #### 2 [id number] #### [facility] [address] [place] [address] Monocytes (Bld) [#/Vol] 0.5 E9/L Normal 0.2-1.0 F [facility] Comment on above: Performed By: #### 2 [id number] #### [facility] [address] [place] [address] Neutrophils (Bld) [#/Vol] 7.0 E9/L Normal 2.0-7.5 [facility] Comment on above: Performed By: #### 2 [id number] #### [facility] [address] [place] [address] Neutrophils/100 WBC (Bld) 60.4 % Normal 36.0-75.0 [facility] Comment on above: Performed By: #### 2 [id number] #### [facility] [address] [place] [address] Platelet mean volume (Bld) [Entitic vol] 8.1 fL Normal 6.4-10.8 [facility] Comment on above: Performed By: #### 2 [id number] #### [facility] [address] [place] [address] Platelets (Bld) [#/Vol] 331.0 E9/L Normal 150.0-500.0 [facility] Comment on above: Performed By: #### 2 [id number] #### [facility] [address] [place] [address] RBC (Bld) [#/Vol] 4.4 E12/L Normal 4.3-5.9 [facility] Comment on above: Performed By: #### 2 [id number] #### [facility] [address] [place] [address] WBC corrected for nucl RBC Auto (Bld) [#/Vol] 11.7 E9/L High 4.0-11.0 [facility] Comment on above: Result Comment: Celia pheral smear review performed. Performed By: #### 2 [id number] #### [facility] [address] [place] [address] CHEMISTRYOrdered By: SYSTEM SYSTEM on 11-13-2024 Anion gap [Moles/Vol] 13 mmol/L Normal 6 - 16 mEq/L R emisol Chem Calcium [Mass/Vol] 9.0 mg/dL Normal 8.9 - 11. 1 mg/dL [facility] Chloride [Moles/Vol] 106 mmol/L Normal 101 - 1 11 mmol/L [facility] CO2 [Moles/Vol] 25 mmol/L Normal 21 - 31 mmol/L [facility] Creatinine [Mass/Vol] 0.7 mg/dL Normal 0.5 - 1.3 mg/dL [facility] eGFR 98 mL/min/1.73 m2 Normal >=59mL/min /1 .73 m2 [facility] Glucose [Mass/Vol] 149 mg/dL Normal 55 - 199 mg/dL [facility] Potassium [Moles/Vol] 4.0 mmol/L Normal 3.5 - 5.3 mmol/L [facility] Sodium [Moles/Vol] 140 mmol/L Normal 135 - 145 mmol/L [facility] Urea nitrogen [Mass/Vol] 15 mg/dL Normal 5 - 21 mg/dL [facility] Urea nitrogen/Creatinine [Mass ratio] 21 mg/mg High 10 - 20 [facility] COAGULATIONOrdered By: Saida Lorenzo on 11-13-2024 aPTT Coag (PPP) [Time] 29.4 s Normal 25.1 - 36.5 second(s) [facility] Comment on above: Interpretive Data: P arameter 15 days - 4 weeks 1 - 5 months 6 - 11 months 1 - 5 years 6 - 10 years 11 - 17 years PTT Mean: 35.4 (27.6-45.6) Mean: 33.5 (24.8-40.7) Mean: 32.4 (25.1-40.7) Mean: 31.6 (24.0-39.2) Mean: 31.6 (26.9-38.7) Mean: 31.0 (24.6-38.4) Pediatric Reference ranges were obtained from a study by Surinder Granados et al. prepared from 1437 samples obtained at 7 different centers using the same coagulation reagent and instrumentation as [facility] Currently there are no coagulation studies available worldwide for children to 14 days, and no normal ranges. Heparin therapeutic range (represented by Anti-Factor Xa activity of 0.2 - 0.4 U/mL) corresponds to PTT of 56.6 - 109.0 sec. INR Coag (PPP) [Relative time] 0.94 {INR} Invalid Interpretation Code [facility] Comment on above: Interpretive Data: I NR results are specifically intended to assess patients stabilized on long-term Anticoagulation therapy suggested INR s Less Intensive Anticoagulation 2.0 3.0 Conventional Range 3.0 4.5 PT Coag (PPP) [Time] 10.5 s Normal 9.4 - 1 2.5 second(s) [facility] Comment on above: Interpretive Data: 1 5 days - 4 weeks 1 - 5 months 6 -11 months 1 5 years 6 10 years 11 -17 years Mean: 11.2 (9.5 12.6) Mean: 11.0 (9.7 12.8) Mean: 11.0 (9.8 13.0) Mean: 11.3 (9.9 13.4) Mean: 11.7 (10.0 14.6) Mean: 11.8 (10.0 - 14.1) Pediatric Reference ranges were obtained from a study by Surinder Granados et al. prepared from 1437 samples obtained at 7 different centers using the same coagulation reagent and instrumentation as [facility] Currently there are no coagulation studies available worldwide for children to 14 days, and no normal ranges. HEMATOLOGYOrdered By: SYSTEM SYSTEM on 11-13-2024 Basophils/100 WBC (Bld) 0.9 % Normal 0.0 - 2.0 % [facility] Basophils/Leukocytes Auto (Bld) [Pure # fraction] 0.1 E9/L Normal 0.0 - 0.2 E9/L [facility] Eosinophils (Bld) [#/Vol] 0.5 E9/L Normal 0.0 - 0.5 E9/L [facility] Eosinophils/100 WBC (Bld) 4.4 % Normal 0.0 - 8.0 % [facility] Erythrocyte distribution width (RBC) [Ratio] 13.9 % Normal 10.9 - 14.2 % [facility] Hematocrit (Bld) [Volume fraction] 41.3 % Normal 34.0 - 46.0 % [facility] Hemoglobin (Bld) [Mass/Vol] 13.9 g/dL Normal 12.0 - 16.0 gm/dL [facility] Lymphocytes (Bld) [#/Vol] 3.5 E9/L Normal 1.0 - 4.0 E9/L [facility] Lymphocytes/100 WBC (Bld) 29.9 % Normal 14.0 - 50.0 % [facility] MCH (RBC) [Entitic mass] 31.8 pg Normal 27.0 - 34.0 pg [facility] MCHC (RBC) [Mass/Vol] 33.6 g/dL Normal 31.4 - 36.0 gm/dL [facility] MCV (RBC) [Entitic vol] 94.6 fL Normal 80.0 - 100.0 fL [facility] Monocytes (Bld) [#/Vol] 0.5 E9/L Normal 0.2 - 1.0 E9/L [facility] Monocytes/100 WBC (Bld) 4.4 % Normal 4.0 - 14.0 % [facility] Neutrophils (Bld) [#/Vol] 7.0 E9/L Normal 2.0 - 7.5 E9/L [facility] Neutrophils/100 WBC (Bld) 60.4 % Normal 36.0 - 75.0 % [facility] Platelet mean volume (Bld) [Entitic vol] 8.1 fL Normal 6.4 - 10.8 fL [facility] Platelets (Bld) [#/Vol] 331.0 E9/L Normal 150. 0 - 500.0 E9/L [facility] RBC (Bld) [#/Vol] 4.4 E12/L Normal 4.3 - 5.9 E12/L [facility] WBC corrected for nucl RBC Auto (Bld) [#/Vol] 11.7 E9/L High 4.0 - 11.0 E9/L [facility] Comment on above: Result Comment: Celia pheral smear review performed. PT & PTTon 11-13-2024 aPTT Coag (PPP) [Time] 29.4 second(s) Normal 25.1-36.5 [facility] Comment on above: Result Comment: Para meter 15 days - 4 weeks 1 - 5 months 6 - 11 months 1 - 5 years 6 - 10 years 11 - 17 years PTT Mean: 35.4 (27.6-45.6) Mean: 33.5 (24.8-40.7) Mean: 32.4 (25.1-40.7) Mean: 31.6 (24.0-39.2) Mean: 31.6 (26.9-38.7) Mean: 31.0 (24.6-38.4) Pediatric Reference ranges were obtained from a study by kristian Landin. prepared from 1437 samples obtained at 7 different centers using the same coagulation reagent and instrumentation as [facility] Currently there are no coagulation studies available worldwide for children to 14 days, and no normal ranges. Heparin therapeutic range (represented by Anti-Factor Xa activity of 0.2 - 0.4 U/mL) corresponds to PTT of 56.6 - 109.0 sec. Performed By: #### 1 [id number] #### [facility] [address] [place] [address] INR Coag (PPP) [Relative time] 0.94 {INR} Invalid Interpretation Code [facility] Comment on above: Result Comment: INR results are specifically intended to assess patients stabilized on long-term Anticoagulation therapy suggested INR???s ???Less Intensive Anticoagulation??? 2.0 ??? 3.0 Conventional Range 3.0 ??? 4.5 Performed By: #### 1 [id number] #### [facility] [address] [place] [address] PT Coag (PPP) [Time] 10.5 second(s) Normal 9.4-12.5 [facility] Comment on above: Result Comment: 15 d ays - 4 weeks 1 - 5 months 6 -11 months 1 ??? 5 years 6 ??? 10 years 11 -17 years Mean: 11.2 (9.5 ??? 12.6) Mean: 11.0 (9.7 ??? 12.8) Mean: 11.0 (9.8 ??? 13.0) Mean: 11.3 (9.9 ??? 13.4) Mean: 11.7 (10.0 ??? 14.6) Mean: 11.8 (10.0 - 14.1) Pediatric Reference ranges were obtained from a study by kristian Landin. prepared from 1437 samples obtained at 7 different centers using the same coagulation reagent and instrumentation as [facility] Currently there are no coagulation studies available worldwide for children to 14 days, and no normal ranges. Performed By: #### 1 [id number] #### [facility] [address] [place] [address] UA with Cult Rflxon 11-13-19 25 Bacteria Auto Ql (U) Trace Normal Trace Fish er [facility] Comment on above: Performed By: #### 4 [id number] #### [facility] [address] [place] [address] Bilirubin Ql (U) Negative Normal Negative [facility] Comment on above: Performed By: #### 4 [id number] #### [facility] [address] [place] [address] Clarity (U) Turbid Abnormal Clear [facility] Comment on above: Performed By: #### 4 [id number] #### [facility] [address] [place] [address] Color (U) Yellow Normal Yellow [facility] Comment on above: Result Comment: Micr oscopic readings are only performed on those samples that meet specific criteria set forth by [facility]. Performed By: #### 4 [id number] #### [facility] [address] [place] [address] Epithelial cells.squamous Auto (Urine sed) [#/Area] 5-[address] [facility] Comment on above: Performed By: #### 4 [id number] #### [facility] [address] [place] [address] Glucose Ql (U) 1+ mg/dL Abnormal Negative [facility] Comment on above: Performed By: #### 4 [id number] #### [facility] [address] [place] [address] Hemoglobin Auto test strip (U) [Mass/Vol] 3+ mg/dL Abnormal Negative [facility] Comment on above: Performed By: #### 4 [id number] #### [facility] [address] [place] [address] Ketones Auto test strip Ql (U) Negative Normal Negative [facility] Comment on above: Performed By: #### 4 [id number] #### [facility] [address] [place] [address] Leukocyte esterase Auto test strip Ql (U) 75 Louise/uL Abnormal Negative [facility] Comment on above: Performed By: #### 4 [id number] #### [facility] [address] [place] [address] Mucus Auto Ql (U) Trace Normal Negative [facility] Comment on above: Performed By: #### 4 [id number] #### [facility] [address] [place] [address] Nitrite Auto test strip Ql (U) Negative Normal Negative [facility] Comment on above: Performed By: #### 4 [id number] #### [facility] [address] [place] [address] pH (U) 5.5 [pH] Invalid Interpretation Code 5.0-9.0 [facility] Comment on above: Performed By: #### 4 [id number] #### [facility] [address] [place] [address] Protein Ql (U) 1+ mg/dL Abnormal Negative [facility] Comment on above: Performed By: #### 4 [id number] #### [facility] [address] [place] [address] RBC Ql (U) >75 Abnormal 0-3 [facility] Comment on above: Performed By: #### 4 [id number] #### [facility] [address] [place] [address] Specific gravity (U) [Rel density] 1.026 Invalid Interpretation Code 1.005-1.030 [facility] Comment on above: Performed By: #### 4 [id number] #### [facility] [address] [place] [address] Urobilinogen (U) [Mass/Vol] Negative Normal Negative [facility] Comment on above: Performed By: #### 4 [id number] #### [facility] [address] [place] [address] WBC Auto (Urine sed) [#/Area] 31-75 Abnormal 0-5 [facility] Comment on above: Performed By: #### 4 [id number] #### [facility] [address] [place] [address] Yeast.budding Computer assisted Ql (U) 3+ CD:[id number] Abnormal [facility] Comment on above: Performed By: #### 4 [id number] #### [facility] [address] [place] [address] Type of Urine collection method Clean Catch Normal [facility] Comment on above: Performed By: #### 4 [id number] #### [facility] [address] [place] [address] URINALYSISOrdered By: SYSTEM SYSTEM on 11-13-2024 Bacteria Auto Ql (U) Trace /HPF Normal Trace/HPF [facility] UA Auto SS Bilirubin Ql (U) Negative Normal Negativemg/ d L [facility] UA Auto SS Clarity (U) Turbid *ABN* (11/13/24 2:56 PM) Invalid Interpretation Code Clear [facility] UA Auto SS Color (U) Yellow 1 (11/13/24 2:56 PM) Normal Yellow [facility] UA Auto SS Comment on above: Interpretive Data: M icroscopic readings are only performed on those samples that meet specific criteria set forth by [facility]. Epithelial cells.squamous Auto (Urine sed) [#/Area] 5-8 graded/HPF Invalid Interpretation Code [facility] UA Auto SS Glucose Ql (U) 1+ mg/dL Invalid Interpretation Code Negativemg/d L [facility] UA Auto SS Hemoglobin Auto test strip (U) [Mass/Vol] 3+ mg/dL Invalid Interpretation Code Negativemg/d L [facility] UA Auto SS Ketones Auto test strip Ql (U) Negative Normal Negativemg/d L [facility] UA Auto SS Leukocyte esterase Auto test strip Ql (U) 75 Louise/uL Louise/uL Invalid Interpretation Code NegativeLeu/ uL [facility] UA Auto SS Mucus Auto Ql (U) Trace graded/LPF Normal Negati vegrad ed/LPF [facility] UA Auto SS Nitrite Auto test strip Ql (U) Negative Normal Negativemg/d L [facility] UA Auto SS pH (U) 5.5 *NA* (11/13/24 2:56 PM) Invalid Interpretation Code 5.0 - 9.0 [facility] UA Auto SS Protein Ql (U) 1+ mg/dL Invalid Interpretation Code Negativemg/d L [facility] UA Auto SS RBC Ql (U) >75 graded/HPF Invalid Interpretation Code 0-3graded/HP F [facility] UA Auto SS Specific gravity (U) [Rel density] 1.026 *NA* (11/13/24 2:56 PM) Invalid Interpretation Code 1.005 - 1.030 [facility] UA Auto SS Urobilinogen (U) [Mass/Vol] Negative Normal Negativemg/d L [facility] UA Auto SS WBC Auto (Urine sed) [#/Area] 31-75 graded/HPF Invalid Interpretation Code 0-5graded/HP F [facility] UA Auto SS Yeast.budding Computer assisted Ql (U) 3+ graded/HPF Invalid Interpretation Code [facility] UA Auto SS URINALYSISOrdered By: Lorena Huddleston on 11-13-2024 UA Spec Desc Clean Catch (11/13/24 2:56 PM) Normal [facility] Auto SS eGFRon 11-13-2024 eGFR 98 mL/min/1.73 m2 Normal >=59 [facility] Comment on above: Performed By: #### 1 [id number] #### [facility] [address] [place] [address] Ambulatory Visit Summaryon 0 11-09-2024 Ambulatory Visit Summary Ambulatory Visit Summary BOBBY LUJAN :1965 Visit Date:11/09/2024 Ambulatory Visit Instructions Your Diagnosis Ureteral stone with hydronephrosis Urinary tract infection Sepsis Your Care Team Attending Physician - KOKO CANCHOLA, VENANCIO Primary Care Physician - CASIMIRO CANCHOLA, EL Woodruff This Is Your Medications List Contact prescribing physician if questions or concerns atorvastatin (atorvastatin 10 mg Tab) empagliflozin (Jardiance 25 mg oral tablet) glipiZIDE (glipiZIDE 5 mg Tab) ibuprofen (ibuprofen 800 mg Tab) levofloxacin (levofloxacin 750 mg Tab) losartan (losartan 25 mg Tab) pioglitazone (pioglitazone 30 mg Tab) spironolactone (spironolactone 25 mg Tab) tirzepatide (Mounjaro 5 mg/0.5 mL subcutaneous solution) Procedures Performed Excision of cyst (03/16/2023), right total hip arthroplasty (09/07/2016), right hip injection with fluroscopy (11/23/2013), Colonoscopy, Colonoscopy, Colonoscopy, left distal biceps reconstruction - 04/20/11, Partial colectomy, Partial resection of colon. Discharge Vitals Heart Rate (Peripheral) 80 Respiratory Rate 18 Blood Pressure 132/74 Height 170 cm Height 67 in Weight 154.6 kg Weight 340.834 lb BMI 53.49 What to do next Scheduled Follow-Up Appointments Tuesday 2:30 PM EST Where: [facility] 2024 1:30 PM EST Where: [facility] You Need to Schedule the Following Appointments Follow Up with KOKO CANCHOLA, AYLEEN CRAFT When: Where: Medications What How Much When Instructions Unchanged atorvastatin (atorvastatin 10 mg Tab) 1 Tablets By Mouth Every day Contact prescribing physician if questions or concerns Unchanged empagliflozin (Jardiance 25 mg oral tablet) 1 Tablets By Mouth Once a day (in the morning) Contact prescribing physician if questions or concerns Unchanged glipiZIDE (glipiZIDE 5 mg Tab) 1 Tablets By Mouth Every day Contact prescribing physician if questions or concerns Unchanged ibuprofen (ibuprofen 800 mg Tab) Contact prescribing physician if questions or concerns Unchanged levofloxacin (levofloxacin 750 mg Tab) 1 Tablets By Mouth Every 24 hours Contact prescribing physician if questions or concerns Unchanged losartan (losartan 25 mg Tab) 1 Tablets By Mouth Every day Contact prescribing physician if questions or concerns Unchanged pioglitazone (pioglitazone 30 mg Tab) 1 Tablets By Mouth Every day Contact prescribing physician if questions or concerns Unchanged spironolactone (spironolactone 25 mg Tab) 1 Tablets By Mouth 2 times a day Contact prescribing physician if questions or concerns Unchanged tirzepatide (Mounjaro 5 mg/ 0.5 mL subcutaneous solution) 5 Milligram Subcutaneous Every week Contact prescribing physician if questions or concerns Allergies FLUoxetine (Unknown) rOPINIRole (Unknown) Problems Ongoing - Any problem that you are currently receiving treatment for. Abscess of right buttock BMI 45.0-49.9, adult Depression Diabetes Hypercholesteremia Infected sebaceous cyst Menopause Sepsis Sleep apnea Smoker Tobacco abuse Ureteral stone with hydronephrosis Urinary tract infection Vitamin D deficiency Patient Survey You may receive a survey via text or e-mail asking about your office visit. Please share your experience with us by completing your survey. We appreciate your feedback and thank you for choosing us for your care. Education Materials Ureteroscopy Ureteroscopy is a procedure to check for and treat problems inside part of the urinary tract. In this procedure, a long rigid or flexible tube with a lens and light at the end (ureteroscope) is used to look at the inside of the kidneys and the ureters. The ureters are the tubes that carry urine from the kidneys to the bladder. The ureteroscope is inserted into one or both of the ureters. You may need this procedure if you have frequent urinary tract infections (UTIs), blood in your urine, or a stone in one or both of your ureters. A ureteroscopy can be done: ??? To find the cause of urine blockage in a ureter and to evaluate other abnormalities inside the ureters or kidneys. ??? To remove stones. ??? To remove or treat growths of tissue (polyps), abnormal tissue, and some types of tumors. ??? To remove a tissue sample and check it for disease under a microscope (biopsy). Tell a health care provider about: ??? Any allergies you have. ??? All medicines you are taking, including vitamins, herbs, eye drops, creams, and [id number] medicines. ??? Any problems you or family members have had with anesthetic medicines. ??? Any bleeding problems you have. ??? Any surgeries you have had. ??? Any medical conditions you have. ??? Whether you are or may be . What are the risks? Your health care provider will talk with you about risks. These ma (more content not included)... Normal [facility] Noteon 11-09-2024 Urology Office/Clinic Note Urology Office/Clinic Note Chief Complaint New Pt. Hospital consult HPI Staff 59 year old female new patient here from consult 11/04/24-[facility] [place]. CT [place] 11/04 showed 6 mm right UPJ stone with hydro. Pt was in patient, d/c 11/08/24. Dysuria: yes pain and burning once the stream stops Incomplete bladder emptying: denies Hematuria: denies visible blood, UA shows MODERATE Frequency: once every 2 hours Urgency: yes Nocturia: 3-4x Stream: pt states stream doesn't feel like a stream, it just runs out Leaking: yes Post void dripping: yes Wearing pads/ Depends: yes wears pantie liners daily, changes when needed Urge incontinence: yes Stress incontinence: yes Incontinence without Sensory Awareness: denies Abdominal pain: denies Flank pain: bilateral pain, pain in her vagina Sexual complaints: denies History of Present Illness Tests reviewed: reviewed UA, CT, UCx, ER records. I have reviewed the previous health record information and history for this patient from external provider and Dr. Mitchell. I have reviewed and verified the staff HPI to be accurate for this encounter. There have been no associated fever, chills, flank pain, or blood in the urine. Denies any urinary infections since last encounter. Review of Systems PHQ Score Initial Depression Screen Score: 0 SCORE ROS - Provider Constitutional: denies weight loss, denies hot flashes. Eyes: denies eye problems. Gastrointestinal: denies nausea, denies vomiting. Cardiovascular: denies chest pain or angina. Integumentary: no dryness Musculoskeletal: denies musculoskeletal symptoms. ENMT: denies otolaryngeal symptoms. Respiratory: no shortness of breath. Heme/Lymph: denies easy bleeding tendency, denies easy bruising tendency. Psychiatric: no confusion, no anxiety. Genitourinary: See HPI. Physical Exam Vitals & Measurements HR: 80(Peripheral) RR: 18 BP: 132/74 HT: 67 in HT: 170 cm WT: 154.6 kg WT: 340.834 lb BMI: 53.49 General Appearance: alert , no acute distress, well nourished, well developed female. Head: normocephalic . Eyes: normal orbit and globe. ENMT: normal examination of external ears. Psychiatric: cooperative, affect appropriate for age, normal judgement. Assessment/Plan 59 yo female new pt here to recent urology consult due to obstructing ureteral stone. Denies hx of PA or CVA. Not on anticoagulation. BBSQ 20 (has stent) Portions of this record may have been created with voice recognition artificial intelligence software, specifically [employer], [employer] and or [employer]. Substitutions may have occurred due to the inherent limitations of voice recognition and artificial intelligence software. 1. Ureteral stone with hydronephrosis (N13.2: Hydronephrosis with renal and ureteral calculous obstruction) Pt presented to [facility] ER 11/04/24 and transferred to [facility] [place] due to UTI w/ sepsis. CT AP wo con 11/04/24 [facility] - R UPJ 6 mm stone with mild right hydronephrosis. Creatinine 1.3 S/p cysto, R stent placement, R stone manip with catheter and RPG 11/04/[address] Neumann- stone in proximal right ureter and 22-32 cm/6 Fr variable length stent placed without issue. Cysto otherwise normal except cloudy urine. Pt reports I just don't feel good'. Will proceed with surgical mgmt to treat stone. Pt agrees with plan. -Schedule cysto, R stent removal, R RGP, R URS, R laser litho, R stent replacement (string). The procedural risks, benefits, details, and treatment alternatives have been discussed with the patient. These include bleeding, infection, inability to break or retrieve all of the stone, injury to the ureter (the tube which connects the kidney to the bladder), injury to the kidney scarring of the ureter, and need for repeat procedures, among others. Full informed consent has been obtained. Will order General anesthesia. 2. Urinary tract infection (N39.0: Urinary tract infection, site not specified) UCx 11/04/24 - >100k E Coli. R to Ampicillin, Gentamicin, Tetracycline, Sulfa. Tx'd w/ Levaquin, still taking. UA today shows moderate blood and trace leuks. -See #1 and 3 -Complete ATB course -Check UA prior to laser litho 3. Sepsis (A41.9: Sepsis, unspecified organism) See #1 and 2. Patient presented to outside facility with right obstructing ureteral stone and urosepsis. Cultures growing amaro susceptible E. coli. She is currently on Levaquin. She has a stent in place. Patient has signs currently being discharged from the hospital. We did discuss doing a right ureteroscopy, laser lithotripsy with stent before hand. Due to her a medical comorbidities she will need a presurgical testing before the procedure. We will also recheck her urine culture prior to the procedure. She will need a urine culture prior to the procedure. Will plan on giving her Diflucan prior to the procedure as well. Risk, benefits, alternatives of the procedure were discussed in excessive detail with diet. Reviewed CT scan as well. Yogesh (more content not included)... Normal [facility] Comment on above: Result Comment: Elec tronically Signed By: KOKO CANCHOLA, VENANCIO\.br\Date and Time Signed: 11/09/24 11:47 EST\.br\Electronically Co-Signed By: Obdulia Link\.br\Date and Time Co-Signed: 11/09/24 11:43 EST Band form neutrophils/100 WB C Manual cnt (Bld)Ordered By: Kan Hardy on 11-08-2024 Band form neutrophils/100 WBC (Bld) Peripheral white blood cell differential % bands, microscopic exam 0-5 [facility] Basic Metabolic Panelon 10-18 Anion gap [Moles/Vol] 10.0 mmol/L Normal 6.0-15.0 [facility] e [facility] Comment on above: Performed By: #### B MP, HS TROP #### [address] Calcium [Mass/Vol] 8.8 mg/dL Normal 8.6-10.3 [facility] Comment on above: Performed By: #### B MP, HS TROP #### [address] Chloride [Moles/Vol] 109 mmol/L High 98-107 [facility] Comment on above: Performed By: #### B MP, HS TROP #### [facility] [address] CO2 [Moles/Vol] 25.1 mmol/L Normal 21.0-31.0 [facility] Comment on above: Performed By: #### B MP, HS TROP #### [address] Creatinine [Mass/Vol] 0.82 mg/dL Normal 0.60-1.20 [facility] Comment on above: Performed By: #### B MP, HS TROP #### [facility] [address] [place] [address] [place] Creatinine Clr Calc Pharmacy 116.56 Normal [facility] Comment on above: Result Comment: PERF ORMED BY: [place] [address] PATHOLOGIST HAUNTED HISTORY TOUR GUIDE IBNTA DELCID M.D. Performed By: #### B MP, HS TROP #### [facility] [address] [place] [id number] [place] GFR/1.73 sq M.predicted MDRD (S/P/Bld) [Vol rate/Area] mL/min/{1.73_m2} Normal [facility] Comment on above: Performed By: #### B MP, HS TROP #### [facility] [address] [place] [id number] [place] Glucose [Mass/Vol] 121 mg/dL High 70-100 [facility] Comment on above: Result Comment: [place] Glucose Reference Range is dependent on time and content of last meal. Glucose of more than 200 mg/dL in a nonstressed, ambulatory subject supports the diagnosis of Diabetes Mellitus. ADA recommended reference range Performed By: #### B MP, HS TROP #### [facility] [address] [place] [address] [place] Potassium [Moles/Vol] 4.1 mmol/L Normal 3.5-5.1 [facility] Comment on above: Performed By: #### B MP, HS TROP #### [facility] [address] [place] [address] [place] Sodium [Moles/Vol] 140 mmol/L Normal 136-145 [facility] Comment on above: Performed By: #### B MP, HS TROP #### [facility] [address] [place] [id number] [place] Urea nitrogen [Mass/Vol] 17 mg/dL Normal 7-25 [facility] Comment on above: Performed By: #### B MP, HS TROP #### [facility] [address] [place] [id number] [place] Basophils Auto (Bld) [#/Vol] Ordered By: Kan Hardy on 11-08-2024 Basophils (Bld) [#/Vol] Automated basoph il count [facility] Basophils/100 WBC Auto (Bld) Ordered By: Kan Hardy on 11-08-2024 Basophils/100 WBC (Bld) Automated basoph il % [facility] Basophils/100 WBC Manual cnt (Bld)Ordered By: Kan Hardy on 11-08-2024 Basophils/100 WBC (Bld) Basophils/100 leukocytes in Blood by Manual count 0-2 [facility] Calcium [Mass/volume] in Ser um or PlasmaOrdered By: Kan Hardy on 11-08-2024 Calcium [Mass/Vol] Calcium [Mass/volume] in Serum or Plasma 8.6-10.3 [facility] Carbon dioxide, total [Moles /volume] in Serum or PlasmaOrdered By: Kan Hardy on 11-08-2024 CO2 [Moles/Vol] Carbon dioxide, total [Moles/volume] in Serum or Plasma 21.0-31.0 [facility] Chloride [Moles/volume] in S bridger or PlasmaOrdered By: Kan Hardy on 11-08-2024 Chloride [Moles/Vol] Chloride [Moles/volume] in Serum or Plasma High 98-107 [facility] Creatinine [Mass/volume] in Serum or PlasmaOrdered By: Kan Hardy on 11-08-2024 Creatinine [Mass/Vol] Creatinine [Mass/volume] in Serum or Plasma 0.60-1.20 [facility] Diff and CBCon 11-08-20[address] Additional Comments Normal The [facility] Comment on above: Result Comment: Slid e referred to pathologist for review PERFORMED BY: [place] [address] PATHOLOGIST HAUNTED HISTORY TOUR GUIDE BINTA DELCID M.D. Performed By: #### B MP, HS TROP #### [facility] [address] [place] [id number] [place] Band form neutrophils/100 WBC (Bld) 5 % Normal 0-5 [facility] Comment on above: Performed By: #### B MP, HS TROP #### [facility] [address] [place] [id number] [place] Basophils/100 WBC (Bld) 1 % Normal 0-2 [facility] Comment on above: Performed By: #### B MP, HS TROP #### [facility] [address] [place] [id number] [place] Eosinophils/100 WBC (Bld) 6 % High 1-3 [facility] Comment on above: Performed By: #### B MP, HS TROP #### [facility] [address] Erythrocyte distribution width (RBC) [Ratio] 13.7 % Normal 11.9-15.3 [facility] Comment on above: Performed By: #### B MP, HS TROP #### [facility] [address] Hematocrit (Bld) [Volume fraction] 35.8 % Normal 34.0-46.4 [facility] Comment on above: Performed By: #### B MP, HS TROP #### [facility] [address] Hemoglobin (Bld) [Mass/Vol] 11.9 g/dL Normal 11.8-15.4 [facility] Comment on above: Performed By: #### B MP, HS TROP #### [address] Lymphocytes/100 WBC (Bld) 14 % Low 18-42 [facility] Comment on above: Performed By: #### B MP, HS TROP #### [place] [address] [place] MCH (RBC) [Entitic mass] 31.1 pg Normal 24.7-34.3 [facility] Comment on above: Performed By: #### B MP, HS TROP #### [facility] [address] [place] [address] [place] MCV (RBC) [Entitic vol] 93.8 fL Normal 80-100 T [facility] Comment on above: Performed By: #### B MP, HS TROP #### [facility] [address] [place] [address] [place] Mean Corpuscular HGB Conc 33.2 g/dL Normal 32.0-35.0 [facility] Comment on above: Performed By: #### B MP, HS TROP #### [facility] [address] [place] [address] [place] Metamyelocytes 11 % High 0-0 [facility] Comment on above: Performed By: #### B MP, HS TROP #### [place] [address] [place] Monocytes/100 WBC (Bld) 5 % Normal 2-11 [facility] Comment on above: Performed By: #### B MP, HS TROP #### [address] Myelocytes 5 % High 0-0 [facility] Comment on above: Performed By: #### B MP, HS TROP #### [address] Platelet Estimate Normal Normal Normal [facility] Comment on above: Performed By: #### B MP, HS TROP #### [place] [address] [place] Platelet mean volume (Bld) [Entitic vol] 8.8 fL Normal 6.3-10.7 [facility] Comment on above: Performed By: #### B MP, HS TROP #### [address] Platelet Morphology Normal Normal Normal [facility] Comment on above: Result Comment: PERF ORMED BY: [place] [address] PATHOLOGIST HAUNTED HISTORY TOUR GUIDE BINTA DELCID M.D. Performed By: #### B MP, HS TROP #### [place] [address] [place] Platelets (Bld) [#/Vol] 191 10*3/uL Normal 150-450 [facility] Comment on above: Performed By: #### B MP, HS TROP #### [place] [address] [place] Promyelocytes 1 % High 0-0 [facility] Comment on above: Performed By: #### B MP, HS TROP #### [place] [address] [place] RBC (Bld) [#/Vol] 3.81 10*6/uL Normal 3.60-5.[address] [facility] Comment on above: Performed By: #### B MP, HS TROP #### [facility] [address] RBC morphology finding Nom (Bld) Normal Normal Normal [facility] Comment on above: Performed By: #### B MP, HS TROP #### [facility] [address] Reactive Lymphocytes 1 % Normal 0-12 [facility] Comment on above: Performed By: #### B MP, HS TROP #### [facility] [address] Segmented neutrophils/100 WBC (Bld) 51 % Normal 50-70 [facility] Comment on above: Performed By: #### B MP, HS TROP #### [facility] [address] WBC (Bld) [#/Vol] 14.6 10*3/uL High 3.8-11.[address] [facility] Comment on above: Performed By: #### B MP, HS TROP #### [address] Eosinophils Auto (Bld) [#/Vo l]Ordered By: Kan Hardy on 11-08-2024 Eosinophils (Bld) [#/Vol] Automated eosinophil count [facility] Eosinophils/100 WBC Auto (Bl d)Ordered By: Kan Hardy on 11-08-2024 Eosinophils/100 WBC (Bld) Automated eosinophil % [facility] Eosinophils/100 WBC Manual c nt (Bld)Ordered By: Kan Hardy on 11-08-2024 Eosinophils/100 WBC (Bld) Eosinophils/100 leukocytes in Blood by Manual count High 1-3 [facility] Erythrocyte distribution wid th Auto (RBC) [Ratio]Ordered By: Kan Hardy on 11-08-2024 Erythrocyte distribution width (RBC) [Ratio] Erythrocyte distribution width [Ratio] by Automated count 11.9-15.3 [facility] Erythrocyte morphology findi ng [Identifier] in BloodOrdered By: Kan Hardy on 11-08-2024 RBC morphology finding Nom (Bld) RBC morphology Normal [facility] Glucose Glucometer (BldC) [M ass/Vol]Ordered By: Glenn Rivera on 11-08-2024 Glucose [Mass/Vol] Capillary blood glucose measurement by glucometer (mass/volume) [facility] Comment on above: Random Glucose Refer ence Range is dependent on time and content of last meal. Glucose of more than 200 mg/dL in a nonstressed, ambulatory subject supports the diagnosis of Diabetes Mellitus. Glucose Poct Glucometerson 0 11-08-2024 Glucose [Mass/Vol] 128 mg/dL Normal [facility] Comment on above: Result Comment: [place] om Glucose Reference Range is dependent on time and content of last meal. Glucose of more than 200 mg/dL in a nonstressed, ambulatory subject supports the diagnosis of Diabetes Mellitus. PERFORMED BY: [place] [address] PATHOLOGIST HAUNTED HISTORY TOUR GUIDE BINTA DELCID M.D. Performed By: #### B KARENA, HS TROP #### [address] Glucose [Mass/Vol] 130 mg/dL Normal [facility] Comment on above: Result Comment: [place] om Glucose Reference Range is dependent on time and content of last meal. Glucose of more than 200 mg/dL in a nonstressed, ambulatory subject supports the diagnosis of Diabetes Mellitus. PERFORMED BY: [place] [address] PATHOLOGIST HAUNTED HISTORY TOUR GUIDE BINTA DELCID M.D. Performed By: #### B MP, HS TROP #### [address] Glucose [Mass/volume] in Ser um or PlasmaOrdered By: Kan Hardy on 11-08-2024 Glucose [Mass/Vol] Glucose [Mass/volume] in Serum or Plasma High 70-100 [facility] Comment on above: ADA recommended refe rence rangeRandom Glucose Reference Range is dependent on time and content of last meal. Glucose of more than 200 mg/dL in a nonstressed, ambulatory subject supports the diagnosis of Diabetes Mellitus. Hematocrit Auto (Bld) [Volum e fraction]Ordered By: Kan Hardy on 11-08-2024 Hematocrit (Bld) [Volume fraction] Hematocrit [Volume Fraction] of Blood by Automated count 34.0-46.4 [facility] Hemoglobin [Mass/volume] in BloodOrdered By: Kan Hardy on 11-08-2024 Hemoglobin (Bld) [Mass/Vol] Hemoglobin [Mass/volume] in Blood 11.8-15.4 [facility] Goran 11-08-2024 L Specimen: [id number] Received: 11/08/24 Status: EVELYN Yelena Num: [id number] Spec Type: Impression Subm Dr: Kan Hardy DO Tissues: PATHPER Procedures: PATHREVIEW Age/ Patient Sex Location Account Attending Physician Bobby Lujan 59/F 4N [id number] Glenn Rivera MD SPEC NUM: [id number] RECD: 11/08/24 STATUS: EVELYN SALEH NUM: [id number] ALESSANDRO: 11/08/24- SUBM DR: Kan Hardy, ENTERED: 11/08/[address] [facility]: SPEC TYPE: Impression DEPT: CT ENTERED BY: [id number] RECV BY: [id number] ORDERED: PATHREVIEW ORDERED: PATHREVIEW Pathologist Review Abnormal CBC for peripheral blood smear review: -Mild leukocytosis with mild neutrophilia, including few occasional precursor granulocytes and minor toxic change -No blast or obvious granulocytic dysplasia -Mild eosinophilia -Rare reactive lymphocytes -No obvious abnormality in the red blood cell or platelet populations, except borderline anemia with rare ovalocytes and at least 1 polychromatophil Comment: -The etiology of neutrophilia is usually due to tissue injury, systemic inflammation, or infection. The patient presented with UTI and S/S of sepsis. There is also decreasing neutrophilia after admission and appropriate medical management. Continuous CBC laboratory follow-ups are also suggested [facility] [id number] Specimen: Received: 11/08/24 Status: EVELYN Yelena Num: [id number] Spec Type: Impression Subm Dr: Kan Hardy DO Tissues: PATHPER Procedures: PATHREVIEW Patient: Bobby Lujan [id number] (Continued) Specimen: Received: 11/08/24 (Continued) Signed (signatur e on file) Kelvin Goins MD 11/08/24 1105 Specimen: Received: 11/08/24 Status: EVELYN Saleh Num: [id number] Spec Type: Impression Subm Dr: Kan Hardy DO Tissues: PATHPER Procedures: PATHREVIEW Patient: Bobby Lujan [id number] (Continued) Specimen: Received: 11/08/24 (Continued) CBC Date Time Test Result Flag (u) Normal Range 11/05/24 0517 [place] Slight Toxic Vac Slight 11/06/24 06 [place] Bodies Slight 11/07/24456 Polychrom Slight Poik Slight Oval Slight Crenated RBC Slight 11/08/24 0451 WBC 14.6 H 3.8-11.6 X10E3/uL RBC 3.81 3.60-5.00 x10E6/uL HGB 11.9 11.8-15.4 g/dL HCT 35.8 34.0-46.4 % MCV 93.8 80-100 fl MCH 31.1 24.7-34.3 pg MCHC 33.2 32.0-35.0 g/dL RDW 13.7 11.9-15.3 % Plt 191 150-450 x10E3/uL MPV 8.8 6.3-10.7 fl Seg 51 50-70 % Band 5 0-5 % Lymph 14 L 18-42 % Reactive Lymphs 1 0-12 % [place] 5 2-11 % Eos 6 H 1-3 % Baso 1 0-2 % [place] 11 H 0-0 % Myelo 5 H 0-0 % Promyelo 1 H 0-0 % RBC Morph Normal Normal Plt Est Normal Normal Plt Morphology Normal Normal Add Comments Slide referred to pathologist for review Specimen: Received: 11/08/24 Status: EVELYN Saleh Num: [id number] Spec Type: Impression Subm Dr: Kan Hardy, Tissues: PATHPER Procedures: PATHREVIEW Patient: Bobby Lujan Ranjan [id number] (Continued) Signed (signatur e on file) Chin-Oli Goins MD 11/08/24 1105 Normal [facility] Leukocytes [#/volume] correc kelly for nucleated erythrocytes in Blood by Automated counOrdered By: Kan Hardy on 11-08-2024 WBC corrected for nucl RBC Auto (Bld) [#/Vol] Leukocytes [#/volume] corrected for nucleated erythrocytes in Blood by Automated coun High 3.8-11.6 [facility] Lymphocytes Auto (Bld) [#/Vo l]Ordered By: Kan Hardy on 11-08-2024 Lymphocytes (Bld) [#/Vol] Lymphocytes [#/volume] in Blood by Automated count [facility] Lymphocytes/100 WBC Auto (Bl d)Ordered By: Kan Hardy on 11-08-2024 Lymphocytes/100 WBC (Bld) Lymphocytes/100 leukocytes in Blood by Automated count [facility] Lymphocytes/100 WBC Manual c nt (Bld)Ordered By: Kan Hardy on 11-08-2024 Lymphocytes/100 WBC (Bld) Lymphocytes/100 leukocytes in Blood by Manual count Low 18-42 [facility] MCH Auto (RBC) [Entitic mass ]Ordered By: Kan Hardy on 11-08-2024 MCH (RBC) [Entitic mass] MCH [Entitic mass] by Automated count 24.7-34.3 [facility] MCHC Auto (RBC) [Mass/Vol]Or dered By: Kan Hardy on 11-08-2024 MCHC (RBC) [Mass/Vol] MCHC [Mass/volume] by Automated count 32.0-35.0 [facility] MCV Auto (RBC) [Entitic vol] Ordered By: Kan Hardy on 11-08-2024 MCV (RBC) [Entitic vol] MCV [Entitic volume] by Automated count 80-100 [facility] Metamyelocytes/100 WBC Manua l cnt (Bld)Ordered By: aKn Hardy on 11-08-2024 Metamyelocytes/100 WBC (Bld) Metamyelocytes/100 leukocytes in Blood by Manual count High 0-0 [facility] Monocytes Auto (Bld) [#/Vol] Ordered By: Kan Hardy on 11-08-2024 Monocytes (Bld) [#/Vol] Automated blood monocyte count [facility] Monocytes/100 WBC Auto (Bld) Ordered By: Kan Hardy on 11-08-2024 Monocytes/100 WBC (Bld) Automated monocy te % [facility] Monocytes/100 WBC Manual cnt (Bld)Ordered By: Kan Hardy on 11-08-2024 Monocytes/100 WBC (Bld) Monocytes/100 leukocytes in Blood by Manual count 2-11 [facility] Myelocytes/100 WBC Manual cn t (Bld)Ordered By: Kan Hardy on 11-08-2024 Myelocytes/100 WBC (Bld) Myelocytes/100 leukocytes in Blood by Manual count High 0-0 [facility] Neutrophils Auto (Bld) [#/Vo l]Ordered By: Kan Hardy on 11-08-2024 Neutrophils (Bld) [#/Vol] Neutrophils [#/volume] in Blood by Automated count [facility] Neutrophils/100 WBC Auto (Bl d)Ordered By: Kan Hardy on 11-08-2024 Neutrophils/100 WBC (Bld) Automated neutrophil % [facility] No Panel InformationOrdered By: Kan Hardy on 11-08-2024 CBC Comment See comment [facility] Comment on above: Slide referred to haylee thologist for review Estimated GFR (CKD-EPI) > 60.0 mL/Min [facility] Creatinine Clearance (Chem 116.56 [facility] Slides for Pathologist Review Ordered path review [facility] Nucleated erythrocytes [Pres ence] in Blood by Automated countOrdered By: Kan Hardy on 11-08-2024 Nucleated RBC Auto Ql (Bld) Nucleated erythrocytes [Presence] in Blood by Automated count [facility] Pathologist Slide Reviewon 0 11-08-2024 Pathologist Slide Review Ordered Path Review Normal [facility] Comment on above: Result Comment: PERF ORMED BY: [place] [address] PATHOLOGIST HAUNTED HISTORY TOUR GUIDE BINTA DELCID M.D. Performed By: #### B MP, HS TROP #### [address] Pathology study report docum entOrdered By: Kelvin Goins on 11-08-2024 Pathology study [facility] Other Platelet adequacy [Presence] in Blood by Light microscopyOrdered By: Kan Hardy on 11-08-2024 Platelets LM Ql (Bld) Platelet adequacy [Presence] in Blood by Light microscopy Normal [facility] Platelet mean volume Auto (B ld) [Entitic vol]Ordered By: Kan Hardy on 11-08-2024 Platelet mean volume (Bld) [Entitic vol] Platelet mean volume [Entitic volume] in Blood by Automated count 6.3-10.7 [facility] Platelet morphology finding [Identifier] in BloodOrdered By: Kan Hardy on 11-08-2024 Platelet morphology finding Nom (Bld) Platelet morphology finding [Identifier] in Blood Normal [facility] Platelets Auto (Bld) [#/Vol] Ordered By: Kan Hardy on 11-08-2024 Platelets (Bld) [#/Vol] Platelets [#/volume] in Blood by Automated count 150-450 [facility] Potassium [Moles/volume] in Serum or PlasmaOrdered By: Kan Hardy on 11-08-2024 Potassium [Moles/Vol] Potassium [Moles/volume] in Serum or Plasma 3.5-5.1 [facility] Promyelocytes/100 WBC Manual cnt (Bld)Ordered By: Kan Hardy on 11-08-2024 Promyelocytes/100 WBC (Bld) Promyelocytes/100 leukocytes in Blood by Manual count High 0-0 [facility] RBC Auto (Bld) [#/Vol]Ordere d By: Kan Hardy on 11-08-2024 RBC (Bld) [#/Vol] Erythrocytes [#/volume] in Blood by Automated count 3.60-5.00 [facility] Segmented neutrophils/100 WB C Manual cnt (Bld)Ordered By: Kan Hardy on 11-08-2024 Segmented neutrophils/100 WBC (Bld) Manual blood segmented neutrophils/100 leukocytes 50-70 [facility] Serum or plasma anion gap de terminationOrdered By: Kan Hardy on 11-08-2024 Anion gap [Moles/Vol] Serum or plasma anion gap determination 6.0-15.0 [facility] Sodium [Moles/volume] in Ser um or PlasmaOrdered By: Kan Hardy on 11-08-2024 Sodium [Moles/Vol] Sodium [Moles/volume] in Serum or Plasma 136-145 [facility] Urea nitrogen [Mass/volume] in Serum or PlasmaOrdered By: Kan Hardy on 11-08-2024 Urea nitrogen [Mass/Vol] Urea nitrogen [Mass/volume] in Serum or Plasma 7-25 [facility] Variant lymphocytes/100 WBC Manual cnt (Bld)Ordered By: Kan Hardy on 11-08-2024 Variant lymphocytes/100 WBC (Bld) Variant lymphocytes/100 leukocytes in Blood by Manual count 0-12 [facility] WBC Auto (Bld) [#/Vol]Ordere d By: Kan Hardy on 11-08-2024 WBC (Bld) [#/Vol] Leukocytes [#/volume] in Blood by Automated count High 3.8-11.6 [facility] Basic Metabolic Panelon 10-18 Anion gap [Moles/Vol] 12.1 mmol/L Normal 6.0-15.0 [facility] e [facility] Comment on above: Performed By: #### B MP, HS TROP #### [facility] [address] [place] [address] [place] Calcium [Mass/Vol] 8.5 mg/dL Low 8.6-10.3 [facility] Comment on above: Performed By: #### B MP, HS TROP #### [facility] [address] [place] [id number] [place] Chloride [Moles/Vol] 108 mmol/L High 98-107 [facility] Comment on above: Performed By: #### B MP, HS TROP #### [facility] [address] [place] [address] [place] CO2 [Moles/Vol] 23.9 mmol/L Normal 21.0-31.0 [facility] Comment on above: Performed By: #### B MP, HS TROP #### [facility] [address] [place] [address] [place] Creatinine [Mass/Vol] 0.86 mg/dL Normal 0.60-1.20 [facility] Comment on above: Performed By: #### B MP, HS TROP #### [facility] [address] [place] [address] [place] Creatinine Clr Calc Pharmacy 110.01 Normal [facility] Comment on above: Result Comment: PERF ORMED BY: [place] [address] PATHOLOGIST HAUNTED HISTORY TOUR GUIDE BINTA DELCID M.D. Performed By: #### B MP, HS TROP #### [facility] [address] [place] [address] [place] GFR/1.73 sq M.predicted MDRD (S/P/Bld) [Vol rate/Area] mL/min/{1.73_m2} Normal [facility] Comment on above: Performed By: #### B MP, HS TROP #### [facility] [address] [place] [id number] [place] Glucose [Mass/Vol] 117 mg/dL High 70-100 [facility] Comment on above: Result Comment: [place] Glucose Reference Range is dependent on time and content of last meal. Glucose of more than 200 mg/dL in a nonstressed, ambulatory subject supports the diagnosis of Diabetes Mellitus. ADA recommended reference range Performed By: #### B MP, HS TROP #### [facility] [address] [place] [address] [place] Potassium [Moles/Vol] 4.0 mmol/L Normal 3.5-5.1 [facility] Comment on above: Performed By: #### B MP, HS TROP #### [facility] [address] [place] [address] [place] Sodium [Moles/Vol] 140 mmol/L Normal 136-145 [facility] Comment on above: Performed By: #### B MP, HS TROP #### [facility] [address] [place] [address] [place] Urea nitrogen [Mass/Vol] 17 mg/dL Normal 7-25 [facility] Comment on above: Performed By: #### B MP, HS TROP #### [facility] [address] [place] [address] [place] Inman cells [Presence] in Blo od by Light microscopyOrdered By: Kan Hardy on 11-07-2024 Inman cells LM Ql (Bld) Jg cells [Presence] in Blood by Light microscopy [facility] Diff and CBCon 11-07-2024 Band form neutrophils/100 WBC (Bld) 2 % Normal 0-5 [facility] Comment on above: Performed By: #### B MP, HS TROP #### [facility] [address] [place] [id number] [place] Basophils/100 WBC (Bld) 0 % Normal 0-2 [facility] Comment on above: Performed By: #### B MP, HS TROP #### [facility] [address] [place] [id number] [place] Crenated RBC Slight Normal [facility] Comment on above: Performed By: #### B MP, HS TROP #### [facility] [address] [place] [address] Eosinophils/100 WBC (Bld) 3 % Normal 1-3 [facility] Comment on above: Performed By: #### B MP, HS TROP #### [address] Erythrocyte distribution width (RBC) [Ratio] 13.7 % Normal 11.9-15.3 [facility] Comment on above: Performed By: #### B MP, HS TROP #### [address] Hematocrit (Bld) [Volume fraction] 33.6 % Low 34.0-46.4 [facility] Comment on above: Performed By: #### B MP, HS TROP #### [address] Hemoglobin (Bld) [Mass/Vol] 11.2 g/dL Low 11.8-15.4 [facility] Comment on above: Performed By: #### B MP, HS TROP #### [address] Lymphocytes/100 WBC (Bld) 18 % Normal 18-42 [facility] Comment on above: Performed By: #### B MP, HS TROP #### [address] MCH (RBC) [Entitic mass] 31.4 pg Normal 24.7-34.3 [facility] Comment on above: Performed By: #### B MP, HS TROP #### [address] MCV (RBC) [Entitic vol] 94.6 fL Normal 80-100 T [facility] Comment on above: Performed By: #### B MP, HS TROP #### [address] Mean Corpuscular HGB Conc 33.2 g/dL Normal 32.0-35.0 [facility] Comment on above: Performed By: #### B MP, HS TROP #### [place] [address] [place] Metamyelocytes 2 % High 0-0 [facility] Comment on above: Performed By: #### B MP, HS TROP #### [place] [address] [place] Monocytes/100 WBC (Bld) 9 % Normal 2-11 T [facility] Comment on above: Performed By: #### B MP, HS TROP #### [address] Ovalocytes Slight Normal [facility] Comment on above: Performed By: #### B MP, HS TROP #### [address] Platelet Estimate Normal Normal Normal [facility] Comment on above: Performed By: #### B MP, HS TROP #### [address] Platelet mean volume (Bld) [Entitic vol] 9.3 fL Normal 6.3-10.7 The [facility] Comment on above: Performed By: #### B MP, HS TROP #### [address] Platelet Morphology Normal Normal Normal The [facility] Comment on above: Result Comment: PERF ORMED BY: [place] [address] PATHOLOGIST HAUNTED HISTORY TOUR GUIDE BINTA DELCID M.D. Performed By: #### B MP, HS TROP #### [place] [address] [place] Platelets (Bld) [#/Vol] 177 10*3/uL Normal 150-450 [facility] Comment on above: Performed By: #### B MP, HS TROP #### [place] [address] [place] Poikilocytosis Slight Normal [facility] Comment on above: Performed By: #### B MP, HS TROP #### [place] [address] [place] Polychromasia Slight Normal [facility] Comment on above: Performed By: #### B MP, HS TROP #### [facility] [address] [place] [id number] [place] RBC (Bld) [#/Vol] 3.55 10*6/uL Low 3.60-5.[address] [facility] Comment on above: Performed By: #### B MP, HS TROP #### [facility] [address] [place] [id number] [place] Segmented neutrophils/100 WBC (Bld) 66 % Normal 50-70 [facility] Comment on above: Performed By: #### B MP, HS TROP #### [facility] [address] [place] [address] [facility] WBC (Bld) [#/Vol] 16.7 10*3/uL High 3.8-11.[address] [facility] Comment on above: Performed By: #### B MP, HS TROP #### [facility] [address] Glucose Poct Glucometerson 0 11-07-2024 Glucose [Mass/Vol] 116 mg/dL Normal [facility] Comment on above: Result Comment: [place] Glucose Reference Range is dependent on time and content of last meal. Glucose of more than 200 mg/dL in a nonstressed, ambulatory subject supports the diagnosis of Diabetes Mellitus. PERFORMED BY: [place] [address] PATHOLOGIST HAUNTED HISTORY TOUR GUIDE BINTA DELCID M.D. Performed By: #### G LULS #### Point of Care testing , Ovalocytes [Presence] in Blo od by Light microscopyOrdered By: Kan Hardy on 11-07-2024 Ovalocytes LM Ql (Bld) Ovalocyte detection [facility] Poikilocytosis [Presence] in Blood by Light microscopyOrdered By: Kan Hardy on 11-07-2024 Poikilocytosis LM Ql (Bld) Poikilocytosis [Presence] in Blood by Light microscopy [facility] Polychromasia [Presence] in Blood by Light microscopyOrdered By: Kan Hardy on 11-07-2024 Polychromasia LM Ql (Bld) Polychromasia [Presence] in Blood by Light microscopy [facility] Basic Metabolic Panelon 10-18 Anion gap [Moles/Vol] 9.8 mmol/L Normal 6.0-15.0 [facility] Comment on above: Performed By: #### B MP, HS TROP #### [facility] [address] [place] [address] [place] Calcium [Mass/Vol] 8.9 mg/dL Normal 8.6-10.3 [facility] Comment on above: Performed By: #### B MP, HS TROP #### [facility] [address] [place] [address] [place] Chloride [Moles/Vol] 109 mmol/L High 98-107 [facility] Comment on above: Performed By: #### B MP, HS TROP #### [place] [address] [place] CO2 [Moles/Vol] 23.0 mmol/L Normal 21.0-31.0 [facility] Comment on above: Performed By: #### B MP, HS TROP #### [place] [address] [place] Creatinine [Mass/Vol] 0.84 mg/dL Normal 0.60-1.20 [facility] Comment on above: Performed By: #### B MP, HS TROP #### [place] [address] [place] Creatinine Clr Calc Pharmacy 112.63 Normal [facility] Comment on above: Result Comment: PERF ORMED BY: [place] [address] PATHOLOGIST HAUNTED HISTORY TOUR GUIDE BINTA DELCID M.D. Performed By: #### B MP, HS TROP #### [place] [address] [place] GFR/1.73 sq M.predicted MDRD (S/P/Bld) [Vol rate/Area] mL/min/{1.73_m2} Normal [facility] Comment on above: Performed By: #### B MP, HS TROP #### [address] [place] [address] [place] Glucose [Mass/Vol] 114 mg/dL High 70-100 [facility] Comment on above: Result Comment: [place] Glucose Reference Range is dependent on time and content of last meal. Glucose of more than 200 mg/dL in a nonstressed, ambulatory subject supports the diagnosis of Diabetes Mellitus. ADA recommended reference range Performed By: #### B MP, HS TROP #### [address] Potassium [Moles/Vol] 3.8 mmol/L Normal 3.5-5.1 [facility] Comment on above: Performed By: #### B MP, HS TROP #### [address] Sodium [Moles/Vol] 138 mmol/L Normal 136-145 [facility] Comment on above: Performed By: #### B MP, HS TROP #### [address] Urea nitrogen [Mass/Vol] 21 mg/dL Normal 7-25 [facility] Comment on above: Performed By: #### B MP, HS TROP #### [address] Complete Blood Count Auto Di ffon 11-06-2024 Erythrocyte distribution width (RBC) [Ratio] 14.0 % Normal 11.9-15.3 [facility] Comment on above: Performed By: #### B MP, HS TROP #### [place] [address] [place] Hematocrit (Bld) [Volume fraction] 32.3 % Low 34.0-46.4 [facility] Comment on above: Performed By: #### B MP, HS TROP #### [place] [address] [place] Hemoglobin (Bld) [Mass/Vol] 10.8 g/dL Low 11.8-15.4 [facility] Comment on above: Performed By: #### B MP, HS TROP #### [place] [id number] [place] MCH (RBC) [Entitic mass] 31.5 pg Normal 24.7-34.3 [facility] Comment on above: Performed By: #### B MP, HS TROP #### [address] MCV (RBC) [Entitic vol] 94.0 fL Normal 80-100 T [facility] Comment on above: Performed By: #### B MP, HS TROP #### [address] Mean Corpuscular HGB Conc 33.5 g/dL Normal 32.0-35.0 [facility] Comment on above: Performed By: #### B MP, HS TROP #### [address] Platelet mean volume (Bld) [Entitic vol] 9.4 fL Normal 6.3-10.7 [facility] Comment on above: Result Comment: PERF ORMED BY: [place] [address] PATHOLOGIST HAUNTED HISTORY TOUR GUIDE BINTA DELCID M.D. Performed By: #### B MP, HS TROP #### [address] Platelets (Bld) [#/Vol] 149 10*3/uL Low 150-450 [facility] Comment on above: Performed By: #### B MP, HS TROP #### [address] RBC (Bld) [#/Vol] 3.44 10*6/uL Low 3.60-5.[address] [facility] Comment on above: Performed By: #### B MP, HS TROP #### [place] [address] [place] WBC (Bld) [#/Vol] 21.1 10*3/uL High 3.8-11.[address] [facility] Comment on above: Performed By: #### B MP, HS TROP #### [place] [address] [place] Diff and CBCon 01-21-2025 Band form neutrophils/100 WBC (Bld) 8 % High 0-5 [facility] Comment on above: Performed By: #### B MP, HS TROP #### [place] [address] [place] Dohle Bodies Slight Normal [facility] Comment on above: Performed By: #### B MP, HS TROP #### [place] [address] [place] Eosinophils/100 WBC (Bld) 2 % Normal 1-3 [facility] Comment on above: Performed By: #### B MP, HS TROP #### [place] [address] [place] Lymphocytes/100 WBC (Bld) 15 % Low 18-42 [facility] Comment on above: Performed By: #### B MP, HS TROP #### [place] [address] [place] Monocytes/100 WBC (Bld) 1 % Low 2-11 [facility] Comment on above: Performed By: #### B MP, HS TROP #### [place] [address] [place] Platelet Estimate Decreased Normal Normal [facility] Comment on above: Performed By: #### B MP, HS TROP #### [address] Platelet Morphology Normal Normal Normal The [facility] Comment on above: Result Comment: PERF ORMED BY: [place] [address] PATHOLOGIST HAUNTED HISTORY TOUR GUIDE BINTA DELCID M.D. Performed By: #### B MP, HS TROP #### [place] [address] [place] RBC morphology finding Nom (Bld) Normal Normal Normal [facility] Comment on above: Performed By: #### B MP, HS TROP #### [place] [address] [place] Segmented neutrophils/100 WBC (Bld) 75 % High 50-70 [facility] Comment on above: Performed By: #### B MP, HS TROP #### [facility] [address] [place] [address] [place] Dohle body [Presence] in Blo od by Light microscopyOrdered By: Kan Hardy on 11-06-2024 Dohle body LM Ql (Bld) Dohle bodies detection [facility] A1C with Estimated Average G luon 11-05-2024 Glucose [Mass/Vol] 140 mg/dL Normal [facility] Comment on above: Result Comment: PERF ORMED BY: [address] [place] [address] PATHOLOGIST HAUNTED HISTORY TOUR GUIDE BINTA DELCID M.D. Performed By: #### H S TROP, A1C WTH eA #### [address] HbA1c (Bld) [Mass fraction] 6.5 % High 4.3-5.6 [facility] Comment on above: Result Comment: Incr eased risk for diabetes: 5.7 - 6.4 diabetes: >6.4 glycemic control for adults with diabetes: <7.0 Performed By: #### H S TROP, A1C WTH eA #### [facility] [address] [place] [address] [place] Anisocytosis LM Ql (Bld)Orde red By: Kan Hardy on 11-05-2024 Anisocytosis Ql (Bld) Anisocytosis [Presence] in Blood by Light microscopy [facility] Basic Metabolic Panelon 10-18 Anion gap [Moles/Vol] Not performed Normal 6.0-15.0 [facility] Comment on above: Performed By: #### B MP, DIFF CBC #### [facility] [address] [place] [address] [place] Calcium [Mass/Vol] 8.5 mg/dL Low 8.6-10.3 [facility] Comment on above: Performed By: #### B MP, DIFF CBC #### [facility] [address] [place] [address] [place] Chloride [Moles/Vol] 108 mmol/L High 98-107 [facility] Comment on above: Performed By: #### B MP, DIFF CBC #### [facility] [address] [place] [address] [place] CO2 [Moles/Vol] 21.9 mmol/L Normal 21.0-31.0 [facility] Comment on above: Performed By: #### B MP, DIFF CBC #### [facility] [address] [place] [address] [place] Creatinine [Mass/Vol] 0.99 mg/dL Normal 0.60-1.20 [facility] Comment on above: Performed By: #### B MP, DIFF CBC #### [facility] [address] [place] [address] [place] Creatinine Clr Calc Pharmacy 95.86 Normal [facility] Comment on above: Result Comment: PERF ORMED BY: [place] [address] PATHOLOGIST HAUNTED HISTORY TOUR GUIDE BINTA DELCID M.D. Performed By: #### B MP, DIFF CBC #### [facility] [address] [place] [address] [place] GFR/1.73 sq M.predicted MDRD (S/P/Bld) [Vol rate/Area] mL/min/{1.73_m2} Normal [facility] Comment on above: Performed By: #### B MP, DIFF CBC #### [facility] [address] [place] [address] [place] Glucose [Mass/Vol] 105 mg/dL High 70-100 [facility] Comment on above: Result Comment: [place] Glucose Reference Range is dependent on time and content of last meal. Glucose of more than 200 mg/dL in a nonstressed, ambulatory subject supports the diagnosis of Diabetes Mellitus. ADA recommended reference range Performed By: #### B MP, DIFF CBC #### [facility] [address] [place] [id number] [place] Potassium Normal 3.5-5.1 [facility] Comment on above: Result Comment: Spec imen hemolyzed, redraw requested Performed By: #### B MP, DIFF CBC #### [facility] [address] Sodium [Moles/Vol] 137 mmol/L Normal 136-145 [facility] Comment on above: Performed By: #### B MP, DIFF CBC #### [address] Urea nitrogen [Mass/Vol] 20 mg/dL Normal 7-25 [facility] Comment on above: Performed By: #### B MP, DIFF CBC #### [address] Blood estimated average gluc ose determination by estimation from glycated hemoglobinOrdered By: Kan Hardy on 11-05-2024 Average glucose Estimated from glycated hemoglobin (Bld) [Mass/Vol] Glucose mean value [Mass/volume] in Blood Estimated from glycated hemoglobin [facility] Diff and CBCon 11-05-2024 Anisocytosis Ql (Bld) Slight Normal [facility] Comment on above: Performed By: #### B MP, DIFF CBC #### [address] Band form neutrophils/100 WBC (Bld) 13 % High 0-5 [facility] Comment on above: Performed By: #### B MP, DIFF CBC #### [address] Crenated RBC Slight Normal [facility] Comment on above: Performed By: #### B MP, DIFF CBC #### [address] Dohle Bodies Slight Normal [facility] Comment on above: Performed By: #### B MP, DIFF CBC #### [address] Erythrocyte distribution width (RBC) [Ratio] 14.0 % Normal 11.9-15.3 [facility] Comment on above: Performed By: #### B MP, DIFF CBC #### [address] Hematocrit (Bld) [Volume fraction] 33.6 % Low 34.0-46.4 [facility] Comment on above: Performed By: #### B MP, DIFF CBC #### [address] Hemoglobin (Bld) [Mass/Vol] 11.4 g/dL Low 11.8-15.4 [facility] Comment on above: Performed By: #### B MP, DIFF CBC #### [place] [address] [place] Lymphocytes/100 WBC (Bld) 8 % Low 18-42 [facility] Comment on above: Performed By: #### B MP, DIFF CBC #### [address] MCH (RBC) [Entitic mass] 32.4 pg Normal 24.7-34.3 [facility] Comment on above: Performed By: #### B MP, DIFF CBC #### [address] MCV (RBC) [Entitic vol] 95.8 fL Normal 80-100 [facility] Comment on above: Performed By: #### B MP, DIFF CBC #### [address] Mean Corpuscular HGB Conc 33.8 g/dL Normal 32.0-35.0 [facility] Comment on above: Performed By: #### B MP, DIFF CBC #### [address] Metamyelocytes 4 % High 0-0 [facility] Comment on above: Performed By: #### B MP, DIFF CBC #### [place] [address] [place] Monocytes/100 WBC (Bld) 3 % Normal 2-11 [facility] Comment on above: Performed By: #### B MP, DIFF CBC #### [address] Platelet Estimate Decreased Normal Normal [facility] Comment on above: Performed By: #### B MP, DIFF CBC #### [address] Platelet mean volume (Bld) [Entitic vol] 9.3 fL Normal 6.3-10.7 [facility] Comment on above: Result Comment: PERF ORMED BY: [place] [address] PATHOLOGIST HAUNTED HISTORY TOUR GUIDE BINTA DELCID M.D. Performed By: #### B MP, DIFF CBC #### [address] Platelet Morphology Normal Normal Normal [facility] Comment on above: Result Comment: PERF ORMED BY: [place] [address] PATHOLOGIST HAUNTED HISTORY TOUR GUIDE BINTA DELCID M.D. Performed By: #### B MP, DIFF CBC #### [address] Platelets (Bld) [#/Vol] 148 10*3/uL Low 150-450 [facility] Comment on above: Performed By: #### B MP, DIFF CBC #### [address] Poikilocytosis Slight Normal [facility] Comment on above: Performed By: #### B MP, DIFF CBC #### [address] RBC (Bld) [#/Vol] 3.51 10*6/uL Low 3.60-5.[address] [facility] Comment on above: Performed By: #### B MP, DIFF CBC #### [place] [address] [place] Segmented neutrophils/100 WBC (Bld) 72 % High 50-70 [facility] Comment on above: Performed By: #### B MP, DIFF CBC #### [address] Toxic Vacuolation Slight Normal [facility] Comment on above: Performed By: #### B MP, DIFF CBC #### [place] [address] [place] WBC (Bld) [#/Vol] 24.9 10*3/uL High 3.8-11.6 [facility] Comment on above: Performed By: #### B MP, DIFF CBC #### [facility] [address] [place] [address] Hemoglobin A1c/Hemoglobin.to nayeli in BloodOrdered By: Kan Hardy on 11-05-2024 HbA1c (Bld) [Mass fraction] Hemoglobin A1c percentage High 4.3-5.6 [facility] Comment on above: Increased risk for d iabetes: 5.7 - 6.4diabetes: >6.4glycemic control for adults with diabetes: <7.0 Redraw Potassiumon Potassium [Moles/Vol] 4.0 mmol/L Normal 3.5-5.1 [facility] Comment on above: Order Comment: PREVI OUS SPECIMEN HEMOLYZED Result Comment: PERF ORMED BY: [place] [address] PATHOLOGIST HAUNTED HISTORY TOUR GUIDE BINTA DELCID M.D. Performed By: #### R EDRAW K #### [facility] [address] [place] [address] Toxic leukocyte vacuolation detectionOrdered By: Kan Hardy on 11-05-2024 Leukocyte toxic vacuoles LM Ql (Bld) Toxic leukocyte vacuolation detection [facility] Troponin I High Sensitivityo n 11-05-2024 Troponin I High Sensitivity 307 Off scale high 0-15 [facility] Comment on above: Result Comment: Crit ical Result : Called to and read back by: SANDI IBRAHIM at: 11/05/2024 06:54:32 by:LONNIE The Troponin units of report have been changed to meet the Chest Pain Accreditation requirement, element EC5.M1l2. Troponin units are changed from pg/ml to ng/L. Also, the decimal is removed and results are in whole numbers. PERFORMED BY: [place] [address] PATHOLOGIST HAUNTED HISTORY TOUR GUIDE BINTA DELCID M.D. Performed By: #### H S TROP, A1C WTH eA #### [facility] [address] [id number] [place] Troponin I.cardiac [Mass/vol ume] in Serum or Plasma by Detection limit <= 0.01 ng/Ordered By: Kan Hardy on 11-05-2024 Troponin I.cardiac DL <= 0.01 ng/mL [Mass/Vol] Troponin I.cardiac [Mass/volume] in Serum or Plasma by Detection limit <= 0.01 ng/ Critically high 0-15 [facility] Comment on above: Critical Result : Ca lled to and read back by: SANDI IBRAHIM at: 11/05/2024 06:54:32 by:LONNIEThe Troponin units of report have been changed to meet the Chest Pain Accreditation requirement, element EC5.M1l2. Troponin units are changed from pg/ml to ng/L. Also, the decimal is removed and results are in whole numbers. Basic Metabolic Panelon 10-17 Anion gap [Moles/Vol] 13.4 mmol/L Normal 6.0-15.0 [facility] Comment on above: Performed By: #### B MP, HS TROP #### [facility] [address] [id number] [place] Calcium [Mass/Vol] 8.0 mg/dL Low 8.6-10.3 [facility] Comment on above: Performed By: #### B MP, HS TROP #### [facility] [address] [id number] [place] Chloride [Moles/Vol] 111 mmol/L High 98-107 [facility] Comment on above: Performed By: #### B MP, HS TROP #### [facility] [address] [place] [address] [place] CO2 [Moles/Vol] 17.7 mmol/L Low 21.0-31.0 [facility] Comment on above: Performed By: #### B MP, HS TROP #### [facility] [address] [id number] [place] Creatinine [Mass/Vol] 1.12 mg/dL Normal 0.60-1.20 [facility] Comment on above: Performed By: #### B MP, HS TROP #### [facility] [address] [place] [address] [place] Creatinine Clr Calc Pharmacy 84.24 Normal [facility] Comment on above: Result Comment: PERF ORMED BY: [place] [address] PATHOLOGIST HAUNTED HISTORY TOUR GUIDE BINTA DELCID M.D. Performed By: #### B MP, HS TROP #### [facility] [address] [place] [address] [place] Estimated GFR 55.946 mL/Min Normal [facility] Comment on above: Performed By: #### B MP, HS TROP #### [facility] [address] [place] [address] [place] Glucose [Mass/Vol] 182 mg/dL High 70-100 [facility] Comment on above: Result Comment: [place] Glucose Reference Range is dependent on time and content of last meal. Glucose of more than 200 mg/dL in a nonstressed, ambulatory subject supports the diagnosis of Diabetes Mellitus. ADA recommended reference range Performed By: #### B MP, HS TROP #### [address] Potassium [Moles/Vol] 4.1 mmol/L Normal 3.5-5.1 [facility] Comment on above: Performed By: #### B MP, HS TROP #### [place] [address] [place] Sodium [Moles/Vol] 138 mmol/L Normal 136-145 [facility] Comment on above: Performed By: #### B MP, HS TROP #### [facility] [address] [place] [address] [place] Urea nitrogen [Mass/Vol] 23 mg/dL Normal 7-25 [facility] Comment on above: Performed By: #### B MP, HS TROP #### [facility] [address] [place], [place] [id number] [place] urethrocystogram retroon 11-04-2024 [place] urethrocystogram retro [facility] [address] [place] [address] Fluoroscopy Report Signed with Addenda Patient: Bobby Lujan MR#: [id number] : 1965 Acct:[id number] Age/Sex: 59 / F ADM Date: 11/04/24 Loc: Room: [address] [place] [address] Type: ADM IN Attending Dr: Kan Hardy DO Copies to: MD Kan Mercer DO Ordering Provider: George Neumann MD Date of Service: 11/04/24 FL/FL urethrocystogram retro: RT HYDRONEPHROSIS ADDENDUM 1 Comparison is made to CT abdomen pelvis from outside facility dated 11/04/2024. Impression dictated by: Fran Kapadia M.D.11/04/2024 5:25 PM Dictation Location: RADIO-PC-29 Addendum Dictated By: Fran Kapadia MD Addendum Signed By: 11/04/241724 Addendum Cosigned By: DD/ TD/TT: 11/04/24 Fluoroscopic urethral cystogram INDICATION: Ureteral stone with hydronephrosis COMPARISON: No recent pertinent studies available Technique: 5 fluoroscopic images were obtained. 1.18 mGy of cumulative air Kerma FINDINGS: Intraoperative images images demonstrate a right sided density suspicious for calculus. Sagittal images Demonstrating a wire passed into the ureter and into the right renal collecting system. Contrast injection. A stent was reportedly placed.. No images of the bladder obtained due to patient positioning. FL/FL urethrocystogram retro IMPRESSION: Intraoperative fluoroscopy during urological procedure. Impression dictated by: Fran Kapadia M.D.11/04/2024 5:02 PM Dictation Location: RADIO-PC-29 Transcribed By: MAYI 11/04/241701 Dictated By: Fran Kapadia MD 11/04/241657 Signed By: 11/04/241701 Normal [facility] Fluoroscopy reportOrdered By : Fran Kapadia on 11-04-2024 RF Unspecified body region Views [facility] [place] [address] Fluoroscopy Report Signed with Addenda Patient: Bobby Lujan MR#: [id number] : 1965 Acct:[id number] Age/Sex: 59 / F ADM Date: 5 Loc: Room: [address] [place] [address] Type: ADM IN Attending Dr: Kan Hardy DO Copies to: MD Kan Mercer, ~ Ordering Provider: George Neumann MD Date of Service: 11/04/24 FL/FL urethrocystogram retro: RT HYDRONEPHROSIS ADDENDUM 1 Comparison is made to CT abdomen pelvis from outside facility dated 11/04/2024. Impression dictated by: Fran Kapadia M.D.11/04/2024 5:25 PM Dictation Location: RADIO-PC-29 Addendum Dictated By: Fran Kapadia MD Addendum Signed By: 11/04/241724 Addendum Cosigned By: DD/ TD/TT: 11/04/24 Fluoroscopic urethral cystogram INDICATION: Ureteral stone with hydronephrosis COMPARISON: No recent pertinent studies available Technique: 5 fluoroscopic images were obtained. 1.18 mGy of cumulative air Kerma FINDINGS: Intraoperative images images demonstrate a right sided density suspicious for calculus. Sagittal images Demonstrating a wire passed into the ureter and into the right renal collecting system. Contrast injection. A stent was reportedly placed.. No images of the bladder obtained due to patient positioning. FL/FL urethrocystogram retro IMPRESSION: Intraoperative fluoroscopy during urological procedure. Impression dictated by: Fran Kapadia M.D.11/04/2024 5:02 PM Dictation Location: RADIO-PC-29 Transcribed By: MAYI 11/04/241701 Dictated By: Fran Kapadia MD 11/04/241657 Signed By: 11/04/241701 [facility] Work Phone: Glucose Poct Glucometerson 0 11-04-2024 Commemt1 Glu2: Cleaned Meter Normal [facility] Comment on above: Result Comment: PERF ORMED BY: [facility] [address] [place] [address] PATHOLOGIST HAUNTED HISTORY TOUR GUIDE BINTA DELCID M.D. Performed By: #### G DEREJE #### Point of Care testing , Glucose [Mass/Vol] 170 mg/dL Normal [facility] Comment on above: Result Comment: [facility] Glucose Reference Range is dependent on time and content of last meal. Glucose of more than 200 mg/dL in a nonstressed, ambulatory subject supports the diagnosis of Diabetes Mellitus. Performed By: #### G LULS #### Point of Care testing , No Panel InformationOrdered By: Kan Hardy on 11-04-2024 Bedside Glucose Comment Glu2: cleaned meter [facility] Troponin I High Sensitivityo n 11-04-2024 Troponin I High Sensitivity 520 Off scale high 0-15 [facility] Comment on above: Result Comment: Crit ical Result : Called to and read back by: FARIDA COTTRELL at: 11/04/2024 19:38:48 by:JONO The Troponin units of report have been changed to meet the Chest Pain Accreditation requirement, element EC5.M1l2. Troponin units are changed from pg/ml to ng/L. Also, the decimal is removed and results are in whole numbers. PERFORMED BY: [place] [address] PATHOLOGIST HAUNTED HISTORY TOUR GUIDE BINTA DELCID M.D. Performed By: #### B , TROP #### [address] ALL CBC WITH AUTO DIFFon BASOPHILS ABSOLUTE AUTO 0.1 N [facility] Basophils/100 WBC (Bld) 0.8 % 0.2 - 2.0 % [facility] Eosinophils/100 WBC (Bld) 5.6 % 0.9 - 7.0 % [facility] Erythrocyte distribution width (RBC) [Ratio] 13.4 % 11.0 - 15.0 % [facility] Hematocrit (Bld) [Volume fraction] 43.7 % 36.0 - 48.0 % [facility] Hemoglobin (Bld) [Mass/Vol] 14.3 g/dL 12.0 - 16.0 g/dL [facility] IMMATURE GRANULOCYTES ABS AUTO 0.07 High [facility] Immature granulocytes/100 WBC (Bld) 0.7 % High 0.0 - 0.5 % [facility] Interpretation and review of laboratory results Abnormal [facility] LYMPHOCYTES ABSOLUTE AUTO 4.2 High [facility] Lymphocytes/100 WBC (Bld) 39.1 % 20.5 - 60.0 % [facility] MCH (RBC) [Entitic mass] 32 pg 26.7 - 34.0 pg [facility] MCHC (RBC) [Mass/Vol] 32.7 g/dL 29.9 - 35.2 g/dL [facility] MCV (RBC) [Entitic vol] 97.8 fL 81.0 - 99.0 fL [facility] MONOCYTES ABSOLUTE AUTO 0.9 High N [facility] Monocytes/100 WBC (Bld) 7.9 % 1.7 - 12.0 % [facility] NEUTROPHILS ABSOLUTE AUTO 4.9 [facility] Neutrophils/100 WBC (Bld) 45.9 % 43.0 - 75.0 % [facility] Platelet mean volume (Bld) [Entitic vol] 10.2 fL 9.5 - 13.5 fL [facility] TBH EO # 0.6 [facility] TB PLT 239 [facility] TB RBC 4.47 [facility] TB WBC 10.8 [facility] Laboratory - Chemistry and C hemistry - challengeon 06-26-2024 Bilirubin Ql (U) Negative [facility] Glucose [Mass/Vol] 3+ [facility] Ketones Ql (U) Negative [facility] pH (U) 5.5 [pH] [facility] Specific gravity (U) [Rel density] 1.020 [facility] Urobilinogen (U) [Mass/Vol] 0.3924790 mg/dL [facility] Laboratory - Hematology and Cell countson 06-26-2024 Hemoglobin Ql (U) Negative [facility] Laboratory - Urinalysison Nitrite Ql (U) Negative [facility] Protein Ql (U) Negative [facility] No Panel Informationon 06-26 Interpretation and review of laboratory results Abnormal [facility] LEUKOCYTES Negative [facility] SCREENING MAMMOGRAM W/ESTHER, BILATERAL*on 05-05-2022 SCREENING MAMMOGRAM W/ESTHER, BILATERAL* COMPARISON: Initial baseline examination. TECHNIQUE: 2D and 3D Tomosynthesis of the right and left breasts was performed. FINDINGS: Breast composition demonstrates almost entirely fat. No suspicious microcalcifications , dominant mass lesions, or distortion is present. IMPRESSION: BI-RADS 1- Negative Mammogram Board Certified Radiologist. Accredited by the ACR and FDA. MAMMOGRAPHY IS VERY IMPORTANT TO YOUR HEALTH. THE CURRENT [place] [employer] OF [employer] AND [employer]WORK GUIDELINES RECOMMENDS ANNUAL MAMMOGRAPHY BEGINNING AT AGE 40 THIS FACILITY USES A REMINDER SYSTEM TO ENSURE ALL PATIENTS RECEIVE REMINDER NOTIFICATIONS AT THE APPROPRIATE TIME BASED ON THE RECOMMENDATIONS OF THIS EXAM. Report reported and signed by Mike Hein on 05/05/2022 0929 Normal [facility] XR Bone Density (DEXA)on XR Bone Density (DEXA) EXAM: Left Femur Bone Density FINDINGS: Left Femur bone density obtained with a [employer] whole body system: RegionBMDYoung-Adul tAge-Matched Total(g/cm2)(%)T-Sc ore(%)Z-Score [id number] .3 Impression: The mean BMD and corresponding T-score indicated above indicate Normal Bone Mass and places the patient at no significant risk for fracture. This information can serve as a baseline with which to compare future studies. EXAM: Left Forearm Bone Density FINDINGS: Left Forearm bone density obtained with a [employer] whole body system: RegionBMDYoung-Adul tAge-Matched Total(g/cm2)(%)T-Sc ore(%)Z-Score [id number] .3 Impression: The mean BMD and corresponding T-score indicated above indicate Normal Bone Mass and places the patient at no significant risk for fracture. This information can serve as a baseline with which to compare future studies. EXAM: AP Lumbar Bone Density FINDINGS: AP Spine bone density obtained with a [employer] whole body system: RegionBMDYoung-Adul tAge-Matched Total(g/cm2)(%)T-Sc ore(%)Z-Score [id number] 1.8 Impression: The mean BMD and corresponding T-score [...] by Mike Hein on 05/05/2022 1050 Normal [facility] [employer] Vital Signs Date Time Vital Sign Value Performing Clinician Facility 07-04-2025 08:45-0400 Body height 170.2 cm Kan Colindres DO Work Phone: [facility] 07-04-2025 08:45-0400 Body mass index (BMI) [Ratio] 52 kg/m2 Kan Colindres DO Work Phone: [facility] 07-04-2025 08:45-0400 Body weight 150.59 kg Kan Colindres DO Work Phone: [facility] 03-25-2025 15:58-0400 Body height 170.2 cm El Kirkpatrick MD Work Phone: [facility] 03-25-2025 15:58-0400 Body mass index (BMI) [Ratio] 54.03 kg/m2 El Kirkpatrick MD Work Phone: [facility] 03-25-2025 15:58-0400 Body weight 156.49 kg El Kirkpatrick MD Work Phone: [facility] 03-25-2025 15:58-0400 Heart rate 95 /min El Kirkpatrick MD Work Phone: [facility] 03-25-2025 15:58-0400 SaO2% (BldA) [Mass fraction] 97 % El Kirkpatrick MD Work Phone: [facility] 03-05-2025 10:01-0400 Body height 170.2 cm El Kirkpatrick MD Work Phone: [facility] 03-05-2025 10:01-0400 Body mass index (BMI) [Ratio] 54.03 kg/m2 El Kirkpatrick MD Work Phone: [facility] 03-05-2025 10:01-0400 Body weight 156.49 kg El Kirkpatrick MD Work Phone: [facility] 03-05-2025 10:01-0400 Heart rate 80 /min El Kirkpatrick MD Work Phone: [facility] 03-05-2025 10:01-0400 SaO2% (BldA) [Mass fraction] 91 % El Kirkpatrick MD Work Phone: [facility] 12-03-2024 10:36-0500 Body height 170.2 cm El Kirkpatrick MD Work Phone: [facility] 12-03-2024 10:36-0500 Body mass index (BMI) [Ratio] 50.12 kg/m2 El Kirkpatrick MD Work Phone: [facility] 12-03-2024 10:36-0500 Body weight 145.15 kg El Kirkpatrick MD Work Phone: [facility] 12-03-2024 10:36-0500 Heart rate 105 /min El Kirkpatrick MD Work Phone: [facility] 12-03-2024 10:36-0500 SaO2% (BldA) [Mass fraction] 97 % El Kirkpatrick MD Work Phone: [facility] 11-22-2024 17:50-0500 Heart rate 80 /min VENANCIO GIRON [facility] 11-22-2024 17:50-0500 SaO2% (BldA) [Mass fraction] 96 % VENANCIO NKANSAH-AMANKRA [facility] 11-22-2024 17:49-0500 Diastolic blood pressure 60 mm[Hg] VENANCIO NKANSAH-AMANKRA [facility] 11-22-2024 17:49-0500 Mean blood pressure 76 mm[Hg] VENANCIO NKANSAH-AMANKRA [facility] 11-22-2024 17:49-0500 Systolic blood pressure 109 mm[Hg] VENANCIO NKANSAH-AMANKRA [facility] 11-22-2024 17:48-0500 Respiratory rate 18 /min VENANCIO NKANSAH-AMANKRA [facility] 11-22-2024 17:02-0500 Heart rate 77 /min VENANCIO NKANSAH-AMANKRA [facility] 11-22-2024 17:02-0500 SaO2% (BldA) [Mass fraction] 96 % VENANCIO NKANSAH-AMANKRA [facility] 11-22-2024 17:01-0500 Diastolic blood pressure 81 mm[Hg] VENANCIO NKANSAH-AMANKRA [facility] 11-22-2024 17:01-0500 Mean blood pressure 99 mm[Hg] VENANCIO NKANSAH-AMANKRA [facility] 11-22-2024 17:01-0500 Systolic blood pressure 134 mm[Hg] VENANCIO NKANSAH-AMANKRA [facility] 11-22-2024 17:01-0500 Respiratory rate 18 /min VENANCIO NKANSAH-AMANKRA [facility] 11-22-2024 16:50-0500 Blood Pressure Location VENANCIO NKANSAH-AMANKRA [facility] 11-22-2024 16:50-0500 Body temperature 97.88 [degF] VENANCIO NKANSAH-AMANKRA [facility] 11-22-2024 16:50-0500 Diastolic blood pressure 48 mm[Hg] VENANCIO NKANSAH-AMANKRA [facility] 11-22-2024 16:50-0500 Heart rate 84 /min VENANCIO NKANSAH-AMANKRA [facility] 11-22-2024 16:50-0500 Respiratory rate 19 /min VENANCIO NKANSAH-AMANKRA [facility] 11-22-2024 16:50-0500 SaO2% (BldA) [Mass fraction] 94 % VENANCIO NKANSAH-AMANKRA [facility] 11-22-2024 16:50-0500 Systolic blood pressure 118 mm[Hg] VENANCIO NKANSAH-AMANKRA [facility] 11-22-2024 16:40-0500 Blood Pressure Location VENANCIO NKANSAH-AMANKRA [facility] 11-22-2024 16:40-0500 Respiratory rate 19 /min VENANCIO NKANSAH-AMANKRA [facility] 11-22-2024 16:40-0500 Respiratory rate 24 /min VENANCIO NKANSAH-AMANKRA [facility] 11-22-2024 16:35-0500 Blood Pressure Location VENANCIO NKANSAH-AMANKRA [facility] 11-22-2024 16:35-0500 Respiratory rate 14 /min VENANCIO NKANSAH-AMANKRA [facility] 11-22-2024 16:25-0500 Body temperature 97.7 [degF] VENANCIO NKANSAH-AMANKRA [facility] 11-22-2024 11:50-0500 Mean blood pressure 93 mm[Hg] VENANCIO BARNESANSAH-AMANKRA [facility] 11-22-2024 11:48-0500 Body temperature 97.52 [degF] VENANCIO BARNESANSAH-AMANKRA [facility] 11-14-2024 10:25-0500 Body height 170.2 cm El Kirkpatrick MD Work Phone: [facility] 11-14-2024 10:25-0500 Body mass index (BMI) [Ratio] 50.12 kg/m2 El Kirkpatrick MD Work Phone: [facility] 11-14-2024 10:25-0500 Body weight 145.15 kg El Kirkpatrick MD Work Phone: [facility] 11-14-2024 10:25-0500 Heart rate 90 /min El Kirkpatrick MD Work Phone: [facility] 11-14-2024 10:25-0500 SaO2% (BldA) [Mass fraction] 97 % El Kirkpatrick MD Work Phone: [facility] 11-13-2024 14:57-0500 Diastolic blood pressure 78 mm[Hg] VENANCIO BARNESANSAH-AMANKRA [facility] 11-13-2024 14:57-0500 Heart rate 76 /min VENANCIO NKANSAH-AMANKRA [facility] 11-13-2024 14:57-0500 Mean blood pressure 97 mm[Hg] VENANCIO NKANSAH-AMANKRA [facility] 11-13-2024 14:57-0500 Systolic blood pressure 134 mm[Hg] VENANCIO NKANSAH-AMANKRA [facility] 11-13-2024 14:56-0500 Heart rate 80 /min VENANCIO NKANSAH-AMANKRA [facility] 11-13-2024 14:56-0500 SaO2% (BldA) [Mass fraction] 95 % VENANCIO NKANSAH-AMANKRA [facility] 11-13-2024 14:56-0500 Diastolic blood pressure 80 mm[Hg] VENANCIO NKANSAH-AMANKRA [facility] 11-13-2024 14:56-0500 Mean blood pressure 106 mm[Hg] VENANCIO NKANSAH-AMANKRA [facility] 11-13-2024 14:56-0500 Systolic blood pressure 156 mm[Hg] VENANCIO NKANSAH-AMANKRA [facility] 11-08-2024 11:00-0500 Body temperature 97.6 [degF] Kan Frings DO Work Phone: [facility] 11-08-2024 11:00-0500 Diastolic blood pressure 84 mm[Hg] Kan Floresngs DO Work Phone: [facility] 11-08-2024 11:00-0500 Heart rate 77 /min Kan Floresngs DO Work Phone: [facility] 11-08-2024 11:00-0500 Respiratory rate 16 /min Kan Floresngs DO Work Phone: [facility] 11-08-2024 11:00-0500 SaO2% (BldA) [Mass fraction] 95 % Kan Sens DO Work Phone: [facility] 11-08-2024 11:00-0500 Systolic blood pressure 137 mm[Hg] Kan Sens DO Work Phone: [facility] 11-08-2024 05:26-0500 Body weight 163.8 kg Kan Hardy DO Work Phone: [facility] 11-05-2024 11:06-0500 Body height 170.18 cm Kan Hardy DO Work Phone: [facility] 11-04-2024 16:08-0500 Inhaled oxygen flow rate 0 L/min Kan Hardy DO Work Phone: [facility] 09-24-2024 09:03-0500 Body height 170.2 cm El Kirkpatrick MD Work Phone: [facility] 09-24-2024 09:03-0500 Body mass index (BMI) [Ratio] 50.12 kg/m2 El Kirkpatrick MD Work Phone: [facility] 09-24-2024 09:03-0500 Body weight 145.15 kg El Kirkpatrick MD Work Phone: [facility] 09-24-2024 09:03-0500 Diastolic blood pressure 80 mm[Hg] El Kirkpatrick MD Work Phone: [facility] 09-24-2024 09:03-0500 Heart rate 87 /min El Kirkpatrick MD Work Phone: [facility] 09-24-2024 09:03-0500 SaO2% (BldA) [Mass fraction] 99 % El Kirkpatrick MD Work Phone: [facility] 09-24-2024 09:03-0500 Systolic blood pressure 128 mm[Hg] El Kirkpatrick MD Work Phone: [facility] 09-06-2024 09:07-0500 Body height 170.2 cm El Kirkpatrick MD Work Phone: [facility] 09-06-2024 09:07-0500 Body mass index (BMI) [Ratio] 48.24 kg/m2 El Kirkpatrick MD Work Phone: [facility] 09-06-2024 09:07-0500 Body weight 139.71 kg lE Kirkpatrick MD Work Phone: [facility] 07-02-2024 13:04-0400 Body height 170.2 cm El Kirkpatrick MD Work Phone: [facility] 07-02-2024 13:04-0400 Body mass index (BMI) [Ratio] 48.24 kg/m2 El Kirkpatrick MD Work Phone: [facility] 07-02-2024 13:04-0400 Body weight 139.71 kg El Kirkpatrick MD Work Phone: [facility] 06-26-2024 15:53-0400 Body mass index (BMI) [Ratio] 48.34 kg/m2 Litzy Benson TAXATION ECONOMIST Work Phone: [facility] 06-26-2024 15:53-0400 Body temperature 97 [degF] Litzy Benson [employer]AXATION ECONOMIST Work Phone: [facility] 06-26-2024 15:53-0400 Body weight 140 kg Litzyrosalina Benson TAXATION ECONOMIST Work Phone: [facility] 06-26-2024 15:53-0400 Diastolic blood pressure 68 mm[Hg] Litzyrosalina Benson TAXATION ECONOMIST Work Phone: [facility] 06-26-2024 15:53-0400 Heart rate 84 /min Litzy Benson TAXATION ECONOMIST Work Phone: [facility] 06-26-2024 15:53-0400 SaO2% (BldA) [Mass fraction] 99 % Litzyrosalina Benson TAXATION ECONOMIST Work Phone: [facility] 06-26-2024 15:53-0400 Systolic blood pressure 122 mm[Hg] Litzy Benson TABBY Work Phone: [facility] 11-24-2023 09:33-0500 Body height 170.2 cm El Kirkpatrick MD Work Phone: [facility] 11-24-2023 09:33-0500 Body mass index (BMI) [Ratio] 46.05 kg/m2 El Kirkpatrick MD Work Phone: [facility] 11-24-2023 09:33-0500 Body weight 133.36 kg El Kirkpatrick MD Work Phone: [facility] 11-22-2023 08:03-0500 Body height 170.2 cm El Kirkpatrick MD Work Phone: [facility] 11-22-2023 08:03-0500 Body mass index (BMI) [Ratio] 46.05 kg/m2 El Kirkpatrick MD Work Phone: [facility] 11-22-2023 08:03-0500 Body weight 133.36 kg El Kirkpatrick MD Work Phone: [facility] 11-16-2023 10:33-0500 Body height 170.2 cm El Kirkpatrick MD Work Phone: [facility] 11-16-2023 10:33-0500 Body mass index (BMI) [Ratio] 46.05 kg/m2 El Kirkpatrick MD Work Phone: [facility] 11-16-2023 10:33-0500 Body weight 133.36 kg El Kirkpatrick MD Work Phone: [facility] 02-10-2023 13:38-0400 Blood Pressure Location Kan CHEN [facility] 02-10-2023 13:38-0400 Diastolic blood pressure 83 mm[Hg] Kan CHEN [facility] 02-10-2023 13:38-0400 Heart rate 96 /min Kan CHEN [facility] 02-10-2023 13:38-0400 Respiratory rate 16 /min Kan CHEN [facility] 02-10-2023 13:38-0400 Systolic blood pressure 138 mm[Hg] Kan CHEN [facility] Encounters Encounter Date Encounter Type Care Provider Facility Start: 07-16-2025 End: 07-16-2025 ambulatory EL KIRKPATRICK Not Available Start: 07-04-2025 End: 07-04-2025 Patient encounter procedure Kan Colindres DO Work Phone: [facility] Comment on above: Left hip pain (Prima ry Dx) Start: 07-04-2025 End: 07-04-2025 ambulatory KAN COLINDRES Not Available Start: 04-02-2025 End: 04-02-2025 ambulatory EL KIRKPATRICK Not Available Start: 03-25-2025 End: 03-25-2025 Office outpatient visit 15 minutes El Kirkpatrick MD Work Phone: [facility] Comment on above: CECE (obstructive sle ep apnea) (Primary Dx); Nocturnal hypoxemia; Polypharmacy; Morbid obesity ([facility]); BMI 50.0-59.9, adult ([facility]); Primary osteoarthritis of left hip; Chronic bilateral low back pain without sciatica Start: 03-25-2025 End: 03-25-2025 ambulatory EL KIRKPATRICK Not Available Start: 03-25-2025 End: 03-25-2025 Bamboo flowsheet El Kirkpatrick MD Work Phone: [facility] Start: 03-25-2025 End: 03-25-2025 Bamboo flowsheet El Kirkpatrick MD Work Phone: [facility] Start: 03-12-2025 End: 03-12-2025 Telephone encounter Leena Saldana MA [facility] Start: 03-05-2025 End: 03-05-2025 Bamboo flowsheet El Kirkpatrick MD Work Phone: [facility] Start: 03-05-2025 End: 03-05-2025 Bamboo flowsheet El Kirkpatrick MD Work Phone: [facility] Start: 03-05-2025 End: 03-05-2025 Office outpatient visit 25 minutes El Kirkpatrick MD Work Phone: [facility] Comment on above: Type 2 diabetes siena itus with diabetic polyneuropathy, without long-term current use of insulin (CMS/HCC) (Primary Dx); Stage 2 chronic kidney disease; Diabetic nephropathy associated with type 2 diabetes mellitus (HCC) (CMS/HCC); Microalbuminuria; Mixed dyslipidemia (CMS/HCC); Morbid obesity (CMS/HCC); BMI 50.0-59.9, adult (CMS/HCC); Venous (peripheral) insufficiency; Primary osteoarthritis of left hip Start: 03-05-2025 End: 03-05-2025 ambulatory EL KIRKPATRICK Not Available Start: 01-21-2025 End: 01-21-2025 Telephone encounter January Shana GUERRERO [facility] Comment on above: Care Coordination Start: 01-04-2025 ambulatory MD VENANCIO GIRON Facility: [facility] Start: 01-01-2025 End: 01-01-2025 ambulatory MAGALIE CULVER Facility: [facility] Start: 12-27-2024 End: 12-27-2024 ambulatory MD VENANCIO GIRON [place] Start: 12-27-2024 End: 12-27-2024 Patient encounter procedure VENANCIO GIRON [facility] Start: 12-10-2024 End: 12-10-2024 Bamboo flowsheet El Kirkpatrick MD Work Phone: [facility] Start: 12-10-2024 End: 12-10-2024 Bamboo flowsheet El Kirkpatrick MD Work Phone: [facility] Start: 12-10-2024 End: 12-10-2024 ambulatory EL KIRKPATRICK Not Available Start: 12-10-2024 End: 12-10-2024 Office outpatient visit 25 minutes El Kirkpatrick MD Work Phone: [facility] Comment on above: Type 2 diabetes siena itus with hyperglycemia, without long-term current use of insulin ([facility]); Type 2 diabetes mellitus with other diabetic kidney complication ([facility]HCC); Diabetic nephropathy associated with type 2 diabetes mellitus (HCC) ([facility]); Stage 2 chronic kidney disease; Microalbuminuria; Morbid obesity ([facility]); BMI 50.0-59.9, adult ([facility]); Polypharmacy; Mixed dyslipidemia ([facility]); BMI 45.0-49.9, adult ([facility]) Start: 12-03-2024 End: 12-03-2024 Bamboo flowsheet El Kirkpatrick MD Work Phone: [facility] Start: 12-03-2024 End: 12-03-2024 Bamboo flowsheet El Kirkpatrick MD Work Phone: [facility] Start: 12-03-2024 End: 12-03-2024 ambulatory EL KIRKPATRICK Not Available Start: 12-03-2024 End: 12-03-2024 Transitional care manage srvc 7 day discharge El Kirkpatrick MD Work Phone: [facility] Comment on above: Sepsis with acute re nal failure without septic shock, due to unspecified organism, unspecified acute renal failure type ([facility]) (Primary Dx); Pyelonephritis; Acute kidney injury superimposed on chronic kidney disease ([facility]); Hypoalbuminemia due to protein-calorie malnutrition ([facility]); Weakness generalized; Encounter for examination following treatment at hospital; Monilial vaginitis; Type 2 diabetes mellitus with hyperglycemia, without long-term current use of insulin ([facility]) Start: 11-26-2024 End: 11-28-2024 Clinisync Result Encounter Generic External Data Provider [facility] Unsolicited Start: 11-26-2024 End: 11-28-2024 Clinisync Result Encounter Generic External Data Provider [facility] Unsolicited Start: 11-24-2024 End: 11-26-2024 Refill El Kirkpatrick MD Work Phone: [facility] Comment on above: Venous (peripheral) insufficiency; Diabetic nephropathy associated with type 2 diabetes mellitus (HCC) ([facility]) Start: 11-22-2024 End: 11-22-2024 Refill El Kirkpatrick MD Work Phone: [facility] Comment on above: Type 2 diabetes siena itus with other diabetic kidney complication ([facility]) Start: 11-22-2024 End: 11-22-2024 Admission to [facility] day surgery center [facility] Start: 11-22-2024 End: 11-22-2024 [facility] [place] Start: 11-14-2024 End: 11-14-2024 Bamboo flowsheet El Kirkpatrick MD Work Phone: [facility] Start: 11-14-2024 End: 11-14-2024 Bamboo flowsheet El Kirkpatrick MD Work Phone: [facility] Start: 11-14-2024 End: 11-14-2024 Transitional care manage srvc 14 day discharge El Kirkpatrick MD Work Phone: [facility] Comment on above: Sepsis due to Escher ichia coli without acute organ dysfunction ([facility]) (Primary Dx); Right ureteral stone; E. coli UTI; Encounter for examination following treatment at hospital; Morbid obesity ([facility]); BMI 50.0-59.9, adult ([facility]); Current smoker Start: 11-14-2024 End: 11-14-2024 ambulatory EL KIRKPATRICK Not Available Start: 11-13-2024 End: 11-13-2024 Patient encounter procedure VENANCIO GIRON [facility] Start: 11-13-2024 End: 11-13-2024 ambulatory VENANCIO GIRON [place] Start: 11-09-2024 End: 11-09-2024 ambulatory VENANCIO GIRON Facility:[facility] Start: 11-08-2024 Non-patient / Non-visit Sera Hardy DO Work Phone: [facility] Work Phone: Start: 11-05-2024 End: 11-06-2024 ambulatory VENANCIO GIRON Facility:CD:[id number] Start: 11-04-2024 End: 11-06-2024 Clinisync Result Encounter Generic External Data Provider [facility] External [facility] Unsolicited Start: 11-04-2024 End: 11-06-2024 Clinisync Result Encounter Generic External Data Provider [facility] External Department Unsolicited Start: 11-04-2024 End: 11-04-2024 Telephone encounter Tessie Frias RN [facility] Comment on above: Consult Nephrolithiasis Start: 11-04-2024 End: 11-08-2024 Evaluation and management of inpatient Kan Hardy DO Work Phone: [facility] [place] [facility] Work Phone: Start: 09-24-2024 End: 09-24-2024 Bamboo flowsheet El Kirkpatrick MD Work Phone: [facility] Start: 09-24-2024 End: 09-24-2024 Bamboo flowsheet El Kirkpatrick MD Work Phone: [...] Screening for osteoporosis; Menopause; BMI 45.0-49.9, adult ([facility]) Start: 09-06-2024 End: 09-06-2024 Bamboo flowsheet [...] Dx); Tachycardia; Arthralgia, unspecified joint; Morbid obesity ([facility]) Start: 09-06-2024 End: 09-06-2024 ambulatory EL KIRKPATRICK [...] membrane (Primary Dx); Monilial vaginitis; Polypharmacy Start: 06-26-2024 End: 06-26-2024 Office outpatient visit 25 minutes Litzy Benson NP Work Phone: [facility] Comment on above: Right acute otitis m edia (Primary Dx); Dysuria; Acute rhinosinusitis Start: 11-29-2023 Bamboo flowsheet El stringer MD Work Phone: [facility] Start: 11-29-2023 Bamboo flowsheet El stringer MD Work Phone: [facility] Start: 11-29-2023 Refill El rodney MD Work Phone: [facility] Comment on above: Type 2 diabetes siena itus with hyperglycemia, without long-term current use of insulin ([facility]) Start: 11-24-2023 Bamboo flowsheet El stringer MD Work Phone: [facility] Start: 11-24-2023 Bamboo flowsheet El stringer MD Work Phone: [facility] Start: 11-24-2023 End: 11-24-2023 Office outpatient visit 15 minutes El Kirkpatrick MD Work Phone: [facility] Comment on above: Candidiasis (Primary Dx); Cellulitis of left ankle; Venous stasis dermatitis of left lower extremity; Morbid obesity ([facility]); BMI 45.0-49.9, adult ([facility]); Polypharmacy; Current smoker Start: 11-23-2023 Chart abstracting El xie MD Work Phone: [facility] Start: 11-22-2023 Chart abstracting El xie MD Work Phone: [facility] Start: 11-22-2023 End: 11-22-2023 Office outpatient visit 10 minutes El Kirkpatrick MD Work Phone: [facility] Comment on above: Cellulitis of left a nkle; Venous stasis dermatitis of left lower extremity Start: 11-21-2023 Chart abstracting El xie MD Work Phone: [facility] Start: 11-16-2023 End: 11-16-2023 Office outpatient visit 15 minutes El Kirkpatrick MD Work Phone: [facility] Comment on above: Cellulitis of left a nkle (Primary Dx); Venous stasis dermatitis of left lower extremity; Type 2 diabetes mellitus with hyperglycemia, without long-term current use of insulin ([facility]) Start: 04-01-2023 End: 04-01-2023 Patient encounter procedure Kan Bledsoe NILL [facility] [place] Start: 03-16-2023 End: 03-16-[address] EL KIRKPATRICK . Facility: Start: 02-15-2023 End: 02-15-2023 Patient encounter procedure Kan Bledsoe NILL General Surgery Nill/Said [place] Start: 02-10-2023 End: 02-10-2023 Patient encounter procedure Kan Bledsoe NILL [facility] [place] Start: 11-12-2022 End: 11-12-2022 Patient encounter procedure Kan Bledsoe NILL General Surgery Nill/Said [place] Start: 11-05-2022 End: 11-05-2022 Lab Drop off Kan LUL [facility] Start: 11-01-2022 End: 11-01-[address] EL KIRKPATRICK . Facility: Start: 05-12-2022 End: 05-13-[address] EL KIRKPATRICK . Facility: Procedures Date Procedure Procedure Detail Performing Clinician Start: 11-26-2024 BLOOD CULTURE 2 Generic External Data Provider Start: 11-26-2024 BLOOD CULTURE 1 Generic External Data Provider Start: 11-22-2024 Cystoscopy VENANCIO ROSADORA Start: 11-04-2024 End: 11-04-2024 AEROBE ID + SUSCEPT Generic External Dani a Provider Start: 11-04-2024 End: 11-04-2024 ANAEROBE IDENTIFICATION ONLY Generic External Data Provider Start: 09-06-2024 ALL CBC WITH AUTO DIFF El Kirkpatrick MD Work Phone: Start: 06-26-2024 Urnls dip stick/tabl et rgnt auto w/o microscopy Litzy Benson [employer] E[employer]OMIST Work Phone: Start: 03-16-2023 Excision of cyst Michae yakov NILYakov Comment on above: epidermal, mid back Start: 05-05-2022 Mammography El xie MD Work Phone: Start: 09-07-2016 right total hip arthroplasty Kan LUYakov Start: 11-23-2013 right hip injection with fluroscopy Kan LUL Colonoscopy Kan LUL left distal biceps reconstruction - 04/20/11 Kan LUL Partial resection of colon M otto CHEN Partial resection of colon K DANNY ABRNESREDDLONNY Plan of Treatment Date Care Activity Detail Author Start: 03-01-2026 Urine screening for protein Diabetes: Urine Protein Screening [facility] Start: 10-01-2025 Screening for malign ant neoplasm of breast Mammogram [facility] Comment on above: Postponed from 05/05 (Patient Refused) Start: 08-28-2025 End: 08-28-2025 Patient encounter procedure [facility] Start: 06-17-2025 Influenza vaccination [facility] Start: 06-16-2025 Glaucoma screening Diabetes: R etinopathy Screening [facility] Start: 06-01-2025 Hemoglobin A1c measurement Laura betes: Hemoglobin A1C [facility] Start: 05-21-2025 Urine screening for protein Diabetes: Urine Protein Screening [facility] Start: 03-25-2025 End: 03-25-2025 Patient encounter procedure 03/25/2025 4:00 PM EDT Office Visit [facility] [address] [facility] [address] [place] [address] El Kirkpatrick MD [address] [facility] [address] [place] [address] (Fax) CECE (obstructive sleep apnea); Nocturnal hypoxemia; Polypharmacy; Morbid obesity ([facility]); BMI 50.0-59.9, adult ([facility]) [facility] Comment on above: CECE (obstructive sle ep apnea); Nocturnal hypoxemia; Polypharmacy; Morbid obesity ([facility]); BMI 50.0-59.9, adult ([facility]) Start: 03-05-2025 End: 03-05-2026 Hemoglobin A1c/Hemoglobin.total in Blood Hemoglobin A1c Lab Routine Diabetic nephropathy associated with type 2 diabetes mellitus (HCC) ([facility]) Expected: 03/05/2025 (Approximate), Expires: 03/05/2026 [facility] Work Phone: Comment on above: Expected: 03/05/2025 (Approximate), Expires: 03/05/2026 Start: 03-05-2025 End: 03-05-2025 Patient encounter procedure [facility] 100 Comment on above: Type 2 diabetes siena itus with hyperglycemia, without long-term current use of insulin ([facility]); Type 2 diabetes mellitus with other diabetic kidney complication; Mixed dyslipidemia ([facility]); Stage 2 chronic kidney disease; Microalbuminuria; Morbid obesity ([facility]); BMI 50.0-59.9, adult ([facility]) Start: 02-07-2025 End: 12-10-2025 Hemoglobin A1c/Hemoglobin.total in Blood Hemoglobin A1c Lab Routine Type 2 diabetes mellitus with hyperglycemia, without long-term current use of insulin ([facility]) Expected: 02/07/2025 (Approximate), Expires: 12/10/2025 [facility] Work Phone: Comment on above: Expected: 02/07/2025 (Approximate), Expires: 12/10/2025 Start: 12-10-2024 End: 12-10-2024 Patient encounter procedure 12/10/2024 8:30 AM EST Office Visit [facility] [address] [place] [address] El Kirkpatrick MD [address] [place] [address] [facility] Start: 12-03-2024 End: 12-03-2025 Comprehensive metabolic 2000 panel - Serum or Plasma Comprehensive metabolic panel Lab Routine Acute kidney injury superimposed on chronic kidney disease (CMS/HCC) Sepsis with acute renal failure without septic shock, due to unspecified organism, unspecified acute renal failure type (CMS/HCC) Expected: 12/03/2024 (Approximate), Expires: 12/03/2025 [facility] Work Phone: Comment on above: Expected: 12/03/2024 (Approximate), Expires: 12/03/2025 Start: 12-03-2024 End: 12-03-2024 Patient encounter procedure 12/03/2024 10:30 AM EST Office Visit [facility] [address] [facility] [address] [place] [address] El Kirkpatrick MD [address] [place] [address] [facility] Start: 11-27-2024 End: 11-27-2024 Patient encounter procedure 11/27/2024 2:30 PM EST Office Visit [facility] [address] [place] [id number] Kan Colindres DO [address] [place] [address] [facility] Start: 11-22-2024 End: 11-22-2024 Patient encounter procedure [facility] Start: 11-19-2024 Influenza vaccination Influenza Vacc ine (#1) [facility] Comment on above: Postponed from 06/17 (Patient Refused) Start: 11-14-2024 End: 11-14-2024 Patient encounter procedure 11/14/2024 10:30 AM EST Office Visit [facility] [address] [place] [address] El Kirkpatrick MD [address] [place] [address] (Fax) Encounter for examination following treatment at hospital; Right ureteral stone; Sepsis due to Escherichia coli without acute organ dysfunction ([facility]); E. coli UTI; Morbid obesity ([facility]); BMI 50.0-59.9, adult ([facility]) [facility] Comment on above: Encounter for examin ation following treatment at hospital; Right ureteral stone; Sepsis due to Escherichia coli without acute organ dysfunction ([facility]); E. coli UTI; Morbid obesity ([facility]); BMI 50.0-59.9, adult ([facility]) Start: 11-13-2024 End: 11-13-2024 Patient encounter procedure 11/13/2024 2:00 PM EST Office Visit [facility] [address] [facility] [address] [place] [address] El Kirkpatrick MD [address] [facility] [address] [place] [address] (Fax) [facility] Start: 11-08-2024 [facility] Start: 11-07-2024 Referral to infectio us diseases physician [facility] Start: 11-04-2024 Referral to urologist [facility] Start: 11-04-2024 Hospital admission [facility] Start: 11-04-2024 Drainage of Right Ki dney with Drainage Device, Via Natural or Artificial Opening Endoscopic Drainage of Right Kidney with Drainage Device, Via Natural or Artificial Opening Endoscopic [facility] Start: 09-24-2024 End: 09-24-2024 Patient encounter procedure 09/24/2024 9:00 AM EST Office Visit [facility] [address] [facility] [address] [place] [address] El Kirkpatrick MD [address] [facility] [address] [place] [address] [facility] 100 Start: 09-06-2024 End: 09-06-2025 CBC W Auto Differential panel - Blood CBC and differential Lab Routine Muscle spasm Tachycardia Arthralgia, unspecified joint Expected: 09/06/2024 (Approximate), Expires: 09/06/2025 [facility] Comment on above: Expected: 09/06/2024 (Approximate), Expires: 09/06/2025 Start: 09-06-2024 End: 09-06-2025 Comprehensive metabolic 2000 panel - Serum or Plasma Comprehensive metabolic panel Lab Routine Muscle spasm Tachycardia Arthralgia, unspecified joint Expected: 09/06/2024 (Approximate), Expires: 09/06/2025 [facility] Work Phone: Comment on above: Expected: 09/06/2024 (Approximate), Expires: 09/06/2025 Start: 09-06-2024 End: 09-06-2025 Erythrocyte sedimentation rate Sedimentation rate, automated Lab Routine Muscle spasm Tachycardia Arthralgia, unspecified joint Expected: 09/06/2024 (Approximate), Expires: 09/06/2025 [facility] Comment on above: Expected: 09/06/2024 (Approximate), Expires: 09/06/2025 Start: 09-06-2024 End: 09-06-2025 Magnesium [Mass/volume] in Serum or Plasma Magnesium Lab Routine Muscle spasm Tachycardia Arthralgia, unspecified joint Expected: 09/06/2024 (Approximate), Expires: 09/06/2025 [facility] Comment on above: Expected: 09/06/2024 (Approximate), Expires: 09/06/2025 Start: 09-06-2024 End: 09-06-2025 Thyrotropin [Units/volume] in Serum or Plasma TSH Lab Routine Muscle spasm Tachycardia Arthralgia, unspecified joint Expected: 09/06/2024 (Approximate), Expires: 09/06/2025 [facility] Comment on above: Expected: 09/06/2024 (Approximate), Expires: 09/06/2025 Start: 09-06-2024 End: 09-06-2025 Thyroxine (T4) free [Mass/volume] in Serum or Plasma T4, free Lab Routine Muscle spasm Tachycardia Arthralgia, unspecified joint Expected: 09/06/2024 (Approximate), Expires: 09/06/2025 [facility] Comment on above: Expected: 09/06/2024 (Approximate), Expires: 09/06/2025 Start: 09-06-2024 End: 09-06-2025 Triiodothyronine (T3) Free [Mass/volume] in Serum or Plasma T3, free Lab Routine Muscle spasm Tachycardia Arthralgia, unspecified joint Expected: 09/06/2024 (Approximate), Expires: 09/06/2025 [facility] Comment on above: Expected: 09/06/2024 (Approximate), Expires: 09/06/2025 Start: 09-06-2024 End: 09-06-2024 Patient encounter procedure [facility] Comment on above: Encounter for wellne ss examination in adult; Advance directive discussed with patient; Screening mammogram, encounter for; Screening for osteoporosis; Menopause; Morbid obesity ([facility]) Start: 08-14-2024 Hemoglobin A1c measurement Laura betes: Hemoglobin A1C [facility] Start: 06-17-2024 Influenza vaccination [facility] Start: 02-21-2024 Hemoglobin A1c measurement Laura betes: Hemoglobin A1C [facility] Start: 02-13-2024 End: 02-13-2024 Patient encounter procedure 02/13/2024 9:30 AM EDT Office Visit [facility] [address] [place] [address] El Kirkpatrick MD [address] [place] [address] (Fax) [facility] Start: 11-29-2023 End: 11-29-2023 Patient encounter procedure [facility] Comment on above: Type 2 diabetes siena itus with hyperglycemia, without long-term current use of insulin ([facility]); Type 2 diabetes mellitus with other diabetic kidney complication ([facility]); Diabetic nephropathy associated with type 2 diabetes mellitus (HCC) ([facility]); Mixed dyslipidemia ([facility]); Polypharmacy; Morbid obesity ([facility]); BMI 45.0-49.9, adult ([facility]) Start: 11-25-2023 Hemoglobin A1c measurement Laura betes: Hemoglobin A1C [facility] Start: 11-24-2023 End: 11-24-2023 Patient encounter procedure [facility] Comment on above: Cellulitis of left a nkle; Venous stasis dermatitis of left lower extremity; Morbid obesity ([facility]); BMI 45.0-49.9, adult ([facility]); Polypharmacy; Current smoker Start: 11-22-2023 End: 11-22-2023 Patient encounter procedure 11/22/2023 8:00 AM EST Office Visit [facility] [address] [place] [address] El Kirkpatrick MD [address] [place] [address] [facility] Start: 06-17-2023 Influenza vaccination Influenza Vacc ine (#1) [facility] Start: 05-05-2023 Screening for malign ant neoplasm of breast Mammogram [facility] Start: 2013 Administration of varicella zoster vaccine Zoster (Shingles) Vaccine (1 of 2) [facility] Start: 1993 Screening for malign ant neoplasm of cervix [facility] Start: 1984 Screening for malign ant neoplasm of cervix Pap Smear [facility] Start: 1982 DTaP,Tdap and Td Vac cines (1 - Tdap) DTaP,Tdap and Td Vaccines (1 - Tdap) [facility] Start: 1981 Adult BMI Screening Adult BMI Screen ing [facility] Start: 1975 Depression Screening Depression Scre ening [facility] Start: 1975 Tobacco Screening Tobacco Screening [facility] AEROBE ID + SUSCEPT [facility] ANAEROBE IDENTIFICAT ION ONLY [facility] BLOOD CULTURE 1 BLOOD CULTURE 1 Lab Routine 11/26/2024 2:08 PM EST [facility] BLOOD CULTURE 2 BLOOD CULTURE 2 Lab Routine 11/26/2024 2:10 PM EST [facility] Patient Education Know your Meds [facility] Work Phone: Patient referral [facility] Work Phone: Immunizations Immunization Date Immunization Notes Care Provider Derrell saranmeka 01-30-2021 SARS-CoV-2 (COVID-19 ) mRNA BNT-162b2 vax Kan GUSTAVO [facility] [place] 09-08-2016 influenza, seasonal, injectable Kan GUSTAVO [facility] Comment on above: Early/Late Reason: N ursing Judgment 09-08-2016 influenza virus vaccine, unspecified formulation El Kirkpatrick MD Work Phone: [facility] NEGATED: Highlighted row has not occurred!11-05-2022 influenza virus vaccine, unspecified formulation Kan LUYakov [facility] Payers Date Payer Category Payer Self-pay 2019 [facility] BCBS [id number] 2019 Unknown BCBS BCBS [id number] [id number] 2019-Present [phone] [address] [place] [address] [id number] 1963 Unknown [id number] 2.16.840.1.435429.3.579. 2.593 1963 Unknown [id number] 2.16.840.1.988342.3.579. 2.593 1963 Unknown [id number] 2.16.840.1.391285.3.579. 2.593 1963 Unknown [id number] 2.16.840.1.500321.3.579. 2.727 1963 Unknown [id number] 2.16.840.1.428734.3.579. 2.727 1963 Unknown [id number] 2.16.840.1.967376.3.579. 2.72 1963 Unknown [id number] 2.16.840.1.512632.3.579. 2.727 1963 Unknown [id number] 2.16.840.1.645659.3.579. 2.727 1963 Unknown [id number] 2.16.840.1.827330.3.579. 2.727 1963 Unknown [id number] 2.16.840.1.331998.3.579. 2.72 1963 Unknown [id number] 2.16.840.1.212550.3.579. 2.727 1963 Unknown [id number] 2.16.840.1.939418.3.579. 2.727 1963 Unknown [id number] 2.16.840.1.507925.3.579. 2.1259 1963 Unknown [id number] 2.16.840.1.490373.3.579. 2.1259 1963 Unknown [id number] 2.16.840.1.329200.3.579. 2.1259 1963 Unknown [id number] 2.16.840.1.337353.3.579. 2.1259 1963 Unknown [id number] 2.16.840.1.957650.3.579. 2.9 1963 Unknown [id number] 2.16.840.1.682094.3.579. 2.1259 1963 Unknown [id number] 2.16.840.1.384080.3.579. 2.9 1963 Unknown [id number] 2.16.840.1.449014.3.579. 2.9 1963 Unknown [id number] 2.16.840.1.130160.3.579. 2.9 1963 Unknown [id number] 2.16.840.1.000961.3.579. 2.9 1963 Unknown [id number] 2.16.840.1.938887.3.579. 2.1258 1963 Unknown [id number] 2.16.840.1.185065.3.579. 2.1259 1959 Unknown [id number] Unknown [id number] 2.16.840.1.462317.3.579. 2.531 Social History Date Type Detail Facility Start: 11-05-2022 Tobacco smoking status Heavy t obacco smoker (finding) [facility] Tobacco smoking status Never [facility] Start: 03-15-2023 End: 05-09-2023 Sex Assigned At Female [facility] Start: 02-10-2023 End: 07-04-2025 Tobacco smoking status Ex-smoker (finding) [facility] End: 10-17-2020 History of tobacco use Current smoker [facility] End: 10-17-2020 History of tobacco use Cigarette Smoker [facility] Start: 05-08-2023 End: 07-04-2025 Tobacco use and exposure Smokeless tobacco non-user [facility] Start: 11-22-2023 End: 07-04-2025 Alcohol intake Ex-drinker (finding) [facility] Start: [...] [OSQ] Very much [facility] (I/We) worried whechandu er (my/our) food would run out before (I/we) got money to buy more. Never true [facility] Start: 05-08-2023 Alcohol Comment Caffeine intak e 3-4 cups per day coffee [facility] Start: 1965 Sex Assigned At Not on file [facility] Tobacco smoking stat [facility] Tobacco smoking consumption unknown [facility] Start: 05-20-2015 End: 11-08-2024 Sex Female (finding) [facility] Start: 1965 Sex Assigned At Female [facility] Medical Equipment Procedure Code Equipment Code Equipment Origin al Text Equipment Identifier Dates CYSTOSCOPY W/ HO MIUM LASER VENANCIO GIRON MD 11/22/24 Unknown Ureter R FDA Start: 11-22-2024 CYSTOSCOPY W/ HO MIUM LASER VENANCIO GIRON MD 11/22/24 Unknown Ureter R FDA Start: 11-22-2024 Goals Date Patient Goal Desired Activity /State Functional Status Date Assessment Result Facility 11-13-2024 Functional Status No Vito Mon[facility] 11-08-2024 Functional status Patient at Baseline [facility] Work Phone: 02-10-2023 Functional Status N/A [facility] [place] Mental Status Date Assessment Result Facility 11-08-2024 Cognitive function Cognitive Sta tus Patient at Baseline [facility] Work Phone: Clinical Notes 11-05-2022 to 07-04-2025 Sarika Edwards - 07/04/2025 8:45 AM Ryan Kirkpatrick MD - 03/25/2025 4:00 PM EDTTelephone Encounter - El Kirkpatrick MD - 03/12/2025 10:32 AM Ryan Kirkpatrick MD - 03/05/2025 10:00 AM EDT Note Date & Type Note Facility 07-04-2025 History of Present illness Narrative Images from the original note were not included. Bobby Lujan is a 60 y.o. female presents with chief complaint of left hip pain and stiffness. 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 She states over the last year or two, she has had increasing left hip pain. It has gotten to the point where she can barely walk. She has tried Tylenol, ice and anti-inflammatory. She has done well with anesthesia in the past but it has been years since her right hip replacement as well as her biceps surgery. She did quit smoking a few years ago. Her weight and BMI have gone up and she is 332 pounds. Her primary care physician retired. She does see Dr. Boy Kirkpatrick. She does have a history of sleep apnea. She states that she had bilateral pulmonary embolism and early Covid time in 2019. This required CT scan and elevated D-dimer as well as blood thinner with Eliquis for six months. She has never had a pulmonary visit. She states she had pulmonary function tests, but unclear with the results. She does get some dyspnea but she states it is related to her pain. 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 It has gotten to the point where she cannot sleep. She has buckling and giving out of the left hip. SUBJECTIVE: MEDICATIONS: Current Outpatient Medications Medication Instructions atorvastatin (LIPITOR) 20 mg, Oral, Daily empagliflozin (JARDIANCE) 25 mg, Oral, Daily gabapentin (NEURONTIN) 200 mg, Oral, 2 times daily glipiZIDE (GLUCOTROL) 5 mg, Oral, 2 times daily before meals ibuprofen 800 mg, Oral, 3 times daily PRN losartan (COZAAR) 25 mg, Oral, Daily Mounjaro 7.5 mg, Subcutaneous, Weekly nystatin (Mycostatin) [id number] UNIT/GM powder 1 application , Topical, As needed pioglitazone (ACTOS) 30 mg, Oral, Daily spironolactone (ALDACTONE) 50 mg, Oral, 2 times daily ALLERGIES: Allergies Allergen Reactions Fluoxetine Unknown Other Reaction(s): change in mental status Metformin Hcl Other Reaction(s): diarrhea Duloxetine Hcl Other Developed severe fatigue. Metformin Diarrhea SURGICAL HISTORY: Past Surgical History: Procedure Laterality Date BICEPS TENDON REPAIR Lt distal- MTP COLECTOMY Right chari HIP ARTHROPLASTY 2014 OTHER SURGICAL HISTORY L 5th PIP fx repair CT INJECTION HIP ARTHROGRAM Rt hip arthrography for cortisone injection - MTP TOTAL HIP ARTHROPLASTY Right MTP FAMILY HISTORY: Family History Problem Relation Name Age of Onset Lung cancer Mother Shawna Hypertension Mother Shawna Heart disease Mother Shawna Cancer Mother Shawna Lung cancer Father Fady Hypertension Father Fady Cancer Father Fady No Known Problems Maternal Grandmother No Known Problems Maternal Grandfather No Known Problems Paternal Grandmother No Known Problems Paternal Grandfather Rheumatologic disease Sister Francheska SOCIAL HISTORY: Social History Tobacco Use Smoking status: Former Current packs/day: 0.00 Types: Cigarettes Quit date: 10/17/2020 Years since quittin.7 Smokeless tobacco: Never Substance Use Topics Alcohol use: Not Currently Comment: Caffeine intake 3-4 cups per day coffee Drug use: Never Depression: Not at risk (05/09/2023) PHQ-2 PHQ-2 Score: 1 Recent Concern: Depression - At risk (03/15/2023) PHQ-2 PHQ-2 Score: 6 REVIEW OF SYMPTOMS: The review of systems, history and current medications list are all reviewed today. OBJECTIVE: Visit Vitals Ht 5' 7 Wt 332 lb BMI 52.00 kg/m OB Status Postmenopausal Smoking Status Former BSA 2.67 m Physical Exam On physical exam, she is alert and oriented. Vital signs are stable. Increased soft tissue envelope with pannus is present. BMI of 52. Her left hip has no rash or infection. The left leg is short by 1/4 . There is no internal rotation. There is moderate stiffness with external rotation. Flexion is to almost 90. Gait is stiff and antalgic with external rotation of her foot. Her bench and straight leg raise testing is negative. She does appear to be getting some dyspnea on exertion as well as conversation. Once again, she relates to pain. X-rays, permanently saved to the patient's record, are reviewed AP pelvis, left hip show stable position and alignment of the right hip prosthesis. No sign of loosening or infection. The left hip has bone on bone disease that is grade IV in nature. There is no sign of protrusio. No sign of avascular necrosis. There is no fracture, dislocation, tumor or infection seen. ASSESSMENT AND PLAN: Assessment/Plan Left hip end stage osteoarthritis; antalgic gait; obesity, BMI of 52; history of pulmonary embolism with Covid with Eliquis management; dyspnea; history of tobacco abuse. The nature of the findings were discussed at length. We discussed the role of total hip replacement. She is bone on bone. She will continue with ice, ibuprofen and Tylenol. She will see Dr. Boy Kirkpatrick for perioperative risk assessment and we will set up a referral to pulmonary medicine for further testing and risk stratification. She is aware her BMI has to be under 50 with recommendation under 45. She will continue to work with her weight and she is on a semaglutide injection. We discussed the role of referral to tertiary center if deemed high risk from pulmonary medicine and or primary care where they have more interventional and critical care back up in case she does have some form of acute event. She will see how she does with the testing over the next month and we will [place] back with her pulmonary and primary care visits, as well as we will see how her BMI is coming down and further discussion of potential community based left total hip replacement. She voices verbal understanding. She is discharged in stable condition. Tylenol or ibuprofen for pain. The patient was seen and examined. From the time of check in, nurse triage, vital signs, x-ray, x-ray interpretation, review of systems, comprehensive history and physical exam as well as setting up treatment plan and further management took 50 minutes. Cosigned by Kan Colindres DO at 07/08/2025 12:55 PM EDT documented in this encounter [facility] 06-26-2025 Note Reminders From: Delores Campo (EU - Administrative) To: EU - Administrative; Sent: 06/26/2025 12:42:45 EDT Show up: 02/01/2026 12:42:00 EDT Subject: Ambulatory Reminder Due Date/Time: 07/04/2026 12:42:00 EDT Reminder/Recall Addendum by Cathy Jackson on January 01, 2025 09:39:16 EDT From: Cathy Jackson (EU - Administrative) To: - Administrative; Sent: 01/01/2025 09:39:16 EDT Subject: FW: Follow up Due Date/Time: 07/04/2026 09:39:00 EDT Caller Name: BOBBY LUJAN; Caller Number: H , M From: Becca Ibrahim To: EU - Administrative; Sent: 01/01/2025 09:20:04 EDT Subject: Follow up Due Date/Time: 07/04/2026 09:19:00 EDT Caller Name: BOBBY LUJAN; Caller Number: H , M Patient was seen on 01 January 2025. Patient will need 1.5 year follow up with MARC and PRAVEENA. [facility] 03-25-2025 History of Present illness Narrative Images from the original note were not included. Patient ID: Bobby Lujan is a 59 y.o. female who presents for: Sleep Apnea She presents for a sleep evaluation. She complains of no current symptoms. Symptoms began several years ago, stable since that time. She goes to sleep at 11p weekdays and 11p weekends. She awakens 7a weekdays and 7a weekends. She falls asleep in 5 minutes. She denies snoring, snorting, periods of not breathing, tossing and turning, decreased concentration, decreased sexual drive, excessive daytime sleepiness. Previous evaluation and treatment has included C-PAP trial and sleep study. She went off while she was sick and is need of new equipment to be able to get back on. Review of Systems Constitutional: Negative for activity change and fatigue. Respiratory: Negative for cough, shortness of breath and wheezing. Cardiovascular: Negative for chest pain, palpitations and leg swelling. Neurological: Negative for light-headedness and headaches. Objective The patient is pleasant and in [...] contact and speech is clear. Appropriate affect. 06/26/2024 3:53 PM 07/02/2024 1:04 PM 09/06/2024 9:07 AM 09/24/2024 9:03 AM 11/14/2024 10:25 AM 12/03/2024 10:36 AM 03/05/2025 10:01 AM Vitals BMI 48.34 kg/m2 48.24 kg/m2 48.24 kg/m2 50.12 kg/m2 50.12 kg/m2 50.12 kg/m2 54.03 kg/m2 BSA (m2) 2.57 m2 2.57 m2 2.57 m2 2.62 m2 2.62 m2 2.62 m2 2.72 m2 Systolic 122 128 Diastolic 68 80 Heart Rate 84 87 90 105 80 SpO2 99 % 99 % 97 % 97 % 91 % Temp 97 F Height (in) 5' 7 5' 7 5' 7 5' 7 5' 7 5' 7 Weight (lb) 308.64 308 308 320 320 320 345 Visit Report Report Report Report Report Report Report Report Allergies Allergen Reactions Fluoxetine Unknown Other Reaction(s): change in mental status Metformin Hcl Other Reaction(s): diarrhea Duloxetine Hcl Other Developed severe fatigue. Metformin Diarrhea Current Outpatient Medications on File Prior to Visit Medication Sig Dispense Refill atorvastatin (Lipitor) 20 MG tablet Take 1 tablet (20 mg) by mouth Daily 90 tablet 1 empagliflozin (Jardiance) 25 MG Take 1 tablet (25 mg) by mouth Daily 90 tablet 1 fluconazole (Diflucan) 200 MG tablet Take 1 tablet (200 mg) by mouth Daily for 14 days 14 tablet 0 gabapentin (Neurontin) 100 MG capsule Titrate from 1 to 4 capsules three times daily as needed for pain 100 capsule 0 glipiZIDE (Glucotrol) 5 MG tablet Take 1 tablet (5 mg) by mouth in the morning and 1 tablet (5 mg) in the evening. Take before meals. 180 tablet 1 ibuprofen 800 MG tablet Take 1 tablet (800 mg) by mouth 3 (three) times a day as needed for mild pain (pain) 180 tablet 3 losartan (Cozaar) 25 MG tablet Take 1 tablet (25 mg) by mouth Daily 90 tablet 1 nystatin (Mycostatin) [id number] UNIT/GM powder Apply 1 application topically if needed for rash. 60 g 1 pioglitazone (Actos) 30 MG tablet Take 1 tablet (30 mg) by mouth Daily 90 tablet 0 spironolactone (Aldactone) 50 MG tablet Take 1 tablet (50 mg) by mouth in the morning and 1 tablet (50 mg) before bedtime. 180 tablet 1 Tirzepatide (Mounjaro) 5 MG/0.5ML solution auto-injector Inject 5 mg under the skin 1 (one) time per week 6 mL 1 No current facility-administered medications on file prior to visit. 1. CEEC (obstructive sleep apnea) (Primary) This patient has had the above-mentioned symptoms. They have had a sleep study that is positive for obstructive sleep apnea. The PAP therapy compliance report is not available and I have asked her to get me a copy. After re-evaluation there do not appear to be any issues or contraindications to continued PAP therapy. The patient or their rental sales representative and I have mutually agreed to the obstructive sleep apnea diagnosis and the need for PAP Therapy. The patient has been compliant with PAP therapy. See the sleep therapy order form; The patient will be fitted for appliance or mask. the patient will require heated humidification. I certify that I had a [id number] encounter with this patient at todays office visit. Due to this medical condition the patient continues to require the DME. I certify that based on my findings The DME ordered is medically necessary for this patient. This has been discussed with the patient or their rental sales representative and mutually agreed upon. 2. Nocturnal hypoxemia Chronic problem, with oxygen bled into her PAP machine. 3. Polypharmacy Chronic problem The patient meets the criteria for polypharmacy; 5 or more prescriptions or multi-morbidity defined as 5 or more diagnoses. Polypharmacy can significantly increase the risk of adverse drug events and negatively impact adherence. Consideration of factors such as clinician agreement, patient perspective, and de-prescribing, as appropriate can improve patient outcomes while simplifying care. This requires longitudinal monitoring as there is at least a moderate risk of morbidity and requires at least a moderate degree of evaluation and management. 4. Morbid obesity ([facility]) Chronic problem and briefly reinforced lifestyle changes. 5. BMI 50.0-59.9, adult ([facility]) Chronic problem defines the body mass index. 6. Primary osteoarthritis of left hip Chronic problem that is limiting her ability to exercise. She has requested further evaluation. - XR hip left 2 or 3 views; Future 7. Chronic bilateral low back pain without sciatica Chronic problem that is limiting her ability to exercise. She has requested further evaluation. - XR LUMBAR SPINE AP/LAT/FLEX/EXT/OBLIQUES; Future documented in this encounter [facility] 03-12-2025 Telephone encounter Note Prescription sent [facility] 03-12-2025 Miscellaneous Notes Prescription sent Pt called and stated she has a yeast infection and wanted to know if [facility] could call her in medication. documented in this encounter [facility] 03-12-2025 Telephone encounter Note Pt called and stated she has a yeast infection and wanted to know if [facility] could call her in medication. [facility] 03-05-2025 History of Present illness Narrative Images from the original note were not included. Patient ID: Bobby Lujan is a 59 y.o. female who presents for: Diabetes Mellitus Patient presents for follow up of diabetes. Current symptoms include: paresthesia of the feet. Symptoms have stabilized. Patient denies increased appetite and visual disturbances. Evaluation to date has included: hemoglobin A1C. Home sugars: BGs consistently in an acceptable range. Hyperlipidemia Pt who presents for follow-up of dyslipidemia. A repeat fasting lipid profile was not done. The patient does not use medications that may worsen dyslipidemias (corticosteroids, progestins, anabolic steroids, diuretics, beta-blockers, amiodarone, cyclosporine, olanzapine). Exercise: rarely. Review of Systems Constitutional: Negative for activity change and fatigue. Respiratory: Negative for cough, shortness of breath and wheezing. Cardiovascular: Negative for chest pain, palpitations and leg swelling. Neurological: Negative for light-headedness and headaches. Objective The patient is pleasant and in [...] contact and speech is clear. Appropriate affect. 05/21/2024 8:36 AM 06/26/2024 3:53 PM 07/02/2024 1:04 PM 09/06/2024 9:07 AM 09/24/2024 9:03 AM 11/14/2024 10:25 AM 12/03/2024 10:36 AM Vitals BMI 46.6 kg/m2 48.34 kg/m2 48.24 kg/m2 48.24 kg/m2 50.12 kg/m2 50.12 kg/m2 50.12 kg/m2 BSA (m2) 2.53 m2 2.57 m2 2.57 m2 2.57 m2 2.62 m2 2.62 m2 2.62 m2 Systolic 122 128 Diastolic 68 80 Heart Rate 88 84 87 90 105 SpO2 98 % 99 % 99 % 97 % 97 % Temp 97 F Height (in) 5' 7 5' 7 5' 7 5' 7 5' 7 5' 7 Weight (lb) 297.5 308.64 308 308 320 320 320 Visit Report Report Report Report Report Report Report Report Ref Range & Units 4 d ago (03/01/25) 9 mo ago (05/14/24) 1 yr ago (02/20/24) 1 yr ago (11/23/23) 1 yr ago (08/25/23) 1 yr ago (05/04/23) 1 yr ago (03/09/23) Hemoglobin A1C <5.7 % 6.8 High 7.1 High R, CM 7.5 High R, CM 8.7 High R, CM 10.9 High R, CM Allergies Allergen Reactions Fluoxetine Unknown Other Reaction(s): change in mental status Metformin Hcl Other Reaction(s): diarrhea Duloxetine Hcl Other Developed severe fatigue. Metformin Diarrhea Current Outpatient Medications on File Prior to Visit Medication Sig Dispense Refill atorvastatin (Lipitor) 20 MG tablet Take 1 tablet (20 mg) by mouth Daily 90 tablet 0 azelastine (Astelin) 0.1 % nasal spray Administer 1 spray into each nostril in the morning and 1 spray before bedtime. Use in each nostril as directed. (Patient not taking: Reported on 01/02/2025) 30 mL 12 empagliflozin (Jardiance) 25 MG Take 1 tablet (25 mg) by mouth Daily 90 tablet 0 ibuprofen 800 MG tablet Take 1 tablet (800 mg) by mouth 3 (three) times a day as needed for mild pain (pain) (Patient not taking: Reported on 01/02/2025) 180 tablet 3 losartan (Cozaar) 25 MG tablet Take 1 tablet (25 mg) by mouth Daily 90 tablet 1 nystatin (Mycostatin) 995815 UNIT/GM powder Apply 1 application topically if needed for rash. (Patient not taking: Reported on 01/02/2025) 60 g 1 pioglitazone (Actos) 30 MG tablet Take 1 tablet (30 mg) by mouth Daily 90 tablet 0 spironolactone (Aldactone) 50 MG tablet Take 1 tablet (50 mg) by mouth in the morning and 1 tablet (50 mg) before bedtime. 180 tablet 0 Tirzepatide (Mounjaro) 5 MG/0.5ML solution auto-injector Inject 5 mg under the skin 1 (one) time per week No current facility-administered medications on file prior to visit. 1. Type 2 diabetes mellitus with diabetic polyneuropathy, without long-term current use of insulin (CMS/HCC) (Primary) Chronic problem that is limiting her ability to walk and exercise. Is also getting her down because of the amount of pain. We discussed some options and have mutually agreed upon a trial of gabapentin titration and this was reviewed in detail with her. New prescription - gabapentin (Neurontin) 100 MG capsule; Titrate from 1 to 4 capsules three times daily as needed for pain Dispense: 100 capsule; Refill: 0 2. Stage 2 chronic kidney disease Defines the diabetic nephropathy 3. Diabetic nephropathy associated with type 2 diabetes mellitus (HCC) (CMS/HCC) Chronic problem, stable, technically to goal at 6.8. I have encouraged her to try to get her hemoglobin A1c below 6.5. - empagliflozin (Jardiance) 25 MG; Take 1 tablet (25 mg) by mouth Daily Dispense: 90 tablet; Refill: 1 - glipiZIDE (Glucotrol) 5 MG tablet; Take 1 tablet (5 mg) by mouth in the morning and 1 tablet (5 mg) in the evening. Take before meals. Dispense: 180 tablet; Refill: 1 - Tirzepatide (Mounjaro) 5 MG/0.5ML solution auto-injector; Inject 5 mg under the skin 1 (one) time per week Dispense: 6 mL; Refill: 1 - losartan (Cozaar) 25 MG tablet; Take 1 tablet (25 mg) by mouth Daily Dispense: 90 tablet; Refill: 1 - Hemoglobin A1c; Future - Hemoglobin A1c 4. Microalbuminuria Chronic problem, defining an aspect the nephropathy, with significant risk, uncertain progression requiring longitudinal monitoring, and moderate decision making. Microalbuminuria describes a moderate increase in the level of urine albumin. Normally, the kidneys filter albumin, so if the kidney leaks small amounts of albumin into the urine then it is a indicator of chronic kidney disease. Microalbuminuria is an independent indicator of increased cardiovascular risk among individuals and therefore can be used for risk stratification for cardiovascular disease. 5. Mixed dyslipidemia (CMS/HCC) In prescribing a renewal to their current medication, consideration of the following encompasses moderate decision making; the current prescriptions and supplements, the current allergies and medication intolerances, current medical conditions, and potential drug interactions. Any changes to risks, benefits, and reason for renewing their current medication due to the above were discussed. The patient was given a chance to ask questions today and all questions were answered. The patient is to contact us if any other questions arise or if any problems occur. (Utilizing the original 1994/1996 guidelines or the 2020 office/outpatient code guidelines for selecting the level of E/M service, In both sets of guidelines, prescription drug management appears in the moderate medical decision making (MDM) row. Neither the original guidelines nor the new guidelines state that a new prescription or change is needed in order to credit prescription drug management) - atorvastatin (Lipitor) 20 MG tablet; Take 1 tablet (20 mg) by mouth Daily Dispense: 90 tablet; Refill: 1 6. Morbid obesity (CMS/HCC) Chronic problem. She is doing some counseling and working through some things and part of that includes an exercise program. I encouraged her on this. 7. BMI 50.0-59.9, adult (CMS/HCC) Chronic problem defines the morbid obesity 8. Venous (peripheral) insufficiency Chronic problem, stable - spironolactone (Aldactone) 50 MG tablet; Take 1 tablet (50 mg) by mouth in the morning and 1 tablet (50 mg) before bedtime. Dispense: 180 tablet; Refill: 1 9. Primary osteoarthritis of left hip Chronic problem, stable. She is getting relief from the ibuprofen. We discussed and how this can also have secondary long-term effects on the kidney. - ibuprofen 800 MG tablet; Take 1 tablet (800 mg) by mouth 3 (three) times a day as needed for mild pain (pain) Dispense: 180 tablet; Refill: 3 documented in this encounter [facility] 01-21-2025 Telephone encounter Note Prescription sent [facility] 01-21-2025 Miscellaneous Notes Prescription sent Pt called and stated she has a yeast infection and wanted to know if would send her in something. documented in this encounter [facility] 01-21-2025 Telephone encounter Note Pt called and stated she has a yeast infection and wanted to know if would send her in something. [facility] 01-01-2025 Note Patient Education Nephrology Dietary Guidelines to Help Prevent Kidney Stones Kidney stones are deposits of minerals and salts that form inside your kidneys. Your risk of developing kidney stones may be greater depending on your diet, your lifestyle, the medicines you take, and whether you have certain medical conditions. Most people can lower their risks of developing kidney stones by following these dietary guidelines. Your dietitian may give you more specific instructions depending on your overall health and the type of kidney stones you tend to develop. What are tips for following this plan? Reading food labels ??? Choose foods with no salt added or low-salt labels. Limit your salt (sodium) intake to less than 1,500 mg a day. ??? Choose foods with calcium for each meal and snack. Try to eat about 300 mg of calcium at each meal. Foods that contain 200?500 mg of calcium a serving include: ? 8 oz (237 mL) of milk, [id number]-dlcre milk, and calcium-fortifiedfruit juice. Calcium-fortified means that calcium has been added to these drinks. ? 8 oz (237 mL) of kefir, yogurt, and soy yogurt. ? 4 oz (114 g) of tofu. ? 1 oz (28 g) of cheese. ? 1 cup (150 g) of dried figs. ? 1 cup (91 g) of cooked broccoli. ? One 3 oz (85 g) can of sardines or mackerel. Most people need 1,000?1,500 mg of calcium a day. Talk to your dietitian about how much calcium is recommended for you. Shopping ??? Buy plenty of fresh fruits and vegetables. Most people do not need to avoid fruits and vegetables, even if these foods contain nutrients that may contribute to kidney stones. ??? When shopping for convenience foods, choose: ? Whole pieces of fruit. ? Pre-made salads with dressing on the side. ? Low-fat fruit and yogurt smoothies. ??? Avoid buying frozen meals or prepared deli foods. These can be high in sodium. ??? Look for foods with live cultures, such as yogurt and kefir. ??? Choose high-fiber grains, such as whole-wheat breads, oat bran, and wheat cereals. Cooking ??? Do not add salt to food when cooking. Place a salt shaker on the table and allow each person to add their own salt to taste. ??? Use vegetable protein, such as beans, textured vegetable protein (TVP), or tofu, instead of meat in pasta, casseroles, and soups. Meal planning ??? Eat less salt, if told by your dietitian. To do this: ? Avoid eating processed or pre-made food. ? Avoid eating fast food. ??? Eat less animal protein, including cheese, meat, poultry, or fish, if told by your dietitian. To do this: ? Limit the number of times you have meat, poultry, fish, or cheese each week. Eat a diet free of meat at least 2 days a week. ? Eat only one serving each day of meat, poultry, fish, or seafood. ? When you prepare animal proteins, cut pieces into small portion sizes. For most meat and fish, one serving is about the size of the palm of your hand. ??? Eat at least five servings of fresh fruits and vegetables each day. To do this: ? Keep fruits and vegetables on hand for snacks. ? Eat one piece of fruit or a handful of berries with breakfast. ? Have a salad and fruit at lunch. ? Have two kinds of vegetables at dinner. ??? You may be told to limit foods that are high in a substance called oxalate. These include: ? Spinach (cooked), rhubarb, beets, sweet potatoes, and [place] chard. ? Peanuts. ? Potato chips, greek fries, and baked potatoes with skin on. ? Nuts and nut products. ? Chocolate. ??? If you regularly take a diuretic medicine, make sure to eat at least 1 or 2 servings of fruits or vegetables that are high in potassium each day. These include: ? Avocado. ? Banana. ? [place], prune, carrot, or tomato juice. ? Baked potato. ? Cabbage. ? Beans and split peas. Lifestyle ??? Drink enough fluid to keep your urine pale yellow. This is the most important thing you can do. Spread your fluid intake throughout the day. ??? If you drink alcohol: ? Limit how much you have to: ? 0?1 drink a day for women who are not . ? 0?2 drinks a day for men. ? Know how much alcohol is in your drink. In the [place] one drink equals one 12 oz bottle of beer (355 mL), one 5 oz glass of wine (148 mL), or one 1? oz glass of hard liquor (44 mL). ??? Lose weight if told by your health care provider. Work with your dietitian to find an eating plan and weight loss strategies that work best for you. General information ??? Talk to your health care provider and dietitian about taking daily supplements. Depending on your health and the cause of your kidney stones, you may be told: ? Do not take high-dose supplements of vitamin C (1,000 mg a day or more). ? To take a calcium supplement. ? To take a daily probiotic supplement. ? To take other supplements such as magnesium, fish oil, or vitamin B6. ??? Take abty-jlo-jadhqla and prescription medicines only as told by your health (more content not included)... [facility] 12-10-2024 History of Present illness Narrative Images from the original note were not included. Patient ID: Bobby Lujan is a 59 y.o. female who presents for: Diabetes Mellitus Patient presents for follow up of diabetes. Current symptoms include: none. Symptoms have been well-controlled. Patient denies foot ulcerations, hypoglycemia , and polydipsia. Evaluation to date has included: fasting lipid panel, hemoglobin A1C, and microalbuminuria. Home sugars: patient does not check sugars. Hyperlipidemia Pt who presents for follow-up of dyslipidemia. A repeat fasting lipid profile was not done. The patient does not use medications that may worsen dyslipidemias (corticosteroids, progestins, anabolic steroids, diuretics, beta-blockers, amiodarone, cyclosporine, olanzapine). Exercise: rarely. Review of Systems Constitutional: Negative for activity change and fatigue. Respiratory: Negative for cough, shortness of breath and wheezing. Cardiovascular: Negative for chest pain, palpitations and leg swelling. Neurological: Negative for light-headedness and headaches. Objective The patient is pleasant and in [...] speech is clear. Appropriate affect. Visit Vitals OB Status Postmenopausal Smoking Status Former Labs dated December 03, 2024 reviewed Allergies Allergen Reactions Fluoxetine Unknown Other Reaction(s): change in mental status Metformin Hcl Other Reaction(s): diarrhea Duloxetine Hcl Other Developed severe fatigue. Metformin Diarrhea Current Outpatient Medications on File Prior to Visit Medication Sig Dispense Refill pioglitazone (Actos) 30 MG tablet Take 1 tablet (30 mg) by mouth Daily 90 tablet 1 azelastine (Astelin) 0.1 % nasal spray Administer 1 spray into each nostril in the morning and 1 spray before bedtime. Use in each nostril as directed. (Patient not taking: Reported on 12/03/2024) 30 mL 12 empagliflozin (Jardiance) 25 MG Take 1 tablet (25 mg) by mouth Daily 90 tablet 0 [] fluconazole (Diflucan) 200 MG tablet Take 1 tablet (200 mg) by mouth Daily for 14 days 14 tablet 0 ibuprofen 800 MG tablet Take 1 tablet (800 mg) by mouth 3 (three) times a day as needed for mild pain (pain) (Patient not taking: Reported on 12/03/2024) 180 tablet 3 nystatin (Mycostatin) [id number] UNIT/GM powder Apply 1 application topically if needed for rash. (Patient not taking: Reported on 12/03/2024) 60 g 1 spironolactone (Aldactone) 50 MG tablet Take 1 tablet (50 mg) by mouth in the morning and 1 tablet (50 mg) before bedtime. (Patient not taking: Reported on 12/03/2024) 180 tablet 0 No current facility-administered medications on file prior to visit. 1. Type 2 diabetes mellitus with hyperglycemia, without long-term current use of insulin ([facility]) Chronic problem, unstable and not to goal. With her illness I would not especially expect her to be to goal. We are going to adjust her medications get her back on track and recheck a hemoglobin A1c. In prescribing an adjustment to their current medication, consideration of the following encompasses moderate decision making; the current prescriptions and supplements, the current allergies and medication intolerances, the current medical conditions, and potential drug interactions. Risks, benefits, and reason for adjusting their current medication were discussed. The patient was given a chance to ask questions today and all questions were answered. The patient is to contact us if any other questions arise or if any problems occur with the adjustment in their medication. - Tirzepatide (Mounjaro) 5 MG/0.5ML solution auto-injector; Inject 5 mg under the skin 1 (one) time per week - Hemoglobin A1c; Future - Hemoglobin A1c 2. Type 2 diabetes mellitus with other diabetic kidney complication ([facility]) Chronic problem, losartan for renal an endothelial dysfunction protection. - losartan (Cozaar) 25 MG tablet; Take 1 tablet (25 mg) by mouth Daily Dispense: 90 tablet; Refill: 1 3. Diabetic nephropathy associated with type 2 diabetes mellitus (HCC) ([facility]) Chronic problem, stable, demonstrating end organ damage from their current state of health. I stressed the importance of keeping blood pressure and blood sugar to goal, staying well hydrated, avoiding NSAIDs, and aerobic exercises as tolerated. Continue to monitor longitudinally. 4. Stage 2 chronic kidney disease Chronic problem, stable, defining the end organ damage of the nephropathy. I stressed the importance of keeping blood pressure and blood sugar to goal, staying well hydrated, and aerobic exercises as tolerated. Continue to monitor longitudinally. 5. Microalbuminuria Chronic problem, defining an aspect the nephropathy, with significant risk, uncertain progression requiring longitudinal monitoring, and moderate decision making. Microalbuminuria describes a moderate increase in the level of urine albumin. Normally, the kidneys filter albumin, so if the kidney leaks small amounts of albumin into the urine then it is a indicator of chronic kidney disease. Microalbuminuria is an independent indicator of increased cardiovascular risk among individuals and therefore can be used for risk stratification for cardiovascular disease. 6. Morbid obesity ([facility]) Chronic comorbid condition. As she does become well again we need to increase lifestyle and she understands this. 7. BMI 50.0-59.9, adult ([facility]) Defines the morbid obesity 8. Polypharmacy Chronic problem The patient meets the criteria for polypharmacy; 5 or more prescriptions or multi-morbidity defined as 5 or more diagnoses. Polypharmacy can significantly increase the risk of preventable adverse drug events and negatively impact adherence. Consideration of diverse factors such as clinician agreement, patient perspective, and de-prescribing, as appropriate can improve patient outcomes while simplifying care. This requires longitudinal monitoring as there is at least a moderate risk of morbidity and requires at least a moderate degree of evaluation and management. 9. Mixed dyslipidemia ([facility]) In prescribing a renewal to their current medication, consideration of the following encompasses moderate decision making; the current prescriptions and supplements, the current allergies and medication intolerances, current medical conditions, and potential drug interactions. Any changes to risks, benefits, and reason for renewing their current medication due to the above were discussed. The patient was given a chance to ask questions today and all questions were answered. The patient is to contact us if any other questions arise or if any problems occur. (Utilizing the original 1994/1996 guidelines or the 2020 office/outpatient code guidelines for selecting the level of E/M service, In both sets of guidelines, prescription drug management appears in the moderate medical decision making (MDM) row. Neither the original guidelines nor the new guidelines state that a new prescription or change is needed in order to credit prescription drug management) - atorvastatin (Lipitor) 20 MG tablet; Take 1 tablet (20 mg) by mouth Daily 10. BMI 45.0-49.9, adult ([facility]) - Tirzepatide (Mounjaro) 5 MG/0.5ML solution auto-injector; Inject 5 mg under the skin 1 (one) time per week documented in this encounter [facility] 12-03-2024 History of Present illness Narrative Images from the original note were not included. Patient ID: Bobby Lujan is a 59 y.o. female who presents for: Hospital follow up: weakness and pylenophritis Flowsheet Row Patient Outreach from 11/29/2024 in [facility] with Idalmis Cardenas LPN Hospital Information ED, Hospital or Fdc Facility Discharge? Hospital Patient has been contacted within two business days of discharge Yes Diagnosis generalized weakness, pyelonephritis Discharge Date 11/28/24 Discharged To: Home Setting Discharge Hospital [facility] Engagement Call Start Time 1000 Admission Date 11/26/24 Medications Discharge medications reviewed and reconciled from hospital? Yes [START: Levofloxacin, hyoscyamine] Is the patient having any side effects they believe may be caused by any medication additions or changes? No Does the patient have all medications ordered at discharge? Yes Nursing Interventions No intervention needed Is the patient taking all medications as directed (includes completed medication regime)? Yes Nursing Interventions Nurse provided patient education Appointments Does the patient have a primary care provider? Yes [[facility] on 12/03] Nursing Interventions Verified appointment date/time/provider Does the patient have any upcoming specialty appointments? -- [x-ray in 6 weeks] Self Management Patient Teaching Does the patient have access to their discharge instructions? Yes Nursing Interventions Reviewed instructions with patient What is the patient's perception of their health status since discharge? Improving Is the patient/caregiver able to teach back the hierarchy of who to call/visit for symptoms/problems? PCP, Specialist, Home Health nurse, Urgent Care, ED, 911 Yes Wrap Up Wrap Up Additional Comments Had labs, UA, urine culture, CT scan, blood culture Call End Time 1006 Pt states she is not feeling any better, she is upset with urology office. She states they sent her to the ER and then after being admitted called and stated that they were calling her in another antibiotic. She states she thinks she has another vaginal yeast infection and/or thrush due to burning of her tongue. She gets these things frequently on antibiotics. She has a very dry and painful tongue. Review of Systems Constitutional: Negative for chills and fever. Respiratory: Positive for shortness of breath and wheezing. Negative for cough. Cardiovascular: Positive for palpitations. Negative for chest pain and leg swelling. Gastrointestinal: Positive for abdominal pain, constipation, diarrhea and nausea. Negative for vomiting. Genitourinary: Positive for flank pain, frequency and urgency. Negative for decreased urine volume and difficulty urinating. Neurological: Positive for weakness, light-headedness and headaches. Objective The patient is pleasant and in no acute distress, but does appear tired The patient has good eye contact and clear speech Mucous membranes are moist. Her tongue does have some fissures. There is no specific erythema and there is no specific evidence of thrush. Breathing easy and speaking full sentences. Even with being off her medications, she has minimal peripheral edema from her venous insufficiency. Visit Vitals Pulse 105 Ht 5' 7 Wt 320 lb SpO2 97% BMI 50.12 kg/m OB Status Postmenopausal Smoking Status Former BSA 2.62 m Allergies Allergen Reactions Fluoxetine Unknown Other Reaction(s): change in mental status Metformin Hcl Other Reaction(s): diarrhea Duloxetine Hcl Other Developed severe fatigue. Metformin Diarrhea Current Outpatient Medications on File Prior to Visit Medication Sig Dispense Refill levoFLOXacin (Levaquin) 750 MG tablet Take 750 mg by mouth Daily [DISCONTINUED] Flomax 0.4 MG 24 hr capsule Take 0.4 mg by mouth Daily atorvastatin (Lipitor) 20 MG tablet Take 1 tablet (20 mg) by mouth Daily (Patient not taking: Reported on 12/03/2024) 30 tablet 0 azelastine (Astelin) 0.1 % nasal spray Administer 1 spray into each nostril in the morning and 1 spray before bedtime. Use in each nostril as directed. (Patient not taking: Reported on 12/03/2024) 30 mL 12 empagliflozin (Jardiance) 25 MG Take 1 tablet (25 mg) by mouth Daily (Patient not taking: Reported on 12/03/2024) 90 tablet 0 glipiZIDE (Glucotrol) 5 MG tablet Take 1 tablet (5 mg) by mouth in the morning and 1 tablet (5 mg) in the evening. Take before meals. (Patient not taking: Reported on 12/03/2024) 60 tablet 1 hyoscyamine (Levsin) 0.125 MG SL tablet Take 0.125 mg by mouth every 6 (six) hours if needed for cramping (Patient not taking: Reported on 12/03/2024) ibuprofen 800 MG tablet Take 1 tablet (800 mg) by mouth 3 (three) times a day as needed for mild pain (pain) (Patient not taking: Reported on 12/03/2024) 180 tablet 3 losartan (Cozaar) 25 MG tablet Take 1 tablet (25 mg) by mouth Daily (Patient not taking: Reported on 12/03/2024) 30 tablet 0 nystatin (Mycostatin) [id number] UNIT/GM powder Apply 1 application topically if needed for rash. (Patient not taking: Reported on 12/03/2024) 60 g 1 pioglitazone (Actos) 30 MG tablet Take 1 tablet (30 mg) by mouth Daily (Patient not taking: Reported on 11/14/2024) 90 tablet 1 spironolactone (Aldactone) 50 MG tablet Take 1 tablet (50 mg) by mouth in the morning and 1 tablet (50 mg) before bedtime. (Patient not taking: Reported on 12/03/2024) 180 tablet 0 Tirzepatide (Mounjaro) 5 MG/0.5ML solution auto-injector Inject 5 mg under the skin 1 (one) time per week (Patient not taking: Reported on 12/03/2024) 6 mL 3 No current facility-administered medications on file prior to visit. 1. Sepsis with acute renal failure without septic shock, due to unspecified organism, unspecified acute renal failure type (CMS/HCC) (Primary) Acute problem. It does appear that the sepsis itself has resolved. I did discuss with the patient how sick she was and probably still is and that it is not unusual to be fatigued when her body has that much disruption happening. We have mutually agreed to recheck a chemistry panel and see her back next week. I discussed with her that while she does not need a formal exercise program she does need to keep moving and keep the blood flowing in her legs to help avoid a blood clot. 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 - Comprehensive metabolic panel; Future - Comprehensive metabolic panel 2. Pyelonephritis Tolerating the levofloxacin. Complete the course of treatment. Previous urine culture and sensitivity was for E coli. 3. Acute kidney injury superimposed on chronic kidney disease (CMS/HCC) Problem with unknown stability. She was only in stage 2 chronic kidney disease which infers her EGFR of greater than 60. In the hospital setting her EGFR was 54. We discussed the importance of hydration. We will rechecked the lab to ensure adequate recovery. - Comprehensive metabolic panel; Future - Comprehensive metabolic panel 4. Hypoalbuminemia due to protein-calorie malnutrition (CMS/HCC) Fairly acute problem. She has not been eating well since at least a week or 2 prior to her hospitalization. She was still struggling with eating as nothing sounds good and she is intermittently mildly nauseated. She is eating a soft diet but with lots of sugary things. We discussed some options that would be better for her as a diabetic. 5. Weakness generalized Chronic problem secondary to the infection and sepsis. Re-evaluate next week. 6. Encounter for examination following treatment at hospital This visit is prompted as a transition of care. The patient has been contacted by phone within 2 business days of discharge or at least 2 unsuccessful attempts were made to contact the patient within the 2 business days. Any available documents including; emergency room note, visit notes, consults, and discharge summary or continuity of care documents were reviewed. Any laboratory investigation or diagnostic imaging that was ordered by outside physicians and available was obtained and reviewed. The transition of care note is reviewed. a anfz-yx-bqgg evaluation is done today. Medical decision making is complex in degree. 7. Monilial vaginitis Acute problem. I discussed with her and I will prescribe now that I want her to wait until she has finished her course of antibiotics. At that point she should also certainly be doing the probiotics long with this. In prescribing a new medication consideration of [...] mg) by mouth Daily for 14 days Dispense: 14 tablet; Refill: 0 8. Type 2 diabetes mellitus with hyperglycemia, without long-term current use of insulin ([facility]) Her blood sugars are running in the 260 range. We discussed that they stopped most of her medications without instructions to restart. Upon reviewing we are going to restart half of the Jardiance and the pioglitazone is at as less likely if she stops eating to cause hypoglycemia. As she starts to feel better we will increase the medications. We are going to hold the atorvastatin, restart the renal protective dose of losartan, and hold the spironolactone for now. We will re-evaluate this next week. Chronic problem The patient meets the criteria for polypharmacy; 5 or more prescriptions or multi-morbidity defined as 5 or more diagnoses. Polypharmacy can significantly increase the risk of preventable adverse drug events and negatively impact adherence. Consideration of diverse factors such as clinician agreement, patient perspective, and de-prescribing, as appropriate can improve patient outcomes while simplifying care. This requires longitudinal monitoring as there is at least a moderate risk of morbidity and requires at least a moderate degree of evaluation and management. documented in this encounter [facility] 11-26-2024 Note Progress Note-Physic kane Patient: BOBBY LUJAN Age: 59 years Sex: Female : 1965 Associated Diagnoses: None Author: George Mesa Jr, DO Postoperative Information Postoperative disposition: Postoperative disposition: To PACU. Optimetrix number: Optimetrix number [id number]. Anesthetic utilized: General. Health Status Allergies: Allergic Reactions (Selected) Severity Not Documented FLUoxetine- Unknown. ROPINIRole- Unknown. Physical Examination Vital Signs 11/22/2024 16:35 EST Heart Rate Monitored 82 bpm Respiratory Rate Monitored 14 br/min Systolic Blood Pressure 118 mmHg Diastolic Blood Pressure 106 mmHg HI SpO2 99 % 11/22/2024 16:30 EST Heart Rate Monitored 81 bpm Respiratory Rate 24 br/min HI Systolic Blood Pressure 131 mmHg Diastolic Blood Pressure 80 mmHg SpO2 99 % 11/22/2024 16:25 EST Temperature Temporal Artery 36.5 DegC Heart Rate Monitored 90 bpm Respiratory Rate 24 br/min HI Systolic Blood Pressure 139 mmHg Diastolic Blood Pressure 89 mmHg SpO2 98 % Pain Assessment: Controlled. General: Awake, Alert, Appropriate. Respiratory: Adequate air exchange. Cardiovascular: Stable, Normal peripheral perfusion. Neurological: Normal sensory function, Normal motor function. Assessment Anesthetic outcome No anesthetic complications noted. Adequate pain relief. able to void without difficulty, able to ambulate with assist, tolerating PO intake, no N/V. Review / Management Condition: Stable. Plan Transfer/Discharge: Transfer/Discharge Discharge when meets criteria ( To home ). [facility] Comment on above: Result Comment: Elec tronically Signed By: George Mesa Jr, DO\.br\Date and Time Signed: 11/26/24 07:30 EST 11-22-2024 Hospital Discharge instructions Patient Education 11/22/2024 16:05:05 [id number] Utereroscopy,Lithotripsy, Stone Extraction, Stent Placement(CUSTOM) [facility] [place], [place] Post-operative Instructions for Ureteroscopy, Laser Lithotripsy, Stone Extraction and Stent Placement There are no incisions or dressings to be concerned with, as the procedure was performed inside the urinary system. Stent Placement You may have a stent which spans the distance between your bladder and your kidney, allowing urine to pass through. It prevents blockage from swelling, kidney stones in ureter (tube connecting the kidney to the bladder), or scars. The presence of the stent may cause: Back or side pain, especially with urination Frequent or urgent urination Bladder pressure or pain Blood in urine You may pass stone debris or small blood clots, which is expected. Drinking plenty of water to dilute the urine may help. If there is a thread coming out of urinary channel, be careful not to accidently pull on this, as it is attached to the stent. Diet You may resume your normal diet, but you may want to start slowly and avoid spicy food, caffeine, carbonated beverages and alcohol, especially if you have a stent. Your diet and fluid intake may make irritation from the stent worse. Activity You may resume your normal activities, although you should take it easy on the day of the procedure. Minimizing activity may decrease the back discomfort and irritation from the stent, if present. Medications You may resume your home medications unless instructed otherwise. Hold aspirin, ibuprofen, Coumadin (warfarin) and other blood thinners until your office visit (we will discuss when to resume these medications) Take your prescribed medications as directed, including your antibiotics. You may also be given a prescription for pain medicine or medicines to help with the bladder irritation from stent, if present. Things to watch for which would require an Emergency Room Visit (or call 911) (This is not a complete list) Fever over 101.5 degrees, with or without chills Severe bleeding Severe drug reactions with itching, hives, rash, or severe flank pain Tenderness or swelling or the calves, chest pain, or shortness of breath Please call the office to arrange for your post-operative appointment (with XRAY) [phone] 11/22/2024 16:04:49 Post Op Patient Instructions - FT (CUSTOM) Follow Up Care 11/09/2024 11:46:05 With:VENANCIO GIRON Address:Unknown When: Unknown Comments:6 wks with MARC GRISSOM [facility] 11-22-2024 Note Patient Education - Text [facility] [place], [place] Dr. Ha Avila Post-operative Instructions for Ureteroscopy, Laser Lithotripsy, Stone Extraction and Stent Placement There are no incisions or dressings to be concerned with, as the procedure was performed inside the urinary system. For 24 hours after surgery: ??? No driving or operating machinery ??? Do not make important decisions ??? Do not consume alcohol, sleeping pills Stent Placement You may have a stent which spans the distance between your bladder and your kidney, allowing urine to pass through. It prevents blockage from swelling, kidney stones in ureter (tube connecting the kidney to the bladder), or scars. The presence of the stent may cause: ??? Back or side pain, especially with urination ??? Frequent or urgent urination ??? Bladder pressure or pain ??? Blood in urine You may pass stone debris or small blood clots, which is expected. Drinking plenty of water to dilute the urine may help. If there is a thread coming out of urinary channel, be careful not to accidently pull on this, as it is attached to the stent. The stent will most likely be removed in the office during a short procedure in which a scope is placed into the bladder, the stent is grasped and removed. At other times the stent may need to stay longer, either in preparation for other procedures or for other reasons. If it is to remain penitentiary, however, changes of the stent are required (about every 3-4 months). Diet You may resume your normal diet, but you may want to start slowly and avoid spicy food, caffeine, carbonated beverages and alcohol, especially if you have a stent. Your diet and fluid intake may make irritation from the stent worse. Activity You may resume your normal activities, although you should take it easy on the day of the procedure. Minimizing activity may decrease the back discomfort and irritation from the stent, if present. Medications ??? You may resume your home medications unless instructed otherwise. ??? Hold aspirin, ibuprofen, Coumadin (warfarin) and other blood thinners until your office visit (we will discuss when to resume these medications) ??? Take your prescribed medications as directed, including your antibiotics. You may also be given a prescription for pain medicine or medicines to help with the bladder irritation from stent, if present. Things to watch for which would require an Emergency Room Visit (or call 911) (This is not a complete list) ??? Fever over 101.5 degrees, with or without chills ??? Severe bleeding ??? Severe drug reactions with itching, hives, rash, or severe flank pain ??? Tenderness or swelling or the calves, chest pain, or shortness of breath Please call the office to arrange for your post-operative appointment (with XRAY) [phone] [facility] 11-22-2024 Evaluation + Plan note Extrac kelly from: Title:ANES Pre-operative Note 2022 Author:George Storey. Date:11/22/24 Plan [place] [employer] (ASA) physical status classification: Class III. Anesthetic Preoperative Plan: Anesthesia General. Future Scheduled Tests Radiology* XR Abdomen 1 View 11/22/24 * US Renal 11/22/24 [facility] 02-06-2025 NoteProgress Note-Physician Patient: BOBBY LUJAN Age: 59 years Sex: Female : 1965 Associated Diagnoses: None Author: George Vogt MD. Preoperative Information Anesthesia Preop Info: Time patient last ate or drank 11/22/2024 00:00:00. Anesthesia history: Patient history: None. Family history+: None. Informed consent: Signed by patient. Re-evaluation prior to induction: Initial evaluation reviewed: No significant change. Review of Systems Eye Ear/Nose/Mouth/Throat Respiratory: No shortness of breath, No cough. Cardiovascular: No chest pain. Gastrointestinal: No heartburn. Musculoskeletal Neurologic Health Status Allergies: Allergic Reactions (Selected) Severity Not Documented FLUoxetine- Unknown. ROPINIRole- Unknown., Allergies (2) Active Severity Reaction FLUoxetine Unknown rOPINIRole Unknown Current medications: (Selected) Inpatient Medications Ordered HYDROmorphone 1 mg/mL injectable solution: 0.4 mg = 0.4 mL, Injection, IV Push, q4min PRN Pain for 5 dose(s), Stop date Limited # of times, Routine, Start date 11/22/24 13:49:00 EST, 11/22/24 13:49:00 EST Sodium Chloride 0.9% IV [place] 1000 mL 1,000 mL: 1,000 mL, IV, 150 mL/hr, Routine, Start date 11/22/2510:30:00 EST, 6.7 hour(s), Total volume (mL): 1,000, 154 kg, 2.7, m2 cefazolin additive + Sodium Chloride 0.9% intravenous solution 100 mL: 3 gram = 1 EA, Injection, IVPiggyback, Once, Stop date 11/22/24 12:00:00 EST, Routine, Start date 11/22/24 12:00:00 EST, 200 mL/hr, Infuse over 30 minute(s), HOLD if patient has history of anaphylactic allergic reaction to Penicillin promethazine additive 12.5 mg + Sodium Chloride 0.9% IV Catalina 50 mL (INT) 50 mL: IV Piggyback, Once PRN Nausea/Vomiting, Routine, Start date 11/22/24 13:49:00 EST, 151.5 mL/hr, Infuse over 20 minute(s), 11/22/24 13:49:00 EST Prescriptions Prescribed Diflucan 150 mg Tab: 300 mg = 2 tab(s), Oral, Once, Take 1 tab by mouth. May repeat dose in 72 hours if symptoms persist., # 2 tab(s), Refills(s) 0, Pharmacy: [facility]/pharmacy #[id number], 170, cm, 11/14/24 5:53:00 EST, Height/Length Dosing, 154, kg, 11/14/24 5:53:00 EST, Weight D... Documented Medications Documented Jardiance 25 mg oral tablet: 25 mg = 1 tab(s), Oral, qAM, Refills(s) 0, Blood glucose Mounjaro 5 mg/0.5 mL subcutaneous solution: 5 mg, SubCutaneous, qWeek, Tuesday, Refills(s) 0, Blood glucose atorvastatin 20 mg Tab: 20 mg = 1 tab(s), Oral, Daily, Refills(s) 0, High cholesterol glipiZIDE 5 mg Tab: 5 mg = 1 tab(s), Oral, Daily, Refills(s) 0, High blood pressure ibuprofen 800 mg Tab: 800 mg = 1 tab(s), Oral, TID, PRN as needed for pain, Refills(s) 0 levofloxacin 750 mg Tab: 750 mg = 1 tab(s), Oral, q24hr, Refills(s) 0, Infection or prophylaxis forantibiotics losartan 25 mg Tab: 25 mg = 1 tab(s), Oral, Daily, Refills(s) 0, High blood pressure pioglitazone 30 mg Tab: 30 mg = 1 tab(s), Oral, Daily, Refills(s) 0, Blood glucose spironolactone 50 mg Tab: 50 mg = 1 tab(s), Oral, BID, Refills(s) 0, High blood pressure, Home Medications (10) Active atorvastatin 20 mg Tab 20 mg = 1 tab(s), Oral, Daily Diflucan 150 mg Tab 300 mg = 2 tab(s), Oral, Once glipiZIDE 5 mg Tab 5 mg = 1 tab(s), Oral, Daily ibuprofen 800 mg Tab 800 mg = 1 tab(s), PRN, Oral, TID Jardiance 25 mg oral tablet 25 mg = 1 tab(s), Oral, qAM levofloxacin 750 mg Tab 750 mg = 1 tab(s), Oral, q24hr losartan 25 mg Tab 25 mg = 1 tab(s), Oral, Daily Mounjaro 5 mg/0.5 mL subcutaneous solution 5 mg, SubCutaneous, qWeek pioglitazone 30 mg Tab 30 mg = 1 tab(s), Oral, Daily spironolactone 50 mg Tab 50 mg = 1 tab(s), Oral, BID , Medications (4) Active Scheduled: (1) ceFAZolin + Sodium Chloride 0.9% Minibag 100 mL 3 gram 1 EA, IV Piggyback, Once Continuous: (1) Sodium Chloride 0.9% 1,000 mL 1,000 mL, IV, 150 mL/hr PRN: (2) HYDROmorphone 1 mg/mL SOLN [F] 0.4 mg 0.4 mL, IV Push, q4min promethazine 12.5 mg + Sodium Chloride 0.9% 50 mL 12.5 mg 0.5 mL, IV Piggyback, Once Problem list: All Problems Abscess of right buttock / SNOMED CT 149426634 / Confirmed BMI 45.0-49.9, adult / SNOMED CT 7808253967 / Confirmed Clostridium difficile colitis / SNOMED CT 8593422213 / Confirmed april 2016 Depression / SNOMED CT 227973035 / Confirmed Diabetes / SNOMED CT 352249386 / Confirmed Diarrhea / SNOMED CT 312332993 / Confirmed Extreme obesity / ICD-9-CM 278.01 / Possible Hypercholesteremia / SNOMED CT 26533222 / Confirmed Infected sebaceous cyst / SNOMED CT 6953641123 / Confirmed Menopause / SNOMED CT 386080233 / Confirmed Osteoarthritis of hip / SNOMED CT 3331440487 / Confirmed Sepsis / SNOMED CT 963150538 / Confirmed Sleep apnea / SNOMED CT 326871001 / Confirmed Tobacco abuse / SNOMED CT 070256784 / Confirmed Ureteral stone with hydronephrosis / SNOMED CT 7572953601 / Confirmed Urinary tract infection / SNOMED CT 519198540 / Confirmed Vitamin D deficiency / SNOMED CT 08008179 / Confirmed Resolved: At (more content not included)...[facility]Result Comment: Electronically Signed By: Sin CANCHOLA, George An\.br\Date and Time Signed: 11/22/24 13:56 [id number] History of Present illness Narrative* El Kirkpatrick MD - 11/14/2024 10:30 AM EST Images from the original note were not included. Patient ID: Bobby Lujan is a 59 y.o. female who presents for: Flowsheet Row Patient Outreach from 11/09/2024 in [facility] with Idalmis Cardenas LPN Hospital Information ED, Hospital or Fdc Facility Discharge? Hospital Patient has been contacted within two business days of discharge Yes Diagnosis right ureteral stone, sepsis, UTI, Ecoli bacteremia Discharge Date 11/08/24 Discharged To: Home Setting Discharge [facility] [Transferred from [facility]] Engagement Call Start Time 1040 Admission Date 11/04/24 Medications Discharge medications reviewed and reconciled from hospital? Yes [START: Levofloxacin HOLD: Jardiance x 1 week, pt was told to hold Losartan and atorvastatin] Is the patient having any side effects they believe may be caused by any medication additions or changes? No Does the patient have all medications ordered at discharge? Yes Nursing Interventions No intervention needed Is the patient taking all medications as directed (includes completed medication regime)? Yes Nursing Interventions Nurse provided patient education Appointments Does the patient have a primary care provider? Yes [[facility]U on 11/13] Nursing Interventions Verified appointment date/time/provider Does the patient have any upcoming specialty appointments? Yes [Urology today] Nursing Interventions Advised patient to keep appointment Self Management Patient Teaching Does the patient have access to their discharge instructions? Yes Nursing Interventions Reviewed instructions with patient What is the patient's perception of their health status since discharge? Improving Is the patient/caregiver able to teach back the hierarchy of who to call/visit for symptoms/problems? PCP, Specialist, Home Health nurse, Urgent Care, ED, 911 Yes Wrap Up Wrap Up Additional Comments Had cysto with stent Call End Time 1046 Review of Systems Constitutional: Negative for chills and fever. Respiratory: Negative for cough, shortness of breath and wheezing. Cardiovascular: Negative for chest pain and palpitations. Gastrointestinal: Negative for abdominal pain. Genitourinary: Positive for dysuria, flank pain, frequency, pelvic pain and urgency. Negative for decreased urine volume. Objective The patient is pleasant and in no acute distress The patient has good eye contact and clear speech Visit Vitals Pulse 90 Ht 5' 7 Wt 320 lb SpO2 97% BMI 50.12 kg/m OB Status Postmenopausal Smoking Status Former BSA 2.62 m Allergies Allergen Reactions Fluoxetine Unknown Other Reaction(s): change in mental status Metformin Hcl Other Reaction(s): diarrhea Duloxetine Hcl Other Developed severe fatigue. Metformin Diarrhea Current Outpatient Medications on File Prior to Visit Medication Sig Dispense Refill azelastine (Astelin) 0.1 % nasal spray Administer 1 spray into each nostril in the morning and 1 spray before bedtime. Use in each nostril as directed. 30 mL 12 ibuprofen 800 MG tablet Take 1 tablet (800 mg) by mouth 3 (three) times a day as needed for mild pain (pain) 180 tablet 3 [] levoFLOXacin (Levaquin) 750 MG tablet Take 750 mg by mouth Daily nystatin (Mycostatin) 109159 UNIT/GM powder Apply 1 application topically if needed for rash. 60 g 1 spironolactone (Aldactone) 50 MG tablet Take 1 tablet (50 mg) by mouth in the morning and 1 tablet (50 mg) before bedtime. 180 tablet 0 Tirzepatide (Mounjaro) 5 MG/0.5ML solution auto-injector Inject 5 mg under the skin 1 (one) time per week 6 mL 3 [DISCONTINUED] Tirzepatide (Mounjaro) 2.5 MG/0.5ML solution auto-injector Inject 2.5 mg under the skin 1 (one) time per week 2 mL 0 atorvastatin (Lipitor) 20 MG tablet Take 1 tablet (20 mg) by mouth Daily (Patient not taking: Reported on 11/14/2024) 30 tablet 0 empagliflozin (Jardiance) 25 MG Take 1 tablet (25 mg) by mouth Daily (Patient not taking: Reported on 11/14/2024) 90 tablet 0 glipiZIDE (Glucotrol) 5 MG tablet Take 1 tablet (5 mg) by mouth in the morning and 1 tablet (5 mg) in the evening. Take before meals. (Patient not taking: Reported on 11/14/2024) 60 tablet 1 losartan (Cozaar) 25 MG tablet Take 1 tablet (25 mg) by mouth Daily (Patient not taking: Reported on 11/14/2024) 30 tablet 0 pioglitazone (Actos) 30 MG tablet Take 1 tablet (30 mg) by mouth Daily (Patient not taking: Reported on 11/14/2024) 90 tablet 1 No current facility-administered medications on file prior to visit. 1. Sepsis due to Escherichia coli without acute organ dysfunction (CMS/HCC) (Primary) Acute problem that appears to be improving. The stent is causing her discomfort. She is still tiredbut otherwise feels her symptoms are improving. After discussion she has an appointment with Urology. We have opted to extend the levofloxacin until she gets to this appointment. - levoFLOXacin (Levaquin) 750 MG tablet; Take 1 tablet (750 mg) by mouth Daily for 5 days Dispense:5 tablet; Refill: 0 2. Right ureteral stone As above 3. E. coli UTI Cause of the infection and sepsis 4. Encounter for examination following treatment at hospital This visit is prompted as a transition of care. The patient has been contacted by phone within 2 business days of discharge or at least 2 unsuccessful attempts were made to contact the patient within the 2 business days. Any available documents including; emergency room note, visit notes, consults, and discharge summary or continuity of care documents were reviewed. Any laboratory investigation or diagnostic imaging that was ordered by outside physicians and available was obtained and reviewed. The transition of care note is reviewed. a nlth-za-olmr evaluation is done today. Medical decision making is complex in degree. 5. Morbid obesity (CMS/HCC) Chronic, comorbid condition 6. BMI 50.0-59.9, adult (CMS/HCC) Worsening and defines the morbid obesity. 7. Current smoker Briefly discussed how cigarette smoking slows healing. documented [facility] [id number] NotePatient Education Urology Ureteroscopy Ureteroscopy is a procedure to check for and treat problems inside part of the urinary tract. In this procedure, a long rigid or flexible tube with a lens and light at the end (ureteroscope) is used to look at the inside of the kidneys and the ureters. The ureters are the tubes that carry urine from the kidneys to the bladder. The ureteroscope is inserted into one or both of the ureters. You may need this procedure if you have frequent urinary tract infections (UTIs), blood in your urine, or a stone in one or both of your ureters. A ureteroscopy can be done: ??? To find the cause of urine blockage in a ureter and to evaluate other abnormalities inside the ureters or kidneys. ??? To remove stones. ??? To remove or treat growths of tissue (polyps), abnormal tissue, and some types of tumors. ??? To remove a tissue sample and check it for disease under a microscope (biopsy). Tell a health care provider about: ??? Any allergies you have. ??? All medicines you are taking, including vitamins, herbs, eye drops, creams, and idgh-dad-tvwfzpo medicines. ??? Any problems you or family members have had with anesthetic medicines. ??? Any bleeding problems you have. ??? Any surgeries you have had. ??? Any medical conditions you have. ??? Whether you are or may be . What are the risks? Your health care provider will talk with you about risks. These may include: ??? Abdominal pain or a burning feeling or pain while urinating. ??? Abnormal bleeding. ??? A UTI. ??? Allergic reactions to medicines. ??? Scarring that narrows the ureter (stricture) or swelling. ??? Creating a hole (perforation) in the ureter. ??? Damage to other structures or organs, such as the part of your body that drains urine from yourbladder (urethra), your bladder, or your uterus. What happens before the procedure? When to stop eating and drinking ??? 8 hours before your procedure ? Stop eating most foods. Do not eat meat, fried foods, or fatty foods. ? Eat only light foods, such as toast or crackers. ? All liquids are okay except energy drinks and alcohol. ??? 6 hours before your procedure ? Stop eating. ? Drink only clear liquids, such as water, clear fruit juice, black coffee, plain tea, and sports drinks. ? Do not drink energy drinks or alcohol. ??? 2 hours before your procedure ? Stop drinking all liquids. ? You may be allowed to take medicines with small sips of water. Medicines Ask your health care provider about: ??? Changing or stopping your regular medicines. These include any diabetes medicines or blood thinners you take. ??? Taking medicines such as aspirin and ibuprofen. These medicines can thin your blood. Do not take these medicines unless your health care provider tells you to. ??? Taking [id number] medicines, vitamins, herbs, and supplements. General instructions ??? Do not use any products that contain nicotine or tobacco for at least 4 weeks before the procedure. These products include cigarettes, chewing tobacco, and vaping devices, such as e-cigarettes. If you need help quitting, ask your health care provider. ??? If you will be going home right after the procedure, plan to have a responsible adult: ? Take you home from the hospital or clinic. You will not be allowed to drive. ? Care for you for the time you are told. ??? Ask your health care provider what steps will be taken to help prevent infection. These may include: ? Washing skin with a soap that kills germs. ? Receiving antibiotic medicine. Tests ??? You may have an exam or testing. ? You may have a urine sample taken to check for infection. What happens during the procedure? An IV will be inserted into one of your veins. ??? You may be given: ? A sedative. This helps you relax. ? Anesthesia. This will: ? Numb certain areas of your body. ? Make you fall asleep for surgery. ??? Your urethra will be cleaned with a germ-killing solution. ??? The ureteroscope will be passed through your urethra into your bladder. ??? A salt-water solution will be sent through the ureteroscope to fill your bladder. This will help the health care provider see the openings of your ureters more clearly. ??? The ureteroscope will be passed into your ureter. ? If a growth is found, a biopsy may be done. ? If a stone is found, it may be removed through the ureteroscope, or the stone may be broken up using a laser, shock waves, or electrical energy. ? In some cases, if the ureter is too small, a tube may be inserted that keeps the ureter open (ureteral stent). The stent may be left in place for 1 or 2 weeks, and then the ureteroscopy procedure will be done again. ??? The scope will be removed, and your bladder will be emptied. The procedure may vary among health care providers and hospitals. What happens after the procedure? (more content not included)...[facility]01-23-2025 Consult note Author Kan Pedersen [facility] Note Date/Time November 08, 2024 1 0:20am [facility] [address] [place] [address] Infect. Disease Consult Note Signed with Angel Patient: Bobby Lujan MR#: [id number] : 1965 Acct:[id number] Age/Sex: 59 / F Adm Date: 5 Loc: Room: [address] [place] [address] Type: ADM IN Attending Dr: Glenn Rivera MD Copies to: MD Kan Thornton MD Rahul Prasad, MD~ ADDENDUM1 Urine culture sent to me from a photo with susceptibilities. Blood culture susceptibilities still not available. Based on urine culture feel that we can choose quinolone as it does show resistance to sulfa. Addendum Documented By: MD Kan Pedersen 11/08/24 1020 Addendum Signed By: <Electronically signed by MD Kan Pedersen> 11/08/24 1020 HPI Data of Consult Consult date: 11/08/24 Requesting Physician: Glenn Rivera MD Primary Care Provider: El Kirkpatrick MD Consult Narrative History of present illness: Ms. Lujan is a 59 year old female who was transferred appear from [place] on November 04. She is found to have sepsis with an obstructive stone. She had a stent placement by urology on November 04. No cultures have been done this hospital stay at [facility] cultures apparently from [place] were done and did grow from the blood and urine E. coli. In reviewing the outside records I do not see susceptibilities. Patient currently on Zosyn. [Was initially on Levaquin and Zosyn] Has some R flank pain but overall much better. CC: Glenn Rievra MD Review of Systems Review of Systems All other systems reviewed & are negative unless noted below or in HPI [facility] Medical History (Updated 11/08/24 @ 09:08 by Kan Pedersen MD) Diabetes Pulmonary emboli Surgical History History of hip replacement H/O colectomy Family History (Updated 06/10/21 @ 15:04 by Provider Conversion) Father Family history of lung cancer Hypertension 79 yrs Mother Myocardial infarction Heart disease 83 yrs Social History Smoking Status: Former smoker Substance Use Type: None Allergies and Medications Allergies and Active Meds Allergies fluoxetine (Prozac) Allergy (Unknown, Verified 06/10/21 15:04) ropinirole (Requip) Allergy (Unknown, Verified 06/10/21 15:04) Unable to Assess Allergy (Verified 06/26/21 10:36) Active Medications Acetaminophen (Acetaminophen 325 Mg Tablet) 650 mg PO Q6H PRN PRN Reason: Pain Stop: 11/05/25 09:40 Last Admin: 11/06/24 02:00 Dose: 650 mg Dextrose (Dextrose 50% In Water 25 Gm/50 Ml Syringe) 0 gm IV-PUSH PRN PRN PRN Reason: Hypoglycemia Stop: 11/07/25 21:45 Docusate Sodium (Docusate 100 Mg Capsule) 100 mg PO BID PRN PRN Reason: Constipation Stop: 11/05/25 13:38 Last Admin: 11/07/24 10:06 Dose: 100 mg Enoxaparin Sodium (Enoxaparin 40 Mg/0.4 Ml Syringe) 40 mg SUBCUT DAILY@1000 CINDY Stop: 11/06/25 09:59 Last Admin: 11/07/24 09:59 Dose: Not Given Famotidine (Famotidine 20 Mg Tablet) 20 mg PO BID [facility] Stop: 11/07/25 09:29 Last Admin: 11/07/24 23:53 Dose: 20 mg Glucose (Dextrose 40% Gel 15 Gm Tube) 0 gm PO PRN PRN PRN Reason: Hypoglycemia Stop: 11/07/25 21:45 Hydromorphone HCl (Hydromorphone 1 Mg/Ml Syringe) 1 mg IV-PUSH Q4H PRN PRN Reason: Severe Pain Last Admin: 11/06/24 11:57 Dose: 1 mg Piperacillin Sod/Tazobactam Sod (Zosyn) 3.375 gm in 100 mls @ 25 mls/hr IV Q8H [facility] Last Admin: 11/07/24 23:53 Dose: 25 mls/hr Insulin Aspart (Insulin Aspart 300 Units/3 Ml) 0 units SUBCUT TID.[facility]; Protocol Stop: 11/07/25 21:59 Last Admin: 11/07/24 23:53 Dose: Not Given Melatonin (Melatonin 5 Mg Tablet) 5 mg PO QHS [facility] Stop: 11/06/25 21:59 Last Admin: 11/07/24 23:52 Dose: 5 mg Ondansetron HCl (Ondansetron 4 Mg/2 Ml Vial) 4 mg IV-PUSH Q4H PRN PRN Reason: Nausea And Vomiting Stop: 11/04/25 14:51 Last Admin: 11/06/24 01:00 Dose: 4 mg Exam Physical Exam Vital Signs: Temp Pulse Resp BP Pulse Ox O2 Del Method O2 Flow Rate 98.4 F 73 19 143/86 H 96 Room Air 0 11/07/24 19:34 11/08/24 05:00 11/08/24 05:00 11/08/24 05:00 11/08/24 05:00 11/08/24 05:00 11/04/24 16:08 Const General: cooperative, comfortable and no acute distress Nutritional Appearance: average body habitus Orientation: oriented x3 HEENT Head: normal to inspection Ears: hearing grossly normal bilaterally Nose: external nose normal Face and sinus: normal facial exam Mouth: oral mucosae normal Eyes General: appearance normal, both eyes and all related structures Neck Neck: normal visual inspection Chest Chest palpation & inspection: normal inspection of the chest Resp Effort & Inspection: normal respiratory effort Auscultation: clear to auscultation bilaterally Cardio Palpation: normal PMI Rate: regular rate GI Inspection: normal to inspection Palpation: soft and nontender Other: R flank pain with palpation but overall impressed Skin General: rashes and/or lesions noted Neuro General: patient oriented x3 Extrem General: normal to inspection Results - Infectious Disease Labs 11/08/24 04:51 11/08/24 04:51 Labs: 11/08/24 04:51: Corrected WBC 14.6 H, Uncorrected WBC Count 14.6 H, BUN 17, Creatinine 0.82 A&P - Infectious Disease (1) Right ureteral stone: (2) Sepsis: (3) UTI (urinary tract infection): Qualifiers: Urinary tract infection type: acute pyelonephritis Qualified Code(s): N10 - Acute pyelonephritis (4) E coli bacteremia: Plan Reviewed the faxed copies of the E. coli results from [place] but I did not seethe susceptibilities. This would be needed in order to choose an appropriate antibiotic for discharge. Currently she is on Zosyn. She is obviously ready togo home. I asked for susceptibilities for so hopefully I could choose an oral agent but is susceptible for her to be discharged on Documented By: Kan Pedersen MD 11/08/24 09 Signed By: <Electronically signed by MD Kan Pedesren> 11/08/24 0909 [facility] Work Phone: 1(109) 619-579501-23-2025 [place] [address] Infect. Disease Consult Note Signed with Addenda Patient: Bobby Lujan MR#: [id number] : 1965 Acct:[id number] Age/Sex: 59 / F Adm Date: 5 Loc: 4N Room: [address] [place] [address] Type: ADM IN Attending Dr: Glenn Rivera MD Copies to: MD Kan Thornton MD Rahul Prasad, MD~ ADDENDUM1 Urine culture sent to me from a photo with susceptibilities. Blood culture susceptibilities still not available. Based on urine culture feel that we can choose quinolone as it does show resistance tosulfa. Addendum Documented By: MD Kan Pedersen 11/08/24 1020 Addendum Signed By: 11/08/24 1020 HPI Data of Consult Consult date: 11/08/24 Requesting Physician: Glenn Rivera MD Primary Care Provider: El Kirkpatrick MD Consult Narrative History of present illness: Ms. Lujan is a 59 year old female who was transferred appear from [place] on November 04. She is found to have sepsis with an obstructive stone. She had a stent placement by urology on November 04. Nocultures have been done this hospital stay at [facility] cultures apparently from [place] were doneand did grow from the blood and urine E. coli. In reviewing the outside records I do not see susceptibilities. Patient currently on Zosyn. [Was initially on Levaquin and Zosyn] Has some R flank pain but overall much better. CC: Glenn Rivera MD Review of Systems Review of Systems All other systems reviewed & are negative unless noted below or in HPI [facility] Medical History (Updated 11/08/24 @ 09:08 by Kan Pedersen MD) Diabetes Pulmonary emboli Surgical History History of hip replacement H/O colectomy Family History (Updated 06/10/21 @ 15:04 by Provider Conversion) Father Family history of lung cancer Hypertension 79 yrs Mother Myocardial infarction Heart disease 83 yrs Social History Smoking Status: Former smoker Substance Use Type: None Allergies and Medications Allergies and Active Meds Allergies fluoxetine (Prozac) Allergy (Unknown, Verified 06/10/21 15:04) ropinirole (Requip) Allergy (Unknown, Verified 06/10/21 15:04) Unable to Assess Allergy (Verified 06/26/21 10:36) Active Medications Acetaminophen (Acetaminophen 325 Mg Tablet) 650 mg PO Q6H PRN PRN Reason: Pain Stop: 11/05/25 09:40 Last Admin: 11/06/24 02:00 Dose: 650 mg Dextrose (Dextrose 50% In Water 25 Gm/50 Ml Syringe) 0 gm IV-PUSH PRN PRN PRN Reason: Hypoglycemia Stop: 11/07/25 21:45 Docusate Sodium (Docusate 100 Mg Capsule) 100 mg PO BID PRN PRN Reason: Constipation Stop: 11/05/25 13:38 Last Admin: 11/07/24 10:06 Dose: 100 mg Enoxaparin Sodium (Enoxaparin 40 Mg/0.4 Ml Syringe) 40 mg SUBCUT DAILY@1000 [facility] Stop: 11/06/25 09:59 Last Admin: 11/07/24 09:59 Dose: Not Given Famotidine (Famotidine 20 Mg Tablet) 20 mg PO BID [facility] Stop: 11/07/25 09:29 Last Admin: 11/07/24 23:53 Dose: 20 mg Glucose (Dextrose 40% Gel 15 Gm Tube) 0 gm PO PRN PRN PRN Reason: Hypoglycemia Stop: 11/07/25 21:45 Hydromorphone HCl (Hydromorphone 1 Mg/Ml Syringe) 1 mg IV-PUSH Q4H PRN PRN Reason: Severe Pain Last Admin: 11/06/24 11:57 Dose: 1 mg Piperacillin Sod/Tazobactam Sod (Zosyn) 3.375 gm in 100 mls @ 25 mls/hr IV Q8H [facility] Last Admin: 11/07/24 23:53 Dose: 25 mls/hr Insulin Aspart (Insulin Aspart 300 Units/3 Ml) 0 units SUBCUT TID[facility]; Protocol Stop: 11/07/25 21:59 Last Admin: 11/07/24 23:53 Dose: Not Given Melatonin (Melatonin 5 Mg Tablet) 5 mg PO QHS [facility] Stop: 11/06/25 21:59 Last Admin: 11/07/24 23:52 Dose: 5 mg Ondansetron HCl (Ondansetron 4 Mg/2 Ml Vial) 4 mg IV-PUSH Q4H PRN PRN Reason: Nausea And Vomiting Stop: 11/04/25 14:51 Last Admin: 11/06/24 01:00 Dose: 4 mg Exam Physical Exam Vital Signs: Temp Pulse Resp BP Pulse Ox O2 Del Method O2 Flow Rate 98.4 F 73 19 143/86 H 96 Room Air 0 11/07/24 19:34 11/08/24 05:00 11/08/24 05:00 11/08/24 05:00 11/08/24 05:00 11/08/24 05:00 11/04/24 16:08 Const General: cooperative, comfortable and no acute distress Nutritional Appearance: average body habitus Orientation: oriented x3 HEENT Head: normal to inspection Ears: hearing grossly normal bilaterally Nose: external nose normal Face and sinus: normal facial exam Mouth: oral mucosae normal Eyes General: appearance normal, both eyes and all related structures Neck Neck: normal visual inspection Chest Chest palpation & inspection: normal inspection of the chest Resp Effort & Inspection: normal respiratory effort Auscultation: clear to auscultation bilaterally Cardio Palpation: normal PMI Rate: regular rate GI Inspection: normal to inspection Palpation: soft and nontender Other: R flank pain with palpation but overall impressed Skin General: rashes and/or lesions noted Neuro General: patient oriented x3 Extrem General: normal to inspection Results - Infectious Disease Labs 11/08/24 04:51 11/08/24 04:51 Labs: 11/08/24 04:51: Corrected WBC 14.6 H, Uncorrected WBC Count 14.6 H, BUN 17, Creatinine 0.82 A&P - Infectious Disease (1) Right ureteral stone: (2) Sepsis: (3) UTI (urinary tract infection): Qualifiers: Urinary tract infection type: acute pyelonephritis Qualified Code(s): N10 - Acute pyelonephritis (4) E coli bacteremia: Plan Reviewed the faxed copies of the E. coli results from [place] but I did not seethe susceptibilities. This would be needed in order to choose an appropriate antibiotic for discharge. Currently she [place] Zosyn. She is obviously ready togo home. I asked for susceptibilities for so hopefully I could choose an oral agent but is susceptible for her to be discharged on Documented By: Kan Pedersen MD 11/08/24899 Signed By: 11/08/24 0909 [facility]01-22-2025 Progress note Author Glenn Rivera [facility] Note Date/Time November 07, 2024 9 :19pm [facility] [address] [place] [address] Hospitalist Progress Note Signed Patient: Bobby Lujan MR#: [id number] : 1965 Acct:[id number] Age/Sex: 59 / F Adm Date: 5 Loc: 4N Room: [address] [place] [address] Type: ADM IN Attending Dr: Glenn Rivera MD Copies to: ~ Date of Service: 11/07/2024 Subjective Subjective Narrative: No acute events overnight, continues to feel improved, WBC count reduced to 16. Per patient, urine now clear. Exam Physical Exam Vital Signs: Temp Pulse Resp BP Pulse Ox O2 Del Method O2 Flow Rate 98.4 F 79 18 122/82 94 L Room Air 0 11/07/24 19:34 11/07/24 19:34 11/07/24 19:34 11/07/24 19:34 11/07/24 19:34 11/07/24 19:34 11/04/24 16:08 Narrative: General: cooperative and comfortable Orientation: alert, awake and oriented x3 Head: normal to inspection Neck: normal visual inspection Cardio: no JVD, regular rate, regular rhythm Chest palpation & inspection: normal inspection of the chest Resp Effort & Inspection: normal respiratory effort Abd: soft, non-tender, non-distended Extremities: Warm well perfused, no edema Objective Lab Results 11/07/24 04:57 11/07/24 04:57 Meds Allergies and Active Meds Allergies fluoxetine (Prozac) Allergy (Unknown, Verified 06/10/21 15:04) ropinirole (Requip) Allergy (Unknown, Verified 06/10/21 15:04) Unable to Assess Allergy (Verified 06/26/21 10:36) Active Meds: Active Medications Generic Name Dose Route Start Last Admin Trade Name Josephq PRN Reason Stop Dose Admin Acetaminophen 650 mg 11/05/24 09:41 11/06/24 02:00 Acetaminophen 325 Mg Tablet PO 11/05/25 09:40 650 mg Q6H PRN Administration Pain Docusate Sodium 100 mg 11/05/24 13:39 11/07/24 10:06 Docusate 100 Mg Capsule PO 11/05/25 13:38 100 mg BID PRN Administration Constipation Enoxaparin Sodium 40 mg 11/06/24 10:00 11/07/24 09:59 Enoxaparin 40 Mg/0.4 Ml Syringe SUBCUT 11/06/25 09:59 Not Given DAILY@1000 CINDY Famotidine 20 mg 11/07/24 09:30 11/07/24 09:59 Famotidine 20 Mg Tablet PO 11/07/25 09:29 20 mg BID CINDY Administration Hydromorphone HCl 1 mg 11/04/24 14:52 11/06/24 11:57 Hydromorphone 1 Mg/Ml Syringe IV-PUSH 1 mg Q4H PRN Administration Severe Pain Piperacillin Sod/Tazobactam Sod 3.375 gm in 100 mls @ 25 mls/hr 11/05/24 16:30 11/07/24 18:18 Zosyn IV 25 mls/hr Q8H CINDY Administration Melatonin 5 mg 11/06/24 22:00 11/06/24 21:40 Melatonin 5 Mg Tablet PO 11/06/25 21:59 5 mg QHS CINDY Administration Ondansetron HCl 4 mg 11/04/24 14:52 11/06/24 01:00 Ondansetron 4 Mg/2 Ml Vial IV-PUSH 11/04/25 14:51 4 mg Q4H PRN Administration Nausea And Vomiting A&P - Hospitalist Assessment/Plan (1) Sepsis: (2) Right ureteral stone: (3) UTI (urinary tract infection): Plan Assessment and plan: 1. Sepsis secondary to obstructing nephrolithiasis with pyelonephritis 2. Nausea and vomiting 3. Type II demand myocardial infarction 4. Fevers and chills 5. Morbid obesity 6. Type 2 diabetes mellitus -Status post right ureteral stent placement yesterday for pyelonephritis and obstructing stone, per documentation presented with UTI, pyelonephritis -Has been afebrile past 24 hours, will follow-up outside urine cultures and continue Zosyn for now - Reviewed outside records, E. coli bacteremia consistent with presentation and severity of presentation. Will consult infectious disease to determine finalcourse of antibiotics, anticipate discharge tomorrow if culture data finalized. -Denies any chest discomfort or shortness of breath, did have elevated troponin suggestive of type II PA, evaluated by cardiology at outside hospital per documentation, echocardiogram conducted on 10/18/2023 at outside hospital was unremarkable, no need for repeat inpatient, will hold on cardiology evaluation while inpatient as assessed by outside hospital. -Will assess home meds at time of discharge, likely will hold pioglitazone and Jardiance given urinary tract infection and type II PA. Diet: carb controlled Daily Labs: CBC, BMP Lines/Drains: PIV DVT ppx: Lovenox Code status: Full Status: inpatient --> home Glenn Rivera MD Internal Medicine Hospitalist Attending Physician Documented By: Glenn Rivera MD 11/07/241957 Signed By: <Electronically signed by Glenn Rivera MD> 11/07/24 5947 [facility] Work Phone: 1(155) 423-130401-22-[address] [address] Hospitalist Progress Note Signed Patient: Bobby Lujan MR#: [id number] : 1965 Acct:[id number] Age/Sex: 59 / F Adm Date: 5 Loc: 4N Room: [address] [place] [address] Type: ADM IN Attending Dr: Glenn Rivera MD Copies to: ~ Date of Service: 11/07/2024 Subjective Subjective Narrative: No acute events overnight, continues to feel improved, WBC count reduced to 16. Per patient, urine now clear. Exam Physical Exam Vital Signs: Temp Pulse Resp BP Pulse Ox O2 Del Method O2 Flow Rate 98.4 F 79 18 122/82 94 L Room Air 0 11/07/24 19:34 11/07/24 19:34 11/07/24 19:34 11/07/24 19:34 11/07/24 19:34 11/07/24 19:34 11/04/24 16:08 Narrative: General: cooperative and comfortable Orientation: alert, awake and oriented x3 Head: normal to inspection Neck: normal visual inspection Cardio: no JVD, regular rate, regular rhythm Chest palpation & inspection: normal inspection of the chest Resp Effort & Inspection: normal respiratory effort Abd: soft, non-tender, non-distended Extremities: Warm well perfused, no edema Objective Lab Results 11/07/24 04:57 11/07/24 04:57 Meds Allergies and Active Meds Allergies fluoxetine (Prozac) Allergy (Unknown, Verified 06/10/21 15:04) ropinirole (Requip) Allergy (Unknown, Verified 06/10/21 15:04) Unable to Assess Allergy (Verified 06/26/21 10:36) Active Meds: Active Medications Generic Name Dose Route Start Last Admin Trade Name Freq PRN Reason Stop Dose Admin Acetaminophen 650 mg 11/05/24 09:41 11/06/24 02:00 Acetaminophen 325 Mg Tablet PO 11/05/25 09:40 650 mg Q6H PRN Administration Pain Docusate Sodium 100 mg 11/05/24 13:39 11/07/24 10:06 Docusate 100 Mg Capsule PO 11/05/25 13:38 100 mg BID PRN Administration Constipation Enoxaparin Sodium 40 mg 11/06/24 10:00 11/07/24 09:59 Enoxaparin 40 Mg/0.4 Ml Syringe SUBCUT 11/06/25 09:59 Not Given DAILY@1000 CINDY Famotidine 20 mg 11/07/24 09:30 11/07/24 09:59 Famotidine 20 Mg Tablet PO 11/07/25 09:29 20 mg BID CINDY Administration Hydromorphone HCl 1 mg 11/04/24 14:52 11/06/24 11:57 Hydromorphone 1 Mg/Ml Syringe IV-PUSH 1 mg Q4H PRN Administration Severe Pain Piperacillin Sod/Tazobactam Sod 3.375 gm in 100 mls @ 25 mls/hr 11/05/24 16:30 11/07/24 18:18 Zosyn IV 25 mls/hr Q8H CINDY Administration Melatonin 5 mg 11/06/24 22:00 11/06/24 21:40 Melatonin 5 Mg Tablet PO 11/06/25 21:59 5 mg QHS CINDY Administration Ondansetron HCl 4 mg 11/04/24 14:52 11/06/24 01:00 Ondansetron 4 Mg/2 Ml Vial IV-PUSH 11/04/25 14:51 4 mg Q4H PRN Administration Nausea And Vomiting A&P - Hospitalist Assessment/Plan (1) Sepsis: (2) Right ureteral stone: (3) UTI (urinary tract infection): Plan Assessment and plan: 1. Sepsis secondary to obstructing nephrolithiasis with pyelonephritis 2. Nausea and vomiting 3. Type II demand myocardial infarction 4. Fevers and chills 5. Morbid obesity 6. Type 2 diabetes mellitus -Status post right ureteral stent placement yesterday for pyelonephritis and obstructing stone, perdocumentation presented with UTI, pyelonephritis -Has been afebrile past 24 hours, will follow-up outside urine cultures and continue Zosyn for now - Reviewed outside records, E. coli bacteremia consistent with presentation and severity of presentation. Will consult infectious disease to determine finalcourse of antibiotics, anticipate dischargetomorrow if culture data finalized. -Denies any chest discomfort or shortness of breath, did have elevated troponin suggestive of type II PA, evaluated by cardiology at outside hospital per documentation, echocardiogram conducted on 10/18/2023 at outside hospital was unremarkable, no need for repeat inpatient, will hold on cardiology evaluation while inpatient as assessed by outside hospital. -Will assess home meds at time of discharge, likely will hold pioglitazone and Jardiance given urinary tract infection and type II PA. Diet: carb controlled Daily Labs: CBC, BMP Lines/Drains: PIV DVT ppx: Lovenox Code status: Full Status: inpatient --> home Glenn Rivera MD Internal Medicine Hospitalist Attending Physician Documented By: Glenn Rivera MD 11/07/241957 Signed By: 11/07/242118 [facility]01-21-2025 Progress note Author Glenn Rivera [facility] Note Date/Time November 06, 2024 8 :19pm [facility] [address] [place] [address] Hospitalist Progress Note Signed Patient: Bobby Lujan MR#: [id number] : 1965 Acct:[id number] Age/Sex: 59 / F Adm Date: 5 Loc: Room: [address] [place] [address] Type: ADM IN Attending Dr: Glenn Rivera MD Copies to: ~ Date of Service: 11/06/2024 Subjective Subjective Narrative: No acute events overnight, feels improved overall, has had dark urine which is normal per urology. Requesting discharge home. Exam Physical Exam Vital Signs: Temp Pulse Resp BP Pulse Ox O2 Del Method O2 Flow Rate 97.8 F 74 16 117/77 95 Room Air 0 11/06/24 14:08 11/06/24 14:08 11/06/24 14:08 11/06/24 14:08 11/06/24 14:08 11/06/24 14:08 11/04/24 16:08 Narrative: General: cooperative and comfortable Orientation: alert, awake and oriented x3 Head: normal to inspection Neck: normal visual inspection Cardio: no JVD, regular rate, regular rhythm Chest palpation & inspection: normal inspection of the chest Resp Effort & Inspection: normal respiratory effort Abd: soft, non-tender, non-distended Extremities: Warm well perfused, no edema Objective Lab Results 11/06/24 06:19 11/06/24 06:19 Meds Allergies and Active Meds Allergies fluoxetine (Prozac) Allergy (Unknown, Verified 06/10/21 15:04) ropinirole (Requip) Allergy (Unknown, Verified 06/10/21 15:04) Unable to Assess Allergy (Verified 06/26/21 10:36) Active Meds: Active Medications Generic Name Dose Route Start Last Admin Trade Name Freq PRN Reason Stop Dose Admin Acetaminophen 650 mg 11/05/24 09:41 11/06/24 02:00 Acetaminophen 325 Mg Tablet PO 11/05/25 09:40 650 mg Q6H PRN Administration Pain Docusate Sodium 100 mg 11/05/24 13:39 11/05/24 15:57 Docusate 100 Mg Capsule PO 11/05/25 13:38 100 mg BID PRN Administration Constipation Enoxaparin Sodium 40 mg 11/06/24 10:00 11/06/24 11:41 Enoxaparin 40 Mg/0.4 Ml Syringe SUBCUT 11/06/25 09:59 Not Given DAILY@1000 CINDY Famotidine 20 mg 11/04/24 14:55 11/06/24 09:10 Famotidine/Pf 20 Mg/2 Ml Vial IV-PUSH 11/04/25 14:54 20 mg Q12HR CINDY Administration Hydromorphone HCl 1 mg 11/04/24 14:52 11/06/24 11:57 Hydromorphone 1 Mg/Ml Syringe IV-PUSH 1 mg Q4H PRN Administration Severe Pain Piperacillin Sod/Tazobactam Sod 3.375 gm in 100 mls @ 25 mls/hr 11/05/24 16:30 11/06/24 13:26 Zosyn IV Infused Q8H CINYD Infusion Ondansetron HCl 4 mg 11/04/24 14:52 11/06/24 01:00 Ondansetron 4 Mg/2 Ml Vial IV-PUSH 11/04/25 14:51 4 mg Q4H PRN Administration Nausea And Vomiting Sodium Chloride 10 ml 11/04/24 14:53 11/06/24 09:10 Sodium Chloride 0.9 % 10 Ml Vial.Pf INJECTION 11/04/25 14:52 10 ml PRN PRN Administration To dilute Pepcid A&P - Hospitalist Assessment/Plan (1) Sepsis: (2) Right ureteral stone: (3) UTI (urinary tract infection): Plan Assessment and plan: 1. Sepsis secondary to obstructing nephrolithiasis with pyelonephritis 2. Nausea and vomiting 3. Type II demand myocardial infarction 4. Fevers and chills 5. Morbid obesity 6. Type 2 diabetes mellitus -Status post right ureteral stent placement yesterday for pyelonephritis and obstructing stone, per documentation presented with UTI, pyelonephritis -Has been afebrile past 24 hours, will follow-up outside urine cultures and continue Zosyn for now - outside cultures reported no growth, given severity of sepsis and persistent leukocytosis will keep in patient for additional day. if outside urine cultures not informative, will plan for discharge tomorrow with empiric antibiotics for pyleonephritis. -Denies any chest discomfort or shortness of breath, did have elevated troponin suggestive of type II PA, evaluated by cardiology at outside hospital per documentation, echocardiogram conducted on 10/18/2023 at outside hospital was unremarkable, no need for repeat inpatient, will hold on cardiology evaluation while inpatient as assessed by outside hospital. -Will assess home meds at time of discharge, likely will hold pioglitazone and Jardiance given urinary tract infection and type II PA. Diet: carb controlled Daily Labs: CBC, BMP Lines/Drains: PIV DVT ppx: Lovenox Code status: Full Status: inpatient --> home Discussed with patient at bedside. All questions answered. In agreement with theabove plan. Glenn Rivera MD Internal Medicine Hospitalist Attending Physician Documented By: Glenn Rivera MD 11/06/24 5369 Signed By: <Electronically signed by Glenn Rivera MD> 11/06/24 2019 [facility] Work Phone: 1([phone]) 196-989701-21-2025 [place] [address] Hospitalist Progress Note Signed Patient: Bobby Lujan MR#: [id number] : 1965 Acct:[id number] Age/Sex: 59 / F Adm Date: 5 Loc: 4N Room: [address] [place] [address] Type: ADM IN Attending Dr: Glenn Rivera MD Copies to: ~ Date of Service: 11/06/2024 Subjective Subjective Narrative: No acute events overnight, feels improved overall, has had dark urine which is normal per urology. Requesting discharge home. Exam Physical Exam Vital Signs: Temp Pulse Resp BP Pulse Ox O2 Del Method O2 Flow Rate 97.8 F 74 16 117/77 95 Room Air 0 11/06/24 14:08 11/06/24 14:08 11/06/24 14:08 11/06/24 14:08 11/06/24 14:08 11/06/24 14:08 11/04/24 16:08 Narrative: General: cooperative and comfortable Orientation: alert, awake and oriented x3 Head: normal to inspection Neck: normal visual inspection Cardio: no JVD, regular rate, regular rhythm Chest palpation & inspection: normal inspection of the chest Resp Effort & Inspection: normal respiratory effort Abd: soft, non-tender, non-distended Extremities: Warm well perfused, no edema Objective Lab Results 11/06/24 06:19 11/06/24 06:19 Meds Allergies and Active Meds Allergies fluoxetine (Prozac) Allergy (Unknown, Verified 06/10/21 15:04) ropinirole (Requip) Allergy (Unknown, Verified 06/10/21 15:04) Unable to Assess Allergy (Verified 06/26/21 10:36) Active Meds: Active Medications Generic Name Dose Route Start Last Admin Trade Name Freq PRN Reason Stop Dose Admin Acetaminophen 650 mg 11/05/24 09:41 11/06/24 02:00 Acetaminophen 325 Mg Tablet PO 11/05/25 09:40 650 mg Q6H PRN Administration Pain Docusate Sodium 100 mg 11/05/24 13:39 11/05/24 15:57 Docusate 100 Mg Capsule PO 11/05/25 13:38 100 mg BID PRN Administration Constipation Enoxaparin Sodium 40 mg 11/06/24 10:00 11/06/24 11:41 Enoxaparin 40 Mg/0.4 Ml Syringe SUBCUT 11/06/25 09:59 Not Given DAILY@1000 CINDY Famotidine 20 mg 11/04/24 14:55 11/06/24 09:10 Famotidine/Pf 20 Mg/2 Ml Vial IV-PUSH 11/04/25 14:54 20 mg Q12HR CINDY Administration Hydromorphone HCl 1 mg 11/04/24 14:52 11/06/24 11:57 Hydromorphone 1 Mg/Ml Syringe IV-PUSH 1 mg Q4H PRN Administration Severe Pain Piperacillin Sod/Tazobactam Sod 3.375 gm in 100 mls @ 25 mls/hr 11/05/24 16:30 11/06/24 13:26 Zosyn IV Infused Q8H CINDY Infusion Ondansetron HCl 4 mg 11/04/24 14:52 11/06/24 01:00 Ondansetron 4 Mg/2 Ml Vial IV-PUSH 11/04/25 14:51 4 mg Q4H PRN Administration Nausea And Vomiting Sodium Chloride 10 ml 11/04/24 14:53 11/06/24 09:10 Sodium Chloride 0.9 % 10 Ml Vial.Pf INJECTION 11/04/25 14:52 10 ml PRN PRN Administration To dilute Pepcid A&P - Hospitalist Assessment/Plan (1) Sepsis: (2) Right ureteral stone: (3) UTI (urinary tract infection): Plan Assessment and plan: 1. Sepsis secondary to obstructing nephrolithiasis with pyelonephritis 2. Nausea and vomiting 3. Type II demand myocardial infarction 4. Fevers and chills 5. Morbid obesity 6. Type 2 diabetes mellitus -Status post right ureteral stent placement yesterday for pyelonephritis and obstructing stone, perdocumentation presented with UTI, pyelonephritis -Has been afebrile past 24 hours, will follow-up outside urine cultures and continue Zosyn for now - outside cultures reported no growth, given severity of sepsis and persistent leukocytosis will keep in patient for additional day. if outside urine cultures not informative, will plan for dischargetomorrow with empiric antibiotics for pyleonephritis. -Denies any chest discomfort or shortness of breath, did have elevated troponin suggestive of type II PA, evaluated by cardiology at outside hospital per documentation, echocardiogram conducted on 10/18/2023 at outside hospital was unremarkable, no need for repeat inpatient, will hold on cardiology evaluation while inpatient as assessed by outside hospital. -Will assess home meds at time of discharge, likely will hold pioglitazone and Jardiance given urinary tract infection and type II PA. Diet: carb controlled Daily Labs: CBC, BMP Lines/Drains: PIV DVT ppx: Lovenox Code status: Full Status: inpatient --> home Discussed with patient at bedside. All questions answered. In agreement with theabove plan. Glenn Rivera MD Internal Medicine Hospitalist Attending Physician Documented By: Glenn Rivera MD 11/06/24 1630 Signed By: 11/06/242018 [facility]01-21-2025 Progress note Author Venancio massey [facility] Note Date/Time November 06, 2024 4 :52pm [facility] [address] [place] [address] Urology Progress Note Signed Patient: Bobby Lujan MR#: [id number] : 1965 Acct:[id number] Age/Sex: 59 / F Adm Date: 5 Loc: Room: [address] [place] [address] Type: ADM IN Attending Dr: Glenn Rivera MD Copies to: ~ Date of Service: 11/06/2024 Subjective Subjective HPI: Pt w/ uti/sepsis---CT [facility] 11/04 showed 6mm right UPJ stone w/ hydro; transferred to [facility] for OR availability no previous stone; ua + uti; creat 1.3-----labs/xrays/notes indep reviewed/interpreted by me. Spent 90minutes consult coordinating care w/ [facility] ER and ICU here. Status post right ureteral stent 2 days ago. Doing well. Creatinine has normalized, pain is much improved. No other issues. Patient will be dischargedtoday. Exam Physical Exam Vital Signs: Temp Pulse Resp BP Pulse Ox O2 Del Method O2 Flow Rate 97.8 F 74 16 117/77 95 Room Air 0 11/06/24 14:08 11/06/24 14:08 11/06/24 14:08 11/06/24 14:08 11/06/24 14:08 11/06/24 14:11/04/24 16:08 Narrative: General: Alert and oriented x 3, NAD Cardiovascular: Regular rate and rhythm Abdomen: Soft, nontender, nondistended with no guarding or rigidity noted Extremities: No peripheral edema noted Skin: Warm and dry : No flank or suprapubic tenderness noted on palpation Objective Pain Assessment Head: Pain Description: Acute and Throbbing Pain Intensity: 4 Vagina: Pain Description: Constant, Cramping and Burning Pain Intensity: 4 Abdomen: Pain Description: Aching Pain Intensity: 1 Right Flank: Pain Intensity: 0 Intake & Output 24 hour I&O: Intake & Output 11/06/24 11/06/24 11/06/24 07:59 15:59 23:59 Intake Total 300 / 400 100 / 400 Output Total 600 / 600 Balance 300 / -200 -500 / -200 Weight 161.2 kg Labs 11/06/24 06:19 11/06/24 06:19 Laboratory Results - Last 48 hrs. 11/06/24 06:19: Corrected WBC 21.1 H, Uncorrected WBC Count 21.1 H, RBC 3.44 L, Hgb 10.8 L, Hct 32.3 L, MCV 94.0, MCH 31.5, MCHC 33.5, RDW 14.0, Plt Count 149 L, MPV 9.4, Neut % (Auto) N/A, Lymph % (Auto) N/A, [place] % (Auto) N/A, Eos % (Auto) N/A, Baso % (Auto) N/A, Nucleat RBC Rel Count N/A, Neut # (Auto) N/A, Lymph # (Auto) N/A, [place] # (Auto) N/A, Eos # (Auto) N/A, Baso # (Auto) N/A, BandNeutrophils % 8 H, Lymphocytes % 15 L, Monocytes % 1 L, Eosinophils % 2, Segmented Neutrophils 75 H, Dohle Bodies Slight, Platelet Estimate Decreased, Plt Morphology Comment Normal, RBC Morphology Normal, PHA Creatinine Clear 112.63, Sodium 138, Potassium 3.8, Chloride 109 H, Carbon Dioxide 23.0, Anion Gap 9.8, BUN 21, Creatinine 0.84, Est GFR (CKD-EPI) > 60.0, Glucose 114 H, Calcium 8.9 11/05/24 05:17: Potassium 4.0, Chloride 108 H, Carbon Dioxide 21.9, Anion Gap TNP, BUN 20, Creatinine 0.99, Est GFR (CKD-EPI) > 60.0, Glucose 105 H, Estimat Average Glucose 140, Hemoglobin A1c 6.5 H, Calcium 8.5 L, Troponin I High Sens 307 H* 11/05/24 05:17: Corrected WBC 24.9 H, Uncorrected WBC Count 24.9 H, RBC 3.51 L, Hgb 11.4 L, Hct 33.6 L, MCV 95.8, MCH 32.4, MCHC 33.8, RDW 14.0, Plt Count 148 L, MPV 9.3, Neut % (Auto) N/A, Lymph % (Auto) N/A, [place] % (Auto) N/A, Eos % (Auto) N/A, Baso % (Auto) N/A, Nucleat RBC Rel Count N/A, Neut # (Auto) N/A, Lymph # (Auto) N/A, [place] # (Auto) N/A, Eos # (Auto) N/A, Baso # (Auto) N/A, BandNeutrophils % 13 H, Lymphocytes % 8 L, Monocytes % 3, Metamyelocytes % 4 H, Segmented Neutrophils 72 H, Toxic Vacuolation Slight, Dohle Bodies Slight, Platelet Estimate Decreased, Plt Morphology Comment Normal, RBC Morphology N/A, Poikilocytosis Slight, Anisocytosis Slight, Crenated Cell Slight, PHA CreatinineClear 95.86, Sodium 137, Potassium 11/04/24 18:14: PHA Creatinine Clear 84.24, Sodium 138, Potassium 4.1, Chloride 111 H, Carbon Dioxide 17.7 L, Anion Gap 13.4, BUN 23, Creatinine 1.12, Est GFR (CKD- EPI) 55.946, Glucose 182 H, Calcium 8.0 L, Troponin I High Sens 520 H* Assessment/Plan Assessment/Plan (1) Sepsis: Plan: Resolved. Creatinine within normal limits, no leukocytosis Plan for discharge later today Patient will need to be sent home on antibiotics and will plan on scheduling fordefinitive stone treatment in a few days to a week Code(s): A41.9 - Sepsis, unspecified organism (2) Right ureteral stone: Plan: Will plan on definitive stone treatment with cystoscopy, right ureteroscopy, laser lithotripsy in a few days Code(s): N20.1 - Calculus of ureter (3) UTI (urinary tract infection): Plan: Discharge home on antibiotics Currently cultures no growth Qualifiers: Urinary tract infection type: acute pyelonephritis Qualified Code(s): N10 - Acute pyelonephritis Code(s): N39.0 - Urinary tract infection, site not specified Documented By: Venancio Giron MD 11/06 1646 Signed By: <Electronically signed by Venancio Giron MD> 11/06/24 1652 [facility] Work Phone: 1(544) 358-363401-21-[address] [address] Urology Progress Note Signed Patient: Bobby Lujan MR#: [id number] : 1965 Acct:[id number] Age/Sex: 59 / F Adm Date: 5 Loc: 4N Room: [address] [place] [address] Type: ADM IN Attending Dr: Glenn Rivera MD Copies to: ~ Date of Service: 11/06/2024 Subjective Subjective HPI: Pt w/ uti/sepsis---CT [facility] 11/04 showed 6mm right UPJ stone w/ hydro; transferred to [facility] for OR availability no previous stone; ua + uti; creat 1.3-----labs/xrays/notes indep reviewed/interpreted by me. [id number] consult coordinating care w/ [facility] ER and ICU here. Status post right ureteral stent 2 days ago. Doing well. Creatinine has normalized, pain is much improved. No other issues. Patient will be dischargedtoday. Exam Physical Exam Vital Signs: Temp Pulse Resp BP Pulse Ox O2 Del Method O2 Flow Rate 97.8 F 74 16 117/77 95 Room Air 0 11/06/24 14:08 11/06/24 14:08 11/06/24 14:08 11/06/24 14:08 11/06/24 14:08 11/06/24 14:08 11/04/24 16:08 Narrative: General: Alert and oriented x 3, NAD Cardiovascular: Regular rate and rhythm Abdomen: Soft, nontender, nondistended with no guarding or rigidity noted Extremities: No peripheral edema noted Skin: Warm and dry : No flank or suprapubic tenderness noted on palpation Objective Pain Assessment Head: Pain Description: Acute and Throbbing Pain Intensity: 4 Vagina: Pain Description: Constant, Cramping and Burning Pain Intensity: 4 Abdomen: Pain Description: Aching Pain Intensity: 1 Right Flank: Pain Intensity: 0 Intake & Output 24 hour I&O: Intake & Output 11/06/24 11/06/24 11/06/24 07:59 15:59 23:59 Intake Total 300 / 400 100 / 400 Output Total 600 / 600 Balance 300 / -200 -500 / -200 Weight 161.2 kg Labs 11/06/24 06:19 11/06/24 06:19 Laboratory Results - Last 48 hrs. 11/06/24 06:19: Corrected WBC 21.1 H, Uncorrected WBC Count 21.1 H, RBC 3.44 L, Hgb 10.8 L, Hct 32.3 L, MCV 94.0, MCH 31.5, MCHC 33.5, RDW 14.0, Plt Count 149 L, MPV 9.4, Neut % (Auto) N/A, Lymph % (Auto) N/A, [place] % (Auto) N/A, Eos % (Auto) N/A, Baso % (Auto) N/A, Nucleat RBC Rel Count N/A, Neut #(Auto) N/A, Lymph # (Auto) N/A, [place] # (Auto) N/A, Eos # (Auto) N/A, Baso # (Auto) N/A, BandNeutrophils % 8 H, Lymphocytes % 15 L, Monocytes % 1 L, Eosinophils % 2, Segmented Neutrophils 75 H, Dohle Bodies Slight, Platelet Estimate Decreased, Plt Morphology Comment Normal, RBC Morphology Normal, PHA Creatinine Clear 112.63, Sodium 138, Potassium 3.8, Chloride 109 H, Carbon Dioxide 23.0, Anion Gap9.8, BUN 21, Creatinine 0.84, Est GFR (CKD-EPI) > 60.0, Glucose 114 H, Calcium 8.9 11/05/24 05:17: Potassium 4.0, Chloride 108 H, Carbon Dioxide 21.9, Anion Gap TNP, BUN 20, Creatinine 0.99, Est GFR (CKD-EPI) > 60.0, Glucose 105 H, Estimat Average Glucose 140, Hemoglobin A1c 6.5H, Calcium 8.5 L, Troponin I High Sens 307 H* 11/05/24 05:17: Corrected WBC 24.9 H, Uncorrected WBC Count 24.9 H, RBC 3.51 L, Hgb 11.4 L, Hct 33.6 L, MCV 95.8, MCH 32.4, MCHC 33.8, RDW 14.0, Plt Count 148 L, MPV 9.3, Neut % (Auto) N/A, Lymph % (Auto) N/A, [place] % (Auto) N/A, Eos % (Auto) N/A, Baso % (Auto) N/A, Nucleat RBC Rel Count N/A, Neut #(Auto) N/A, Lymph # (Auto) N/A, [place] # (Auto) N/A, Eos # (Auto) N/A, Baso # (Auto) N/A, BandNeutrophils % 13 H, Lymphocytes % 8 L, Monocytes % 3, Metamyelocytes % 4 H, Segmented Neutrophils 72 H, Toxic Vacuolation Slight, Dohle Bodies Slight, Platelet Estimate Decreased, Plt Morphology Comment Normal, RBC Morphology N/A, Poikilocytosis Slight, Anisocytosis Slight, Crenated Cell Slight, PHA Creatin ineClear 95.86, Sodium 137, Potassium 11/04/24 18:14: PHA Creatinine Clear 84.24, Sodium 138, Potassium 4.1, Chloride 111 H, Carbon Dioxide 17.7 L, Anion Gap 13.4, BUN 23, Creatinine 1.12, Est GFR (CKD-EPI) 55.946, Glucose 182 H, Calcium8.0 L, Troponin I High Sens 520 H* Assessment/Plan Assessment/Plan (1) Sepsis: Plan: Resolved. Creatinine within normal limits, no leukocytosis Plan for discharge later today Patient will need to be sent home on antibiotics and will plan on scheduling fordefinitive stone treatment in a few days to a week Code(s): A41.9 - Sepsis, unspecified organism (2) Right ureteral stone: Plan: Will plan on definitive stone treatment with cystoscopy, right ureteroscopy, laser lithotripsy in afew days Code(s): N20.1 - Calculus of ureter (3) UTI (urinary tract infection): Plan: Discharge home on antibiotics Currently cultures no growth Qualifiers: Urinary tract infection type: acute pyelonephritis Qualified Code(s): N10 - Acute pyelonephritis Code(s): N39.0 - Urinary tract infection, site not specified Documented By: Venancio Giron MD 11/06 1646 Signed By: 11/06/24 1652 [facility]01-20-2025 Progress note Author Glenn Rivera [facility] Note Date/Time November 05, 2024 9 :22pm [facility] [address] [place] [address] Hospitalist Progress Note Signed Patient: Bobby Lujan MR#: [id number] : 1965 Acct:[id number] Age/Sex: 59 / F Adm Date: 5 Loc: 4N Room: [address] [place] [address] Type: ADM IN Attending Dr: Glenn Rivera MD Copies to: ~ Date of Service: 11/05/2024 Subjective Subjective Narrative: Admitted as a transfer from [facility] for intervention, underwent right ureteral stent placement yesterday. Patient notes increased urinary frequency, continues to have right-sided flank pain, denies any chest pain, nausea, vomiting. Exam Physical Exam Vital Signs: Temp Pulse Resp BP Pulse Ox O2 Del Method O2 Flow Rate 97.7 F 78 16 106/54 L 95 Room Air 0 11/05/24 12:32 11/05/24 12:32 11/05/24 12:32 11/05/24 12:32 11/05/24 12:32 11/05/24 12:32 11/04/24 16:08 Narrative: General: cooperative and comfortable Orientation: alert, awake and oriented x3 Head: normal to inspection Neck: normal visual inspection Cardio: no JVD, regular rate, regular rhythm Chest palpation & inspection: normal inspection of the chest Resp Effort & Inspection: normal respiratory effort Abd: soft, non-tender, non-distended Extremities: Warm well perfused, no edema Objective Lab Results 11/05/24 05:17 11/05/24 05:17 Meds Allergies and Active Meds Allergies fluoxetine (Prozac) Allergy (Unknown, Verified 06/10/21 15:04) ropinirole (Requip) Allergy (Unknown, Verified 06/10/21 15:04) Unable to Assess Allergy (Verified 06/26/21 10:36) Active Meds: Active Medications Generic Name Dose Route Start Last Admin Trade Name Freq PRN Reason Stop Dose Admin Acetaminophen 650 mg 11/05/24 09:41 Acetaminophen 325 Mg Tablet PO 11/05/25 09:40 Q6H PRN Pain Docusate Sodium 100 mg 11/05/24 13:39 Docusate 100 Mg Capsule PO 11/05/25 13:38 BID PRN Constipation Famotidine 20 mg 11/04/24 14:55 11/05/24 09:35 Famotidine/Pf 20 Mg/2 Ml Vial IV-PUSH 11/04/25 14:54 20 mg Q12HR CINDY Administration Hydromorphone HCl 1 mg 11/04/24 14:52 11/05/24 09:35 Hydromorphone 1 Mg/Ml Syringe IV-PUSH 1 mg Q4H PRN Administration Severe Pain Piperacillin Sod/Tazobactam Sod 4.5 gm in 100 mls @ 200 mls/hr 11/04/24 18:10 11/05/24 12:35 Zosyn IV 200 mls/hr Q6H CINDY Administration Ondansetron HCl 4 mg 11/04/24 14:52 11/05/24 12:35 Ondansetron 4 Mg/2 Ml Vial IV-PUSH 11/04/25 14:51 4 mg Q4H PRN Administration Nausea And Vomiting Sodium Chloride 10 ml 11/04/24 14:53 11/05/24 09:35 Sodium Chloride 0.9 % 10 Ml Vial.Pf INJECTION 11/04/25 14:52 10 ml PRN PRN Administration To dilute Pepcid A&P - Hospitalist Assessment/Plan (1) Sepsis: (2) Right ureteral stone: (3) UTI (urinary tract infection): Plan Assessment and plan: 1. Sepsis secondary to obstructing nephrolithiasis with pyelonephritis 2. Nausea and vomiting 3. Type II demand myocardial infarction 4. Fevers and chills 5. Morbid obesity 6. Type 2 diabetes mellitus -Status post right ureteral stent placement yesterday for pyelonephritis and obstructing stone, per documentation presented with UTI, pyelonephritis -Has been afebrile past 24 hours, will follow-up outside urine cultures and continue Zosyn for now -Denies any chest discomfort or shortness of breath, did have elevated troponin suggestive of type II PA, evaluated by cardiology at outside hospital per documentation, echocardiogram conducted on 10/18/2023 at outside hospital was unremarkable, no need for repeat inpatient, will hold on cardiology evaluation while inpatient as assessed by outside hospital. -Will assess home meds at time of discharge, likely will hold pioglitazone and Jardiance given urinary tract infection and type II PA. Diet: carb controlled Daily Labs: CBC, BMP Lines/Drains: PIV DVT ppx: Lovenox Code status: Full Status: inpatient --> likely home Discussed with patient at bedside. All questions answered. In agreement with theabove plan. Glenn Rivera MD Internal Medicine Hospitalist Attending Physician Documented By: Glenn Rivera MD 11/05/24 1437 Signed By: <Electronically signed by Glenn Rivera MD> 11/05/246 [facility] Work Phone: 1(567) 577-980201-20-2025 [place] [address] Hospitalist Progress Note Signed Patient: Bobby Lujan MR#: [id number] : 1965 Acct:[id number] Age/Sex: 59 / F Adm Date: 5 Loc: 4N Room: [address] [place] [address] Type: ADM IN Attending Dr: Glenn Rivera MD Copies to: ~ Date of Service: 11/05/2024 Subjective Subjective Narrative: Admitted as a transfer from [facility] for intervention, underwent right ureteral stent placement yesterday. Patient notes increased urinary frequency, continues to have right-sided flank pain, denies any chest pain, nausea, vomiting. Exam Physical Exam Vital Signs: Temp Pulse Resp BP Pulse Ox O2 Del Method O2 Flow Rate 97.7 F 78 16 106/54 L 95 Room Air 0 11/05/24 12:32 11/05/24 12:32 11/05/24 12:32 11/05/24 12:32 11/05/24 12:32 11/05/24 12:32 11/04/24 16:08 Narrative: General: cooperative and comfortable Orientation: alert, awake and oriented x3 Head: normal to inspection Neck: normal visual inspection Cardio: no JVD, regular rate, regular rhythm Chest palpation & inspection: normal inspection of the chest Resp Effort & Inspection: normal respiratory effort Abd: soft, non-tender, non-distended Extremities: Warm well perfused, no edema Objective Lab Results 11/05/24 05:17 11/05/24 05:17 Meds Allergies and Active Meds Allergies fluoxetine (Prozac) Allergy (Unknown, Verified 06/10/21 15:04) ropinirole (Requip) Allergy (Unknown, Verified 06/10/21 15:04) Unable to Assess Allergy (Verified 06/26/21 10:36) Active Meds: Active Medications Generic Name Dose Route Start Last Admin Trade Name Freq PRN Reason Stop Dose Admin Acetaminophen 650 mg 11/05/24 09:41 Acetaminophen 325 Mg Tablet PO 11/05/25 09:40 Q6H PRN Pain Docusate Sodium 100 mg 11/05/24 13:39 Docusate 100 Mg Capsule PO 11/05/25 13:38 BID PRN Constipation Famotidine 20 mg 11/04/24 14:55 11/05/24 09:35 Famotidine/Pf 20 Mg/2 Ml Vial IV-PUSH 11/04/25 14:54 20 mg Q12HR CINDY Administration Hydromorphone HCl 1 mg 11/04/24 14:52 11/05/24 09:35 Hydromorphone 1 Mg/Ml Syringe IV-PUSH 1 mg Q4H PRN Administration Severe Pain Piperacillin Sod/Tazobactam Sod 4.5 gm in 100 mls @ 200 mls/hr 11/04/24 18:10 11/05/24 12:35 Zosyn IV 200 mls/hr Q6H CINDY Administration Ondansetron HCl 4 mg 11/04/24 14:52 11/05/24 12:35 Ondansetron 4 Mg/2 Ml Vial IV-PUSH 11/04/25 14:51 4 mg Q4H PRN Administration Nausea And Vomiting Sodium Chloride 10 ml 11/04/24 14:53 11/05/24 09:35 Sodium Chloride 0.9 % 10 Ml Vial.Pf INJECTION 11/04/25 14:52 10 ml PRN PRN Administration To dilute Pepcid A&P - Hospitalist Assessment/Plan (1) Sepsis: (2) Right ureteral stone: (3) UTI (urinary tract infection): Plan Assessment and plan: 1. Sepsis secondary to obstructing nephrolithiasis with pyelonephritis 2. Nausea and vomiting 3. Type II demand myocardial infarction 4. Fevers and chills 5. Morbid obesity 6. Type 2 diabetes mellitus -Status post right ureteral stent placement yesterday for pyelonephritis and obstructing stone, perdocumentation presented with UTI, pyelonephritis -Has been afebrile past 24 hours, will follow-up outside urine cultures and continue Zosyn for now -Denies any chest discomfort or shortness of breath, did have elevated troponin suggestive of type II PA, evaluated by cardiology at outside hospital per documentation, echocardiogram conducted on 10/18/2023 at outside hospital was unremarkable, no need for repeat inpatient, will hold on cardiology evaluation while inpatient as assessed by outside hospital. -Will assess home meds at time of discharge, likely will hold pioglitazone and Jardiance given urinary tract infection and type II PA. Diet: carb controlled Daily Labs: CBC, BMP Lines/Drains: PIV DVT ppx: Lovenox Code status: Full Status: inpatient --> likely home Discussed with patient at bedside. All questions answered. In agreement with theabove plan. Glenn Rivera MD Internal Medicine Hospitalist Attending Physician Documented By: Glenn Rivera MD 11/05/24 1437 Signed By: 11/05/242121 [facility]01-19-2025 History and physical note Author Kan Hardy [facility] Note Date/Time November 04, 2024 5 :59pm [facility] [address] [place] [address] Hospitalist H&P Signed Patient: Bobby Lujan MR#: [id number] : 1965 Acct:[id number] Age/Sex: 59 / F Adm Date: 5 Loc: Room: [address] [place] [address] Type: ADM IN Attending Dr: Kan Hardy DO Copies to: MD Kan Thornton, ~ HPI DATE OF EXAMINATION: 11/04/24 CHIEF COMPLAINT: Abdominal pain HISTORY OF PRESENT ILLNESS: This patient is a 59-year-old female who presented to outside ER earlier today with 2 to 3 days of worsening abdominal pain predominantly in the right lower quadrant and right flank region. Describe rigors, fevers and chills and some shortness of breath associated with these febrile episodes. She had worsening vomiting that started around 4 AM this morning and was brought to the emergency department where her initial evaluation revealed tachycardia as high as 147 bpm,low normal blood pressures and underwent sepsis evaluation. IV fluids were initiated and blood pressures reportedly dipped as low as systolic levels in the80s did stabilize. Laboratory evaluation revealed leukopenia with WBCs of 2.2 and 7% band neutrophils, 53% segmented neutrophils. Platelets 160, H&H 13.7/41.8%. Chemistries noted BUN/creatinine of 23/1.31, lactic acidosis at LA 3.6. I suspect troponin was notably elevated at 350.4 and subsequent repeat further elevated at 848.2. Antibiotics were provided both IV Cipro and IV Zosyn for urinalysis that did reveal evidence of urinary tract infection, greater than thousand glucose, nitrate positive, large amount of bacteria with WBCs being reported. Negative for protein. Cardiology at outside facility was contacted regarding what was regarded as demand ischemia resulting in troponin elevations and not thought to be a primary cardiac process. A full 30 cc/kg weight-based bolus was provided and on arrival here to the intensive care unit at [facility] she has relatively stable vital signs with a high normalheart rate in the 90s and blood pressures holding 118/56 mmHg. She is 94% oxygen saturation and breathing comfortably on room air. She has ongoing pain that is come back after she was treated with IV morphine at outside facility. This facility contacted urology on-call prior to transfer who reportedly agreed to see the patient and perform interventional process for obstructing stone which was noted at 6 mm on the right side with subsequent hydronephrosis. Physical Examination: GENERAL APPEARANCE: Alert, up in bed AAOx3 CARDIAC: Normal S1 and S2. No S3, S4 or murmurs. LUNGS: Clear to auscultation bilaterally. no wheeze/rhonchi/rales ABDOMEN: Positive bowel sounds. Soft, nontender. No guarding or signs of an acute abdomen MUSCULOSKELETAL: No joint erythema or tenderness. EXTREMITIES: No clubbing, cyanosis or edema NEUROLOGICAL: No focal deficits SKIN: Skin normal color, texture and turgor with no lesions or eruptions. PSYCHIATRIC: Appropriate mood and affect Assessment and plan: 1. Sepsis secondary to obstructing nephrolithiasis with pyelonephritis 2. Nausea and vomiting 3. Type II demand myocardial infarction 4. Fevers and chills 5. Morbid obesity 6. Type 2 diabetes mellitus Patient will be continued on IV Zosyn for nitrite positive UTI with pyelonephritis and obstructing stone. Source control with urology this afternoon. Monitor blood pressures and bolus as needed. The patient has received nearly 4 or over 4 L of fluids since arrival to outside ER. This is stabilized her heart rate which was quite tachycardic on presentation. This hasresulted in a rise in her cardiac troponins which will be again check tomorrow morning and if any chest discomfort or shortness of breath occurs cardiac markers can be obtained stat this evening. Obtain echocardiogram as even if heart rate induced type II PA this should be evaluated for serious ischemic cardiomyopathy and that warrants ischemic evaluation and/or cardiology consult. All of her home meds been placed on hold as most of these are theoretically nephrotoxic in the setting of sepsis and could precipitate further dehydration. Check A1c to monitor long-term blood sugar control and initiate sliding scale insulin as needed for breakthrough hyperglycemia while off medications. Review of Systems Review of Systems All other systems reviewed & are negative unless noted below or in HPI [facility] Medical History (Updated 11/04/24 @ 17:59 by Kan Hardy DO) Diabetes Pulmonary emboli Surgical History History of hip replacement H/O colectomy Family History (Updated 06/10/21 @ 15:04 by Provider Conversion) Father Family history of lung cancer Hypertension 79 yrs Mother Myocardial infarction Heart disease 83 yrs Social History Smoking Status: Former smoker Substance Use Type: None Meds Medications and Allergies Allergies fluoxetine (Prozac) Allergy (Unknown, Verified 06/10/21 15:04) ropinirole (Requip) Allergy (Unknown, Verified 06/10/21 15:04) Unable to Assess Allergy (Verified 06/26/21 10:36) Home Medications atorvastatin 10 mg tablet 10 mg PO DAILY 11/04/24 [History Confirmed 11/04/24] empagliflozin 25 mg tablet (Jardiance) 25 mg PO DAILY 11/04/24 [History Confirmed 11/04/24] glipizide 5 mg tablet 5 mg PO BID 11/04/24 [History Confirmed 11/04/24] ibuprofen 800 mg tablet 800 mg PO TID PRN pain 11/04/24 [History Confirmed 11/04/24] losartan 25 mg tablet 25 mg PO DAILY 11/04/24 [History Confirmed 11/04/24] pioglitazone 30 mg tablet 30 mg PO DAILY 11/04/24 [History Confirmed 11/04/24] spironolactone 50 mg tablet 50 mg PO BID 11/04/24 [History Confirmed 11/04/24] tirzepatide 5 mg/0.5 mL subcutaneous pen injector (Mounjaro) 5 mg subcut .pinltl73/19/25 [History Confirmed 11/04/24] Exam Physical Exam Vital Signs: Temp Pulse Resp BP Pulse Ox O2 Del Method 98.0 F 98 16 118/56 L 94 L Room Air 11/04/24 14:02 11/04/24 14:02 11/04/24 14:02 11/04/24 14:02 11/04/24 14:02 11/04/24 14:02 Assessment & Plan Assessment/Plan (1) Sepsis: Plan . IP vs OBS Justification Based on differential dx, clinical care plan, and risk of adverse events, if untreated, in my clinical judgement this patient requires an acute care setting as: INPATIENT because of an expectation of an over 2 midnight stay. Estimated length of stay (# of days): 3 Documented By: Kan Hardy DO 11/04/24 14 59 Signed By: <Electronically signed by Kan Hardy DO> 11/04/24 1412 [facility] Work Phone: 1(655) 464-198101-19-2025 [place] [address] Hospitalist H&P Signed Patient: Bobby Lujan MR#: [id number] : 1965 Acct:[id number] Age/Sex: 59 / F Adm Date: 5 Loc: Room: [address] [place] [address] Type: ADM IN Attending Dr: Kan Hardy DO Copies to: MD Kan Thornton DO~ HPI DATE OF EXAMINATION: 11/04/24 CHIEF COMPLAINT: Abdominal pain HISTORY OF PRESENT ILLNESS: This patient is a 59-year-old female who presented to outside ER earlier today with 2 to 3 days of worsening abdominal pain predominantly in the right lower quadrant and right flank region. Describe rigors, fevers and chills and some shortness of breath associated with these febrile episodes. She had worsening vomiting that started around 4 AM this morning and was brought to the emergency department where her initial evaluation revealed tachycardia as high as 147 bpm,low normal blood pressures and underwent sepsis evaluation. IV fluids were initiated and blood pressures reportedly dipped as low as systolic levels in the80s did stabilize. Laboratory evaluation revealed leukopenia with WBCs of 2.2 and 7% band neutrophils, 53% segmented neutrophils. Platelets 160, H&H 13.7/41.8%. Chemistries noted BUN/creatinine of 23/1.31, lactic acidosis at LA 3.6. I suspect troponin was notably elevated at 350.4 and subsequent repeat further milagro vated at 848.2. Antibiotics were provided both IV Cipro and IV Zosyn for urinalysis that did revealevidence of urinary tract infection, greater than thousand glucose, nitrate positive, large amount of bacteria with WBCs being reported. Negative for protein. Cardiology at outside facility was contacted regarding what was regarded as demand ischemia resulting in troponin elevations and not thoughtto be a primary cardiac process. A full 30 cc/kg weight-based bolus was provided and on arrival here to the intensive care unit at [facility] she has relatively stable vital signs with a high normalheart rate in the 90s and blood pressures holding 118/56 mmHg. She is 94% oxygen saturation and breathing comfortably on room air. She has ongoing pain that is come back after she was treated with IV morphine at outside facility. This facility contacted urology on-call prior totransfer who reportedly agreed to see the patient and perform interventional process for obstructing stone which was noted at 6 mm on the right side with subsequent hydronephrosis. Physical Examination: GENERAL APPEARANCE: Alert, up in bed AAOx3 CARDIAC: Normal S1 and S2. No S3, S4 or murmurs. LUNGS: Clear to auscultation bilaterally. no wheeze/rhonchi/rales ABDOMEN: Positive bowel sounds. Soft, nontender. No guarding or signs of an acute abdomen MUSCULOSKELETAL: No joint erythema or tenderness. EXTREMITIES: No clubbing, cyanosis or edema NEUROLOGICAL: No focal deficits SKIN: Skin normal color, texture and turgor with no lesions or eruptions. PSYCHIATRIC: Appropriate mood and affect Assessment and plan: 1. Sepsis secondary to obstructing nephrolithiasis with pyelonephritis 2. Nausea and vomiting 3. Type II demand myocardial infarction 4. Fevers and chills 5. Morbid obesity 6. Type 2 diabetes mellitus Patient will be continued on IV Zosyn for nitrite positive UTI with pyelonephritis and obstructing stone. Source control with urology this afternoon. Monitor blood pressures and bolus as needed. The patient has received nearly 4 or over 4 L of fluids since arrival to outside ER. This is stabilized h er heart rate which was quite tachycardic on presentation. This hasresulted in a rise in her cardiac troponins which will be again check tomorrow morning and if any chest discomfort or shortness of breath occurs cardiac markers can be obtained stat this evening. Obtain echocardiogram as even if heart rate induced type II PA this should be evaluated for serious ischemic cardiomyopathy and that warrants ischemic evaluation and/or cardiology consult. All of her home meds been placed on hold as most of these are theoretically nephrotoxic in the setting of sepsis and could precipitate further dehydration. Check A1c to monitor long-term blood sugar control and initiate sliding scale insulin as needed for breakthrough hyperglycemia while off medications. Review of Systems Review of Systems All other systems reviewed & are negative unless noted below or in HPI [facility] Medical History (Updated 11/04/24 @ 17:59 by Kan Hardy DO) Diabetes Pulmonary emboli Surgical History History of hip replacement H/O colectomy Family History (Updated 06/10/21 @ 15:04 by Provider Conversion) Father Family history of lung cancer Hypertension 79 yrs Mother Myocardial infarction Heart disease 83 yrs Social History Smoking Status: Former smoker Substance Use Type: None Meds Medications and Allergies Allergies fluoxetine (Prozac) Allergy (Unknown, Verified 06/10/21 15:04) ropinirole (Requip) Allergy (Unknown, Verified 06/10/21 15:04) Unable to Assess Allergy (Verified 06/26/21 10:36) Home Medications atorvastatin 10 mg tablet 10 mg PO DAILY 11/04/24 [History Confirmed 11/04/24] empagliflozin 25 mg tablet (Jardiance) 25 mg PO DAILY 11/04/24 [History Confirmed 11/04/24] glipizide 5 mg tablet 5 mg PO BID 11/04/24 [History Confirmed 11/04/24] ibuprofen 800 mg tablet 800 mg PO TID PRN pain 11/04/24 [History Confirmed 11/04/24] losartan 25 mg tablet 25 mg PO DAILY 11/04/24 [History Confirmed 11/04/24] pioglitazone 30 mg tablet 30 mg PO DAILY 11/04/24 [History Confirmed 11/04/24] spironolactone 50 mg tablet 50 mg PO BID 11/04/24 [History Confirmed 11/04/24] tirzepatide 5 mg/0.5 mL subcutaneous pen injector (Mounjaro) 5 mg subcut .woyigm05/19/25 [History Confirmed 11/04/24] Exam Physical Exam Vital Signs: Temp Pulse Resp BP Pulse Ox O2 Del Method 98.0 F 98 16 118/56 L 94 L Room Air 11/04/24 14:02 11/04/24 14:02 11/04/24 14:02 11/04/24 14:02 11/04/24 14:02 11/04/24 14:02 Assessment & Plan Assessment/Plan (1) Sepsis: Plan . IP vs OBS Justification Based on differential dx, clinical care plan, and risk of adverse events, if untreated, in my clinical judgement this patient requires an acute care setting as: INPATIENT because of an expectation ofan over 2 midnight stay. Estimated length of stay (# of days): 3 Documented By: Kan Hardy DO 11/04/24 14 59 Signed By: 11/04/24 1759 [facility]01-19-2025 Consult note Author George Neumann [facility] Note Date/Time November 04, 2024 3 :29pm [facility] [address] [place] [address] Urology Consult Note Signed Patient: Bobby Lujan MR#: [id number] : 1965 Acct:[id number] Age/Sex: 59 / F Adm Date: 5 Loc: Room: [address] [place] [address] Type: ADM IN Attending Dr: Kan Hardy DO Copies to: MD George Thornton MD Michael R. Frings, DO~ History of Present Illness Consult Details Consult Date: 11/04/2024 Requesting Provider: Kan Hardy DO HPI: Pt w/ uti/sepsis---CT [facility] 11/04 showed 6mm right UPJ stone w/ hydro; transferred to [facility] for OR availability no previous stone; ua + uti; creat 1.3-----labs/xrays/notes indep reviewed/interpreted by me. Spent 90minutes consult coordinating care w/ [facility] ER and ICU here. [facility] Medical History (Updated 11/04/24 @ 15:28 by George Neumann MD) Diabetes Pulmonary emboli Surgical History History of hip replacement H/O colectomy Family History (Updated 06/10/21 @ 15:04 by Provider Conversion) Father Family history of lung cancer Hypertension 79 yrs Mother Myocardial infarction Heart disease 83 yrs Social History Smoking Status: Former smoker Substance Use Type: None Meds Medications and Allergies Allergies fluoxetine (Prozac) Allergy (Unknown, Verified 06/10/21 15:04) ropinirole (Requip) Allergy (Unknown, Verified 06/10/21 15:04) Unable to Assess Allergy (Verified 06/26/21 10:36) Home Medications atorvastatin 10 mg tablet 10 mg PO DAILY 11/04/24 [History Confirmed 11/04/24] empagliflozin 25 mg tablet (Jardiance) 25 mg PO DAILY 11/04/24 [History Confirmed 11/04/24] glipizide 5 mg tablet 5 mg PO BID 11/04/24 [History Confirmed 11/04/24] ibuprofen 800 mg tablet 800 mg PO TID PRN pain 11/04/24 [History Confirmed 11/04/24] losartan 25 mg tablet 25 mg PO DAILY 11/04/24 [History Confirmed 11/04/24] pioglitazone 30 mg tablet 30 mg PO DAILY 11/04/24 [History Confirmed 11/04/24] spironolactone 50 mg tablet 50 mg PO BID 11/04/24 [History Confirmed 11/04/24] tirzepatide 5 mg/0.5 mL subcutaneous pen injector (Mounjaro) 5 mg subcut .gkitzm55/19/25 [History Confirmed 11/04/24] Exam Physical Exam Vital Signs: Temp Pulse Resp BP Pulse Ox O2 Del Method 98.0 F 98 16 118/56 L 94 L Room Air 11/04/24 14:02 11/04/24 14:02 11/04/24 14:02 11/04/24 14:02 11/04/24 14:02 11/04/24 14:02 Narrative: gen--a and o x 3 abd--soft/morbid obese Results - Urology Imaging CT scan - abdomen: report reviewed (-CT [facility] 11/04 showed 6mm right UPJ stonew/ hydro;.) Assessment/Plan (1) UTI (urinary tract infection): Qualifiers: Urinary tract infection type: acute pyelonephritis Qualified Code(s): N10 - Acute pyelonephritis Code(s): N39.0 - Urinary tract infection, site not specified (2) Right ureteral stone: Plan: d/w pt issues at end; will proceed w/ urgent right jj stent now and she knows will need f/u surgery w/ local urology once infection cleared w/ right urs/stonepackage. R/b/a all d/w pt in regards to managment. Pt w/ uti/sepsis---CT [facility] 11/04 showed 6mm right UPJ stone w/ hydro; transferred to [facility] for OR availability no previous stone; ua + uti; creat 1.3-----labs/xrays/notes indep reviewed/interpreted by me. Spent 90minutes consult coordinating care w/ [facility] ER and ICU here. Code(s): N20.1 - Calculus of ureter Plan as above Documented By: George Neumann MD 11/04/24 1526 Signed By: <Electronically signed by George Neumann MD> 11/04/24 1529 [facility] Work Phone: 1(931) 887-485601-19-2025 Evaluation note* Diagnosis Onset Date Resolution Status Admit Date E coli bacteremia acute November 04, 2024 1:53pm Right ureteral stone acute Edmond garth 2024 1:53pm Sepsis acute November 04, 2024 1:53pm UTI (urinary tract infection) acute November 04, 2024 1:53pm [facility] Work Phone: 1(135) 935-741701-19-2025 [place] [address] Urology Consult Note Signed Patient: Bboby Lujan MR#: [id number] : 1965 Acct:[id number] Age/Sex: 59 / F Adm Date: 5 Loc: Room: [address] [place] [address] Type: ADM IN Attending Dr: Kan Hardy DO Copies to: MD George Thornton MD Michael R. Frings, DO~ History of Present Illness Consult Details Consult Date: 11/04/2024 Requesting Provider: Kan Hardy DO HPI: Pt w/ uti/sepsis---CT [facility] 11/04 showed 6mm right UPJ stone w/ hydro; transferred to [facility] for OR availability no previous stone; ua + uti; creat 1.3-----labs/xrays/notes indep reviewed/interpreted by me. [id number] consult coordinating care w/ [facility] ER and ICU here. [facility] Medical History (Updated 11/04/24 @ 15:28 by George Neumann MD) Diabetes Pulmonary emboli Surgical History History of hip replacement H/O colectomy Family History (Updated 06/10/21 @ 15:04 by Provider Conversion) Father Family history of lung cancer Hypertension 79 yrs Mother Myocardial infarction Heart disease 83 yrs Social History Smoking Status: Former smoker Substance Use Type: None Meds Medications and Allergies Allergies fluoxetine (Prozac) Allergy (Unknown, Verified 06/10/21 15:04) ropinirole (Requip) Allergy (Unknown, Verified 06/10/21 15:04) Unable to Assess Allergy (Verified 06/26/21 10:36) Home Medications atorvastatin 10 mg tablet 10 mg PO DAILY 11/04/24 [History Confirmed 11/04/24] empagliflozin 25 mg tablet (Jardiance) 25 mg PO DAILY 11/04/24 [History Confirmed 11/04/24] glipizide 5 mg tablet 5 mg PO BID 11/04/24 [History Confirmed 11/04/24] ibuprofen 800 mg tablet 800 mg PO TID PRN pain 11/04/24 [History Confirmed 11/04/24] losartan 25 mg tablet 25 mg PO DAILY 11/04/24 [History Confirmed 11/04/24] pioglitazone 30 mg tablet 30 mg PO DAILY 11/04/24 [History Confirmed 11/04/24] spironolactone 50 mg tablet 50 mg PO BID 11/04/24 [History Confirmed 11/04/24] tirzepatide 5 mg/0.5 mL subcutaneous pen injector (Mounjaro) 5 mg subcut ./19/25 [History Confirmed 11/04/24] Exam Physical Exam Vital Signs: Temp Pulse Resp BP Pulse Ox O2 Del Method 98.0 F 98 16 118/56 L 94 L Room Air 11/04/24 14:02 11/04/24 14:02 11/04/24 14:02 11/04/24 14:02 11/04/24 14:02 11/04/24 14:02 Narrative: gen--a and o x 3 abd--soft/morbid obese Results - Urology Imaging CT scan - abdomen: report reviewed (-CT [facility] 11/04 showed 6mm right UPJ stonew/ hydro;.) Assessment/Plan (1) UTI (urinary tract infection): Qualifiers: Urinary tract infection type: acute pyelonephritis Qualified Code(s): N10 - Acute pyelonephritis Code(s): N39.0 - Urinary tract infection, site not specified (2) Right ureteral stone: Plan: d/w pt issues at end; will proceed w/ urgent right jj stent now and she knows will need f/u surgeryw/ local urology once infection cleared w/ right urs/stonepackage. R/b/a all d/w pt in regards to managment. Pt w/ uti/sepsis---CT [facility] 11/04 showed 6mm right UPJ stone w/ hydro; transferred to [facility] for OR availability no previous stone; ua + uti; creat 1.3-----labs/xrays/notes indep reviewed/interpreted by me. [id number] consult coordinating care w/ [facility] ER and ICU here. Code(s): N20.1 - Calculus of ureter Plan as above Documented By: George Neumann MD 11/04/24 1526 Signed By: 11/04/[address] [place], [place] [address]859501-19-2025 Miscellaneous Notes* Telephone Encounter - Namita Bob - 11/04/2024 9:09 AM EST Contract: [facility] [phone] Tadeo gomez possible transfer for Kidney Stone * Telephone Encounter - Namita Bob - 11/04/2024 9:[address] Curran and [facility] Tele[facility] encounter Note* Telephone Encounter - Namita Bob - 11/04/2024 9:09 AM EST Contract: [facility] [phone] Tadeo re possible transfer for Kidney [facility]-19-2025 Telephone encounter Note* Telephone Encounter - Namita Bob - 11/04/2024 9:[address] Curran and [facility] call [facility]01-19-2025 Miscellaneous Notes* Telephone Encounter - Tessie Frias RN - 11/04/2024 8:41 AM EST Contract: Yashira Rosen @[facility] Access re transferring patient to [facility] * Telephone Encounter - Tessie Frias RN - 11/04/2024 8:[address] Curran on her cell phone- LM to call [facility] Access * Telephone Encounter - Tessie Frias RN - 11/04/2024 8:41 AM EST Asked Silas to call [facility] back if no response from MD within 15 minutes- he voiced understanding [facility]Access [facility] [place] Telephone encounter Note* Telephone Encounter - Tessie Frias RN - 11/04/2024 8:41 AM EST Contract: Yashira Rosen @[facility] Access re transferring patient to [facility] [id number] Telephone encounter Note* Telephone Encounter - Tessie Frias RN - 11/04/2024 8:[address] Curran on her cell phone- to call [facility] [id number] Telephone encounter Note* Telephone Encounter - Tessie Frias RN - 11/04/2024 8:41 AM EST Asked Silas to call [facility] back if no response from MD within 15 minutes- he voiced understanding [facility] ClrTouch [id number] History of Present illness Narrative* El Kirkpatrick MD - 09/24/2024 9:00 AM EST Images from the original note were not included. Patient ID: Bobby Lujan is a 59 y.o. female who presents for: Adult Wellness: See Scanned Wellness packet Advance Directive/Living Will: No Health Care Power of Public Health Administrator: No Review of Systems Constitutional: Positive for [...] mouth Daily 180 tablet 3 nystatin (Mycostatin) [id number] UNIT/GM powder Apply 1 application topically if [...] could make their wishes known through a livin g will, durable power of document review attorney for healthcare, or other advanced directives. We discussed telling [place] people about their advance and a copy will be kept in the EHR. I discussedthat they should also make me an emergency contact in their cell phone, and/or notify their POA that I have a copy of the advanced directives. 3. Screening mammogram, encounter for We had quite a long discussion concerning this. Even after discussion of The need for early diagnosis she declined. 4. Screening for osteoporosis declined 5. Menopause 6. BMI 45.0-49.9, adult ([facility]) Chronic problem. We did have a conversation concerning this and unfortunately is fairly emotional for her. For jaredw she is going to go home and think about it. I did suggest if she wants to try 1 of the other medications similar to the Trulicity, that she check with her insurance company formulary. documented in this encounterLafayette Regional Health [id number] History of Present illness Narrative* El Kirkpatrick MD - 09/06/2024 9:00 AM EST Images from the original note were not included. Patient ID: Bobby Lujan is a 59 y.o. female who presents for: Pt stated she started with calf pain Tuesday while she was in bed to the point it woke her up almostscreaming. Then it radiated into her raymundo and the muscles seemed like they were fighting themselves. It went on for two days making it hard to walk. She stated then Tuesday it started into her backand radiated into her abdomen and those muscles all seemed like they were fighting each other. Bothoccurrences started while she was sleeping. Pt states [...] mouth Daily 180 tablet 3 nystatin (Mycostatin) [id number] UNIT/GM powder Apply 1 application topically if [...] her pulse oximeter and put it on sowe can also see where her oxygen levels [...] 4. Morbid obesity (CMS/HCC) documented in this encounterLafayette Regional Health [id number] History of Present illness Narrative* Litzy Benson NP - 06/26/2024 3:50 PM EDT HPI: Historian of HPI: patient Bobby Lujan is a 59 y.o. female who presents [...] by mouth every 3rd (third) day for 3doses Dispense: 3 tablet; Refill: 0 2. Right acute otitis media Discussed. See 3. - cefdinir (Omnicef) 300 MG capsule; Take 1 capsule (300 mg) by mouth every 12 (twelve) hours for 7days Dispense: 14 capsule; Refill: 0 3. Acute [...] by mouth every 12 (twelve) hours for 7days Dispense: 14 capsule; Refill: 0 documented in this encounterLafayette Regional Health [id number] History of Present illness Narrative* El Kirkpatrick MD - 11/24/2023 9:30 AM EST Patient ID: Bobby Lujan is a 58 y.o. female who presents for: Subjective Bobby Lujan is a 58 y.o. female who presents [...] (RELAFEN) 1,500 mg, Oral, Daily nystatin (Mycostatin) [id number] UNIT/GM powder 1 application , Topical, As [...] the lesion. This was rather vesicular. We gotsome clear serosanguineous fluid out. Just minute pinpoint bleeding. No further evidence of abscessformation. The wound was dressed. I discussed dressing changes with her. We also discussed since this was not improving as far as her pain overall redness and swelling thatwe would add a second antibiotic therapy. She does give a history of chronic problems with skin and vaginal yeast and pretty much no she willget exacerbation we will go ahead and consult. [...] the area around the lesion. Morbid obesity ([facility]) BMI 45.0-49.9, adult ([facility]) Polypharmacy Current smoker documented in this encounterLafayette Regional Health [id number] History of Present illness Narrative* El Kirkpatrick MD - 11/22/2023 8:00 AM EST Patient ID: Bobby Lujan is a 58 y.o. female who presents [...] (RELAFEN) 1,500 mg, Oral, Daily nystatin (Mycostatin) [id number] UNIT/GM powder 1 application , Topical, As [...] with at least 8 ounces (large glass) ofwater. The actual cellulitis appears to be improving. I am concerned that there may be a small abscess formation. We've asked the patient to use intermittent heat every 15-20 minutes as much as possible andto continue the antibiotic. I would like to see her before we get into the weekend to see if I think we need to do an incision and drainage. Venous stasis dermatitis of left lower extremity - doxycycline (Vibramycin) 100 MG capsule; Take 1 capsule (100 mg) by mouth in the morning and 1 capsule (100 mg) before bedtime. Do all this for 10 days. Take with at least 8 ounces (large glass) ofwater. documented in this encounterLafayette Regional Health [id number] History of Present illness Narrative* El Kirkpatrick MD - 11/16/2023 10:30 AM EST Patient ID: Bobby Woodruff Vladimir is a 58 y.o. female who presents for: Subjective Bobby Lujan is a 58 y.o. female who presents [...] erythema in the more proximal region almost circumferentially.There is approximately 1+ pitting edema of the [...] factors. LDL-C is now calculated using the Brain-Abrahan calculation, which is a validated novel method providing better accuracy than the Friedewald equation in the estimation of LDL-C. Brain SS et al. MARCIA. 2013;310(19): 5647-0085 (http://education.[employer]/faq/QHA140) CHOL/HDLC RATIO 11/23/2023 3.1 <5.0 (calc) Final [...] of diabetes for children. HbA1c performed on [employer] platform. Effective 10/04/23 a change in test [...] (RELAFEN) 1,500 mg, Oral, Daily nystatin (Mycostatin) [id number] UNIT/GM powder 1 application , Topical, As [...] would do an incision and drainage. We didtalk about using moist intermittent heat. We will recheck her back in a couple days. Venous stasis dermatitis of left lower extremity - triamcinolone (Kenalog) 0.5 % ointment; Apply topically 2 (two) times a day Type 2 diabetes mellitus with hyperglycemia, without long-term current use of insulin ([facility]) Comorbid condition that complicates the risk for significant cellulitis of mixed pathology. documented in this encounterLafayette Regional Health [id number] NoteOPERATIVE NOTE OPERATION DATE: 03/16/2023 PREOPERATIVE DIAGNOSIS: Inflamed epidermal cyst mid back. POSTOPERATIVE DIAGNOSIS: Inflamed epidermal cyst mid back. PROCEDURE: Excisional biopsy inflamed epidermal cyst mid back. SURGEON: Kan Chen M.D. ANESTHESIA: Local with 0.5% Marcaine plain. [...] home in good condition. [facility] Discharge instructions Follow Up Care 11/05/2022 12:05:07 With:Kan CHEN MD, SUR Address: [address] [place] [phone]- When: only if needed General Surgery [place] Evaluation + Plan note Future Appointments Appointment Date:11/12/2022 03:20:00 PM Scheduled Provider:Kan CHEN MD Location:[facility] Appointment Type:GS Established 15 Diagnostic Tests Pending * Wound Culture [facility]ments Appointment Date:11/22/2024 01:30:00 PM Scheduled Provider: Location:[facility] Appointment Type:Surgery FT Diagnostic Tests Pending * Urine Culture 11/13/24 [facility] Evaluation + Plan note Future Appointments Appointment Date:01/01/2025 08:20:00 AM Scheduled Provider:MAGALIE CULVER PA-C Location:[facility] Appointment Type:URO Office Visit [facility] Evaluation note* Diagnosis Cellulitis of left ankle Venous stasis dermatitis of left lower extremity documented in this encounter [facility] HealthcareEvaluation note* Diagnosis Candidiasis- Primary Cellulitis of left ankle Venous stasis dermatitis of left lower extremity Morbid obesity ([facility]) Morbid obesity BMI 45.0-49.9, adult ([facility]) Polypharmacy Issue of repeat prescriptions Current smoker Type 2 diabetes mellitus with hyperglycemia, without long-term current use of insulin ([facility]) Type 2 diabetes mellitus with other diabetic kidney complication ([facility]) Diabetic nephropathy associated with type 2 diabetes mellitus (HCC) ([facility] Mixed dyslipidemia ([facility]) Polypharmacy Issue of repeat prescriptions Morbid obesity ([facility]) Morbid obesity BMI 45.0-49.9, adult ([facility]) documented in this encounter [facility] HealthcareEvaluation note* Diagnosis Cellulitis of left ankle- Primary Venous stasis dermatitis of left lower extremity Type 2 diabetes mellitus with hyperglycemia, without long-term current use of insulin ([facility]) Type 2 diabetes mellitus with hyperglycemia, without long-term current use of insulin ([facility]) Type 2 diabetes mellitus with other diabetic kidney complication ([facility]) Diabetic nephropathy associated with type 2 diabetes mellitus (HCC) ([facility]) Mixed dyslipidemia ([facility]) Polypharmacy Issue of repeat prescriptions Morbid obesity ([facility]) Morbid obesity BMI 45.0-49.9, adult ([facility]) documented [facility] encounter [facility]* Diagnosis Type 2 diabetes mellitus with hyperglycemia, without long-term current use of insulin ([facility]) documented in [facility] encounter [facility]* Diagnosis Venous (peripheral) insufficiency Unspecified venous (peripheral) insufficiency Encounter for wellness examination in adult Advance directive discussed with patient Screening mammogram, encounter for Screening for osteoporosis Special screening for osteoporosis Menopause Symptomatic menopausal or female climacteric states Morbid obesity ([facility]) Morbid obesity documented in [facility] encounter [facility]* Diagnosis Muscle spasm- Primary Spasm of muscle Tachycardia Unspecified tachycardia Arthralgia, unspecified joint Morbid obesity ([facility]) Morbid obesity documented in [facility] encounter [facility]* Diagnosis Right acute otitis media- Primary Unspecified otitis media Dysuria Acute rhinosinusitis documented in [facility] encounter [facility]* Diagnosis Non-recurrent acute suppurative otitis media of right ear without spontaneous rupture of tympanic membrane- Primary Monilial vaginitis Polypharmacy Issue of repeat prescriptions documented [facility] this encounter [facility]* Diagnosis Encounter for wellness examination in adult Advance directive discussed with patient Screening mammogram, encounter for Screening for osteoporosis Special screening for osteoporosis Menopause Symptomatic menopausal or female climacteric states BMI 45.0-49.9, adult ([facility]) documented in [facility] encounter [facility]* Diagnosis Sepsis due to Escherichia coli without acute organ dysfunction ([facility])- Primary Right ureteral stone E. coli UTI Urinary tract infection, site not specified Encounter for examination following treatment at hospital Morbid obesity ([facility]) Morbid obesity BMI 50.0-59.9, adult ([facility]) Current smoker Type 2 diabetes mellitus with hyperglycemia, without long-term current use of insulin ([facility]) Type 2 diabetes mellitus with other diabetic kidney complication ([facility]) Diabetic nephropathy associated with type 2 diabetes mellitus (HCC) ([facility]) Stage 2 chronic kidney disease Microalbuminuria Proteinuria Mixed dyslipidemia ([facility]) Polypharmacy Issue of repeat prescriptions Morbid obesity ([facility]) Morbid obesity Current smoker BMI 50.0-59.9, adult ([facility]) documented in this encounter [facility]* Diagnosis Type 2 diabetes mellitus with other diabetic kidney complication ([facility]) documented in this encounter [facility]* Diagnosis Venous (peripheral) insufficiency Unspecified venous (peripheral) insufficiency Diabetic nephropathy associated with type 2 diabetes mellitus (HCC) ([facility]) documented in this encounter [facility]Evaluation [facility]* Diagnosis Sepsis with acute renal failure without septic shock, due to unspecified organism, unspecified acute renal failure type ([facility])- Primary Pyelonephritis Unspecified pyelonephritis Acute kidney injury superimposed on chronic kidney disease ([facility]) Hypoalbuminemia due to protein-calorie malnutrition ([facility]) Weakness generalized Other malaise and fatigue Encounter for examination following treatment at hospital Monilial vaginitis Type 2 diabetes mellitus with hyperglycemia, without long-term current use of insulin ([facility]) documented in this encounter [facility] HealthcareEvaluation note* Diagnosis Type 2 diabetes mellitus with hyperglycemia, without long-term current use of insulin ([facility]) Type 2 diabetes mellitus with other diabetic kidney complication ([facility]) Diabetic nephropathy associated with type 2 diabetes mellitus (HCC) ([facility]) Stage 2 chronic kidney disease Microalbuminuria Proteinuria Morbid obesity ([facility]) Morbid obesity BMI 50.0-59.9, adult ([facility]) Polypharmacy Issue of repeat prescriptions Mixed dyslipidemia ([facility]) BMI 45.0-49.9, adult ([facility]) documented in this encounter [facility] HealthcareEvaluation note* Diagnosis Monilial vaginitis- Primary documented in this encounter [facility]* Diagnosis Type 2 diabetes mellitus with diabetic polyneuropathy, without long-term current use of insulin ([facility])- Primary Stage 2 chronic kidney disease Diabetic nephropathy associated with type 2 diabetes mellitus (HCC) ([facility]) Microalbuminuria Proteinuria Mixed dyslipidemia ([facility] Morbid obesity ([facility]) Morbid obesity BMI 50.0-59.9, adult ([facility]) Venous (peripheral) insufficiency Unspecified venous (peripheral) insufficiency Primary osteoarthritis of left hip documented in this encounter [facility]* Diagnosis Candidiasis- Primary documented in this encounter [facility]Evaluation note* Diagnosis CECE (obstructive sleep apnea)- Primary Obstructive sleep apnea (adult) (pediatric) Nocturnal hypoxemia Polypharmacy Issue of repeat prescriptions Morbid obesity ([facility]) Morbid obesity BMI 50.0-59.9, adult ([facility]) Primary osteoarthritis of left hip Chronic bilateral low back pain without sciatica Chronic bilateral low back pain without sciatica Primary osteoarthritis of left hip documented in this encounter [facility] HealthcareEvaluation note* Diagnosis Left hip pain- Primary Pain in joint, pelvic region and thigh documented in this encounter [facility] HealthcareHistory of Present illness Narrative* El Kirkpatrick MD - 07/02/2024 2:00 PM EDT Images from the original note were not included. Patient ID: Bobby Lujan is a 59 y.o. female who presents for: Pt called last week not feeling well. With out I directed her to . She went to the [facility] andcalled this morning leaving stating she is [...] mouth Daily 180 tablet 3 nystatin (Mycostatin) [id number] UNIT/GM powder Apply 1 application topically if [...] of evaluation and management. [facility] Narrative No data available for this section [facility] No data available for this section [facility]ructionsNot on filedocumented in this encounter [facility] SystemInstructionsNot on filedocumented in this encounter [facility] No data available for this section [facility] Summary Purpose Family History No Family History Records Found Relationship Condition Age at Onset Recorded Date/T lexi father Family history of lung cancer Unknown Hypertension Unknown Unknown mother Myocardial infarction Unknown Heart disease Unknown Advance Directives No Advanced Directives Records Found Advance Directive Response Recorded Date/ Time Advance Directives No May 26, 2019 9:29am Chief Complaint and Reason for Visit Chief Complaint Admit Date Kidney stones, sepsis , elevated troponi n November 04, 2024 1:53pm Kidney stones, sepsis , elevated troponi n November 08, 2024 9:00am Reason for Visit Admit Date E coli bacteremia November 04, 2024 1 :53pm Right ureteral stone November 04, 2024 1:53pm Sepsis November 04, 2024 1 :53pm UTI (urinary tract infection) November 042024 1:53pm Additional Source Comments INFORMATION SOURCE (unrecogn ized section and content) DATE CREATED AUTHOR 05/07/2022 [facility] dical Specialist DATE CREATED AUTHOR AUTHOR'S ORGANIZ ATION 03/26/2023 [facility] DATE CREATED AUTHOR AUTHOR'S ORGANIZ ATION 11/15/2024 [facility] DATE CREATED AUTHOR AUTHOR'S ORGANIZ ATION 11/17/2024 [facility] DATE CREATED AUTHOR AUTHOR'S ORGANIZ ATION 11/23/2024 [facility] DATE CREATED AUTHOR AUTHOR'S ORGANIZ ATION 11/25/2024 [facility] DATE CREATED AUTHOR AUTHOR'S ORGANIZ ATION 03/05/2025 [facility] DATE CREATED AUTHOR AUTHOR'S ORGANIZ ATION 06/28/2025 [facility] DATE CREATED AUTHOR AUTHOR'S ORGANIZ ATION 07/21/2025 [facility] dical Specialists [facility] Patient Care team informatio n (unrecognized section and content) Manager Hydraulic Relationship Specialty Start Date End Date El Kirkpatrick MD [address] [place] [address] PCP - General Family Medicine 03/09/23 El Kirkpatrick MD [address] [place] [address] PCP - [employer] 09/16/23 Manager Hydraulic Relationship Specialty Start Date End Date El Kirkpatrick MD [address] [place] [address] (Fax) PCP - General Family Medicine 03/09/23 El Kirkpatrick MD [address] [place] [address] (Fax) PCP - [employer] 09/16/23 Manager Hydraulic Relationship Specialty Start Date End Date El Kirkpatrick MD [address] [place], [facility] (Fax) PCP - General Family Medicine 03/09/23 El Kirkpatrick MD [address] [place], [facility] (Fax) PCP - [employer] 09/16/23 Manager Hydraulic Relationship Specialty Start Date End Date El Kirkpatrick MD [address] [place] [address] (Fax) PCP - General Family Medicine 03/09/23 El Kirkpatrick MD [address] [place], [facility] (Fax) PCP - [employer] 09/16/23 Manager Hydraulic Relationship Specialty Start Date End Date El Kirkpatrick MD [address] [place] [address] (Fax) PCP - General Family Medicine 03/09/23 El Kirkpatrick MD [address] [place] [address] (Fax) PCP - [employer] 09/16/23 Manager Hydraulic Relationship Specialty Start Date End Date El Kirkpatrick MD [address] [place] [address] (Fax) PCP - General Family Medicine 03/09/23 El Kirkpatrick MD [address] [place] [address] (Fax) PCP - [employer] 09/16/23 Manager Hydraulic Relationship Specialty Start Date End Date lE Kirkpatrick MD [address] [place] [phone] (Fax) PCP - General Family Medicine 03/09/23 El Kirkpatrick MD [address] [place] [phone] (Fax) PCP - [employer] 09/16/23 Manager Hydraulic Relationship Specialty Start Date End Date El Kirkpatrick MD [address] [place] [address] (Fax) PCP - General Family Medicine 03/09/23 El Kirkpatrick MD [address] [place] [address] (Fax) PCP - [employer] 08/17/23 Manager Hydraulic Relationship Specialty Start Date End Date El Kirkpatrick MD [address] [place] [address] (Fax) PCP - General Family Medicine 03/09/23 El Kirkpatrick MD [address] [place] [address] (Fax) PCP - [employer] 08/17/23 Manager Hydraulic Relationship Specialty Start Date End Date El Kirkpatrick MD [address] [place] [address] (Fax) PCP - General Family Medicine 03/09/23 El Kirkpatrick MD [address] [place] [address] (Fax) PCP - [employer] 08/17/23 Manager Hydraulic Relationship Specialty Start Date End Date El Kirkpatrick MD [address] [place] [address] (Fax) PCP - General Family Medicine 03/09/23 El Kirkpatrick MD [address] [place] [address] (Fax) PCP - [employer] 08/17/23 Manager Hydraulic Relationship Specialty Start Date End Date El Kirkpatrick MD [address] [facility] [place] [address] (Fax) PCP - General Family Medicine 03/09/23 El Kirkpatrick MD [address] [place] [address] (Fax) PCP - [employer] 08/17/23 Manager Hydraulic Relationship Specialty Start Date End Date El Kirkpatrick MD [address] [facility] [place] [address] (Fax) PCP - General Family Medicine 03/09/23 El Kirkpatrick MD [address] [facility] [place] [address] (Fax) PCP - Tula Commercial 08/17/23 Manager Hydraulic Relationship Specialty Start Date End Date El Kirkpatrick MD [address] [place] [address] (Fax) PCP - General Family Medicine 03/09/23 El Kirkpatrick MD [address] [place] [address] (Fax) PCP - [place] [employer] 08/17/23 Manager Hydraulic Relationship Specialty Start Date End Date El Kirkpatrick MD [address] [place] [address] (Fax) PCP - General Family Medicine 03/09/23 El Kirkpatrick MD [address] [place] [address] (Fax) PCP - [place] [employer] 08/17/23 Manager Hydraulic Relationship Specialty Start Date End Date El Kirkpatrick MD [address] [place] [address] (Fax) PCP - General Family Medicine 03/09/23 El Kirkpatrick MD [address] [place] [address] (Fax) PCP - [place] [employer] 08/17/23 Team Status: Active Member Role Status Dates El Kirkpatrick MD Primary Care Provider Active Team Status: Inactive Member Role Status Dates Kan Hardy DO Admit Provider Active Start: November 04, 2024 End: November 08, 2024 El Kirkpatrick MD Primary Care Provider Active Start: November 04, 2024 End: November 08, 2024 George Neumann MD Other Provider Active Start: November 04, 2024 End: November 08, 2024 Glenn Rivera MD Attending Provider Active Star t: November 04, 2024 End: November 08, 2024 Kan Pedersen MD Other Provider Active Start: November 04, 2024 End: November 08, 2024 Team Status: Active Member Role Status Dates Kan MarkDO asiya Admit Provider Active Start: November 08, 2024 El Kirkpatrick MD Primary Care Provider Active Start: November 08, 2024 George Neumann MD Other Provider Active Start: November 08, 2024 Glenn Rivera MD Other Provider Active Start: J anuary 2024 Kan Pedersen MD Attending Provider, Other Provider Active Start: November 08, 2024 Manager Hydraulic Relationship Specialty Start Date End Date El Kirkpatrick MD [address] [place] [address] (Fax) PCP - General Family Medicine 03/09/23 El Kirkpatrick MD [address] [place] [address] (Fax) PCP - [employer] [employer] 08/17/23 Manager Hydraulic Relationship Specialty Start Date End Date El Kirkpatrick MD [address] [place] [address] (Fax) PCP - General Family Medicine 03/09/23 El Kirkpatrick MD [address] [place] [address] (Fax) PCP - [place] [employer] 08/17/23 Manager Hydraulic Relationship Specialty Start Date End Date El Kirkpatrick MD [address] [place] [address] (Fax) PCP - General Family Medicine 03/09/23 El Kirkpatrick MD [address] [place] [address] (Fax) PCP - [place] [employer] 08/17/23 Manager Hydraulic Relationship Specialty Start Date End Date El Kirkpatrick MD [address] [place] [address] (Fax) PCP - General Family Medicine 03/09/23 El Kirkpatrick MD [address] [place] [address] (Fax) PCP - [place] [employer] 08/17/23 Manager Hydraulic Relationship Specialty Start Date End Date El Kirkpatrick MD [address] [place] [address] (Fax) PCP - General Family Medicine 03/09/23 El Kirkpatrick MD [address] [place] [address] (Fax) PCP - [place] [employer] 08/17/23 Manager Hydraulic Relationship Specialty Start Date End Date El Kirkpatrick MD [address] [place] [address] (Fax) PCP - General Family Medicine 03/09/23 El Kirkpatrick MD [address] [place] [address] (Fax) PCP - [place] [employer] 08/17/23 Manager Hydraulic Relationship Specialty Start Date End Date El Kirkpatrick MD [address] [place] [address] (Fax) PCP - General Family Medicine 03/09/23 El Kirkpatrick MD [address] [place] [address] (Fax) PCP - [place] [employer] 08/17/23 Manager Hydraulic Relationship Specialty Start Date End Date El Kirkpatrick MD [address] [place] [address] (Fax) PCP - General Family Medicine 03/09/23 El Kirkpatrick MD [address] [place] [address] (Fax) PCP - [place] [employer] 08/17/23 Manager Hydraulic Relationship Specialty Start Date End Date El Kirkpatrick MD [address] [place] [address] (Fax) PCP - General Family Medicine 03/09/23 El Kirkpatrick MD [address] [place] [address] (Fax) PCP - [place] [employer] 08/17/23 Manager Hydraulic Relationship Specialty Start Date End Date El Kirkpatrick MD [address] [place] [address] (Fax) PCP - General Family Medicine 03/09/23 Manager Hydraulic Relationship Specialty Start Date End Date El Kirkpatrick MD [address] [place] [address] (Fax) PCP - General Family Medicine 03/09/23 Manager Hydraulic Relationship Specialty Start Date End Date El Kirkpatrick MD [address] [place] [address] (Fax) PCP - General Family Medicine 03/09/23 Manager Hydraulic Relationship Specialty Start Date End Date El Kirkpatrick MD [address] [place] [address] (Fax) PCP - General Family Medicine 03/09/23 Manager Hydraulic Relationship Specialty Start Date End Date El Kirkpatrick MD [address] [place] [address] PCP - General Family Medicine 03/09/23 Manager Hydraulic Relationship Specialty Start Date End Date El Kirkpatrick MD [address] [place] [address] PCP - General Family Medicine 03/09/23 Reason for Visit (unrecogniz ed section and content) Reason Comments Cellulitis Reason Comments Med Change Request Reason Comments Med Refill Reason Comments Earache Reason Comments Annual Exam Reason Onset Date Comments Consult 11/04/2024 Reason Onset Date Comments Nephrolithiasis 11/04/2024 Reason Comments Follow-up Reason Onset Date Comments Care Coordination 01/21/2025 Reason Comments Hyperlipidemia Diabetes Reason Comments CPAP Reason Comments Pain FOR RECORDS PERTAINING TO PATIENTS WHO ARE [...] BE BASED ON THE PRIMARY CLINICAL RECORDS. [facility] [employer] [facility]. provides no warranty or guarantee of the accuracy or completeness of information in this document.
--- NOTE | 2025-08-02 18:40 | P.STRESS_ITS ---
Stress Test Stress Test Allergies Allergy/AdvReac Type Severity Reaction Status Date / Time fluoxetine (From Prozac) Allergy Severe Hallucinati Verified 11/26/24 13:50 ng Requesting physician: VALENTINE KIRKPATRICK Procedure: This was a Treadmill stress test performed at the [facility] on 08/01/2025. The patient was attached to electrocardiographic monitoring. Baseline vital signs and ECG were obtained. The patient exercised on the treadmill according to the Brodie protocol. Total exercise time was 1 minute and 46 seconds. The patient reached stage one of the Brodie protocol and achieved 4.6 METS. The test was stopped due to inability of the patient to continue because of limitation by hip pain. Resting heart rate was 90 bpm and peak heart rate was 148 bpm. This represents 93% of maximum predicted heart rate. Resting blood pressure was 133/72 and peak blood pressure was 184/83. General Information: Reason for Stress Test: Preop evaluation. Cardiac History and Risk Factors: Diabetes. Resting 12 - Lead Electrocardiogram: Normal sinus rhythm. Stress Test: Protocol: Treadmill exercise, Brodei protocol. Exercise Capacity: Poor. Blood Pressure Response: Resting hypertension, hypertensive response to exercise. Rhythm:, No arrhythmias seen. ST - Response: No ischemic ST changes seen. Patient Response: No chest pain. Interpretation: 1. No evidence of ischemic ECG changes seen during treadmill exercise. 2. Poor functional capacity, likely limited by hip pain. 3. Larsen treadmill score of +2 is associated with intermediate risk for long- term cardiac events.
== END 2025-08-01 09:06 | disposition home or self-care (01) ==
LOC: CARD 09:05
PROVIDERS: PCP Family Medicine; Visit Provider Family Medicine
DX: R06.02 Shortness of breath (principal); I47.10 Supraventricular tachycardia, unspecified; I49.3 Ventricular premature depolarization